=== PATIENT | female | born 1950 | race Caucasian/White ===

== ENCOUNTER 2017-05-27 22:01 | Inpatient (IN) | payer MEDICARE ==
--- NOTE | 2017-05-27 22:35 | ED ---
General Adult HPI - General Chief complaint: Shortness of Breath Stated complaint: poss congestive heart failure Time Seen by Provider: 05/27/17 22:28 Source: patient, RN notes reviewed Mode of arrival: ambulatory Limitations: no limitations - History of Present Illness Initial comments: Patient is a pleasant 67-year-old female presenting to the emergency Department with cough and shortness of breath. Symptoms have progressed over several days. No chest pain. Patient does have occasional yellow sputum. Patient states it is difficult to get the sputum up. No fevers. Patient has had similar symptoms previously associated with congestive heart failure. No leg swelling however patient states she never gets leg swelling. - Related Data Home Medications Medication Instructions Recorded Confirmed Cholecalciferol [Vitamin D3] 5,000 unit PO DAILY 09/23/15 05/27/17 Atorvastatin [Lipitor] 80 mg PO HS 01/08/17 05/27/17 Clopidogrel [Plavix] 75 mg PO DAILY 01/08/17 05/27/17 Docusate Sodium [Dok] 100 mg PO BID 01/08/17 05/27/17 Famotidine [Pepcid] 20 mg PO DAILY 01/08/17 05/27/17 Ferrous Sulfate [Feosol] 325 mg PO TID 01/08/17 05/27/17 Furosemide [Lasix] 20 mg PO DAILY 01/08/17 05/27/17 Aspirin [Children's Aspirin] 81 mg PO DAILY 05/27/17 05/27/17 Budesonide/Formoterol Fumarate 2 puff INHALATION RT-BID 05/27/17 05/27/17 [Symbicort 160-4.5 Mcg Inhaler] Calcium Carbonate [Calcium] 600 mg PO DAILY 05/27/17 05/27/17 Doxycycline Hyclate 100 mg PO DAILY 05/27/17 05/27/17 HYDROcodone/APAP 7.5-325MG [[place] 1 tab PO DAILY PRN 05/27/17 05/27/17 7.5-325] Prolia (Unknown Dose) 1 dose SQ Q180D 05/27/17 05/27/17 Allergies Allergy/AdvReac Type Severity Reaction Status Date / Time Iodinated Contrast- Oral and Allergy Anaphylaxis Verified 05/27/17 22:49 IV Dye [Iodinated Contrast Media - IV Dye] Review of Systems ROS Statement: Those systems with pertinent positive or pertinent negative responses have been documented in the HPI. ROS Other: All systems not noted in ROS Statement are negative. Constitutional: Denies: fever Eyes: Denies: eye pain ENT: Denies: ear pain Respiratory: Reports: cough, dyspnea Cardiovascular: Denies: chest pain Endocrine: Denies: fatigue Gastrointestinal: Denies: abdominal pain Genitourinary: Denies: urgency Musculoskeletal: Denies: back pain Skin: Denies: rash Neurological: Denies: weakness Past Medical History Past Medical History: COPD, Hyperlipidemia, Hypertension, Osteoarthritis (OA), Pneumonia, Renal Disease Additional Past Medical History / Comment(s): aaa 09/2015 pneumonia with sepsis , R parotitis, nephrolithiasis yrs ago, sciatica-R side low back. History of Any Multi-Drug Resistant Organisms: None Reported Past Surgical History: Joint Replacement, Orthopedic Surgery, Tonsillectomy Additional Past Surgical History / Comment(s): Partial thyroidectomy, T total knee arthroplasty, spinal cord stimulator insertion and removal, colonoscopies with benign polypectomies. Past Anesthesia/Blood Transfusion Reactions: No Reported Reaction Past Psychological History: No Psychological Hx Reported Smoking Status: Former smoker Past Alcohol Use History: None Reported Past Drug Use History: None Reported - Past Family History Mother Family Medical History: Cancer, Congestive Heart Failure (CHF) Additional Family Medical History / Comment(s): Mother in her early 80's Father Family Medical History: Myocardial Infarction ([place]) Additional Family Medical History / Comment(s): Father of a [place] in his 50's. General Exam Limitations: no limitations General appearance: alert, in no apparent distress Head exam: Present: atraumatic Eye exam: Present: normal appearance, PERRL ENT exam: Present: normal oropharynx Neck exam: Present: normal inspection Respiratory exam: Present: rales Cardiovascular Exam: Present: regular rate, normal rhythm GI/Abdominal exam: Present: soft. Absent: tenderness Extremities exam: Present: normal inspection. Absent: pedal edema, calf tenderness Neurological exam: Present: alert Psychiatric exam: Present: normal affect, normal mood Skin exam: Present: normal color Course Vital Signs 05/27/17 05/27/17 05/27/17 22:06 22:18 23:44 Temperature 98.3 F Pulse Rate 102 H 105 H 101 H Respiratory 18 18 16 Rate Blood Pressure 120/68 138/70 136/70 O2 Sat by Pulse 95 97 98 Oximetry EKG Findings - EKG Comments: EKG Findings:: Sinus tachycardia 105. MD 170. QRS 156. QT 386. QTc 504. Left axis. Left bundle-branch block. Nonspecific ST-T. Medical Decision Making - Medical Decision Making Patient reevaluated and resting comfortably in bed. Patient does complain of discomfort with cough only. Patient and family updated on results and plan. Case discussed with Dr. Gomes, who will admit for Dr. Moreno. Cardiology will be placed on consult. - Lab Data Result diagrams: 05/27/17 22:59 05/27/17 22:59 Lab Results 05/27/17 05/27/17 05/27/17 Range/Units 22:59 22:59 22:59 WBC 16.4 H (3.8-10.6) k/uL RBC 3.90 (3.80-5.40) m/uL Hgb 11.5 (11.4-16.0) gm/dL Hct 35.0 (34.0-46.0) % MCV 89.7 (80.0-100.0) fL MCH 29.3 (25.0-35.0) pg MCHC 32.7 (31.0-37.0) g/dL RDW 16.0 H (11.5-15.5) % Plt Count 288 (150-450) k/uL Neutrophils % 87 % Lymphocytes % 5 % Monocytes % 7 % Eosinophils % 1 % Basophils % 0 % Neutrophils # 14.2 H (1.3-7.7) k/uL Lymphocytes # 0.8 L (1.0-4.8) k/uL Monocytes # 1.1 H (0-1.0) k/uL Eosinophils # 0.2 (0-0.7) k/uL Basophils # 0.0 (0-0.2) k/uL PT (9.0-12.0) sec INR (<1.2) APTT (22.0-30.0) sec Sodium 137 (137-145) mmol/L Potassium 4.0 (3.5-5.1) mmol/L Chloride 101 (98-107) mmol/L Carbon Dioxide 24 (22-30) mmol/L Anion Gap 12 mmol/L BUN 14 (7-17) mg/dL Creatinine 0.80 (0.52-1.04) mg/dL Est GFR (MDRD) Af Amer >60 (>60 ml/min/1.73 sqM) Est GFR (MDRD) Non-Af >60 (>60 ml/min/1.73 sqM) Glucose 124 H (74-99) mg/dL Calcium 9.7 (8.4-10.2) mg/dL Magnesium 1.9 (1.6-2.3) mg/dL Total Bilirubin 0.6 (0.2-1.3) mg/dL AST 19 (14-36) U/L ALT 33 (9-52) U/L Alkaline Phosphatase 117 (38-126) U/L Total Creatine Kinase 56 (30-135) U/L CK-MB (CK-2) 0.6 (0.0-2.4) ng/mL CK-MB (CK-2) Rel Index 1.1 Troponin I 0.021 (0.000-0.034) ng/mL NT-Pro-B Natriuret Pep pg/mL Total Protein 7.1 (6.3-8.2) g/dL Albumin 4.4 (3.5-5.0) g/dL 05/27/17 05/27/17 Range/Units 22:59 22:59 WBC (3.8-10.6) k/uL RBC (3.80-5.40) m/uL Hgb (11.4-16.0) gm/dL Hct (34.0-46.0) % MCV (80.0-100.0) fL MCH (25.0-35.0) pg MCHC (31.0-37.0) g/dL RDW (11.5-15.5) % Plt Count (150-450) k/uL Neutrophils % % Lymphocytes % % Monocytes % % Eosinophils % % Basophils % % Neutrophils # (1.3-7.7) k/uL Lymphocytes # (1.0-4.8) k/uL Monocytes # (0-1.0) k/uL Eosinophils # (0-0.7) k/uL Basophils # (0-0.2) k/uL PT 11.1 (9.0-12.0) sec INR 1.1 (<1.2) APTT 31.4 H (22.0-30.0) sec Sodium (137-145) mmol/L Potassium (3.5-5.1) mmol/L Chloride (98-107) mmol/L Carbon Dioxide (22-30) mmol/L Anion Gap mmol/L BUN (7-17) mg/dL Creatinine (0.52-1.04) mg/dL Est GFR (MDRD) Af Amer (>60 ml/min/1.73 sqM) Est GFR (MDRD) Non-Af (>60 ml/min/1.73 sqM) Glucose (74-99) mg/dL Calcium (8.4-10.2) mg/dL Magnesium (1.6-2.3) mg/dL Total Bilirubin (0.2-1.3) mg/dL AST (14-36) U/L ALT (9-52) U/L Alkaline Phosphatase (38-126) U/L Total Creatine Kinase (30-135) U/L CK-MB (CK-2) (0.0-2.4) ng/mL CK-MB (CK-2) Rel Index Troponin I (0.000-0.034) ng/mL NT-Pro-B Natriuret Pep 8770 pg/mL Total Protein (6.3-8.2) g/dL Albumin (3.5-5.0) g/dL - Radiology Data Radiology results: image reviewed (Chest x-ray does show some hyperinflation. Chronic scarring.) Disposition Clinical Impression: Congestive heart failure, COPD with exacerbation Disposition: ADMITTED IP TO THIS HOSP Referrals: Daxa Moreno DO [Primary Care Provider] - 1-2 days Decision Time: 00:26
[2017-05-27 23:07] LABS: Basophils % (A) 0 %; CH 28.6; Eosinophils # (A) 0.2 k/uL (0-0.7); Eosinophils % (A) 1 %; HDW 2.67; HGB 11.5 gm/dL (11.4-16.0); Luc # (Auto) 0.14; Luc % (Auto) 1; Lymphocytes # (A) 0.8 k/uL (1.0-4.8); Lymphocytes % (A) 5 %; MCH 29.3 pg (25.0-35.0); MCHC 32.7 g/dL (31.0-37.0); MCV 89.7 fL (80.0-100.0); Mean Platelet Volume 6.8; Monocytes # (A) 1.1 k/uL (0-1.0); Monocytes % (A) 7 %; Neutrophils # (A) 14.2 k/uL (1.3-7.7); Neutrophils % (A) 87 %; WBC 16.4 k/uL (3.8-10.6); WBC (Perox) 17.11
[2017-05-27 23:15] LABS: INR 1.1 (<1.2); Partial Thromboplastin Time 31.4 sec (22.0-30.0); Prothrombin Time 11.1 sec (9.0-12.0)
[2017-05-27 23:16] LABS: ALT 33 U/L (9-52); AST 19 U/L (14-36); Alkaline Phosphatase 117 U/L (38-126); Anion Gap 12 mmol/L; Blood Urea Nitrogen 14 mg/dL (7-17); Calcium 9.7 mg/dL (8.4-10.2); Carbon Dioxide 24 mmol/L (22-30); Chloride 101 mmol/L (98-107); Glucose 124 mg/dL (74-99); Magnesium 1.9 mg/dL (1.6-2.3); Non-African American GFR(MDRD) >60 (>60 ml/min/1.73 sqM); Sodium 137 mmol/L (137-145); Total Bilirubin 0.6 mg/dL (0.2-1.3); Total Protein 7.1 g/dL (6.3-8.2)
--- NOTE | 2017-05-27 23:31 | XR ---
EXAM: XR Chest, 2 Views CLINICAL HISTORY: Reason: difficulty breathing TECHNIQUE: Frontal and lateral views of the chest. COMPARISON: CT 07/06/16 FINDINGS: Lungs: Centrilobular emphysematous changes. Chronic scarring is seen. No consolidation. Pleural space: Unremarkable. No pneumothorax. Heart: Unremarkable. No cardiomegaly. Mediastinum: Unremarkable. Bones/joints: Unremarkable. IMPRESSION: 1. Centrilobular emphysematous changes. 2. Chronic scarring is seen.
[2017-05-27 23:41] LABS: Creatine Kinase MB 0.6 ng/mL (0.0-2.4); Troponin I 0.021 ng/mL (0.000-0.034)
[2017-05-28] MEDS ORDERED: IPRATROPIUM-ALBUTEROL 3 ML NEB INHALATION PRN (00:26)
[2017-05-28] MEDS ORDERED: ASPIRIN 325 MG TAB PO STA (00:26)
[2017-05-28] MEDS ORDERED: Acetaminophen-Codeine 300-30mg TAB PO PRN (00:31)
[2017-05-28] MEDS ORDERED: Acetaminophen-Codeine 300-30mg TAB PO STA (00:31)
[2017-05-28] MEDS: methylPREDNISolone SOD SUCCI 125 MG/2 ML VIAL IV SCH ×5 (00:41→22:39)
[2017-05-28] MEDS: FUROSEMIDE 10 MG/ML 4 ML VIAL IV SCH ×4 (00:42→22:39)
[2017-05-28 02:17] VITALS: BMI 18.3
[2017-05-28 06:02] LABS: Glucose,Whole Blood 159 mg/dL (75-99)
[2017-05-28 06:34] LABS: Creatine Kinase MB 0.6 ng/mL (0.0-2.4); Troponin I 0.023 ng/mL (0.000-0.034)
[2017-05-28] MEDS: IPRATROPIUM-ALBUTEROL 3 ML NEB INHALATION SCH ×4 (08:37→20:52)
[2017-05-28] MEDS: INSULIN LISPRO (humaLOG) 300 UNIT/3 ML VIAL SQ SCH ×4 (09:09→21:14)
[2017-05-28] MEDS: CLOPIDOGREL 75 MG TAB PO SCH (09:20)
[2017-05-28] MEDS: CALCIUM CARBONATE 500 MG CHEWABLE PO SCH (09:20)
[2017-05-28] MEDS: HYDROcodone/APAP 7.5-325MG 1 EACH TAB PO PRN ×2 (09:20→22:37)
[2017-05-28] MEDS: DOCUSATE 100 MG CAP PO SCH ×2 (09:20→20:22)
[2017-05-28] MEDS: FERROUS SULFATE 325 MG TAB PO SCH ×2 (09:21→20:22)
[2017-05-28] MEDS: FAMOTIDINE 20 MG TAB PO SCH (09:21)
[2017-05-28] MEDS: HEPARIN SODIUM,PORCINE 5,000 UNIT/ML 1 ML VIAL SQ SCH ×2 (09:21→20:22)
[2017-05-28] MEDS: NITROGLYCERIN OINT 1 INCH/GM PACKET TOPICAL SCH ×4 (09:34→21:16)
--- NOTE | 2017-05-28 11:42 | P.HPIM ---
History of Present Illness H&P Date: 05/28/17 Chief Complaint: Cough with shortness of breath over the last several days This is a 67-year-old female, patient of Dr. Storm. She has a known past medical history of congestive heart failure monitor cardiomyopathy with an EF of 25%, severe mitral regurgitation with mitral valve clip placed 2 weeks ago through [facility]. She also has a history of hyperlipidemia, COPD and hypertension , myocardial infarction with coronary artery disease and cardiac stents. Patient also wears a LifeVest she'll she can be evaluated for a possible AICD. Patient presents to the hospital with complaints of cough that is productive with yellowish sputum and shortness of breath over the last several days. She reports that she felt like she was filling up again. She was seen by her closing agent in the office and the closing agent had doubled her Lasix dose and added another medication in which patient was not able to get those started before she came into the emergency room. Patient had a BNP level of 8770. She started on IV Lasix 40 mg every 8 hours. Cardiology has been consulted. Patient was also started on IV Solu-Medrol and nebulizer treatments for possible COPD exacerbation. White count was elevated at 16.4. Chest x-ray showing centrilobular emphysematous changes and chronic scarring. EKG shows left bundle branch block with sinus tachycardia heart rate of 105. Patient denies any chest pain. Denies any nausea or vomiting. Denies any bowel movement changes or urinary symptoms. Review of Systems Please refer to HPI otherwise unremarkable Past Medical History Past Medical History: COPD, Hyperlipidemia, Hypertension, Osteoarthritis (OA), Pneumonia, Renal Disease Additional Past Medical History / Comment(s): aaa 09/2015 pneumonia with sepsis , R parotitis, nephrolithiasis yrs ago, sciatica-R side low back. Right knee infection with multiple surgeries and required IV antibiotics. Patient is currently on oral doxycycline no evidence of active infection. History of Any Multi-Drug Resistant Organisms: None Reported Past Surgical History: Heart Catheterization With Stent, Joint Replacement, Orthopedic Surgery, Tonsillectomy Additional Past Surgical History / Comment(s): Partial thyroidectomy, T total knee arthroplasty in October 2016, Right knee infection with additional surgeries spinal cord stimulator insertion and removal, colonoscopies with benign polypectomies. March 2017 stent placed, April Shayy clip, Past Anesthesia/Blood Transfusion Reactions: No Reported Reaction Date of Last Stent Placement:: March 2017 Past Psychological History: No Psychological Hx Reported Additional Psychological History / Comment(s): Pt lives with her spouse. She is independent. Smoking Status: Former smoker Past Alcohol Use History: None Reported Additional Past Alcohol Use History / Comment(s): Pt states she started smoking in 1968 and is a 1ppd smoker. Past Drug Use History: None Reported - Past Family History Mother Family Medical History: Cancer, Congestive Heart Failure (CHF) Additional Family Medical History / Comment(s): Mother in her early 80's Father Family Medical History: Myocardial Infarction ([place]) Additional Family Medical History / Comment(s): Father of a [place] in his 50's. Medications and Allergies Home Medications Medication Instructions Recorded Confirmed Type Cholecalciferol [Vitamin D3] 5,000 unit PO DAILY 09/23/15 05/27/17 History Atorvastatin [Lipitor] 80 mg PO HS 01/08/17 05/27/17 History Clopidogrel [Plavix] 75 mg PO DAILY 01/08/17 05/27/17 History Docusate Sodium [Dok] 100 mg PO BID 01/08/17 05/27/17 History Famotidine [Pepcid] 20 mg PO DAILY 01/08/17 05/27/17 History Ferrous Sulfate [Feosol] 325 mg PO TID 01/08/17 05/27/17 History Furosemide [Lasix] 20 mg PO DAILY 01/08/17 05/27/17 History Aspirin [Children's Aspirin] 81 mg PO DAILY 05/27/17 05/27/17 History Budesonide/Formoterol Fumarate 2 puff INHALATION RT-BID 05/27/17 05/27/17 History [Symbicort 160-4.5 Mcg Inhaler] Calcium Carbonate [Calcium] 600 mg PO DAILY 05/27/17 05/27/17 History Doxycycline Hyclate 100 mg PO DAILY 05/27/17 05/27/17 History HYDROcodone/APAP 7.5-325MG [[place] 1 tab PO DAILY PRN 05/27/17 05/27/17 History 7.5-325] Prolia (Unknown Dose) 1 dose SQ Q180D 05/27/17 05/27/17 History Allergies Allergy/AdvReac Type Severity Reaction Status Date / Time Iodinated Contrast- Oral and Allergy Anaphylaxis Verified 05/27/17 22:49 IV Dye [Iodinated Contrast Media - IV Dye] Physical Exam Vitals: Vital Signs Temp Pulse Pulse Resp BP BP Pulse Ox 05/28/17 08:47 72 05/28/17 08:39 72 97 05/28/17 08:00 98.1 F 69 24 119/68 96 05/28/17 03:51 97.8 F 99 18 121/70 92 L 05/28/17 01:28 98.0 F 99 18 119/73 96 05/28/17 00:47 97 18 144/77 99 05/27/17 23:44 101 H 16 136/70 98 05/27/17 22:18 105 H 18 138/70 97 05/27/17 22:06 98.3 F 102 H 18 120/68 95 Intake and Output 05/27/17 05/28/17 05/28/17 22:59 06:59 14:59 Intake Total 250 120 Output Total 1600 Balance 250 -1480 Intake: Oral 250 120 Output: Urine 1600 Other: # Voids 1 Weight 49.442 kg 48.6 kg Head normocephalic Neck supple Lungs crackles at bases bilaterally Heart regular rate and rhythm S1-S2, no rub or gallop Abdomen is soft nontender nondistended positive bowel sounds no hepatosplenomegaly Extremities no edema right knee scar present. No evidence of any acute infection no drainage no opening or wounds. Neuro alert and orientated to 3 Results CBC & Chem 7: 05/27/17 22:59 05/27/17 22:59 Labs: Abnormal Lab Results - Last 24 Hours (Table) 05/27/17 05/27/17 05/27/17 Range/Units 22:59 22:59 22:59 WBC 16.4 H (3.8-10.6) k/uL RDW 16.0 H (11.5-15.5) % Neutrophils # 14.2 H (1.3-7.7) k/uL Lymphocytes # 0.8 L (1.0-4.8) k/uL Monocytes # 1.1 H (0-1.0) k/uL APTT 31.4 H (22.0-30.0) sec Glucose 124 H (74-99) mg/dL POC Glucose (mg/dL) (75-99) mg/dL 07/21/17 Range/Units 06:00 WBC (3.8-10.6) k/uL RDW (11.5-15.5) % Neutrophils # (1.3-7.7) k/uL Lymphocytes # (1.0-4.8) k/uL Monocytes # (0-1.0) k/uL APTT (22.0-30.0) sec Glucose (74-99) mg/dL POC Glucose (mg/dL) 159 H (75-99) mg/dL Thrombosis Risk Factor Assmnt - Choose All That Apply Any of the Below Risk Factors Present?: No Other Risk Factors: Yes Each Risk Factor Represents 2 Points: Age 61-74 years Other congenital or acquired thrombophilia - If yes, enter type in comment: No Thrombosis Risk Factor Assessment Total Risk Factor Score: 2 Thrombosis Risk Factor Assessment Level: Low Risk Assessment and Plan Plan: 1. Acute on chronic systolic CHF exacerbation: Patient has been started on IV Lasix. BNP level elevated at 8770. Cardiology has been consulted 2. Acute COPD exacerbation: Patient started on nebulizer treatments and IV Solu -Medrol. Continue to monitor 3. Acute tracheobronchitis no evidence of pneumonia on chest x-ray. White count elevated at 16.4. Start Rocephin and azithromycin. Check sputum culture. 4. Steroid-induced hyperglycemia continue with sliding scale coverage 5. History of myocardial infarction with coronary artery disease and cardiac stents. Continue Plavix 6. History of severe mitral regurgitation status post mitral valve clip done at [facility] about 2 weeks ago 7. History of right knee infection requiring previous knee surgery and IV antibiotics. Currently remains on doxycycline 8. Lipidemia continue Lipitor 10. Iron deficiency anemia continue ferrous sulfate GI prophylaxis Pepcid and DVT prophylaxis subcu heparin Time with Patient: Greater than 30 (Greater than 50% of the total time spent in counseling and coordination of care.I performed an examination of the patient and discussed their management with the physician Director Of Integrated Marketing. I have reviewed the Physician Director Of Integrated Marketing's notes and agree with the documented findings and plan of care)
[2017-05-28] MEDS: CHOLECALCIFEROL 1,000 UNIT TAB PO SCH (11:47)
[2017-05-28 11:53] LABS: Glucose,Whole Blood 227 mg/dL (75-99)
[2017-05-28] MEDS ORDERED: DOXYCYCLINE 50 MG CAP PO SCH (12:00)
[2017-05-28 12:03] LABS: Creatine Kinase MB 0.7 ng/mL (0.0-2.4); Troponin I <0.012 ng/mL (0.000-0.034)
[2017-05-28 12:24] LABS: Hemoglobin A1C 4.6 % (4.2-6.1)
--- NOTE | 2017-05-28 12:33 | CONS ---
CHIEF COMPLAINT: Shortness of breath, cough and productive sputum. This is a 67-year-old lady with history of coronary artery disease, status post multivessel angioplasty, mitral regurgitation, chronic systolic heart failure, severe LV dysfunction who has had mitral valve clip done in the recent past. Sees Dr. Noriega at [facility] and has had a myocardial infarction and angioplasty. Comes in complaining of shortness of breath and is admitted to the hospital with congestive heart failure. At the time of my evaluation, she is feeling better, having received the diuretics. BNP is elevated at 8770. She is on IV Lasix 40 mg q.8. Patient's congestive heart failure is probably related to her underlying valvular heart disease and ischemic cardiomyopathy with severe LV dysfunction. Patient has a LifeVest on. Past medical history is significant for multivessel coronary artery disease, mitral regurgitation, hypertension, dyslipidemia. Current medications include Symbicort, Lipitor 80 q.daily, aspirin, Plavix 75 q. daily, iron, Pepcid, Flushing and Lasix. Allergic to IV DYE. Family history is negative for premature coronary artery disease. Social history is negative for current smoking, EtOH abuse or drug abuse. REVIEW OF SYSTEMS: HEENT: Unremarkable. CARDIAC: As described above. RESPIRATORY: As described above. GI: Negative. GENITOURINARY: Negative. ALLERGY: Negative. MUSCULOSKELETAL: Significant for arthritis. PSYCHOSOCIAL: Negative. ENDOCRINE: Negative. DERM: Negative. CONSTITUTIONAL: Negative. ONCOLOGICAL: Negative. HEMATOLOGICAL: Negative. The rest of the system review is not relevant. On exam, comfortable at rest. Heart rate is 70 beats per minute. Blood pressure is 120/68. Respiratory rate is 18. O2 sat is 97%. There is no jugular venous distention. Chest x-ray reveals diminished air entry at the bases. Heart exam reveals first and second heart sounds. Systolic murmur at the apex. Abdomen is soft. Examination of the extremities did not reveal any edema. Peripheral pulses are felt. Labs show that the hemoglobin is 11.5. Platelet count is 288. Creatinine is 0.8. Potassium is 4. Two sets of tropes are negative. BNP is 8770. ASSESSMENT: 1. Acute exacerbation of chronic systolic heart failure. 2. Mitral regurgitation, status post mitral valve clip. 3. Multivessel coronary artery disease, status post angioplasty. 4. Status post LifeVest. PLAN: I am going to do an echocardiogram on her. If her ejection fraction is over 35%, will remove the LifeVest. I will continue the IV Lasix. Continue the Lipitor, aspirin ( ) and put her on a small dose of MAYRA inhibitor and beta aniyah. MTDD
[2017-05-28] MEDS: AZITHROMYCIN 500 MG in SODIUM CHLORIDE 0.9% 250 ML IVPB SCH (13:35)
[2017-05-28 17:03] LABS: Glucose,Whole Blood 178 mg/dL (75-99)
--- NOTE | 2017-05-28 18:40 | ECHOF ---
Referral Reason:chf MEASUREMENTS -------- HEIGHT: 165.1 cm WEIGHT: 47.2 kg BP: IVSd: 1.2 cm (0.6 - 1.1) LVIDd: 4.6 cm (3.9 - 5.3) LVPWd: 1.1 cm (0.6 - 1.1) IVSs: 1.3 cm LVIDs: 5.0 cm LVPWs: 1.3 cm LA Diam: 3.9 cm (2.7 - 3.8) LAESV Index (A-L): 34.96 ml/m Ao Diam: 3.1 cm (2.0 - 3.7) AV Cusp: 1.2 cm (1.5 - 2.6) LA Diam: 3.4 cm (2.7 - 3.8) MV E Alfonso: 0.66 m/s MV DecT: 329 ms MV A Alfonso: 1.27 m/s MV E/A Ratio: 0.52 RAP: 5.00 mmHg RVSP: 14.88 mmHg FINDINGS -------- Sinus rhythm. This was a technically adequate study. There is moderate concentric left ventricular hypertrophy. There is severe global hypokinesis of LV . Overall left ventricular systolic function is severely impaired with, an EF between 20 - 25 %. The LV end diastolic pressure is elevated 23.50. The right ventricle is normal in size. LA is moderately dilated 34-39 ml/m2 The right atrial size is normal. There is mild aortic valve sclerosis. There is mild aortic regurgitation. Mild mitral regurgitation is present. The peak and mean MV gradients are 14.47mmHg 3.76mmHg as measured by doppler. Pt had MV Clip 03/24. Mild tricuspid regurgitation present. There is no evidence of pulmonary hypertension. The right ventricular systolic pressure, as measured by Doppler, is 14.88mmHg. Trace/mild (physiologic) pulmonic regurgitation. The aortic root size is normal. There is no pericardial effusion. CONCLUSIONS -------- 1. This was a technically adequate study. 2. The peak and mean MV gradients are 14.47mmHg 3.76mmHg as measured by doppler. 3. Mild tricuspid regurgitation present. 4. There is no evidence of pulmonary hypertension. 5. Trace/mild (physiologic) pulmonic regurgitation. 6. The aortic root size is normal. 7. There is no pericardial effusion. 8. There is moderate concentric left ventricular hypertrophy. 9. There is severe global hypokinesis of LV . 10. Overall left ventricular systolic function is severely impaired with, an EF between 20 - 25 %. 11. The LV end diastolic pressure is elevated 23.50. 12. LA is moderately dilated 34-39 ml/m2 13. There is mild aortic valve sclerosis. 14. There is mild aortic regurgitation. 15. Mild mitral regurgitation is present. INSPECTOR GOLF BALL: Marlen White RDCS
[2017-05-28] MEDS ORDERED: SYMBICORT 160-4.5 MCG INHALER INHALATION SCH (20:00)
[2017-05-28] MEDS: ATORVASTATIN 80 MG TAB PO SCH (20:22)
[2017-05-28 20:55] LABS: Glucose,Whole Blood 239 mg/dL (75-99)
[2017-05-29] MEDS ORDERED: ASPIRIN 325 MG TAB PO SCH (00:27)
[2017-05-29 06:02] LABS: Glucose,Whole Blood 197 mg/dL (75-99)
[2017-05-29] MEDS: INSULIN LISPRO (humaLOG) 300 UNIT/3 ML VIAL SQ SCH ×4 (06:08→20:43)
[2017-05-29] MEDS: methylPREDNISolone SOD SUCCI 125 MG/2 ML VIAL IV SCH (06:08)
[2017-05-29 07:06] LABS: Anisocytosis Slight; Basophils % (A) 0 %; CH 29.1; CHCM 31.5; Eosinophils % (A) 0 %; HCT 30.2 % (34.0-46.0); Hypochromasia Slight; Luc # (Auto) 0.09; Luc % (Auto) 1; Lymphocytes # (A) 0.6 k/uL (1.0-4.8); Lymphocytes % (A) 4 %; MCHC 31.3 g/dL (31.0-37.0); MCV 92.6 fL (80.0-100.0); Mean Platelet Volume 7.3; Monocytes # (A) 0.6 k/uL (0-1.0); Monocytes % (A) 4 %; Neutrophils # (A) 14.3 k/uL (1.3-7.7); Neutrophils % (A) 92 %; RBC 3.26 m/uL (3.80-5.40); WBC 15.6 k/uL (3.8-10.6); WBC (Perox) 16.01
[2017-05-29 07:14] LABS: ALT 31 U/L (9-52); AST 15 U/L (14-36); Alkaline Phosphatase 90 U/L (38-126); Anion Gap 12 mmol/L; Blood Urea Nitrogen 22 mg/dL (7-17); Calcium 9.4 mg/dL (8.4-10.2); Carbon Dioxide 25 mmol/L (22-30); Chloride 99 mmol/L (98-107); Glucose 155 mg/dL (74-99); HGB 9.5 gm/dL (11.4-16.0); Non-African American GFR(MDRD) >60 (>60 ml/min/1.73 sqM); Potassium 3.2 mmol/L (3.5-5.1); Sodium 136 mmol/L (137-145); Total Bilirubin 0.3 mg/dL (0.2-1.3); Total Protein 5.9 g/dL (6.3-8.2)
[2017-05-29] MEDS: CLOPIDOGREL 75 MG TAB PO SCH (08:54)
[2017-05-29] MEDS: ASPIRIN 325 MG TAB PO SCH ×2 (08:54→19:42)
[2017-05-29] MEDS: DOCUSATE 100 MG CAP PO SCH ×2 (08:54→20:43)
[2017-05-29] MEDS: CALCIUM CARBONATE 500 MG CHEWABLE PO SCH (08:54)
[2017-05-29] MEDS: FAMOTIDINE 20 MG TAB PO SCH (08:54)
[2017-05-29] MEDS: FUROSEMIDE 10 MG/ML 4 ML VIAL IV SCH (08:54)
[2017-05-29] MEDS: HEPARIN SODIUM,PORCINE 5,000 UNIT/ML 1 ML VIAL SQ SCH ×2 (08:55→20:43)
[2017-05-29] MEDS: FERROUS SULFATE 325 MG TAB PO SCH ×2 (08:55→20:43)
[2017-05-29] MEDS: NITROGLYCERIN OINT 1 INCH/GM PACKET TOPICAL SCH ×4 (08:57→20:47)
[2017-05-29] MEDS ORDERED: Potassium Replacement Protocol 1 EACH MISC MISCELLANE PRN (09:46)
[2017-05-29] MEDS ORDERED: ASPIRIN 81 MG CHEW PO STA (10:18)
[2017-05-29] MEDS: IPRATROPIUM-ALBUTEROL 3 ML NEB INHALATION SCH ×4 (10:40→19:19)
--- NOTE | 2017-05-29 11:01 | P.PN ---
Subjective Patient is doing better today. Her shortness of breath is improving. Objective - Vital Signs Vital signs: Vital Signs Temp 97 F L 05/29/17 08:52 Pulse 76 05/29/17 10:57 Resp 16 05/29/17 08:52 BP 131/74 05/29/17 08:52 Pulse Ox 93 L 05/29/17 08:52 Intake & Output 05/28/17 05/29/17 05/29/17 18:59 06:59 18:59 Intake Total 360 20 Output Total 1999 1149 Balance -1640 -1130 Weight 48.6 kg 49.3 kg Intake: IV 20 0.9% NS FLUSH 20 Oral 360 Output: Urine 1999 1149 Other: Voiding Method Toilet # Voids 1 2 - Exam General: The patient is awake and alert, in no distress Eye: there is normal conjunctiva bilaterally. Neck: The neck is supple, there is no JVD. Cardiovascular: Normal S1-S2, no S3-S4, no murmurs. Respiratory: Lungs with mild bibasilar crackles. No audible wheezing. Gastrointestinal: Abdomen is soft, nontender Musculoskeletal: There is no pedal edema. Neurological:. Speech is normal. Skin: Skin is warm and dry - Labs CBC & Chem 7: 05/29/17 06:35 05/29/17 06:35 Labs: Abnormal Lab Results - Last 24 Hours (Table) 05/28/17 05/28/17 05/28/17 Range/Units 11:52 17:01 20:54 WBC (3.8-10.6) k/uL RBC (3.80-5.40) m/uL Hgb (11.4-16.0) gm/dL Hct (34.0-46.0) % RDW (11.5-15.5) % Neutrophils # (1.3-7.7) k/uL Lymphocytes # (1.0-4.8) k/uL Sodium (137-145) mmol/L Potassium (3.5-5.1) mmol/L BUN (7-17) mg/dL Glucose (74-99) mg/dL POC Glucose (mg/dL) 227 H 178 H 239 H (75-99) mg/dL Total Protein (6.3-8.2) g/dL Albumin (3.5-5.0) g/dL 05/29/17 05/29/17 05/29/17 Range/Units 06:01 06:35 06:35 WBC 15.6 H (3.8-10.6) k/uL RBC 3.26 L (3.80-5.40) m/uL Hgb 9.5 L D (11.4-16.0) gm/dL Hct 30.2 L (34.0-46.0) % RDW 16.0 H (11.5-15.5) % Neutrophils # 14.3 H (1.3-7.7) k/uL Lymphocytes # 0.6 L (1.0-4.8) k/uL Sodium 136 L (137-145) mmol/L Potassium 3.2 L (3.5-5.1) mmol/L BUN 22 H (7-17) mg/dL Glucose 155 H (74-99) mg/dL POC Glucose (mg/dL) 197 H (75-99) mg/dL Total Protein 5.9 L (6.3-8.2) g/dL Albumin 3.4 L (3.5-5.0) g/dL Microbiology - Last 24 Hours (Table) 05/28/17 13:16 Gram Stain - Preliminary Sputum Assessment and Plan Plan: 1. Acute on chronic systolic CHF exacerbation: Patient has been started on IV Lasix. BNP level elevated at 8770. Cardiology has been consulted. Echocardiogram showed EF less than 20% 2. Acute COPD exacerbation: Patient started on nebulizer treatments and IV Solu -Medrol. Continue to monitor 3. Acute tracheobronchitis no evidence of pneumonia on chest x-ray. White count elevated at 16.4. Start Rocephin and azithromycin. Check sputum culture. 4. Steroid-induced hyperglycemia continue with sliding scale coverage 5. History of myocardial infarction with coronary artery disease and cardiac stents. Continue Plavix 6. History of severe mitral regurgitation status post mitral valve clip done at [place] about 2 weeks ago 7. History of right knee infection requiring previous knee surgery and IV antibiotics. Currently remains on doxycycline. I would discontinue as patient has been on them medication for several weeks and there is no evidence of ongoing infection. 8. hyperlipidemia continue Lipitor 10. Iron deficiency anemia continue ferrous sulfate Change Lasix dose to 40 mg twice daily. Decrease Solu-Medrol dose of 40 mg twice daily. Awaiting sputum culture. Continue current regimen otherwise.
[2017-05-29] MEDS ORDERED: ZOLPIDEM 5 MG TAB PO PRN (11:20)
[2017-05-29 12:05] LABS: Glucose,Whole Blood 121 mg/dL (75-99)
[2017-05-29] MEDS: AZITHROMYCIN 500 MG in SODIUM CHLORIDE 0.9% 250 ML IVPB SCH (12:10)
[2017-05-29] MEDS: POTASSIUM CHLORIDE ER 20 MEQ TAB.ER PO SCH ×3 (12:10→16:57)
[2017-05-29] MEDS: CHOLECALCIFEROL 1,000 UNIT TAB PO SCH (12:11)
--- NOTE | 2017-05-29 12:33 | P.PN ---
Subjective Principal diagnosis: CHF This pleasant 67-year-old female with known history of coronary artery disease, who recently had myocardial infarction with angioplasty at [facility] by Dr. Noriega. Ejection fraction was documented at that time to be 20% and she has a LifeVest in place. Subsequent to that patient also had mitral valve clip performed at [facility]. She presented to the hospital on this occasion with symptoms of progressively worsening shortness of breath. She's been diuresing well on IV Lasix. Repeat echocardiogram with Doppler study performed here revealed an ejection fraction of 20-25%. Hemoglobin 9.5, potassium 3.2, creatinine 0.7. Overall the patient is feeling significantly better today. She's been instructed to be up ambulating in the nance today we will plan for possible discharge home tomorrow. Objective - Vital Signs Vital signs: Vital Signs Temp 97 F L 05/29/17 08:52 Pulse 80 05/29/17 12:09 Resp 16 05/29/17 12:09 BP 155/72 05/29/17 12:09 Pulse Ox 92 L 05/29/17 12:09 Intake & Output 05/28/17 05/29/17 05/29/17 18:59 06:59 18:59 Intake Total 360 20 Output Total 1999 1150 Balance -1640 -1130 Weight 48.6 kg 49.3 kg Intake: IV 20 0.9% NS FLUSH 20 Oral 360 Output: Urine 1999 1150 Other: Voiding Method Toilet Toilet # Voids 1 2 - Exam PHYSICAL EXAMINATION: HEENT: Head is atraumatic, normocephalic. Pupils equal, round. Neck is supple. There is no elevated jugular venous pressure. HEART EXAMINATION: Heart S1, S2 systolic murmur is heard. . No murmur or gallop heard. CHEST EXAMINATION: Lungs are clear to auscultation and precussion. No chest wall tenderness is noted on palpation or with deep breathing. ABDOMEN: Soft, nontender. Bowel sounds are heard. No organomegaly noted. EXTREMITIES: 2+ peripheral pulses with no evidence of peripheral edema and no calf tenderness noted. NEUROLOGIC patient is awake, alert and oriented -3. . - Labs CBC & Chem 7: 05/29/17 06:35 05/29/17 06:35 Labs: Abnormal Lab Results - Last 24 Hours (Table) 05/28/17 05/28/17 05/29/17 Range/Units 17:01 20:54 06:01 WBC (3.8-10.6) k/uL RBC (3.80-5.40) m/uL Hgb (11.4-16.0) gm/dL Hct (34.0-46.0) % RDW (11.5-15.5) % Neutrophils # (1.3-7.7) k/uL Lymphocytes # (1.0-4.8) k/uL Sodium (137-145) mmol/L Potassium (3.5-5.1) mmol/L BUN (7-17) mg/dL Glucose (74-99) mg/dL POC Glucose (mg/dL) 178 H 239 H 197 H (75-99) mg/dL Total Protein (6.3-8.2) g/dL Albumin (3.5-5.0) g/dL 05/29/17 05/29/17 05/29/17 Range/Units 06:35 06:35 11:50 WBC 15.6 H (3.8-10.6) k/uL RBC 3.26 L (3.80-5.40) m/uL Hgb 9.5 L D (11.4-16.0) gm/dL Hct 30.2 L (34.0-46.0) % RDW 16.0 H (11.5-15.5) % Neutrophils # 14.3 H (1.3-7.7) k/uL Lymphocytes # 0.6 L (1.0-4.8) k/uL Sodium 136 L (137-145) mmol/L Potassium 3.2 L (3.5-5.1) mmol/L BUN 22 H (7-17) mg/dL Glucose 155 H (74-99) mg/dL POC Glucose (mg/dL) 121 H (75-99) mg/dL Total Protein 5.9 L (6.3-8.2) g/dL Albumin 3.4 L (3.5-5.0) g/dL Microbiology - Last 24 Hours (Table) 05/28/17 13:16 Gram Stain - Preliminary Sputum Assessment and Plan (1) Systolic and diastolic CHF, acute on chronic Status: Acute (2) CAD (coronary artery disease) Status: Acute (3) H/O mitral valve repair Status: Acute (4) Ischemic cardiomyopathy Status: Acute (5) COPD (chronic obstructive pulmonary disease) Status: Acute Plan: Cardiology's perspective, we'll discontinue the IV Lasix and placed the patient on oral diuretics. Plan for possible discharge home in the morning if stable. DNP note has been reviewed, I agree with a documented findings and plan of care. Patient was seen and examined.
[2017-05-29] MEDS: FUROSEMIDE 40 MG TAB PO SCH (16:55)
[2017-05-29 17:17] LABS: Glucose,Whole Blood 121 mg/dL (75-99)
[2017-05-29 20:34] LABS: Glucose,Whole Blood 136 mg/dL (75-99)
[2017-05-29] MEDS: ATORVASTATIN 80 MG TAB PO SCH (20:43)
[2017-05-29] MEDS: methylPREDNISolone SOD SUCCI 40 MG/ML 1 ML VIAL IV SCH (20:47)
[2017-05-29] MEDS ORDERED: FUROSEMIDE 10 MG/ML 4 ML VIAL IV SCH (21:00)
[2017-05-29 23:16] VITALS: RESP 16
[2017-05-30 06:16] LABS: Glucose,Whole Blood 120 mg/dL (75-99)
[2017-05-30] MEDS: INSULIN LISPRO (humaLOG) 300 UNIT/3 ML VIAL SQ SCH ×2 (06:20→12:28)
[2017-05-30 06:58] LABS: Anisocytosis Slight; Basophils % (A) 0 %; CHCM 31.7; Eosinophils % (A) 0 %; HCT 30.7 % (34.0-46.0); HDW 2.75; HGB 9.9 gm/dL (11.4-16.0); Hypochromasia Slight; Luc # (Auto) 0.15; Luc % (Auto) 1; Lymphocytes # (A) 0.6 k/uL (1.0-4.8); Lymphocytes % (A) 4 %; MCH 29.7 pg (25.0-35.0); MCHC 32.4 g/dL (31.0-37.0); MCV 91.7 fL (80.0-100.0); Mean Platelet Volume 7.4; Monocytes # (A) 0.8 k/uL (0-1.0); Monocytes % (A) 6 %; Neutrophils # (A) 12.2 k/uL (1.3-7.7); Neutrophils % (A) 88 %; RBC 3.35 m/uL (3.80-5.40); RDW 16.1 % (11.5-15.5); WBC 13.7 k/uL (3.8-10.6); WBC (Perox) 14.07
[2017-05-30 07:11] LABS: ALT 54 U/L (9-52); AST 34 U/L (14-36); Alkaline Phosphatase 93 U/L (38-126); Anion Gap 8 mmol/L; Blood Urea Nitrogen 22 mg/dL (7-17); Calcium 9.4 mg/dL (8.4-10.2); Carbon Dioxide 26 mmol/L (22-30); Chloride 102 mmol/L (98-107); Glucose 98 mg/dL (74-99); Non-African American GFR(MDRD) >60 (>60 ml/min/1.73 sqM); Potassium 4.6 mmol/L (3.5-5.1); Sodium 136 mmol/L (137-145); Total Bilirubin 0.2 mg/dL (0.2-1.3); Total Protein 5.9 g/dL (6.3-8.2)
[2017-05-30] MEDS: IPRATROPIUM-ALBUTEROL 3 ML NEB INHALATION SCH ×3 (08:39→16:12)
[2017-05-30 08:51] VITALS: TEMP 97.5
[2017-05-30] MEDS: CALCIUM CARBONATE 500 MG CHEWABLE PO SCH (08:52)
[2017-05-30] MEDS: CLOPIDOGREL 75 MG TAB PO SCH (08:52)
[2017-05-30] MEDS: DOCUSATE 100 MG CAP PO SCH (08:52)
[2017-05-30] MEDS: NITROGLYCERIN OINT 1 INCH/GM PACKET TOPICAL SCH ×2 (08:52→12:29)
[2017-05-30] MEDS: methylPREDNISolone SOD SUCCI 40 MG/ML 1 ML VIAL IV SCH (08:53)
[2017-05-30] MEDS: FAMOTIDINE 20 MG TAB PO SCH (08:53)
[2017-05-30] MEDS: HEPARIN SODIUM,PORCINE 5,000 UNIT/ML 1 ML VIAL SQ SCH (08:53)
[2017-05-30] MEDS: FERROUS SULFATE 325 MG TAB PO SCH (08:53)
[2017-05-30] MEDS: FUROSEMIDE 40 MG TAB PO SCH (08:53)
[2017-05-30] MEDS ORDERED: ASPIRIN 81 MG CHEW PO SCH (09:00)
[2017-05-30 12:20] LABS: Glucose,Whole Blood 83 mg/dL (75-99)
[2017-05-30 12:28] VITALS: BP 153/86
[2017-05-30] MEDS: CHOLECALCIFEROL 1,000 UNIT TAB PO SCH (12:29)
[2017-05-30] MEDS: AZITHROMYCIN 500 MG in SODIUM CHLORIDE 0.9% 250 ML IVPB SCH (12:29)
--- NOTE | 2017-05-30 15:52 | P.DS ---
Providers Date of admission: 05/28/17 00:26 Expected date of discharge: 05/30/17 Attending physician: Kristin Gomes Consults: 05/28/17 00:26 Consult Physician Routine Consulting Provider: Cornelius Ellis Consult Reason/Comments: chf Do you want consulting provider notified?: Yes Primary care physician: Daxa Moreno [facility] Course: this is a 67-year-old female with past medical history noted below who presented to the hospital with worsening shortness of breath and was found to have evidence of acute heart failure exacerbation. Uses of her medical problems habitus and this hospitalization. Patient's clinical condition improved significantly since admission. She is scheduled to follow-up with her etl bi developer at [facility] tomorrow. She'll be discharged in a stable condition. 1. Acute on chronic systolic CHF exacerbation: Patient has been started on IV Lasix. BNP level elevated at 8770. Cardiology has been consulted. Echocardiogram showed EF less than 20% 2. Acute COPD exacerbation: Patient started on nebulizer treatments and IV Solu -Medrol. Continue to monitor 3. Acute tracheobronchitis no evidence of pneumonia on chest x-ray. White count elevated at 16.4. Start Rocephin and azithromycin. unable to obtain sputum. Would finish antibiotic course with Levaquin for 5 days. 4. Steroid-induced hyperglycemia continue with sliding scale coverage 5. History of myocardial infarction with coronary artery disease and cardiac stents. Continue Plavix 6. History of severe mitral regurgitation status post mitral valve clip done at [place] about 2 weeks ago 7. History of right knee infection requiring previous knee surgery and IV antibiotics. Currently remains on doxycycline. I would discontinue as patient has been on them medication for several weeks and there is no evidence of ongoing infection. 8. hyperlipidemia continue Lipitor 10. Iron deficiency anemia continue ferrous sulfate Plan - Discharge Summary New Discharge Prescriptions: New Furosemide [Lasix] 40 mg PO BID@0900,1600 #60 tab Levofloxacin [Levaquin] 500 mg PO DAILY #5 tab Potassium Chloride ER [K-Dur 10] 10 meq PO DAILY #30 tab Continue Cholecalciferol [Vitamin D3] 5,000 unit PO DAILY Ferrous Sulfate [Iron (65 MG Elemental)] 325 mg PO TID Famotidine [Pepcid] 20 mg PO DAILY Docusate Sodium [Dok] 100 mg PO BID Clopidogrel [Plavix] 75 mg PO DAILY Atorvastatin [Lipitor] 80 mg PO HS Calcium Carbonate [Calcium] 600 mg PO DAILY Budesonide/Formoterol Fumarate [Symbicort 160-4.5 Mcg Inhaler] 2 puff INHALATION RT-BID Aspirin [Children's Aspirin] 81 mg PO DAILY Prolia (Unknown Dose) 1 dose SQ Q180D HYDROcodone/APAP 7.5-325MG [[place] 7.5-325] 1 tab PO DAILY PRN PRN Reason: Pain Discontinued Furosemide [Lasix] 20 mg PO DAILY Doxycycline Hyclate 100 mg PO DAILY Discharge Medication List Cholecalciferol [Vitamin D3] 5,000 unit PO DAILY 09/23/15 [History] Atorvastatin [Lipitor] 80 mg PO HS 01/08/17 [History] Clopidogrel [Plavix] 75 mg PO DAILY 01/08/17 [History] Docusate Sodium [Dok] 100 mg PO BID 01/08/17 [History] Famotidine [Pepcid] 20 mg PO DAILY 01/08/17 [History] Ferrous Sulfate [Iron (65 MG Elemental)] 325 mg PO TID 01/08/17 [History] Aspirin [Children's Aspirin] 81 mg PO DAILY 05/27/17 [History] Budesonide/Formoterol Fumarate [Symbicort 160-4.5 Mcg Inhaler] 2 puff INHALATION RT-BID 05/27/17 [History] Calcium Carbonate [Calcium] 600 mg PO DAILY 05/27/17 [History] HYDROcodone/APAP 7.5-325MG [[place] 7.5-325] 1 tab PO DAILY PRN 05/27/17 [History] Prolia (Unknown Dose) 1 dose SQ Q180D 05/27/17 [History] Furosemide [Lasix] 40 mg PO BID@0900,1600 #60 tab 05/30/17 [Rx] Levofloxacin [Levaquin] 500 mg PO DAILY #5 tab 05/30/17 [Rx] Potassium Chloride ER [K-Dur 10] 10 meq PO DAILY #30 tab 05/30/17 [Rx] Follow up Appointment(s)/Referral(s): Daxa Moreno DO [Primary Care Provider] - 1-2 days Discharge Disposition: HOME SELF-CARE
[2017-05-30 16:14] VITALS: PULSE 78
--- NOTE | 2017-05-31 11:54 | PN ---
Mrs. Nuno is a 67-year-old female who has history of cardiomyopathy and also mitral regurgitation. The patient had a mitral valve procedure. Patient was admitted to the hospital with increasing shortness of breath and evidence of congestive heart failure. Echocardiogram showed an ejection fraction of 20% . Patient also had underlying COPD and tracheobronchitis. The patient had a vest. The patient has an appointment to see her marine service operator at a different hospital. The patient is feeling much better today. She is being discharged home. Follow up with her own marine service operator. She is being discharged home on Lasix 40 mg p.o. b.i.d., Levaquin, potassium supplement, ferrous sulfate, clopidogrel, atorvastatin, aspirin. Her blood pressure has been running about 130/70, pulse rate is about 80, respirations are about 12-16. Lab values showed a white count of 13,000, hemoglobin 9.9, it was 11.5 on admission. Electrolytes are normal. BUN and creatinine are in normal range. FINAL IMPRESSION: 1. Congestive heart failure. 2. Exacerbation of chronic obstructive pulmonary disease. 3. Cardiomyopathy. 4. History of mitral valve replacement. PLAN: The patient seemed to be clinically stable. Could be discharged home, follow up with her own marine service operator. ALFIE
== END 2017-05-30 17:15 | disposition home or self-care (01) | DRG 292 ==
LOC: EC 22:01 → 6SEL 05-28 00:26
PROVIDERS: ADMIT Internal Medicine; ATTEND Internal Medicine
DX: I11.0 Hypertensive heart disease with heart failure (principal); J44.0 Chronic obstructive pulmonary disease with (acute) lower respiratory infection; Z95.2 Presence of prosthetic heart valve; E78.5 Hyperlipidemia, unspecified; D50.9 Iron deficiency anemia, unspecified; E89.0 Postprocedural hypothyroidism; F17.200 Nicotine dependence, unspecified, uncomplicated; J44.1 Chronic obstructive pulmonary disease with (acute) exacerbation; I50.23 Acute on chronic systolic (congestive) heart failure; I25.10 Atherosclerotic heart disease of native coronary artery without angina pectoris; J20.9 Acute bronchitis, unspecified; I25.5 Ischemic cardiomyopathy; T38.0X5A Adverse effect of glucocorticoids and synthetic analogues, initial encounter; R73.9 Hyperglycemia, unspecified; M19.90 Unspecified osteoarthritis, unspecified site; I25.2 Old myocardial infarction; I71.4 Abdominal aortic aneurysm, without rupture; M54.31 Sciatica, right side; I44.7 Left bundle-branch block, unspecified; R00.0 Tachycardia, unspecified; I34.0 Nonrheumatic mitral (valve) insufficiency; Z79.899 Other long term (current) drug therapy; Z95.5 Presence of coronary angioplasty implant and graft; Z82.49 Family history of ischemic heart disease and other diseases of the circulatory system; Z79.02 Long term (current) use of antithrombotics/antiplatelets; Z87.442 Personal history of urinary calculi; Z91.041 Radiographic dye allergy status; Z79.82 Long term (current) use of aspirin; Z79.51 Long term (current) use of inhaled steroids; Z79.83 Long term (current) use of bisphosphonates; Z71.3 Dietary counseling and surveillance; Z86.19 Personal history of other infectious and parasitic diseases; Z98.890 Other specified postprocedural states; Z80.9 Family history of malignant neoplasm, unspecified; Z96.659 Presence of unspecified artificial knee joint; Z86.010 Personal history of colon polyps; Z87.01 Personal history of pneumonia (recurrent); Z87.448 Personal history of other diseases of urinary system
CPT/HCPCS: 36415; 71020; 80053; 82550; 82553; 83036; 83735; 83880; 84132; 84484; 85025; 85610; 85730; 87070; 87205; 93005; 93306; 94640; 94760

== ENCOUNTER 2018-01-10 14:30 | Inpatient (IN) | payer MEDICARE ==
[2018-01-10] MEDS ORDERED: IPRATROPIUM-ALBUTEROL 3 ML NEB INHALATION STA (15:08)
[2018-01-10] MEDS ORDERED: FAMOTIDINE 20 MG/2 ML VIAL IV STA (15:09)
[2018-01-10] MEDS ORDERED: methylPREDNISolone SOD SUCCI 125 MG/2 ML VIAL IV STA (15:09)
[2018-01-10] MEDS ORDERED: diphenhydrAMINE 50 MG/ML 1 ML VIAL IVP STA (15:09)
[2018-01-10] MEDS ORDERED: KETOROLAC 30 MG/ML 1 ML VIAL IVP STA (15:09)
[2018-01-10] MEDS ORDERED: RX INFO: IV CONTRAST WAS GIVEN 1 EACH MISC MISCELLANE PRN (15:10)
--- NOTE | 2018-01-10 15:19 | ED ---
SOB HPI - General Chief Complaint: Shortness of Breath Stated Complaint: SOB Time Seen by Provider: 01/10/18 14:54 Source: patient, RN notes reviewed Mode of arrival: wheelchair Limitations: no limitations - History of Present Illness Initial Comments: This is a 67-year-old female with a history of COPD history of aortic aneurysm who was sent from her doctor's office today with complaints of pleuritic like chest pain cough and phlegm production. She has pain in her back as this was trying to take a deep breath and coughing she has had fevers chills and sweats over the past 2 days oh none today. She has of a history of cardiac disease as well as lung disease. She does believe however that the pain is more pleuritic and related to her cough and lung issues. A concern from her doctor who did discuss the case with is for pulmonary embolism. Patient will be evaluated for the same. She does states she may cough of yellow-green colored phlegm up. MD Complaint: shortness of breath, cough, chest pain - Related Data Home Medications Medication Instructions Recorded Confirmed Cholecalciferol [Vitamin D3] 5,000 unit PO DAILY 09/23/15 01/10/18 Atorvastatin [Lipitor] 80 mg PO HS 01/08/17 01/10/18 Clopidogrel [Plavix] 75 mg PO DAILY 01/08/17 01/10/18 Docusate Sodium [Dok] 100 mg PO BID 01/08/17 01/10/18 Famotidine [Pepcid] 20 mg PO DAILY 01/08/17 01/10/18 Calcium Carbonate [Calcium] 600 mg PO DAILY 05/27/17 01/10/18 HYDROcodone/APAP 7.5-325MG [[place] 1 tab PO DAILY PRN 05/27/17 01/10/18 7.5-325] Aspirin EC [Ecotrin Low Dose] 81 mg PO DAILY 09/02/17 01/10/18 Denosumab [Prolia] 60 mg SQ Q180D 01/10/18 01/10/18 Fluticasone/Vilanterol [Breo 1 puff INHALATION RT-DAILY 01/10/18 01/10/18 Ellipta 200-25 Mcg INH] Lisinopril [Prinivil] 5 mg PO DAILY 01/10/18 01/10/18 Metoprolol Tartrate [Lopressor] 12.5 mg PO BID 01/10/18 01/10/18 Previous Rx's Medication Instructions Recorded Furosemide [Lasix] 40 mg PO BID@0900,1600 #60 tab 09/13/17 Nitroglycerin Sl Tabs [Nitrostat] 0.4 mg SUBLINGUAL Q5M PRN #25 tab 09/13/17 Polyethylene Glycol 3350 [Miralax] 17 gm PO HS #30 powd.pack 09/13/17 Zinc Oxide 20% Oint 1 applic TOPICAL BID #1 tube 09/13/17 Allergies Allergy/AdvReac Type Severity Reaction Status Date / Time Iodinated Contrast- Oral and Allergy Anaphylaxis Verified 01/10/18 15:17 IV Dye [Iodinated Contrast Media - IV Dye] Review of Systems ROS Statement: Those systems with pertinent positive or pertinent negative responses have been documented in the HPI. ROS Other: All systems not noted in ROS Statement are negative. Past Medical History Past Medical History: Heart Failure, COPD, Hyperlipidemia, Hypertension, Osteoarthritis (OA), Pneumonia, Renal Disease Additional Past Medical History / Comment(s): aaa 09/2015 pneumonia with sepsis , R parotitis, nephrolithiasis yrs ago, sciatica-R side low back. fx Right knee- had sx then had an infection with multiple surgeries and required IV antibiotics. Patient is currently on oral doxycycline no evidence of active infection. Cardiomyopathy with an EF of 20% currently has a LifeVest. Severe mitral regurgitation status post mitral valve clipping in May 2017 History of Any Multi-Drug Resistant Organisms: None Reported Past Surgical History: Heart Catheterization With Stent, Joint Replacement, Orthopedic Surgery, Tonsillectomy Additional Past Surgical History / Comment(s): Partial thyroidectomy, T total knee arthroplasty in October 2016, Right knee infection with additional surgeries spinal cord stimulator insertion and removal, colonoscopies with benign polypectomies. March 2017 6 stent placed, may -had mitral valve clip Past Anesthesia/Blood Transfusion Reactions: No Reported Reaction Date of Last Stent Placement:: March 2017 Past Psychological History: No Psychological Hx Reported Smoking Status: Former smoker Past Alcohol Use History: None Reported Past Drug Use History: None Reported - Past Family History Mother Family Medical History: Cancer, Congestive Heart Failure (CHF) Additional Family Medical History / Comment(s): Mother in her early 80's Father Family Medical History: Myocardial Infarction (MD) Additional Family Medical History / Comment(s): Father of a MD in his 50's. General Exam - General Exam Comments Initial Comments: This is a well-developed well-nourished awake alert oriented 3 female she does appear somewhat dyspneic Limitations: no limitations General appearance: alert, in no apparent distress Head exam: Present: atraumatic, normocephalic, normal inspection Eye exam: Present: normal appearance, PERRL, EOMI. Absent: scleral icterus, conjunctival injection, periorbital swelling ENT exam: Present: mucous membranes dry Neck exam: Present: normal inspection. Absent: tenderness, meningismus, lymphadenopathy Respiratory exam: Present: wheezes (Scattered wheezes. She does demonstrate kyphosis. No tenderness palpation of the chest wall.), decreased breath sounds. Absent: respiratory distress, rales, rhonchi, stridor Cardiovascular Exam: Present: regular rate, normal rhythm, normal heart sounds. Absent: systolic murmur, diastolic murmur, rubs, gallop, clicks GI/Abdominal exam: Present: soft, normal bowel sounds. Absent: distended, tenderness, guarding, rebound, rigid Extremities exam: Present: normal inspection, full ROM, normal capillary refill. Absent: tenderness, pedal edema, joint swelling, calf tenderness Back exam: Present: normal inspection Neurological exam: Present: alert, oriented X3, CN II-XII intact Psychiatric exam: Present: normal affect, normal mood Skin exam: Present: warm, dry, intact, normal color. Absent: rash Course Vital Signs 01/10/18 01/10/18 01/10/18 14:44 15:07 15:35 Temperature 98.4 F Pulse Rate 100 98 98 Respiratory 18 18 Rate Blood Pressure 161/77 178/78 O2 Sat by Pulse 95 98 Oximetry 01/10/18 01/10/18 01/10/18 15:49 15:55 16:38 Temperature Pulse Rate 98 98 101 H Respiratory 18 18 Rate Blood Pressure 175/99 161/88 O2 Sat by Pulse 97 96 Oximetry - Reevaluation(s) Reevaluation #1: 01/10/18 15:18 Sec and attempted EKG interpretation atrial sensed paced rhythm of 90. A 124 QRS 132 QT since QTC of this is compared with EKG dated 08/2617 Medical Decision Making - Medical Decision Making Patient is feeling somewhat improved she does them straight evidence of COPD exacerbation and tracheobronchitis no evidence of pulmonary embolus at this time. Patient will be admitted she has seen Dr. Samuel in the past. - Lab Data Result diagrams: 01/10/18 15:20 01/10/18 15:20 Lab Results 01/10/18 01/10/18 01/10/18 Range/Units 15:20 15:20 15:20 WBC 11.1 H (3.8-10.6) k/uL RBC 3.83 (3.80-5.40) m/uL Hgb 10.2 L (11.4-16.0) gm/dL Hct 31.2 L (34.0-46.0) % MCV 81.3 (80.0-100.0) fL MCH 26.6 (25.0-35.0) pg MCHC 32.7 (31.0-37.0) g/dL RDW 15.3 (11.5-15.5) % Plt Count 277 (150-450) k/uL Neutrophils % 82 % Lymphocytes % 7 % Monocytes % 9 % Eosinophils % 0 % Basophils % 0 % Neutrophils # 9.0 H (1.3-7.7) k/uL Lymphocytes # 0.8 L (1.0-4.8) k/uL Monocytes # 1.0 (0-1.0) k/uL Eosinophils # 0.0 (0-0.7) k/uL Basophils # 0.0 (0-0.2) k/uL Hypochromasia Moderate PT (9.0-12.0) sec INR (<1.2) APTT (22.0-30.0) sec D-Dimer (<0.60) mg/L FEU Sodium 133 L (137-145) mmol/L Potassium 3.3 L (3.5-5.1) mmol/L Chloride 93 L (98-107) mmol/L Carbon Dioxide 25 (22-30) mmol/L Anion Gap 15 mmol/L BUN 12 (7-17) mg/dL Creatinine 0.60 (0.52-1.04) mg/dL Est GFR (MDRD) Af Amer >60 (>60 ml/min/1.73 sqM) Est GFR (MDRD) Non-Af >60 (>60 ml/min/1.73 sqM) Glucose 112 H (74-99) mg/dL Calcium 10.0 (8.4-10.2) mg/dL Magnesium 1.8 (1.6-2.3) mg/dL Total Bilirubin 0.6 (0.2-1.3) mg/dL AST 24 (14-36) U/L ALT 18 (9-52) U/L Alkaline Phosphatase 92 (38-126) U/L Total Creatine Kinase 38 (30-135) U/L CK-MB (CK-2) 0.5 (0.0-2.4) ng/mL CK-MB (CK-2) Rel Index 1.3 Troponin I 0.012 (0.000-0.034) ng/mL NT-Pro-B Natriuret Pep pg/mL Total Protein 6.9 (6.3-8.2) g/dL Albumin 3.9 (3.5-5.0) g/dL 01/10/18 01/10/18 Range/Units 15:20 15:20 WBC (3.8-10.6) k/uL RBC (3.80-5.40) m/uL Hgb (11.4-16.0) gm/dL Hct (34.0-46.0) % MCV (80.0-100.0) fL MCH (25.0-35.0) pg MCHC (31.0-37.0) g/dL RDW (11.5-15.5) % Plt Count (150-450) k/uL Neutrophils % % Lymphocytes % % Monocytes % % Eosinophils % % Basophils % % Neutrophils # (1.3-7.7) k/uL Lymphocytes # (1.0-4.8) k/uL Monocytes # (0-1.0) k/uL Eosinophils # (0-0.7) k/uL Basophils # (0-0.2) k/uL Hypochromasia PT 10.6 (9.0-12.0) sec INR 1.1 (<1.2) APTT 30.8 H (22.0-30.0) sec D-Dimer 2.74 H (<0.60) mg/L FEU Sodium (137-145) mmol/L Potassium (3.5-5.1) mmol/L Chloride (98-107) mmol/L Carbon Dioxide (22-30) mmol/L Anion Gap mmol/L BUN (7-17) mg/dL Creatinine (0.52-1.04) mg/dL Est GFR (MDRD) Af Amer (>60 ml/min/1.73 sqM) Est GFR (MDRD) Non-Af (>60 ml/min/1.73 sqM) Glucose (74-99) mg/dL Calcium (8.4-10.2) mg/dL Magnesium (1.6-2.3) mg/dL Total Bilirubin (0.2-1.3) mg/dL AST (14-36) U/L ALT (9-52) U/L Alkaline Phosphatase (38-126) U/L Total Creatine Kinase (30-135) U/L CK-MB (CK-2) (0.0-2.4) ng/mL CK-MB (CK-2) Rel Index Troponin I (0.000-0.034) ng/mL NT-Pro-B Natriuret Pep 6310 pg/mL Total Protein (6.3-8.2) g/dL Albumin (3.5-5.0) g/dL - EKG Data -: EKG Interpreted by Me (Atrial sensed pacemaker rate was 90. Interval 124 QRS 1:30 QT since QTC of) - Radiology Data Radiology results: report reviewed (I did review the imaging and reports no evidence of pulmonary embolus at this time. There is however evidence of new nodularity noted left lower lobe some mediastinal adenopathy is also some suspected. No overt pneumonia some emphysematous changes. He already known about abdominal aortic aneurysm is present.), image reviewed Disposition Clinical Impression: COPD with exacerbation, Tracheobronchitis, Pleuritic chest pain, Hypokalemia, Pulmonary nodule, left Disposition: ADMITTED IP TO THIS HOSP Condition: Stable Referrals: Rama Joseph MD [Primary Care Provider] - 1-2 days
[2018-01-10] MEDS: SODIUM CHLORIDE 0.9% 1,000 ML IV STA (15:27)
[2018-01-10 15:28] LABS: Basophils % (A) 0 %; Eosinophils % (A) 0 %; HCT 31.2 % (34.0-46.0); HGB 10.2 gm/dL (11.4-16.0); Hypochromasia Moderate; Lymphocytes # (A) 0.8 k/uL (1.0-4.8); Lymphocytes % (A) 7 %; MCH 26.6 pg (25.0-35.0); MCHC 32.7 g/dL (31.0-37.0); MCV 81.3 fL (80.0-100.0); Mean Platelet Volume 7.3; Monocytes % (A) 9 %; Neutrophils % (A) 82 %; Platelet Count 277 k/uL (150-450); RBC 3.83 m/uL (3.80-5.40); RDW 15.3 % (11.5-15.5); WBC 11.1 k/uL (3.8-10.6)
[2018-01-10 15:36] LABS: D-Dimer 2.74 mg/L FEU (<0.60)
[2018-01-10 15:42] LABS: ALT 18 U/L (9-52); AST 24 U/L (14-36); Albumin 3.9 g/dL (3.5-5.0); Alkaline Phosphatase 92 U/L (38-126); Anion Gap 15 mmol/L; Blood Urea Nitrogen 12 mg/dL (7-17); Carbon Dioxide 25 mmol/L (22-30); Chloride 93 mmol/L (98-107); Glucose 112 mg/dL (74-99); Magnesium 1.8 mg/dL (1.6-2.3); Potassium 3.3 mmol/L (3.5-5.1); Sodium 133 mmol/L (137-145); Total Bilirubin 0.6 mg/dL (0.2-1.3); Total Protein 6.9 g/dL (6.3-8.2)
[2018-01-10 15:45] LABS: INR 1.1 (<1.2); Partial Thromboplastin Time 30.8 sec (22.0-30.0); Prothrombin Time 10.6 sec (9.0-12.0)
[2018-01-10 16:03] LABS: Creatine Kinase MB 0.5 ng/mL (0.0-2.4); Troponin I 0.012 ng/mL (0.000-0.034)
[2018-01-10] MEDS ORDERED: LISINOPRIL 5 MG TAB PO STA (16:06)
[2018-01-10] MEDS ORDERED: METOPROLOL TARTRATE 12.5 MG TAB PO STA (16:06)
--- NOTE | 2018-01-10 16:47 | CT ---
EXAMINATION TYPE: CT angio chest DATE OF EXAM: 01/10/2018 COMPARISON: NONE HISTORY: SOB and cough. CT DLP: 140 mGycm. Automated Exposure Control for Dose Reduction was Utilized. CONTRAST: CTA scan of the thorax is performed with IV Contrast, patient injected with 100ml mL of Omnipaque 350 , pulmonary embolism protocol. MIP Images are created on CT scanner and reviewed. FINDINGS: LUNGS: Biapical nodular pleural parenchymal thickening is noted. There are moderate background centri lobular emphysematous changes throughout the lungs. Left lower lobe superior segment pulmonary nodule measures 1.1 x 1.1 cm on series 5 image 50. This is new from the prior exam of 07/06/2016. Additional area of focal pleural thickening/subpleural nodule just inferior to this on image 63 measures 1.6 x 0.5 cm. Similar focal pleural thickening and subpleural nodularity measure 1.6 x 0.7 cm on image 94. Mild peribronchial cuffing (image 113) and mucus plugging are seen within the right lung base with mu cus plugging on image 122. Biceps basilar nodular airspace disease is also noted dependently that cou ld relate to pneumonitis or atelectasis. Similar reticular nodular opacities are seen anteriorly with in the upper lobes on image 85. MEDIASTINUM: There is satisfactory enhancement of the pulmonary artery and its branches, there is no CT evidence for pulmonary embolism. Mediastinal adenopathy measures 1.1 cm in the subcarinal space, 1 .1 cm in the left paratracheal space, and 1 cm in the aorticopulmonary window. No cardiomegaly or per icardial effusion is seen. Descending thoracic aorta is enlarged at the diaphragmatic hiatus measurin g 3.5 cm in transverse dimension. Severe calcific and noncalcific atheromatous plaquing is noted. No evidence of dissection. Severe three-vessel coronary artery calcifications are also seen. Ascending t horacic aorta is within normal limits measuring 3.2 cm. OTHER: Abdominal aortic aneurysm is partially visualized measuring up to 3.9 x 3.7 cm. Soft tissue pr ominence surrounding this likely relates to small bowel in the inferior vena cava rather than adenopa thy. IMPRESSION: 1. No evidence of pulmonary embolus. 2. New suspicious left lower lobe superior segment pulmonary nodule measuring 1.1 cm and multifocal l eft-sided focal pleural thickening/subpleural nodules. Mediastinal adenopathy is also suspicious. Fur ther evaluation with PET CT could be considered. 3. Peribronchial cuffing and mucus plugging in association with bibasilar airspace disease may repres ent bronchitis and postobstructive atelectasis although early pneumonia is possible in the appropriat e clinical setting. Findings are similar within the anterior upper lobes. 4. Moderate background centrilobular emphysematous changes. 5. Partial visualization of the mid abdominal aortic aneurysm and descending thoracic aortic aneurysm with extensive calcific atheromatous changes of the aorta and coronary arteries.
[2018-01-10] MEDS ORDERED: NITROGLYCERIN SL TABS 0.4 MG TAB SUBLINGUAL PRN (17:03)
[2018-01-10] MEDS ORDERED: LEVOFLOXACIN 750MG-D5W PMX 750 MG in DEXTROSE/WATER 1 150ML.BAG IVPB STA (17:08)
[2018-01-10] MEDS ORDERED: DENOSUMAB 60 MG/ML 1 ML SYRINGE SQ SCH (17:15)
[2018-01-10] MEDS: POLYETHYLENE GLYCOL 3350 17 GM POWD.PACK PO SCH (19:34)
[2018-01-10] MEDS: ZINC OXIDE 20% OINT 28.4 GM TUBE TOPICAL SCH (19:34)
[2018-01-10] MEDS: IPRATROPIUM-ALBUTEROL 3 ML NEB INHALATION SCH ×2 (19:47→23:31)
[2018-01-10] MEDS: SYMBICORT 160-4.5 MCG INHALER INHALATION SCH (19:53)
[2018-01-10] MEDS: DOCUSATE 100 MG CAP PO SCH (21:27)
[2018-01-10] MEDS: METOPROLOL TARTRATE 12.5 MG TAB PO SCH (21:27)
[2018-01-10] MEDS: ATORVASTATIN 80 MG TAB PO SCH (21:27)
[2018-01-10] MEDS: methylPREDNISolone SOD SUCCI 125 MG/2 ML VIAL IV SCH (23:29)
[2018-01-11] MEDS: IPRATROPIUM-ALBUTEROL 3 ML NEB INHALATION SCH ×5 (03:46→19:18)
[2018-01-11] MEDS ORDERED: Potassium Replacement Protocol 1 EACH MISC MISCELLANE PRN (04:05)
[2018-01-11] MEDS: POTASSIUM CHLORIDE ER 20 MEQ TAB.ER PO SCH ×3 (05:12→12:47)
[2018-01-11] MEDS: methylPREDNISolone SOD SUCCI 125 MG/2 ML VIAL IV SCH ×4 (05:13→23:47)
[2018-01-11] MEDS: METOPROLOL TARTRATE 12.5 MG TAB PO SCH ×2 (07:14→22:18)
[2018-01-11] MEDS: CLOPIDOGREL 75 MG TAB PO SCH (07:14)
[2018-01-11] MEDS: FUROSEMIDE 40 MG TAB PO SCH ×2 (07:15→15:12)
[2018-01-11] MEDS: ASPIRIN 81 MG PO SCH (07:16)
[2018-01-11] MEDS: LISINOPRIL 5 MG TAB PO SCH (07:16)
[2018-01-11] MEDS: DOCUSATE 100 MG CAP PO SCH ×2 (07:16→21:06)
[2018-01-11] MEDS: FAMOTIDINE 20 MG TAB PO SCH (07:16)
[2018-01-11] MEDS: ZINC OXIDE 20% OINT 28.4 GM TUBE TOPICAL SCH ×2 (07:17→21:05)
[2018-01-11] MEDS: SYMBICORT 160-4.5 MCG INHALER INHALATION SCH ×2 (07:53→19:18)
[2018-01-11 09:15] LABS: Basophils % (A) 0 %; Eosinophils % (A) 0 %; HCT 28.1 % (34.0-46.0); Hypochromasia Moderate; Lymphocytes # (A) 0.4 k/uL (1.0-4.8); Lymphocytes % (A) 5 %; MCH 26.7 pg (25.0-35.0); MCHC 32.1 g/dL (31.0-37.0); MCV 83.1 fL (80.0-100.0); Mean Platelet Volume 7.1; Monocytes # (A) 0.2 k/uL (0-1.0); Monocytes % (A) 2 %; Neutrophils # (A) 8.3 k/uL (1.3-7.7); Neutrophils % (A) 92 %; Platelet Count 260 k/uL (150-450); Poikilocytosis Slight; RBC 3.38 m/uL (3.80-5.40); RDW 14.8 % (11.5-15.5)
[2018-01-11 09:17] LABS: Albumin 3.2 g/dL (3.5-5.0); Calcium 9.2 mg/dL (8.4-10.2); Potassium 3.6 mmol/L (3.5-5.1); Total Bilirubin 0.4 mg/dL (0.2-1.3); Total Protein 5.8 g/dL (6.3-8.2)
[2018-01-11] MEDS: SODIUM CHLORIDE 0.9% 1,000 ML IV STA ×2 (12:46→15:18)
[2018-01-11] MEDS: CHOLECALCIFEROL 1,000 UNIT TAB PO SCH (12:47)
[2018-01-11] MEDS: CALCIUM CARBONATE 500 MG CHEWABLE PO SCH (12:47)
--- NOTE | 2018-01-11 13:26 | P.HPIM ---
History of Present Illness H&P Date: 01/11/18 Chief Complaint: Cough and shortness of breath This is a 67-year-old female with a known history of COPD, ischemic cardiomyopathy status post AICD, congestive heart failure, myocardial infarction with coronary disease and cardiac stents, severe mitral regurgitation with clip. She presents to the hospital with a three-day complaint of cough and shortness of breath and pleuritic chest pain. Patient is wheezing and increased shortness of breath with activity. She presented to the emergency room for further evaluation. She's found have an elevated d- dimer. Computed tomography scan of the chest shows no PE. Does revealing new suspicious left lower lobe superior segment pulmonary nodule measuring 1.1 cm and multifocal left-sided focal pleural thickening and subpleural nodules. Mediastinal adenopathy is also suspicious. Parabronchial coughing and mucus plugging in association with by basilar airspace disease may represent bronchitis and postobstructive atelectasis although early pneumonia is possible. Also partial visualization of the mid abdominal aortic aneurysm and descending thoracic aortic aneurysm. Patient has been started on IV steroids and IV antibiotics for an acute COPD exacerbation and possible pneumonia. White count was 11.1 and pulmonary service has been consulted. Patient denies any fever chills or sweats. Denies any nausea or vomiting. Denies any bowel movement changes or urinary symptoms. Review of Systems Please refer to HPI otherwise unremarkable Past Medical History Past Medical History: Heart Failure, COPD, Hyperlipidemia, Hypertension, Osteoarthritis (OA), Pneumonia, Renal Disease Additional Past Medical History / Comment(s): aaa 09/2015 pneumonia with sepsis , R parotitis, nephrolithiasis yrs ago, sciatica-R side low back. fx Right knee- had sx then had an infection with multiple surgeries and required IV antibiotics. Patient is currently on oral doxycycline no evidence of active infection. Cardiomyopathy with an EF of 20% currently has a LifeVest. Severe mitral regurgitation status post mitral valve clipping in May 2017 History of Any Multi-Drug Resistant Organisms: None Reported Past Surgical History: Heart Catheterization With Stent, Joint Replacement, Orthopedic Surgery, Tonsillectomy Additional Past Surgical History / Comment(s): Partial thyroidectomy, T total knee arthroplasty in October 2016, Right knee infection with additional surgeries spinal cord stimulator insertion and removal, colonoscopies with benign polypectomies. March 2017 6 stent placed, may -had mitral valve clip Past Anesthesia/Blood Transfusion Reactions: No Reported Reaction Date of Last Stent Placement:: March 2017 Past Psychological History: No Psychological Hx Reported Additional Psychological History / Comment(s): Pt lives with her spouse. has a nebulizer/cane Smoking Status: Former smoker Past Alcohol Use History: None Reported Additional Past Alcohol Use History / Comment(s): Pt states she started smoking in 1968 was a 1ppd smoker, quit oct 2016 Past Drug Use History: None Reported - Past Family History Mother Family Medical History: Cancer, Congestive Heart Failure (CHF) Additional Family Medical History / Comment(s): Mother in her early 80's Father Family Medical History: Myocardial Infarction ([place]) Additional Family Medical History / Comment(s): Father of a [place] in his 50's. Medications and Allergies Home Medications Medication Instructions Recorded Confirmed Type Cholecalciferol [Vitamin D3] 5,000 unit PO DAILY 09/23/15 01/10/18 History Atorvastatin [Lipitor] 80 mg PO HS 01/08/17 01/10/18 History Clopidogrel [Plavix] 75 mg PO DAILY 01/08/17 01/10/18 History Docusate Sodium [Dok] 100 mg PO BID 01/08/17 01/10/18 History Famotidine [Pepcid] 20 mg PO DAILY 01/08/17 01/10/18 History Calcium Carbonate [Calcium] 600 mg PO DAILY 05/27/17 01/10/18 History HYDROcodone/APAP 7.5-325MG [[place] 1 tab PO DAILY PRN 05/27/17 01/10/18 History 7.5-325] Aspirin EC [Ecotrin Low Dose] 81 mg PO DAILY 09/02/17 01/10/18 History Furosemide [Lasix] 40 mg PO BID@0900,1600 #60 tab 09/13/17 01/10/18 Rx Nitroglycerin Sl Tabs [Nitrostat] 0.4 mg SUBLINGUAL Q5M PRN #25 tab 09/13/1703/25 Rx Polyethylene Glycol 3350 [Miralax] 17 gm PO HS #30 powd.pack 09/13/17 01/10/18 Rx Zinc Oxide 20% Oint 1 applic TOPICAL BID #1 tube 09/13/17 01/10/18 Rx Denosumab [Prolia] 60 mg SQ Q180D 01/10/18 01/10/18 History Fluticasone/Vilanterol [Breo 1 puff INHALATION RT-DAILY 01/10/18 01/10/18 History Ellipta 200-25 Mcg INH] Lisinopril [Prinivil] 5 mg PO DAILY 01/10/18 01/10/18 History Metoprolol Tartrate [Lopressor] 12.5 mg PO BID 01/10/18 01/10/18 History Allergies Allergy/AdvReac Type Severity Reaction Status Date / Time Iodinated Contrast- Oral and Allergy Anaphylaxis Verified 01/10/18 15:17 IV Dye [Iodinated Contrast Media - IV Dye] Physical Exam Vitals: Vital Signs Temp Pulse Pulse Pulse Resp BP BP 01/11/18 12:09 76 01/11/18 11:57 72 01/11/18 08:16 80 01/11/18 07:54 80 01/11/18 07:26 82 18 01/11/18 07:00 93.5 F L 82 18 01/11/18 03:58 72 01/11/18 03:46 68 01/11/18 00:00 94 18 01/10/18 23:39 72 01/10/18 23:31 64 01/10/18 20:59 97.6 F 94 18 01/10/18 19:57 83 01/10/18 19:49 83 01/10/18 19:30 80 83 18 01/10/18 19:20 98.1 F 83 18 152/76 01/10/18 18:33 97.6 F 76 18 133/77 01/10/18 17:35 98.1 F 95 16 01/10/18 16:38 101 H 18 161/88 01/10/18 15:55 98 18 175/99 01/10/18 15:49 98 01/10/18 15:35 98 01/10/18 15:07 98 18 178/78 01/10/18 14:44 98.4 F 100 18 161/77 BP Pulse Ox 01/11/18 12:09 01/11/18 11:57 01/11/18 08:16 01/11/18 07:54 01/11/18 07:26 01/11/18 07:00 148/67 92 L 01/11/18 03:58 01/11/18 03:46 01/11/18 00:00 01/10/18 23:39 01/10/18 23:31 01/10/18 20:59 98/54 90 L 01/10/18 19:57 01/10/18 19:49 01/10/18 19:30 01/10/18 19:20 95 01/10/18 18:33 95 01/10/18 17:35 152/76 95 01/10/18 16:38 96 01/10/18 15:55 97 01/10/18 15:49 01/10/18 15:35 01/10/18 15:07 98 01/10/18 14:44 95 Intake and Output 01/10/18 01/11/18 01/11/18 22:59 06:59 14:59 Intake Total 150 Balance 150 Intake: Intake, IV Titration 150 Amount Levofloxacin 750Mg-D5w 150 Pmx 750 mg In Dextrose/ Water 1 150ml.bag @ 100 mls/hr IVPB Q24H [facility] Rx#: [id number] Other: Voiding Method Toilet Toilet Toilet Bedside Commode Bedside Commode Bedside Commode # Voids 1 Weight 49 kg 49 kg Patient Weight 01/12/18 06:59 Weight 49 kg Head normocephalic Neck supple Lungs wheezing with coarse breath sounds Heart regular rate and rhythm S1-S2, no rub or gallop Abdomen is soft nontender nondistended positive bowel sounds no hepatosplenomegaly Extremities no edema Neuro alert and orientated to 3 Results CBC & Chem 7: 01/11/18 08:52 01/11/18 08:52 Labs: Abnormal Lab Results - Last 24 Hours (Table) 01/10/18 01/10/18 01/10/18 Range/Units 15:20 15:20 15:20 WBC 11.1 H (3.8-10.6) k/uL RBC (3.80-5.40) m/uL Hgb 10.2 L (11.4-16.0) gm/dL Hct 31.2 L (34.0-46.0) % Neutrophils # 9.0 H (1.3-7.7) k/uL Lymphocytes # 0.8 L (1.0-4.8) k/uL APTT 30.8 H (22.0-30.0) sec D-Dimer 2.74 H (<0.60) mg/L FEU Sodium 133 L (137-145) mmol/L Potassium 3.3 L (3.5-5.1) mmol/L Chloride 93 L (98-107) mmol/L Carbon Dioxide (22-30) mmol/L BUN (7-17) mg/dL Glucose 112 H (74-99) mg/dL Total Protein (6.3-8.2) g/dL Albumin (3.5-5.0) g/dL 01/11/18 01/11/18 Range/Units 08:52 08:52 WBC (3.8-10.6) k/uL RBC 3.38 L (3.80-5.40) m/uL Hgb 9.0 L (11.4-16.0) gm/dL Hct 28.1 L (34.0-46.0) % Neutrophils # 8.3 H (1.3-7.7) k/uL Lymphocytes # 0.4 L (1.0-4.8) k/uL APTT (22.0-30.0) sec D-Dimer (<0.60) mg/L FEU Sodium 134 L (137-145) mmol/L Potassium (3.5-5.1) mmol/L Chloride (98-107) mmol/L Carbon Dioxide 20 L (22-30) mmol/L BUN 19 H (7-17) mg/dL Glucose 332 H (74-99) mg/dL Total Protein 5.8 L (6.3-8.2) g/dL Albumin 3.2 L (3.5-5.0) g/dL Thrombosis Risk Factor Assmnt - Choose All That Apply Each Factor Represents 1 point: Abnormal pulmonary function (COPD) Other Risk Factors: Yes Each Risk Factor Represents 2 Points: Age 61-74 years Thrombosis Risk Factor Assessment Total Risk Factor Score: 3 Thrombosis Risk Factor Assessment Level: Moderate Risk Assessment and Plan Assessment: 1. Acute COPD exacerbation: Patient started on IV Solu-Medrol and bronchodilators. Pulmonary service consulted 2. Possible developing pneumonia: Started on IV Levaquin. Sputum culture ordered. Pulmonary service consulted 3. Elevated d-dimer on admission CTA negative for PE 4. New suspicious left lower lobe superior segment pulmonary nodule measuring 1.1 cm noted on computed tomography scan of the chest. Pulmonary service consulted. Patient does have a past history of smoking 5. Abdominal aortic aneurysm and descending thoracic aortic aneurysm. With abdominal aortic aneurysm only partially visualized measuring 3.9 x 3.7 cm abdominal ultrasound will be ordered for further evaluation. Descending Thoracic aortic aneurysm measuring 3.5 cm 6. History of ischemic cardiomyopathy status post AICD placement 7. History of myocardial infarction with coronary disease and cardiac stents 8. History of iron deficiency anemia patient has stopped taking her iron supplement. Hemoglobin is 9. Check iron studies. May need to restart iron supplement 9. History of severe mitral regurgitation status post mitral valve click completed at [place] May 2017 GI prophylaxis Pepcid and DVT prophylaxis Lovenox Time with Patient: Greater than 30 (Greater than 50% of the total time spent in counseling and coordination of care.I performed an examination of the patient and discussed their management with the physician Back Stayer. I have reviewed the Physician Back Stayer's notes and agree with the documented findings and plan of care)
[2018-01-11] MEDS: ENOXAPARIN 40 MG/0.4 ML SYRINGE SQ SCH (15:13)
[2018-01-11] MEDS: LEVOFLOXACIN 750MG-D5W PMX 750 MG in DEXTROSE/WATER 1 150ML.BAG IVPB SCH (17:55)
--- NOTE | 2018-01-11 18:40 | P.CNPUL ---
History of Present Illness Consult date: 01/11/18 Reason for consult: dyspnea, cough, COPD, hypoxemia, pneumonia, lung mass, abnormal CXR/CT Chief complaint: Acute COPD exacerbation, purulent tracheobronchitis History of present illness: Patient is a 67-year-old female presents to the hospital with a three-day complaint of cough and shortness of breath and pleuritic chest pain. Patient is wheezing and increased shortness of breath with activity. She presented to the emergency room for further evaluation. She's found have an elevated d- dimer. Computed tomography scan of the chest shows no PE. Does revealing new suspicious left lower lobe superior segment pulmonary nodule measuring 1.1 cm and multifocal left-sided focal pleural thickening and subpleural nodules. Mediastinal adenopathy is also suspicious. Parabronchial coughing and mucus plugging in association with by basilar airspace disease may represent bronchitis and postobstructive atelectasis although early pneumonia is possible. Also partial visualization of the mid abdominal aortic aneurysm and descending thoracic aortic aneurysm. Patient has been started on IV steroids and IV antibiotics for an acute COPD exacerbation and possible pneumonia. She has not been doing well for the last 5-6 days with progressive worsening of respiratory status denies any hemoptysis Note that some of the nodules have appearance of infiltrative processes with thick wall and the early cavitary formation, blood cultures have been negative so far This is a 67-year-old female with a known history of COPD, ischemic cardiomyopathy status post AICD, congestive heart failure, myocardial infarction with coronary disease and cardiac stents, severe mitral regurgitation with clip. Review of Systems All systems: negative Past Medical History Past Medical History: Heart Failure, COPD, Hyperlipidemia, Hypertension, Osteoarthritis (OA), Pneumonia, Renal Disease Additional Past Medical History / Comment(s): aaa 09/2015 pneumonia with sepsis , R parotitis, nephrolithiasis yrs ago, sciatica-R side low back. fx Right knee- had sx then had an infection with multiple surgeries and required IV antibiotics. Patient is currently on oral doxycycline no evidence of active infection. Cardiomyopathy with an EF of 20% currently has a LifeVest. Severe mitral regurgitation status post mitral valve clipping in May 2017 History of Any Multi-Drug Resistant Organisms: None Reported Past Surgical History: Heart Catheterization With Stent, Joint Replacement, Orthopedic Surgery, Tonsillectomy Additional Past Surgical History / Comment(s): Partial thyroidectomy, T total knee arthroplasty in October 2016, Right knee infection with additional surgeries spinal cord stimulator insertion and removal, colonoscopies with benign polypectomies. March 2017 6 stent placed, may -had mitral valve clip Past Anesthesia/Blood Transfusion Reactions: No Reported Reaction Date of Last Stent Placement:: March 2017 Past Psychological History: No Psychological Hx Reported Additional Psychological History / Comment(s): Pt lives with her spouse. has a nebulizer/cane Smoking Status: Former smoker Past Alcohol Use History: None Reported Additional Past Alcohol Use History / Comment(s): Pt states she started smoking in 1968 was a 1ppd smoker, quit oct 2016 Past Drug Use History: None Reported - Past Family History Mother Family Medical History: Cancer, Congestive Heart Failure (CHF) Additional Family Medical History / Comment(s): Mother in her early 80's Father Family Medical History: Myocardial Infarction ([place]) Additional Family Medical History / Comment(s): Father of a [place] in his 50's. Medications and Allergies Home Medications Medication Instructions Recorded Confirmed Type Cholecalciferol [Vitamin D3] 5,000 unit PO DAILY 09/23/15 01/10/18 History Atorvastatin [Lipitor] 80 mg PO HS 01/08/17 01/10/18 History Clopidogrel [Plavix] 75 mg PO DAILY 01/08/17 01/10/18 History Docusate Sodium [Dok] 100 mg PO BID 01/08/17 01/10/18 History Famotidine [Pepcid] 20 mg PO DAILY 01/08/17 01/10/18 History Calcium Carbonate [Calcium] 600 mg PO DAILY 05/27/17 01/10/18 History HYDROcodone/APAP 7.5-325MG [[place] 1 tab PO DAILY PRN 05/27/17 01/10/18 History 7.5-325] Aspirin EC [Ecotrin Low Dose] 81 mg PO DAILY 09/02/17 01/10/18 History Furosemide [Lasix] 40 mg PO BID@0900,1600 #60 tab 09/13/17 01/10/18 Rx Nitroglycerin Sl Tabs [Nitrostat] 0.4 mg SUBLINGUAL Q5M PRN #25 tab 09/13/1703/25 Rx Polyethylene Glycol 3350 [Miralax] 17 gm PO HS #30 powd.pack 09/13/17 01/10/18 Rx Zinc Oxide 20% Oint 1 applic TOPICAL BID #1 tube 09/13/17 01/10/18 Rx Denosumab [Prolia] 60 mg SQ Q180D 01/10/18 01/10/18 History Fluticasone/Vilanterol [Breo 1 puff INHALATION RT-DAILY 01/10/18 01/10/18 History Ellipta 200-25 Mcg INH] Lisinopril [Prinivil] 5 mg PO DAILY 01/10/18 01/10/18 History Metoprolol Tartrate [Lopressor] 12.5 mg PO BID 01/10/18 01/10/18 History Allergies Allergy/AdvReac Type Severity Reaction Status Date / Time Iodinated Contrast- Oral and Allergy Anaphylaxis Verified 01/10/18 15:17 IV Dye [Iodinated Contrast Media - IV Dye] Physical Exam Vitals: Vital Signs Temp Pulse Pulse Pulse Resp BP BP 01/11/18 16:00 110 H 18 01/11/18 15:49 96 01/11/18 15:29 104 H 01/11/18 15:00 97.7 F 110 H 18 01/11/18 12:09 76 01/11/18 11:57 72 01/11/18 08:16 80 01/11/18 07:54 80 01/11/18 07:26 82 18 01/11/18 07:00 93.5 F L 82 18 01/11/18 03:58 72 01/11/18 03:46 68 01/11/18 00:00 94 18 01/10/18 23:39 72 01/10/18 23:31 64 01/10/18 20:59 97.6 F 94 18 01/10/18 19:57 83 01/10/18 19:49 83 01/10/18 19:30 80 83 18 01/10/18 19:20 98.1 F 83 18 152/76 01/10/18 18:33 97.6 F 76 18 133/77 BP Pulse Ox 01/11/18 16:00 01/11/18 15:49 01/11/18 15:29 01/11/18 15:00 146/68 95 01/11/18 12:09 01/11/18 11:57 01/11/18 08:16 01/11/18 07:54 01/11/18 07:26 01/11/18 07:00 148/67 92 L 01/11/18 03:58 01/11/18 03:46 01/11/18 00:00 01/10/18 23:39 01/10/18 23:31 01/10/18 20:59 98/54 90 L 01/10/18 19:57 01/10/18 19:49 01/10/18 19:30 01/10/18 19:20 95 01/10/18 18:33 95 Intake and Output 01/11/18 01/11/18 01/11/18 06:59 14:59 22:59 Intake Total 500 Balance 500 Intake: Intake, IV Titration 500 Amount Sodium Chloride 0.9% 1, 500 000 ml @ 100 mls/hr IV . Q10H [facility] Rx#:[id number] Other: Voiding Method Toilet Toilet Toilet Bedside Commode Bedside Commode Bedside Commode # Voids 1 1 Weight 49 kg 49 kg Patient Weight 01/12/18 06:59 Weight 49 kg General appearance: alert, in no apparent distress Head exam: Present: atraumatic, normocephalic, normal inspection Eye exam: Present: normal appearance, PERRL, EOMI. Absent: scleral icterus, conjunctival injection, periorbital swelling ENT exam: Present: mucous membranes dry Neck exam: Present: normal inspection. Absent: tenderness, meningismus, lymphadenopathy Respiratory exam: Present: wheezes (Scattered wheezes. She does demonstrate kyphosis. No tenderness palpation of the chest wall.), decreased breath sounds. Absent: respiratory distress, rales, rhonchi, stridor, Cardiovascular Exam: Present: regular rate, normal rhythm, normal heart sounds. Absent: systolic murmur, diastolic murmur, rubs, gallop, clicks GI/Abdominal exam: Present: soft, normal bowel sounds. Absent: distended, tenderness, guarding, rebound, rigid Extremities exam: Present: normal inspection, full ROM, normal capillary refill. Absent: tenderness, pedal edema, joint swelling, calf tenderness Back exam: Present: normal inspection Neurological exam: Present: alert, oriented X3, CN II-XII intact Psychiatric exam: Present: normal affect, normal mood Skin exam: Present: warm, dry, intact, normal color. Absent: rash Results - Laboratory Findings CBC and BMP: 03/06/18 08:52 01/11/18 08:52 PT/INR, D-dimer PT 10.6 sec (9.0-12.0) 01/10/18 15:20 INR 1.1 (<1.2) 01/10/18 15:20 D-Dimer 2.74 mg/L FEU (<0.60) H 01/10/18 15:20 Abnormal lab findings: Abnormal Labs 01/10/18 01/10/18 01/10/18 15:20 15:20 15:20 WBC 11.1 H RBC Hgb 10.2 L Hct 31.2 L Neutrophils # 9.0 H Lymphocytes # 0.8 L APTT 30.8 H D-Dimer 2.74 H Sodium 133 L Potassium 3.3 L Chloride 93 L Carbon Dioxide BUN Glucose 112 H Total Protein Albumin 01/11/18 01/11/18 08:52 08:52 WBC RBC 3.38 L Hgb 9.0 L Hct 28.1 L Neutrophils # 8.3 H Lymphocytes # 0.4 L APTT D-Dimer Sodium 134 L Potassium Chloride Carbon Dioxide 20 L BUN 19 H Glucose 332 H Total Protein 5.8 L Albumin 3.2 L - Diagnostic Findings Chest x-ray: report reviewed, image reviewed CT scan - chest: report reviewed, image reviewed (Bilateral infiltrative nodule with the couple of them have early cavitary formation and thick walled, mediastinal lymph node prominence has been noted along with the descending thoracic aneurysm and abdominal aortic aneurysm) Assessment and Plan Assessment: Bilateral nodular infiltrate with some of them early cavitary appearance Acute COPD exacerbation Bilateral pneumonia Mediastinal likely reactive lymphadenopathy Uncontrolled hypertension hypertensive cardiovascular disease Abdominal aortic aneurysm and ascending thoracic aneurysm Plan: Gentle rehydration Breathing treatments IV antibiotics as well as IV steroids We'll reschedule patient for bronchoscopy and BAL Ammann procedure explained to the patient at length Also will schedule patient for 2-D echo to look for endocarditis Time with Patient: Greater than 30
[2018-01-11 18:55] LABS: Iron Saturation 2.19 (12.00-45.00)
[2018-01-11] MEDS ORDERED: IPRATROPIUM-ALBUTEROL 3 ML NEB INHALATION PRN (20:11)
[2018-01-11 20:20] LABS: Glucose,Whole Blood 210 mg/dL (75-99)
[2018-01-11] MEDS: ATORVASTATIN 80 MG TAB PO SCH (21:06)
[2018-01-11] MEDS: POLYETHYLENE GLYCOL 3350 17 GM POWD.PACK PO SCH (21:06)
[2018-01-12] MEDS: methylPREDNISolone SOD SUCCI 125 MG/2 ML VIAL IV SCH ×4 (05:47→23:23)
[2018-01-12] MEDS: SYMBICORT 160-4.5 MCG INHALER INHALATION SCH ×2 (07:55→20:35)
[2018-01-12] MEDS: IPRATROPIUM-ALBUTEROL 3 ML NEB INHALATION SCH ×4 (07:55→20:35)
[2018-01-12 08:01] LABS: Glucose,Whole Blood 165 mg/dL (75-99)
[2018-01-12] MEDS: LISINOPRIL 5 MG TAB PO SCH (08:29)
[2018-01-12] MEDS: CLOPIDOGREL 75 MG TAB PO SCH ×2 (08:29→08:30)
[2018-01-12] MEDS: FUROSEMIDE 40 MG TAB PO SCH ×2 (08:30→17:11)
[2018-01-12] MEDS: DOCUSATE 100 MG CAP PO SCH ×2 (08:30→22:01)
[2018-01-12] MEDS: METOPROLOL TARTRATE 12.5 MG TAB PO SCH ×2 (08:31→22:02)
[2018-01-12] MEDS: ASPIRIN 81 MG PO SCH (08:31)
[2018-01-12] MEDS: ZINC OXIDE 20% OINT 28.4 GM TUBE TOPICAL SCH ×2 (08:31→22:02)
[2018-01-12] MEDS: FAMOTIDINE 20 MG TAB PO SCH (08:31)
[2018-01-12] MEDS: INSULIN ASPART 100 UNIT/ML 1 ML 10 ML VIAL SQ SCH ×4 (08:33→22:01)
[2018-01-12 08:55] LABS: Basophils % (A) 0 %; Eosinophils % (A) 0 %; HCT 26.4 % (34.0-46.0); HGB 8.3 gm/dL (11.4-16.0); Hypochromasia Moderate; Lymphocytes # (A) 0.4 k/uL (1.0-4.8); Lymphocytes % (A) 3 %; MCH 25.8 pg (25.0-35.0); MCHC 31.6 g/dL (31.0-37.0); MCV 81.6 fL (80.0-100.0); Mean Platelet Volume 7.4; Monocytes # (A) 0.6 k/uL (0-1.0); Monocytes % (A) 3 %; Neutrophils # (A) 16.1 k/uL (1.3-7.7); Neutrophils % (A) 93 %; Platelet Count 287 k/uL (150-450); RBC 3.24 m/uL (3.80-5.40); RDW 15.7 % (11.5-15.5); WBC 17.2 k/uL (3.8-10.6)
[2018-01-12 09:21] LABS: ALT 104 U/L (9-52); AST 88 U/L (14-36); Alkaline Phosphatase 78 U/L (38-126); Anion Gap 9 mmol/L; Blood Urea Nitrogen 19 mg/dL (7-17); Calcium 9.1 mg/dL (8.4-10.2); Carbon Dioxide 26 mmol/L (22-30); Chloride 104 mmol/L (98-107); Glucose 138 mg/dL (74-99); Potassium 3.7 mmol/L (3.5-5.1); Sodium 139 mmol/L (137-145); Total Bilirubin 0.2 mg/dL (0.2-1.3); Total Protein 5.4 g/dL (6.3-8.2)
--- NOTE | 2018-01-12 11:02 | US ---
EXAMINATION TYPE: US duplex aorta DATE OF EXAM: 01/12/2018 COMPARISON: CT angiogram of the chest dated 2017 CLINICAL HISTORY: Abdominal aortic aneurysm. Previous smoker. AAA. High cholesterol. HTN. EXAM MEASUREMENTS: Abdominal Aorta: Proximal: 2.1 x 2.2 cm Distal: 1.8 x 2.0 cm Bifurcation: Right - 0.7 x 0.5 cm Left - 0.7 x 0.5 cm Abdominal aortic aneurysm seen in mid/distal portion = 4.0 x 2.9 cm. Plaque seen from proximal Aorta to bifurcation. Atheromatous changes are present. Grayscale, color Doppler imaging performed of the abdominal aorta. Aorta shows color flow. Aneurysmal dilation of the abdominal aorta somewhat hourglass in shape. IMPRESSION: Infrarenal abdominal aortic aneurysm
[2018-01-12 11:21] LABS: Glucose,Whole Blood 128 mg/dL (75-99)
[2018-01-12] MEDS: CALCIUM CARBONATE 500 MG CHEWABLE PO SCH (11:43)
[2018-01-12] MEDS: CHOLECALCIFEROL 1,000 UNIT TAB PO SCH (11:43)
[2018-01-12] MEDS ORDERED: PROPOFOL 10 MG/ML 20 ML VIAL IV ONE (14:04)
[2018-01-12] MEDS ORDERED: KETAMINE 10 MG/ML 20 ML VIAL ONE (14:04)
[2018-01-12] MEDS ORDERED: GLYCOPYRROLATE 0.2 MG/ML 2 ML VIAL ONE (14:04)
[2018-01-12] MEDS ORDERED: IV FLUID CONTINUATION 1,000 ML IV ONE (14:04)
[2018-01-12] MEDS ORDERED: LIDOCAINE 2% INJ 20 MG/ML INTRATRACH ONE ×2 (14:13→14:22)
--- NOTE | 2018-01-12 14:33 | P.PCN ---
Date of Procedure: 01/12/18 Preoperative Diagnosis: pneumonia, bilateral reticulonodular cavitary infiltrates Postoperative Diagnosis: as above Procedure(s) Performed: 1. bronchoscopy, 2 bal rul, rll, lll Anesthesia: other Surgeon: Constantin Samuel Estimated Blood Loss (ml): 0 Condition: stable Disposition: floor Indications for Procedure: as above Operative Findings: Diffuse erythema and edema noted with mucus plugging no endobronchial mass or lesion noted, tolerated procedure well Description of Procedure: as above went thru left nares, right very narrow, normal vocal cords
[2018-01-12] MEDS: ENOXAPARIN 40 MG/0.4 ML SYRINGE SQ SCH (16:58)
[2018-01-12] MEDS: HYDROcodone/APAP 7.5-325MG 1 EACH TAB PO PRN (17:11)
[2018-01-12] MEDS: LEVOFLOXACIN 750MG-D5W PMX 750 MG in DEXTROSE/WATER 1 150ML.BAG IVPB SCH (17:11)
--- NOTE | 2018-01-12 17:23 | ECHOF ---
Referral Reason:endocarditis, pulmnary hypertension, MEASUREMENTS -------- HEIGHT: 162.6 cm WEIGHT: 49.0 kg BP: 159/65 RVIDd: 2.2 cm (< 3.3) IVSd: 1.0 cm (0.6 - 1.1) LVIDd: 4.9 cm (3.9 - 5.3) LVPWd: 1.1 cm (0.6 - 1.1) IVSs: 1.2 cm LVIDs: 4.2 cm LVPWs: 1.3 cm LAESV Index (A-L): 41.72 ml/m Ao Diam: 2.5 cm (2.0 - 3.7) AV Cusp: 1.0 cm (1.5 - 2.6) LA Diam: 4.4 cm (2.7 - 3.8) MV E Alfonso: 1.75 m/s MV DecT: 203 ms MV A Alfonso: 2.31 m/s MV E/A Ratio: 0.76 RAP: 15.00 mmHg RVSP: 43.64 mmHg %FS: 18.58 % EDV(Teich): 56.81 ml EF(Teich): 39.21 % ESV(Teich): 34.54 ml IVSd: 1.49 cm (0.6 - 1.1) IVSs: 1.59 cm LVIDd: 3.66 cm (3.9 - 5.3) LVIDs: 2.98 cm LVPWd: 1.46 cm (0.6 - 1.1) LVPWs: 1.65 cm SV(Teich): 22.27 ml FINDINGS -------- Paced rhythm. This was a technically good study. The left ventricular size is normal. There is mild concentric left ventricular hypertrophy. There is mild global hypokinesis of LV . Overall left ventricular systolic function is mild-moderately i mpaired with, an EF between 40 - 45 %. The right ventricle is normal in size and function. LA is severely dilated >40 ml/m2 Electronic pacemaker lead seen in the right ventricular cavity. RA appears enlarged. Aortic valve is trileaflet and is mildly thickened. There is mild aortic regurgitation. There is no evidence of aortic stenosis. Severe mitral regurgitation is present. Patient has history of mitral valve clip. Mild tricuspid regurgitation present. There is mild pulmonary hypertension. The right ventricular systolic pressure, as measured by Doppler, is 43.64mmHg. Trace/mild (physiologic) pulmonic regurgitation. The aortic root size is normal. The inferior vena cava is dilated with poor inspiratory collapse which is consistent with estimated r ight atrial pressure of 20 mmHg. There is a moderate pericardial effusion is located near the right ventricle. Moderate Pleural Effu raul. CONCLUSIONS -------- 1. Paced rhythm. 2. This was a technically good study. 3. The left ventricular size is normal. 4. There is mild concentric left ventricular hypertrophy. 5. There is mild global hypokinesis of LV . 6. Overall left ventricular systolic function is mild-moderately impaired with, an EF between 40 - 45 %. 7. LA is severely dilated >40 ml/m2 8. Electronic pacemaker lead seen in the right ventricular cavity. 9. RA appears enlarged. 10. Aortic valve is trileaflet and is mildly thickened. 11. There is mild aortic regurgitation. 12. Severe mitral regurgitation is present. 13. Patient has history of mitral valve clip. 14. Mild tricuspid regurgitation present. 15. There is mild pulmonary hypertension. 16. The right ventricular systolic pressure, as measured by Doppler, is 43.64mmHg. 17. Trace/mild (physiologic) pulmonic regurgitation. 18. The aortic root size is normal. 19. The inferior vena cava is dilated with poor inspiratory collapse which is consistent with estimat ed right atrial pressure of 20 mmHg. 20. There is a moderate pericardial effusion is located near the right ventricle. 21. Moderate Pleural Effusion. [employer]ER: Codey Vallejo RDCS
--- NOTE | 2018-01-12 17:57 | P.PN ---
Subjective Progress Note Date: 01/12/18 This is a 67-year-old female with a known history of COPD, ischemic cardiomyopathy status post AICD, congestive heart failure, myocardial infarction with coronary disease and cardiac stents, severe mitral regurgitation with clip. She presents to the hospital with a three-day complaint of cough and shortness of breath and pleuritic chest pain. Patient is wheezing and increased shortness of breath with activity. She presented to the emergency room for further evaluation. She's found have an elevated d- dimer. Computed tomography scan of the chest shows no PE. Does revealing new suspicious left lower lobe superior segment pulmonary nodule measuring 1.1 cm and multifocal left-sided focal pleural thickening and subpleural nodules. Mediastinal adenopathy is also suspicious. Parabronchial coughing and mucus plugging in association with by basilar airspace disease may represent bronchitis and postobstructive atelectasis although early pneumonia is possible. Also partial visualization of the mid abdominal aortic aneurysm and descending thoracic aortic aneurysm. Patient has been started on IV steroids and IV antibiotics for an acute COPD exacerbation and possible pneumonia. White count was 11.1 and pulmonary service has been consulted. Patient denies any fever chills or sweats. Denies any nausea or vomiting. Denies any bowel movement changes or urinary symptoms. On 01/12/2018 patient is alert and oriented she is still complaining of continuous cough she is complaining of shortness of breath and wheezing with any activity, she underwent bronchoscopy earlier with Dr. Samuel. Otherwise she denies any complaints Objective - Vital Signs Vital signs: Vital Signs Temp 97.8 F 01/12/18 15:00 Pulse 96 01/12/18 16:39 Resp 16 01/12/18 16:00 BP 184/87 01/12/18 15:00 Pulse Ox 95 01/12/18 15:00 Intake & Output 01/11/18 01/12/18 01/12/18 18:59 06:59 18:59 Intake Total 500 800 Balance 500 800 Weight 49 kg 49.2 kg 49.2 kg Intake: IV 200 Intake, IV Titration 500 600 Amount IV Fluid Continuation 1, 600 000 ml As IV .[facility] Rx#:[id number] Sodium Chloride 0.9% 1, 500 000 ml @ 100 mls/hr IV . Q10H [facility] Rx#:[id number] Other: Voiding Method Toilet Toilet Toilet Bedside Commode Bedside Commode Bedside Commode # Voids 1 3 3 - Exam Head normocephalic and atraumatic Neck supple no JVD no goiter Lungs wheezing with coarse breath sounds Heart regular rate and rhythm S1-S2, no rub or gallop Abdomen is soft nontender nondistended positive bowel sounds no hepatosplenomegaly Extremities no edema Neuro alert and orientated to 3 - Labs CBC & Chem 7: 01/12/18 08:25 01/12/18 08:25 Labs: Abnormal Lab Results - Last 24 Hours (Table) 01/11/18 01/11/18 01/12/18 Range/Units 08:52 20:06 07:49 WBC (3.8-10.6) k/uL RBC (3.80-5.40) m/uL Hgb (11.4-16.0) gm/dL Hct (34.0-46.0) % RDW (11.5-15.5) % Neutrophils # (1.3-7.7) k/uL Lymphocytes # (1.0-4.8) k/uL BUN (7-17) mg/dL Glucose (74-99) mg/dL POC Glucose (mg/dL) 210 H 165 H (75-99) mg/dL Iron 7 L (50-170) ug/dL Iron Saturation 2.19 L (12.00-45.00) AST (14-36) U/L ALT (9-52) U/L Total Protein (6.3-8.2) g/dL Albumin (3.5-5.0) g/dL 01/12/18 01/12/18 01/12/18 Range/Units 08:25 08:25 11:14 WBC 17.2 H (3.8-10.6) k/uL RBC 3.24 L (3.80-5.40) m/uL Hgb 8.3 L (11.4-16.0) gm/dL Hct 26.4 L (34.0-46.0) % RDW 15.7 H (11.5-15.5) % Neutrophils # 16.1 H (1.3-7.7) k/uL Lymphocytes # 0.4 L (1.0-4.8) k/uL BUN 19 H (7-17) mg/dL Glucose 138 H (74-99) mg/dL POC Glucose (mg/dL) 128 H (75-99) mg/dL Iron (50-170) ug/dL Iron Saturation (12.00-45.00) AST 88 H (14-36) U/L ALT 104 H (9-52) U/L Total Protein 5.4 L (6.3-8.2) g/dL Albumin 3.0 L (3.5-5.0) g/dL Microbiology - Last 24 Hours (Table) 01/10/18 15:20 Blood Culture - Preliminary Blood No Growth after 48 hours Assessment and Plan Plan: 1. Acute COPD exacerbation: Patient started on IV Solu-Medrol and bronchodilators. Pulmonary service consulted 2. Possible developing pneumonia: Started on IV Levaquin. Sputum culture ordered. Pulmonary service consulted 3. Elevated d-dimer on admission CTA negative for PE 4. New suspicious left lower lobe superior segment pulmonary nodule measuring 1.1 cm noted on computed tomography scan of the chest. Pulmonary service consulted. Patient does have a past history of smoking 5. Abdominal aortic aneurysm and descending thoracic aortic aneurysm. With abdominal aortic aneurysm only partially visualized measuring 3.9 x 3.7 cm abdominal ultrasound will be ordered for further evaluation. Descending Thoracic aortic aneurysm measuring 3.5 cm 6. History of ischemic cardiomyopathy status post AICD placement 7. History of myocardial infarction with coronary disease and cardiac stents 8. History of iron deficiency anemia patient has stopped taking her iron supplement. Hemoglobin is 9. Check iron studies. May need to restart iron supplement 9. History of severe mitral regurgitation status post mitral valve click completed at [facility] May 2017 GI prophylaxis Pepcid and DVT prophylaxis Lovenox
--- NOTE | 2018-01-12 19:26 | P.PN ---
Subjective Progress Note Date: 01/12/18 Principal diagnosis: Bilateral pneumonia, radicular nodular infiltrate with early cavity formation, shortness of breath and acute COPD exacerbation mediastinal lymphadenopathy, acute on chronic systolic heart failure, pericardial effusion, severe degree of mitral regurgitation, mild pulmonary hypertension 01/12/2018, patient seen eval examined during the rounds clinically overall not much changes still get short of breath on minimal activity and exertion she continued to have problems associated with dry nonproductive cough get short of breath on minimal activity and exertion her recent echocardiogram performed reviewed patient is for bronchoscopy Patient is a 67-year-old female presents to the hospital with a three-day complaint of cough and shortness of breath and pleuritic chest pain. Patient is wheezing and increased shortness of breath with activity. She presented to the emergency room for further evaluation. She's found have an elevated d- dimer. Computed tomography scan of the chest shows no PE. Does revealing new suspicious left lower lobe superior segment pulmonary nodule measuring 1.1 cm and multifocal left-sided focal pleural thickening and subpleural nodules. Mediastinal adenopathy is also suspicious. Parabronchial coughing and mucus plugging in association with by basilar airspace disease may represent bronchitis and postobstructive atelectasis although early pneumonia is possible. Also partial visualization of the mid abdominal aortic aneurysm and descending thoracic aortic aneurysm. Patient has been started on IV steroids and IV antibiotics for an acute COPD exacerbation and possible pneumonia. She has not been doing well for the last 5-6 days with progressive worsening of respiratory status denies any hemoptysis Note that some of the nodules have appearance of infiltrative processes with thick wall and the early cavitary formation, blood cultures have been negative so far This is a 67-year-old female with a known history of COPD, ischemic cardiomyopathy status post AICD, congestive heart failure, myocardial infarction with coronary disease and cardiac stents, severe mitral regurgitation with clip. Objective - Vital Signs Vital signs: Vital Signs Temp 97.8 F 01/12/18 15:00 Pulse 96 01/12/18 16:39 Resp 16 01/12/18 16:00 BP 184/87 01/12/18 15:00 Pulse Ox 95 01/12/18 15:00 Intake & Output 01/12/18 01/12/18 01/13/18 06:59 18:59 06:59 Intake Total 800 Output Total 1700 Balance -900 Weight 49.2 kg 49.2 kg Intake: IV 200 Intake, IV Titration 600 Amount IV Fluid Continuation 1, 600 000 ml As IV .[facility] Rx#:[id number] Output: Urine 1700 Other: Voiding Method Toilet Toilet Bedside Commode Bedside Commode # Voids 3 3 - Exam General appearance: alert, in no apparent distress Head exam: Present: atraumatic, normocephalic, normal inspection Eye exam: Present: normal appearance, PERRL, EOMI. Absent: scleral icterus, conjunctival injection, periorbital swelling ENT exam: Present: mucous membranes dry Neck exam: Present: normal inspection. Absent: tenderness, meningismus, lymphadenopathy Respiratory exam: Present: wheezes (Scattered wheezes. She does demonstrate kyphosis. No tenderness palpation of the chest wall.), decreased breath sounds. Absent: respiratory distress, rales, rhonchi, stridor, Cardiovascular Exam: Present: regular rate, normal rhythm, normal heart sounds. Absent: systolic murmur, diastolic murmur, rubs, gallop, clicks GI/Abdominal exam: Present: soft, normal bowel sounds. Absent: distended, tenderness, guarding, rebound, rigid Extremities exam: Present: normal inspection, full ROM, normal capillary refill. Absent: tenderness, pedal edema, joint swelling, calf tenderness Back exam: Present: normal inspection Neurological exam: Present: alert, oriented X3, CN II-XII intact Psychiatric exam: Present: normal affect, normal mood Skin exam: Present: warm, dry, intact, normal color. Absent: rash - Labs CBC & Chem 7: 01/12/18 08:25 01/12/18 08:25 Labs: Abnormal Lab Results - Last 24 Hours (Table) 01/11/18 01/11/18 01/12/18 Range/Units 08:52 20:06 07:49 WBC (3.8-10.6) k/uL RBC (3.80-5.40) m/uL Hgb (11.4-16.0) gm/dL Hct (34.0-46.0) % RDW (11.5-15.5) % Neutrophils # (1.3-7.7) k/uL Lymphocytes # (1.0-4.8) k/uL BUN (7-17) mg/dL Glucose (74-99) mg/dL POC Glucose (mg/dL) 210 H 165 H (75-99) mg/dL Iron 7 L (50-170) ug/dL Iron Saturation 2.19 L (12.00-45.00) AST (14-36) U/L ALT (9-52) U/L Total Protein (6.3-8.2) g/dL Albumin (3.5-5.0) g/dL 01/12/18 01/12/18 01/12/18 Range/Units 08:25 08:25 11:14 WBC 17.2 H (3.8-10.6) k/uL RBC 3.24 L (3.80-5.40) m/uL Hgb 8.3 L (11.4-16.0) gm/dL Hct 26.4 L (34.0-46.0) % RDW 15.7 H (11.5-15.5) % Neutrophils # 16.1 H (1.3-7.7) k/uL Lymphocytes # 0.4 L (1.0-4.8) k/uL BUN 19 H (7-17) mg/dL Glucose 138 H (74-99) mg/dL POC Glucose (mg/dL) 128 H (75-99) mg/dL Iron (50-170) ug/dL Iron Saturation (12.00-45.00) AST 88 H (14-36) U/L ALT 104 H (9-52) U/L Total Protein 5.4 L (6.3-8.2) g/dL Albumin 3.0 L (3.5-5.0) g/dL Microbiology - Last 24 Hours (Table) 01/10/18 15:20 Blood Culture - Preliminary Blood No Growth after 48 hours Assessment and Plan Assessment: Bilateral nodular infiltrate with some of them early cavitary appearance Acute COPD exacerbation Bilateral pneumonia Mediastinal lymphadenopathy likely reactive lymphadenopathy Uncontrolled hypertension hypertensive cardiovascular disease Abdominal aortic aneurysm and ascending thoracic aneurysm Pericardial effusion moderate Acute on chronic systolic heart failure ejection fraction of 40% Plan: Gentle rehydration Breathing treatments IV antibiotics as well as IV steroids patient for bronchoscopy and BAL procedure explained to the patient at length Also also reviewed findings on 2-D echo to look for no significant pathology like endocarditis noted on current echo Time with Patient: Greater than 30
[2018-01-12 20:35] LABS: Glucose,Whole Blood 211 mg/dL (75-99)
[2018-01-12 21:16] LABS: Hemoglobin A1C 5.5 % (4.0-6.0)
[2018-01-12] MEDS: ATORVASTATIN 80 MG TAB PO SCH (22:01)
[2018-01-12] MEDS: POLYETHYLENE GLYCOL 3350 17 GM POWD.PACK PO SCH (22:02)
[2018-01-13] MEDS: methylPREDNISolone SOD SUCCI 125 MG/2 ML VIAL IV SCH (06:08)
[2018-01-13 06:56] LABS: Glucose,Whole Blood 157 mg/dL (75-99)
[2018-01-13] MEDS: IPRATROPIUM-ALBUTEROL 3 ML NEB INHALATION SCH ×4 (07:18→20:12)
[2018-01-13] MEDS: SYMBICORT 160-4.5 MCG INHALER INHALATION SCH ×2 (07:18→20:12)
[2018-01-13] MEDS: HYDROcodone/APAP 7.5-325MG 1 EACH TAB PO PRN (08:29)
[2018-01-13 08:31] LABS: ALT 80 U/L (9-52); AST 37 U/L (14-36); Albumin 2.9 g/dL (3.5-5.0); Alkaline Phosphatase 78 U/L (38-126); Anion Gap 9 mmol/L; Blood Urea Nitrogen 20 mg/dL (7-17); Carbon Dioxide 27 mmol/L (22-30); Chloride 101 mmol/L (98-107); Glucose 124 mg/dL (74-99); Sodium 137 mmol/L (137-145); Total Bilirubin 0.3 mg/dL (0.2-1.3); Total Protein 5.3 g/dL (6.3-8.2)
[2018-01-13] MEDS: LISINOPRIL 5 MG TAB PO SCH (08:31)
[2018-01-13] MEDS: ASPIRIN 81 MG PO SCH (08:31)
[2018-01-13] MEDS: INSULIN ASPART 100 UNIT/ML 1 ML 10 ML VIAL SQ SCH ×4 (08:31→20:53)
[2018-01-13] MEDS: DOCUSATE 100 MG CAP PO SCH ×2 (08:31→20:26)
[2018-01-13] MEDS: FUROSEMIDE 40 MG TAB PO SCH ×2 (08:31→15:40)
[2018-01-13] MEDS: METOPROLOL TARTRATE 12.5 MG TAB PO SCH ×2 (08:31→20:26)
[2018-01-13] MEDS: FAMOTIDINE 20 MG TAB PO SCH (08:31)
[2018-01-13] MEDS: ENOXAPARIN 40 MG/0.4 ML SYRINGE SQ SCH (08:34)
[2018-01-13] MEDS: ZINC OXIDE 20% OINT 28.4 GM TUBE TOPICAL SCH ×2 (08:35→20:25)
[2018-01-13 08:38] LABS: Basophils % (A) 0 %; Eosinophils % (A) 0 %; HCT 27.3 % (34.0-46.0); HGB 8.8 gm/dL (11.4-16.0); Hypochromasia Moderate; Lymphocytes # (A) 0.6 k/uL (1.0-4.8); Lymphocytes % (A) 4 %; MCH 26.3 pg (25.0-35.0); MCHC 32.4 g/dL (31.0-37.0); MCV 81.1 fL (80.0-100.0); Mean Platelet Volume 6.5; Monocytes # (A) 0.5 k/uL (0-1.0); Monocytes % (A) 3 %; Neutrophils # (A) 14.2 k/uL (1.3-7.7); Neutrophils % (A) 92 %; Platelet Count 333 k/uL (150-450); Poikilocytosis Slight; RBC 3.36 m/uL (3.80-5.40); RDW 15.2 % (11.5-15.5); WBC 15.4 k/uL (3.8-10.6)
--- NOTE | 2018-01-13 09:35 | P.PN ---
Subjective Progress Note Date: 01/13/18 Principal diagnosis: Bilateral pneumonia, radicular nodular infiltrate with early cavity formation, shortness of breath and acute COPD exacerbation mediastinal lymphadenopathy, acute on chronic systolic heart failure, pericardial effusion, severe degree of mitral regurgitation, mild pulmonary hypertension R[facility] 2017, patient seen eval reexamined during the rounds clinically from [place] standpoint slightly better breathing comfortably still left cough congestion and intermittent wheezing patient complaining of more back pain than her baseline she is being treated with [place] as needed, denies any hemoptysis findings on the bronchoscopy have been reviewed with the patient blood cultures no growth so far AFB and fungal culture are pending, BAL is positive for few gram-positive cocci currently patient is being treated with bronchodilators broad-spectrum antibiotics and IV steroids which will taped down 01/12/2018, patient seen eval examined during the rounds clinically overall not much changes still get short of breath on minimal activity and exertion she continued to have problems associated with dry nonproductive cough get short of breath on minimal activity and exertion her recent echocardiogram performed reviewed patient is for bronchoscopy Patient is a 67-year-old female presents to the hospital with a three-day complaint of cough and shortness of breath and pleuritic chest pain. Patient is wheezing and increased shortness of breath with activity. She presented to the emergency room for further evaluation. She's found have an elevated d- dimer. Computed tomography scan of the chest shows no PE. Does revealing new suspicious left lower lobe superior segment pulmonary nodule measuring 1.1 cm and multifocal left-sided focal pleural thickening and subpleural nodules. Mediastinal adenopathy is also suspicious. Parabronchial coughing and mucus plugging in association with by basilar airspace disease may represent bronchitis and postobstructive atelectasis although early pneumonia is possible. Also partial visualization of the mid abdominal aortic aneurysm and descending thoracic aortic aneurysm. Patient has been started on IV steroids and IV antibiotics for an acute COPD exacerbation and possible pneumonia. She has not been doing well for the last 5-6 days with progressive worsening of respiratory status denies any hemoptysis Note that some of the nodules have appearance of infiltrative processes with thick wall and the early cavitary formation, blood cultures have been negative so far This is a 67-year-old female with a known history of COPD, ischemic cardiomyopathy status post AICD, congestive heart failure, myocardial infarction with coronary disease and cardiac stents, severe mitral regurgitation with clip. Objective - Vital Signs Vital signs: Vital Signs Temp 97.9 F 01/13/18 07:00 Pulse 96 01/13/18 07:31 Resp 18 01/13/18 07:00 BP 188/98 01/13/18 07:00 Pulse Ox 95 01/13/18 07:21 Intake & Output 01/12/18 01/13/18 01/13/18 18:59 06:59 18:59 Intake Total 800 825 Output Total 1700 Balance -900 825 Weight 49.2 kg 52.5 kg Intake: IV 200 Intake, IV Titration 600 825 Amount IV Fluid Continuation 1, 600 300 000 ml As IV .[facility] Rx#:[id number] Levofloxacin 750Mg-D5w 525 Pmx 750 mg In Dextrose/ Water 1 150ml.bag @ 100 mls/hr IVPB Q24H [facility] Rx#: [id number] Output: Urine 1700 Other: Voiding Method Toilet Toilet Bedside Commode Bedside Commode # Voids 3 2 - Exam General appearance: alert, in no apparent distress Head exam: Present: atraumatic, normocephalic, normal inspection Eye exam: Present: normal appearance, PERRL, EOMI. Absent: scleral icterus, conjunctival injection, periorbital swelling ENT exam: Present: mucous membranes dry Neck exam: Present: normal inspection. Absent: tenderness, meningismus, lymphadenopathy Respiratory exam: Present: wheezes (Scattered wheezes. She does demonstrate kyphosis. No tenderness palpation of the chest wall.), decreased breath sounds. Absent: respiratory distress, rales, rhonchi, stridor, Cardiovascular Exam: Present: regular rate, normal rhythm, normal heart sounds. Absent: systolic murmur, diastolic murmur, rubs, gallop, clicks GI/Abdominal exam: Present: soft, normal bowel sounds. Absent: distended, tenderness, guarding, rebound, rigid Extremities exam: Present: normal inspection, full ROM, normal capillary refill. Absent: tenderness, pedal edema, joint swelling, calf tenderness Back exam: Present: normal inspection Neurological exam: Present: alert, oriented X3, CN II-XII intact Psychiatric exam: Present: normal affect, normal mood Skin exam: Present: warm, dry, intact, normal color. Absent: rash - Labs CBC & Chem 7: 01/13/18 07:45 03/08/18 07:45 Labs: Abnormal Lab Results - Last 24 Hours (Table) 01/12/18 01/12/18 01/13/18 Range/Units 11:14 20:34 06:55 WBC (3.8-10.6) k/uL RBC (3.80-5.40) m/uL Hgb (11.4-16.0) gm/dL Hct (34.0-46.0) % Neutrophils # (1.3-7.7) k/uL Lymphocytes # (1.0-4.8) k/uL BUN (7-17) mg/dL Glucose (74-99) mg/dL POC Glucose (mg/dL) 128 H 211 H 157 H (75-99) mg/dL AST (14-36) U/L ALT (9-52) U/L Total Protein (6.3-8.2) g/dL Albumin (3.5-5.0) g/dL 01/13/18 01/13/18 Range/Units 07:45 07:45 WBC 15.4 H (3.8-10.6) k/uL RBC 3.36 L (3.80-5.40) m/uL Hgb 8.8 L (11.4-16.0) gm/dL Hct 27.3 L (34.0-46.0) % Neutrophils # 14.2 H (1.3-7.7) k/uL Lymphocytes # 0.6 L (1.0-4.8) k/uL BUN 20 H (7-17) mg/dL Glucose 124 H (74-99) mg/dL POC Glucose (mg/dL) (75-99) mg/dL AST 37 H (14-36) U/L ALT 80 H (9-52) U/L Total Protein 5.3 L (6.3-8.2) g/dL Albumin 2.9 L (3.5-5.0) g/dL Microbiology - Last 24 Hours (Table) 01/12/18 14:25 Gram Stain - Preliminary Bronchoalviolar Lavage - Right Bronchial Washings Culture - Preliminary 01/12/18 14:25 Fungal Culture - Preliminary Bronchoalviolar Lavage - Right 01/12/18 14:25 Acid Fast Bacilli Culture - Preliminary Bronchoalviolar Lavage - Right 01/10/18 15:20 Blood Culture - Preliminary Blood No Growth after 48 hours Assessment and Plan Assessment: Bilateral nodular infiltrate with some of them early cavitary appearance Acute COPD exacerbation Bilateral pneumonia Mediastinal lymphadenopathy likely reactive lymphadenopathy Uncontrolled hypertension hypertensive cardiovascular disease Abdominal aortic aneurysm and ascending thoracic aneurysm Pericardial effusion moderate Acute on chronic systolic heart failure ejection fraction of 40% Plan: Gentle rehydration Breathing treatments IV antibiotics as well as IV steroids must start tapering down the steroids patient status post bronchoscopy and BAL findings and procedure details explained to the patient at length Also also reviewed findings on 2-D echo to look for no significant pathology like endocarditis noted on current echo Time with Patient: Greater than 30
[2018-01-13 12:09] LABS: Glucose,Whole Blood 189 mg/dL (75-99)
[2018-01-13] MEDS ORDERED: LACTULOSE 20 GM/30 ML CUP PO ONE (12:30)
[2018-01-13] MEDS: CHOLECALCIFEROL 1,000 UNIT TAB PO SCH (12:41)
[2018-01-13] MEDS: CALCIUM CARBONATE 500 MG CHEWABLE PO SCH (12:42)
--- NOTE | 2018-01-13 13:25 | P.PN ---
Subjective Progress Note Date: 01/13/18 This is a 67-year-old female with a known history of COPD, ischemic cardiomyopathy status post AICD, congestive heart failure, myocardial infarction with coronary disease and cardiac stents, severe mitral regurgitation with clip. She presents to the hospital with a three-day complaint of cough and shortness of breath and pleuritic chest pain. Patient is wheezing and increased shortness of breath with activity. She presented to the emergency room for further evaluation. She's found have an elevated d- dimer. Computed tomography scan of the chest shows no PE. Does revealing new suspicious left lower lobe superior segment pulmonary nodule measuring 1.1 cm and multifocal left-sided focal pleural thickening and subpleural nodules. Mediastinal adenopathy is also suspicious. Parabronchial coughing and mucus plugging in association with by basilar airspace disease may represent bronchitis and postobstructive atelectasis although early pneumonia is possible. Also partial visualization of the mid abdominal aortic aneurysm and descending thoracic aortic aneurysm. Patient has been started on IV steroids and IV antibiotics for an acute COPD exacerbation and possible pneumonia. White count was 11.1 and pulmonary service has been consulted. Patient denies any fever chills or sweats. Denies any nausea or vomiting. Denies any bowel movement changes or urinary symptoms. 01/13/2018 patient is status post bronchoscopy. She reports some improvement in her cough and shortness of breath. She is complaining of muscle cramping in her back. Also complaining of constipation. Cardiology will be consulted for a moderate pericardial effusion noted on echo. Patient's blood pressures also been elevated. Her lisinopril will be increased. Objective - Vital Signs Vital signs: Vital Signs Temp 97.9 F 01/13/18 07:00 Pulse 92 01/13/18 11:15 Resp 18 01/13/18 07:00 BP 188/98 01/13/18 07:00 Pulse Ox 95 01/13/18 07:21 Intake & Output 01/12/18 01/13/18 01/13/18 18:59 06:59 18:59 Intake Total 800 825 Output Total 1700 Balance -900 825 Weight 49.2 kg 52.5 kg Intake: IV 200 Intake, IV Titration 600 825 Amount IV Fluid Continuation 1, 600 300 000 ml As IV .[facility] Rx#:[id number] Levofloxacin 750Mg-D5w 525 Pmx 750 mg In Dextrose/ Water 1 150ml.bag @ 100 mls/hr IVPB Q24H [facility] Rx#: [id number] Output: Urine 1700 Other: Voiding Method Toilet Toilet Bedside Commode Bedside Commode # Voids 3 2 - Exam Head normocephalic Neck supple Lungs diminished bilaterally. No wheezing Heart regular rate and rhythm S1-S2, no rub or gallop Abdomen is soft nontender nondistended positive bowel sounds no hepatosplenomegaly Extremities no edema Neuro alert and orientated to 3 - Labs CBC & Chem 7: 01/13/18 07:45 01/13/18 07:45 Labs: Abnormal Lab Results - Last 24 Hours (Table) 01/12/18 01/13/18 01/13/18 Range/Units 20:34 06:55 07:45 WBC 15.4 H (3.8-10.6) k/uL RBC 3.36 L (3.80-5.40) m/uL Hgb 8.8 L (11.4-16.0) gm/dL Hct 27.3 L (34.0-46.0) % Neutrophils # 14.2 H (1.3-7.7) k/uL Lymphocytes # 0.6 L (1.0-4.8) k/uL BUN (7-17) mg/dL Glucose (74-99) mg/dL POC Glucose (mg/dL) 211 H 157 H (75-99) mg/dL AST (14-36) U/L ALT (9-52) U/L Total Protein (6.3-8.2) g/dL Albumin (3.5-5.0) g/dL 01/13/18 01/13/18 Range/Units 07:45 12:08 WBC (3.8-10.6) k/uL RBC (3.80-5.40) m/uL Hgb (11.4-16.0) gm/dL Hct (34.0-46.0) % Neutrophils # (1.3-7.7) k/uL Lymphocytes # (1.0-4.8) k/uL BUN 20 H (7-17) mg/dL Glucose 124 H (74-99) mg/dL POC Glucose (mg/dL) 189 H (75-99) mg/dL AST 37 H (14-36) U/L ALT 80 H (9-52) U/L Total Protein 5.3 L (6.3-8.2) g/dL Albumin 2.9 L (3.5-5.0) g/dL Microbiology - Last 24 Hours (Table) 01/12/18 14:25 Gram Stain - Preliminary Bronchoalviolar Lavage - Right Bronchial Washings Culture - Preliminary 01/12/18 14:25 Fungal Culture - Preliminary Bronchoalviolar Lavage - Right 01/12/18 14:25 Acid Fast Bacilli Culture - Preliminary Bronchoalviolar Lavage - Right 01/10/18 15:20 Blood Culture - Preliminary Blood No Growth after 48 hours Assessment and Plan Assessment: 1. Acute COPD exacerbation: Pulmonary following. Tapering down the IV steroids. 2. Bilateral pneumonia: Patient status post bronchoscopy. Awaiting culture results. 3. Elevated d-dimer on admission CTA negative for PE 4. New suspicious left lower lobe superior segment pulmonary nodule measuring 1.1 cm noted on computed tomography scan of the chest. Followed by pulmonary service. Patient does have a past history of smoking 5. Abdominal aortic aneurysm and descending thoracic aortic aneurysm. With abdominal aortic aneurysm only partially visualized measuring 3.9 x 3.7 cm abdominal ultrasound will be ordered for further evaluation. Descending Thoracic aortic aneurysm measuring 3.5 cm. abdominal ultrasound revealing a 4 x 2.9 cm abdominal aortic aneurysm 6. History of ischemic cardiomyopathy status post AICD placement 7. History of myocardial infarction with coronary disease and cardiac stents 8. History of iron deficiency anemia patient has stopped taking her iron supplement. Iron level low at 7. Resume ferrous sulfate 325 mg twice a day 9. History of severe mitral regurgitation status post mitral valve click completed at [place] May 2017 10. Moderate pericardial effusion: Consult cardiology 11. Mediastinal lymphadenopathy likely reactive from patient's pneumonia. Pulmonary following 12. Back muscle spasms. Add Flexeril as needed 13. Essential hypertension with uncontrolled blood pressures. Increase lisinopril to 10 mg daily and monitor Consult physical therapy GI prophylaxis Pepcid and DVT prophylaxis Lovenox I performed an examination of the patient and discussed their management with the physician Chef Assistant. I have reviewed the Physician Chef Assistant's notes and agree with the documented findings and plan of care
--- NOTE | 2018-01-13 14:49 | P.CRDCN ---
History of Present Illness Consult date: 01/13/18 History of present illness: Mrs. Nuno is a pleasant 67-year-old female past medical history significant for chronic systolic heart failure s/p BIV implantation, coronary artery disease, COPD, dyslipidemia, hypertension, mitral valve repair with clip , abdominal aortic aneurysm and kidney disease. We have been asked to see her in consultation for a pericardia effusion on echocardiogram performed yesterday. The test was reviewed again and it appears to be a small-moderated sized effusion with no evidence of tamponade. There was also a small effusion noted on her last echo done here in August 2017, this may be a chronic condition for her although she doesn't recall being told this before. She states she came to the hospital by request of her PCP for a suspicious chest xray that was taken in the office. She saw her PCP because she had been coughing up green phlegm with increasing shortness of breath. She is currently being treated with IV antibiotics as well as steroids. She underwent a bronchoscopy with Dr. Samuel yesterday. EKG on arrival reveals atrial sensing ventricular paced rhythm. CTA of the chest revealed a new suspicious left lower lobe pulmonary nodule with multifocal left-sided pleural thickening. There is also mediastinal adenopathy that is suspicious. Peribronchial cuffing and mucous plugging and associates with bibasilar airspace disease may represent bronchitis and postobstructive atelectasis or early pneumonia is possible. Laboratory data reviewed, WBC 15.4, hemoglobin 8.8, platelets 333, potassium 4.0 , magnesium on admission 1.8, creatinine 0.79., ProBNP 6310, cardiac enzymes negative 1. Current cardiac medications include lisinopril 5 mg daily, Plavix 75 mg daily, atorvastatin 80 mg daily, aspirin 81 mg daily, Lopressor 12.5 mg twice a day and Lasix 40 mg twice a day. Review of Systems At the time my exam: CONSTITUTIONAL: Denies fever. Denies chills. EYES: Denies blurred vision. Denies vision changes. Denies eye pain. EARS, NOSE, MOUTH & THROAT: Denies headache. Denies sore throat. Denies ear pain. CARDIOVASCULAR: Denies chest pain. Complains of shortness of breath. Denies orthopnea. Denies PND. Denies palpitations. RESPIRATORY: Complains of cough. GASTROINTESTINAL: Denies abdominal pain. Denies diarrhea. Denies constipation. Denies nausea. Denies vomiting. MUSCULOSKELETAL: Denies myalgias. INTEGUMENTARY: Denies pruitis. Denies rash. NEUROLOGIC: Denies numbness. Denies tingling. Denies weakness. PSYCHIATRIC: Denies anxiety. Denies depression. ENDOCRINE: Denies fatigue. Denies weight change. Denies polydipsia. Denies polyurina. GENITOURINARY: Denies burning, hematuria or urgency with micturation. HEMATOLOGIC: Denies history of anemia. Denies bleeding. Past Medical History Past Medical History: Heart Failure, COPD, Hyperlipidemia, Hypertension, Osteoarthritis (OA), Pneumonia, Renal Disease Additional Past Medical History / Comment(s): aaa 09/2015 pneumonia with sepsis , R parotitis, nephrolithiasis yrs ago, sciatica-R side low back. fx Right knee- had sx then had an infection with multiple surgeries and required IV antibiotics. Patient is currently on oral doxycycline no evidence of active infection. Cardiomyopathy with an EF of 20% currently has a LifeVest. Severe mitral regurgitation status post mitral valve clipping in May 2017 History of Any Multi-Drug Resistant Organisms: None Reported Past Surgical History: Heart Catheterization With Stent, Joint Replacement, Orthopedic Surgery, Tonsillectomy Additional Past Surgical History / Comment(s): Partial thyroidectomy, T total knee arthroplasty in October 2016, Right knee infection with additional surgeries spinal cord stimulator insertion and removal, colonoscopies with benign polypectomies. March 2017 6 stent placed, may -had mitral valve clip Past Anesthesia/Blood Transfusion Reactions: No Reported Reaction Date of Last Stent Placement:: March 2017 Past Psychological History: No Psychological Hx Reported Additional Psychological History / Comment(s): Pt lives with her spouse. has a nebulizer/cane Smoking Status: Former smoker Past Alcohol Use History: None Reported Additional Past Alcohol Use History / Comment(s): Pt states she started smoking in 1968 was a 1ppd smoker, quit oct 2016 Past Drug Use History: None Reported - Past Family History Mother Family Medical History: Cancer, Congestive Heart Failure (CHF) Additional Family Medical History / Comment(s): Mother in her early 80's Father Family Medical History: Myocardial Infarction (ID) Additional Family Medical History / Comment(s): Father of a ID in his 50's. Medications and Allergies Home Medications Medication Instructions Recorded Confirmed Type Cholecalciferol [Vitamin D3] 5,000 unit PO DAILY 09/23/15 01/10/18 History Atorvastatin [Lipitor] 80 mg PO HS 01/08/17 01/10/18 History Clopidogrel [Plavix] 75 mg PO DAILY 01/08/17 01/10/18 History Docusate Sodium [Dok] 100 mg PO BID 01/08/17 01/10/18 History Famotidine [Pepcid] 20 mg PO DAILY 01/08/17 01/10/18 History Calcium Carbonate [Calcium] 600 mg PO DAILY 05/27/17 01/10/18 History HYDROcodone/APAP 7.5-325MG [[place] 1 tab PO DAILY PRN 05/27/17 01/10/18 History 7.5-325] Aspirin EC [Ecotrin Low Dose] 81 mg PO DAILY 09/02/17 01/10/18 History Furosemide [Lasix] 40 mg PO BID@0900,1600 #60 tab 09/13/17 01/10/18 Rx Nitroglycerin Sl Tabs [Nitrostat] 0.4 mg SUBLINGUAL Q5M PRN #25 tab 09/13/1703/25 Rx Polyethylene Glycol 3350 [Miralax] 17 gm PO HS #30 powd.pack 09/13/17 01/10/18 Rx Zinc Oxide 20% Oint 1 applic TOPICAL BID #1 tube 09/13/17 01/10/18 Rx Denosumab [Prolia] 60 mg SQ Q180D 01/10/18 01/10/18 History Fluticasone/Vilanterol [Breo 1 puff INHALATION RT-DAILY 01/10/18 01/10/18 History Ellipta 200-25 Mcg INH] Lisinopril [Prinivil] 5 mg PO DAILY 01/10/18 01/10/18 History Metoprolol Tartrate [Lopressor] 12.5 mg PO BID 01/10/18 01/10/18 History Allergies Allergy/AdvReac Type Severity Reaction Status Date / Time Iodinated Contrast- Oral and Allergy Anaphylaxis Verified 01/10/18 15:17 IV Dye [Iodinated Contrast Media - IV Dye] Physical Exam Vitals: Vital Signs Temp Pulse Pulse Resp BP Pulse Ox 01/13/18 11:15 92 01/13/18 11:06 86 01/13/18 08:00 85 18 01/13/18 07:31 96 01/13/18 07:21 88 95 01/13/18 07:00 97.9 F 85 18 188/98 96 01/13/18 00:00 95 18 01/12/18 22:14 97.1 F L 95 18 138/75 94 L 01/12/18 20:58 92 01/12/18 20:36 92 01/12/18 16:39 96 01/12/18 16:23 100 01/12/18 16:00 88 16 01/12/18 15:00 97.8 F 88 16 184/87 95 Intake and Output 01/12/18 01/13/18 01/13/18 22:59 06:59 14:59 Intake Total 365 015 1249 Output Total 1700 1700 Balance -3668 315 2317 Intake: Intake, IV Titration 300 525 150 Amount IV Fluid Continuation 1, 300 000 ml As IV .[facility] Rx#:[id number] Levofloxacin 750Mg-D5w 525 150 Pmx 750 mg In Dextrose/ Water 1 150ml.bag @ 100 mls/hr IVPB Q24H [facility] Rx#: [id number] Oral 3600 Output: Urine 1700 1700 Other: Voiding Method Toilet Toilet Toilet Bedside Commode Bedside Commode Bedside Commode # Voids 3 2 3 Weight 49.2 kg 52.5 kg Blood pressure 188/98 heart rate 85 afebrile maintaining oxygen saturation on room air GENERAL: This is a 67-year-old female in no apparent distress at the time of my examination. HEENT: Head is atraumatic, normocephalic. Pupils are equal, round. Sclerae anicteric. Conjunctivae are clear. Mucous membranes of the mouth are moist. Neck is supple. There is no jugular venous distention. No carotid bruit is heard. LUNGS: Scattered rhonchi. Diminished bilaterally. No wheezes no rales. No chest wall tenderness is noted on palpation or with deep breathing. HEART: Regular rate and rhythm with murmur, rubs or gallops. S1 and S2 heard. ABDOMEN: Soft, nontender. Bowel sounds are heard. No organomegaly noted. EXTREMITIES: No evidence of peripheral edema and no calf tenderness noted. VASCULAR: Radial and dorsalis pedis pulses palpated, no evidence of clubbing. NEUROLOGIC: Patient is awake, alert and oriented x3. Results 01/13/18 07:45 01/13/18 07:45 Cardiac Enzymes 01/13/18 Range/Units 07:45 AST 37 H (14-36) U/L CBC 01/13/18 Range/Units 07:45 WBC 15.4 H (3.8-10.6) k/uL RBC 3.36 L (3.80-5.40) m/uL Hgb 8.8 L (11.4-16.0) gm/dL Hct 27.3 L (34.0-46.0) % Plt Count 333 (150-450) k/uL Comprehensive Metabolic Panel 01/13/18 Range/Units 07:45 Sodium 137 (137-145) mmol/L Potassium 4.0 (3.5-5.1) mmol/L Chloride 101 (98-107) mmol/L Carbon Dioxide 27 (22-30) mmol/L BUN 20 H (7-17) mg/dL Creatinine 0.79 (0.52-1.04) mg/dL Glucose 124 H (74-99) mg/dL Calcium 9.0 (8.4-10.2) mg/dL AST 37 H (14-36) U/L ALT 80 H (9-52) U/L Alkaline Phosphatase 78 (38-126) U/L Total Protein 5.3 L (6.3-8.2) g/dL Albumin 2.9 L (3.5-5.0) g/dL Current Medications Generic Name Dose Route Start Last Admin Trade Name Freq PRN Reason Stop Dose Admin Hydrocodone Bitart/Acetaminophen 1 each 01/10/18 17:03 01/13/18 08:29 [place] 7.5-325 PO 1 each DAILY PRN Administration Pain Albuterol/Ipratropium 3 ml 01/12/18 08:00 01/13/18 11:05 Duoneb 0.5 Mg-3 Mg/3 Ml Soln INHALATION 3 ml RT-QID [facility] Administration Albuterol/Ipratropium 3 ml 01/11/18 20:11 Duoneb 0.5 Mg-3 Mg/3 Ml Soln INHALATION RT-Q2H PRN Shortness Of Breath Or Wheezing Aspirin 81 mg 01/11/18 09:00 01/13/18 08:31 Aspirin PO 81 mg DAILY [facility] Administration Atorvastatin Calcium 80 mg 01/10/18 21:00 01/12/18 22:01 Lipitor PO 80 mg HS [facility] Administration Budesonide/Formoterol Fumarate 2 puff 01/10/18 20:00 01/13/18 07:18 Symbicort 160-4.5 Mcg Inhaler INHALATION 2 puff RT-BID [facility] Administration Calcium Carbonate/Glycine 500 mg 01/11/18 12:00 01/13/18 12:42 Tums PO 500 mg 1200 [facility] Administration Cholecalciferol 5,000 unit 01/11/18 12:00 01/13/18 12:41 Vitamin D3 PO 5,000 unit 1200 [facility] Administration Clopidogrel Bisulfate 75 mg 01/11/18 09:00 01/12/18 08:30 Plavix PO 75 mg DAILY [facility] Administration Cyclobenzaprine HCl 10 mg 01/13/18 12:20 Flexeril PO BID PRN Muscle Spasm Docusate Sodium 100 mg 01/10/18 21:00 01/13/18 08:31 Colace PO 100 mg BID [facility] Administration Enoxaparin Sodium 40 mg 01/11/18 13:30 01/13/18 08:34 Lovenox SQ 40 mg DAILY [facility] Administration Famotidine 20 mg 01/11/18 09:00 01/13/18 08:31 Pepcid PO 20 mg DAILY [facility] Administration Ferrous Sulfate 325 mg 01/13/18 21:00 Feosol PO BID [facility] Furosemide 40 mg 01/11/18 09:00 01/13/18 08:31 Lasix PO 40 mg BID@0900,1600 [facility] Administration Insulin Aspart 0 unit 01/12/18 07:30 01/13/18 12:45 Novolog SQ 5 unit ACHS [facility] Administration Protocol Levofloxacin 750 mg 01/13/18 17:00 Levaquin PO Q24H [facility] Lisinopril 10 mg 01/14/18 09:00 Zestril PO DAILY [facility] Methylprednisolone Sodium Succinate 40 mg 01/13/18 21:00 Solu-Medrol IV Q12HR [facility] Metoprolol Tartrate 12.5 mg 01/10/18 21:00 01/13/18 08:31 Lopressor PO 12.5 mg BID [facility] Administration Miscellaneous Information 1 each 01/11/18 04:05 Potassium Per Protocol MISCELLANE DAILY PRN Per Protocol Protocol Multi-Ingredient Ointment 1 applic 01/10/18 21:00 01/13/18 08:35 Zinc Oxide 20% Oint TOPICAL Not Given BID [facility] Nitroglycerin 0.4 mg 01/10/18 17:03 Nitrostat SUBLINGUAL Q5M PRN Chest Pain Polyethylene Glycol 17 gm 01/10/18 21:00 01/12/18 22:02 Miralax PO 17 gm HS [facility] Administration Intake and Output 01/12/18 01/13/18 01/13/18 22:59 06:59 14:59 Intake Total 463 723 0220 Output Total 1700 1700 Balance -9430 378 2850 Intake: Intake, IV Titration 300 525 150 Amount IV Fluid Continuation 1, 300 000 ml As IV [facility] Rx#:[id number] Levofloxacin 750Mg-D5w 525 150 Pmx 750 mg In Dextrose/ Water 1 150ml.bag @ 100 mls/hr IVPB Q24H [facility] Rx#: [id number] Oral 3600 Output: Urine 1700 1700 Other: Voiding Method Toilet Toilet Toilet Bedside Commode Bedside Commode Bedside Commode # Voids 3 2 3 Weight 49.2 kg 52.5 kg 01/13/18 07:45 01/13/18 07:45 Assessment and Plan Assessment: ASSESSMENT 1. Acute exacerbation of COPD, currently receiving IV steroids and antibiotics. 2. Bilateral pneumonia status post bronchoscopy 3. Pericardial effusion, clinically does not appear to have pericarditis 4. History of coronary artery disease 5. Ischemic cardiomyopathy status post BIV AICD placement 6. History of mitral regurgitation status post mitral valve clip 7. Essential hypertension 8. Dyslipidemia PLAN Continue current medical management. This does not appear clinically to be pericarditis but we will check ESR to be sure. Thank you kindly for this consultation. Nurse Practitioner note has been reviewed, I agree with a documented findings and plan of care. Patient was seen and examined.
[2018-01-13] MEDS ORDERED: LISINOPRIL 5 MG TAB PO STA (15:37)
[2018-01-13] MEDS ORDERED: LEVOFLOXACIN 750 MG TAB PO SCH (17:00)
[2018-01-13 17:09] LABS: Glucose,Whole Blood 156 mg/dL (75-99)
[2018-01-13] MEDS: ATORVASTATIN 80 MG TAB PO SCH (20:26)
[2018-01-13] MEDS: FERROUS SULFATE 325 MG TAB PO SCH (20:26)
[2018-01-13] MEDS: methylPREDNISolone SOD SUCCI 40 MG/ML 1 ML VIAL IV SCH (20:28)
[2018-01-13] MEDS: POLYETHYLENE GLYCOL 3350 17 GM POWD.PACK PO SCH (20:28)
[2018-01-13 20:41] LABS: Glucose,Whole Blood 93 mg/dL (75-99)
[2018-01-13] MEDS: CYCLOBENZAPRINE 10 MG TAB PO PRN (20:54)
[2018-01-14 07:20] LABS: Glucose,Whole Blood 186 mg/dL (75-99)
[2018-01-14 08:03] LABS: Basophils % (A) 0 %; Eosinophils % (A) 0 %; HCT 30.2 % (34.0-46.0); HGB 9.7 gm/dL (11.4-16.0); Hypochromasia Moderate; Lymphocytes % (A) 8 %; MCHC 32.1 g/dL (31.0-37.0); Mean Platelet Volume 6.4; Monocytes % (A) 8 %; Neutrophils # (A) 10.5 k/uL (1.3-7.7); Neutrophils % (A) 82 %; Platelet Count 357 k/uL (150-450); Poikilocytosis Slight; RBC 3.73 m/uL (3.80-5.40); RDW 15.5 % (11.5-15.5); WBC 12.8 k/uL (3.8-10.6)
[2018-01-14] MEDS: METOPROLOL TARTRATE 12.5 MG TAB PO SCH ×2 (08:12→20:53)
[2018-01-14] MEDS: methylPREDNISolone SOD SUCCI 40 MG/ML 1 ML VIAL IV SCH ×2 (08:13→20:53)
[2018-01-14] MEDS: FERROUS SULFATE 325 MG TAB PO SCH ×2 (08:13→20:53)
[2018-01-14] MEDS: DOCUSATE 100 MG CAP PO SCH ×2 (08:13→20:53)
[2018-01-14] MEDS: ENOXAPARIN 40 MG/0.4 ML SYRINGE SQ SCH (08:13)
[2018-01-14] MEDS: CLOPIDOGREL 75 MG TAB PO SCH (08:13)
[2018-01-14] MEDS: FAMOTIDINE 20 MG TAB PO SCH (08:13)
[2018-01-14] MEDS: FUROSEMIDE 40 MG TAB PO SCH ×2 (08:13→17:43)
[2018-01-14] MEDS: ASPIRIN 81 MG PO SCH (08:13)
[2018-01-14] MEDS: LISINOPRIL 10 MG TAB PO SCH (08:14)
[2018-01-14] MEDS: INSULIN ASPART 100 UNIT/ML 1 ML 10 ML VIAL SQ SCH ×4 (08:15→20:52)
[2018-01-14 08:16] LABS: Calcium 9.5 mg/dL (8.4-10.2); Potassium 4.1 mmol/L (3.5-5.1); Total Bilirubin 0.2 mg/dL (0.2-1.3); Total Protein 5.4 g/dL (6.3-8.2)
[2018-01-14] MEDS: ZINC OXIDE 20% OINT 28.4 GM TUBE TOPICAL SCH ×2 (08:18→20:53)
[2018-01-14] MEDS: IPRATROPIUM-ALBUTEROL 3 ML NEB INHALATION SCH ×4 (08:28→19:58)
[2018-01-14] MEDS: SYMBICORT 160-4.5 MCG INHALER INHALATION SCH ×2 (08:28→19:58)
[2018-01-14] MEDS: HYDROcodone/APAP 7.5-325MG 1 EACH TAB PO PRN (08:34)
[2018-01-14] MEDS: CYCLOBENZAPRINE 10 MG TAB PO PRN (08:34)
[2018-01-14] MEDS ORDERED: NA PHOS,M-B/NA PHOS,DI-BA 133 ML ENEMA RECTAL ONE (11:25)
--- NOTE | 2018-01-14 11:30 | P.PN ---
Subjective Progress Note Date: 01/14/18 This is a 67-year-old female with a known history of COPD, ischemic cardiomyopathy status post AICD, congestive heart failure, myocardial infarction with coronary disease and cardiac stents, severe mitral regurgitation with clip. She presents to the hospital with a three-day complaint of cough and shortness of breath and pleuritic chest pain. Patient is wheezing and increased shortness of breath with activity. She presented to the emergency room for further evaluation. She's found have an elevated d- dimer. Computed tomography scan of the chest shows no PE. Does revealing new suspicious left lower lobe superior segment pulmonary nodule measuring 1.1 cm and multifocal left-sided focal pleural thickening and subpleural nodules. Mediastinal adenopathy is also suspicious. Parabronchial coughing and mucus plugging in association with by basilar airspace disease may represent bronchitis and postobstructive atelectasis although early pneumonia is possible. Also partial visualization of the mid abdominal aortic aneurysm and descending thoracic aortic aneurysm. Patient has been started on IV steroids and IV antibiotics for an acute COPD exacerbation and possible pneumonia. White count was 11.1 and pulmonary service has been consulted. Patient denies any fever chills or sweats. Denies any nausea or vomiting. Denies any bowel movement changes or urinary symptoms. 01/13/2018 patient is status post bronchoscopy. She reports some improvement in her cough and shortness of breath. She is complaining of muscle cramping in her back. Also complaining of constipation. Cardiology will be consulted for a moderate pericardial effusion noted on echo. Patient's blood pressures also been elevated. Her lisinopril will be increased. 01/14/2018 blood pressures were elevated yesterday: Lisinopril was increased to 10 mg daily. Blood pressures are showing improvement this morning. She is still having a productive cough with thick phlegm. Reports improvement in her shortness of breath. Cytology was negative for any malignant cells. Pulmonary service is following. Cardiology also consulted regards to the pericardial effusion. They are checking a sed rate level to rule out pericarditis. Patient also complaining of constipation. no bowel movement with the lactulose. Enema will be ordered. Patient denies any chest pain. Reports some improvement in her cough. Denies any nausea or vomiting. Denies any burning with urination. Patient asking for increase in her [place]. At home she takes it as needed. Objective - Vital Signs Vital signs: Vital Signs Temp 97.3 F L 01/14/18 07:00 Pulse 78 01/14/18 11:16 Resp 16 01/14/18 11:16 BP 141/77 01/14/18 07:00 Pulse Ox 95 01/14/18 08:28 Intake & Output 01/13/18 01/14/18 01/14/18 18:59 06:59 18:59 Intake Total 3990 1050 Output Total 3400 200 Balance 590 1050 -200 Weight 50 kg 50 kg Intake: Intake, IV Titration 150 150 Amount Levofloxacin 750Mg-D5w 150 150 Pmx 750 mg In Dextrose/ Water 1 150ml.bag @ 100 mls/hr IVPB Q24H [facility] Rx#: [id number] Oral 3840 900 Output: Urine 3400 200 Other: Voiding Method Toilet Toilet Toilet Bedside Commode Bedside Commode Bedside Commode # Voids 3 2 2 - Exam Head normocephalic Neck supple Lungs diminished bilaterally. No wheezing Heart regular rate and rhythm S1-S2, no rub or gallop Abdomen is soft nontender nondistended positive bowel sounds no hepatosplenomegaly Extremities no edema Neuro alert and orientated to 3 - Labs CBC & Chem 7: 01/14/18 07:26 01/14/18 07:26 Labs: Abnormal Lab Results - Last 24 Hours (Table) 01/13/18 01/13/18 01/14/18 Range/Units 12:08 17:02 07:19 WBC (3.8-10.6) k/uL RBC (3.80-5.40) m/uL Hgb (11.4-16.0) gm/dL Hct (34.0-46.0) % Neutrophils # (1.3-7.7) k/uL Chloride (98-107) mmol/L Carbon Dioxide (22-30) mmol/L BUN (7-17) mg/dL Glucose (74-99) mg/dL POC Glucose (mg/dL) 189 H 156 H 186 H (75-99) mg/dL ALT (9-52) U/L Total Protein (6.3-8.2) g/dL Albumin (3.5-5.0) g/dL 01/14/18 01/14/18 Range/Units 07:26 07:26 WBC 12.8 H (3.8-10.6) k/uL RBC 3.73 L (3.80-5.40) m/uL Hgb 9.7 L (11.4-16.0) gm/dL Hct 30.2 L (34.0-46.0) % Neutrophils # 10.5 H (1.3-7.7) k/uL Chloride 95 L (98-107) mmol/L Carbon Dioxide 34 H (22-30) mmol/L BUN 19 H (7-17) mg/dL Glucose 117 H (74-99) mg/dL POC Glucose (mg/dL) (75-99) mg/dL ALT 57 H (9-52) U/L Total Protein 5.4 L (6.3-8.2) g/dL Albumin 3.0 L (3.5-5.0) g/dL Microbiology - Last 24 Hours (Table) 01/12/18 14:25 Acid Fast Bacilli Smear - Final Bronchoalviolar Lavage - Right Acid Fast Bacilli Culture - Preliminary 01/10/18 15:20 Blood Culture - Preliminary Blood No Growth after 72 hours Assessment and Plan Assessment: 1. Acute COPD exacerbation: Pulmonary following. Pulmonary following. Currently on IV Solu-Medrol 40 mg IV every 12 hours 2. Bilateral pneumonia: Patient status post bronchoscopy. Cytology negative for malignant cells. Bronchial wash cultures are pending 3. Elevated d-dimer on admission CTA negative for PE 4. New suspicious left lower lobe superior segment pulmonary nodule measuring 1.1 cm noted on computed tomography scan of the chest. Followed by pulmonary service. Patient does have a past history of smoking 5. Abdominal aortic aneurysm and descending thoracic aortic aneurysm. With abdominal aortic aneurysm only partially visualized measuring 3.9 x 3.7 cm abdominal ultrasound will be ordered for further evaluation. Descending Thoracic aortic aneurysm measuring 3.5 cm. abdominal ultrasound revealing a 4 x 2.9 cm abdominal aortic aneurysm 6. History of ischemic cardiomyopathy status post AICD placement 7. History of myocardial infarction with coronary disease and cardiac stents 8. History of iron deficiency anemia patient has stopped taking her iron supplement. Iron level low at 7. Resume ferrous sulfate 325 mg twice a day 9. History of severe mitral regurgitation status post mitral valve click completed at [place] May 2017 10. Moderate pericardial effusion: Seen by cardiology. They've ordered a sed rate level for further evaluation of pericarditis 11. Mediastinal lymphadenopathy likely reactive from patient's pneumonia. Pulmonary following 12. Back muscle spasms and chronic back pain. Add Flexeril as needed. Change [place] to 7.5 mg every 6 hours as needed for pain 13. Essential hypertension with uncontrolled blood pressures. Increase lisinopril to 10 mg daily and monitor 14. Constipation: No improvement with lactulose. We'll give an enema Consult physical therapy GI prophylaxis Pepcid and DVT prophylaxis Lovenox I performed an examination of the patient and discussed their management with the physician Silk Weaver. I have reviewed the Physician Silk Weaver's notes and agree with the documented findings and plan of care
[2018-01-14 11:48] LABS: Glucose,Whole Blood 92 mg/dL (75-99)
--- NOTE | 2018-01-14 12:59 | P.PN ---
Subjective Progress Note Date: 01/14/18 [facility] is covering for Dr. Samuel Patient has been seen and examined evaluated today on rounds. Patient is being currently treated for acute exacerbation of COPD, bilateral pneumonia, as well as pericardial effusion. She is seen sitting up in bed on approximately 2 L of supplemental oxygen via nasal cannula. The patient does not utilize home oxygen. She continues to be short of breath with exertion and activity. She did have a bronchoscopy by Dr. Samuel those results are pending. She continues to have a congested cough. Cardiology is also on consult for pericardial effusion. She is afebrile, hemodynamically stable, no further complaints. Objective - Vital Signs Vital signs: Vital Signs Temp 97.3 F L 01/14/18 07:00 Pulse 80 01/14/18 11:28 Resp 16 01/14/18 11:28 BP 141/77 01/14/18 07:00 Pulse Ox 95 01/14/18 08:28 Intake & Output 01/13/18 01/14/18 01/14/18 18:59 06:59 18:59 Intake Total 3990 1050 Output Total 3400 200 Balance 590 1050 -200 Weight 50 kg 50 kg Intake: Intake, IV Titration 150 150 Amount Levofloxacin 750Mg-D5w 150 150 Pmx 750 mg In Dextrose/ Water 1 150ml.bag @ 100 mls/hr IVPB Q24H [facility] Rx#: [id number] Oral 3840 900 Output: Urine 3400 200 Other: Voiding Method Toilet Toilet Toilet Bedside Commode Bedside Commode Bedside Commode # Voids 3 2 2 - Exam GENERAL EXAM: Alert, active, comfortable in no apparent distress. HEAD: Normocephalic. EYES: Normal reaction of pupils, equal size. NOSE: Clear with pink turbinates. THROAT: No erythema or exudates. NECK: No masses, no JVD. CHEST: No chest wall deformity. LUNGS: Diminished bilaterally with no crackles, wheeze, rhonchi or dullness. Respirations even and unlabored CVS: S1 and S2 normal with no audible mumurs, regular rhythm. ABDOMEN: No hepatosplenomegaly, normal bowel sounds, no guarding or rigidity. EXTREMITIES: No edema noted, pedal pulses palpable. SKIN: No rashes CENTRAL NERVOUS SYSTEM: No focal deficits, tone is normal in all 4 extremities. - Labs CBC & Chem 7: 01/14/18 07:26 01/14/18 07:26 Labs: Abnormal Lab Results - Last 24 Hours (Table) 01/13/18 01/14/18 01/14/18 Range/Units 17:02 07:19 07:26 WBC 12.8 H (3.8-10.6) k/uL RBC 3.73 L (3.80-5.40) m/uL Hgb 9.7 L (11.4-16.0) gm/dL Hct 30.2 L (34.0-46.0) % Neutrophils # 10.5 H (1.3-7.7) k/uL Chloride (98-107) mmol/L Carbon Dioxide (22-30) mmol/L BUN (7-17) mg/dL Glucose (74-99) mg/dL POC Glucose (mg/dL) 156 H 186 H (75-99) mg/dL ALT (9-52) U/L Total Protein (6.3-8.2) g/dL Albumin (3.5-5.0) g/dL 01/14/18 Range/Units 07:26 WBC (3.8-10.6) k/uL RBC (3.80-5.40) m/uL Hgb (11.4-16.0) gm/dL Hct (34.0-46.0) % Neutrophils # (1.3-7.7) k/uL Chloride 95 L (98-107) mmol/L Carbon Dioxide 34 H (22-30) mmol/L BUN 19 H (7-17) mg/dL Glucose 117 H (74-99) mg/dL POC Glucose (mg/dL) (75-99) mg/dL ALT 57 H (9-52) U/L Total Protein 5.4 L (6.3-8.2) g/dL Albumin 3.0 L (3.5-5.0) g/dL Microbiology - Last 24 Hours (Table) 01/12/18 14:25 Gram Stain - Final Bronchoalviolar Lavage - Right Bronchial Washings Culture - Final 01/12/18 14:25 Acid Fast Bacilli Smear - Final Bronchoalviolar Lavage - Right Acid Fast Bacilli Culture - Preliminary 01/10/18 15:20 Blood Culture - Preliminary Blood No Growth after 72 hours Assessment and Plan Assessment: Assessment Bilateral nodular infiltrate with some of them early cavitary appearance Acute COPD exacerbation Bilateral pneumonia Mediastinal lymphadenopathy likely reactive lymphadenopathy Uncontrolled hypertension hypertensive cardiovascular disease Abdominal aortic aneurysm and ascending thoracic aneurysm Pericardial effusion moderate Acute on chronic systolic heart failure ejection fraction of 40% Plan Medications have been reviewed and will be continued as ordered. Steroid taper , oral will start tomorrow. Continue with pulmonary hygiene, coughing and deep breathing exercises, and supportive care. Supplemental oxygen to maintain oxygen saturations of 92% or better. Continue nebulizer treatments. Status post bronchoscopy those results are pending. GI and DVT prophylaxis. Cardiology also on consult and appreciate recommendations. We will continue to monitor labs/results and adjust treatment as necessary. Further recommendations pending. We are covering for Dr. Samuel I performed an examination of the patient and discussed their management with the nurse practitioner. I have reviewed the nurse practitioner's note and agree with the documented findings and plan of care.
[2018-01-14] MEDS: CHOLECALCIFEROL 1,000 UNIT TAB PO SCH (13:11)
[2018-01-14] MEDS: CALCIUM CARBONATE 500 MG CHEWABLE PO SCH (13:11)
[2018-01-14 17:02] LABS: Glucose,Whole Blood 134 mg/dL (75-99)
--- NOTE | 2018-01-14 19:13 | P.PN ---
Subjective Progress Note Date: 01/14/18 This patient with history of ischemic cardiomyopathy status post biventricular pacemaker and AICD implantation is admitted to the hospital with the cough and bilateral pneumonia and exacerbation of COPD. We're asked to see the patient because of pericardial effusion. The effusion appears to be small without any evidence of tamponade. Her sed rate came back as 5. She seemed to be gradually getting better. Her main complaint severe constipation. Patient also had a bronchoscopy by Dr. Samuel. Objective - Vital Signs Vital signs: Vital Signs Temp 98.2 F 01/14/18 15:00 Pulse 89 01/14/18 16:00 Resp 16 01/14/18 16:00 BP 136/77 01/14/18 15:00 Pulse Ox 93 L 01/14/18 15:49 Intake & Output 01/14/18 01/14/18 01/15/18 06:59 18:59 06:59 Intake Total 1050 360 Output Total 400 Balance 1050 -40 Weight 50 kg 50 kg Intake: Intake, IV Titration 150 Amount Levofloxacin 750Mg-D5w 150 Pmx 750 mg In Dextrose/ Water 1 150ml.bag @ 100 mls/hr IVPB Q24H [facility] Rx#: [id number] Oral 900 360 Output: Urine 400 Other: Voiding Method Toilet Toilet Bedside Commode Bedside Commode # Voids 2 4 - Exam GENERAL EXAM: Patient is alert and oriented and doesn't appear to be in any acute distress HEENT: Normocephalic. Normal reaction of pupils, equal size, normal range of extraocular motion. No erythema or exudates in the throat. NECK: No masses, no nuchal rigidity. CHEST: No chest wall deformity. LUNGS: Rhonchi and wheezes. Breath sounds HEART: S1 and S2 normal with no audible mumurs or gallops. Regular rhythm, f ABDOMEN: No hepatosplenomegaly, normal bowel sounds, no guarding or rigidity. SKIN: No rashes CENTRAL NERVOUS SYSTEM: No focal deficits. EXTREMITIES: No cyanosis, clubbing or edema. - Labs CBC & Chem 7: 01/14/18 07:26 01/14/18 07:26 Labs: Abnormal Lab Results - Last 24 Hours (Table) 01/14/18 01/14/18 01/14/18 Range/Units 07:19 07:26 07:26 WBC 12.8 H (3.8-10.6) k/uL RBC 3.73 L (3.80-5.40) m/uL Hgb 9.7 L (11.4-16.0) gm/dL Hct 30.2 L (34.0-46.0) % Neutrophils # 10.5 H (1.3-7.7) k/uL Chloride 95 L (98-107) mmol/L Carbon Dioxide 34 H (22-30) mmol/L BUN 19 H (7-17) mg/dL Glucose 117 H (74-99) mg/dL POC Glucose (mg/dL) 186 H (75-99) mg/dL ALT 57 H (9-52) U/L Total Protein 5.4 L (6.3-8.2) g/dL Albumin 3.0 L (3.5-5.0) g/dL 01/14/18 Range/Units 16:58 WBC (3.8-10.6) k/uL RBC (3.80-5.40) m/uL Hgb (11.4-16.0) gm/dL Hct (34.0-46.0) % Neutrophils # (1.3-7.7) k/uL Chloride (98-107) mmol/L Carbon Dioxide (22-30) mmol/L BUN (7-17) mg/dL Glucose (74-99) mg/dL POC Glucose (mg/dL) 134 H (75-99) mg/dL ALT (9-52) U/L Total Protein (6.3-8.2) g/dL Albumin (3.5-5.0) g/dL Microbiology - Last 24 Hours (Table) 01/10/18 15:20 Blood Culture - Preliminary Blood No Growth after 96 hours 01/12/18 14:25 Gram Stain - Final Bronchoalviolar Lavage - Right Bronchial Washings Culture - Final 01/12/18 14:25 Acid Fast Bacilli Smear - Final Bronchoalviolar Lavage - Right Acid Fast Bacilli Culture - Preliminary Assessment and Plan (1) Pericardial effusion Current Visit: Yes Status: Acute Code(s): I31.3 - PERICARDIAL EFFUSION ( NONINFLAMMATORY) SNOMED Code(s): 158825961 (2) Hypokalemia Current Visit: Yes Status: Acute Code(s): E87.6 - HYPOKALEMIA SNOMED Code( s): 13248933 (3) Tracheobronchitis Current Visit: Yes Status: Acute Code(s): J40 - BRONCHITIS, NOT SPECIFIED ACUTE OR CHRONIC SNOMED Code(s): 27745705 (4) Acute exacerbation of chronic obstructive airways disease Current Visit: No Status: Acute Code(s): J44.1 - CHRONIC OBSTRUCTIVE PULMONARY DISEASE W (ACUTE) EXACERBATION SNOMED Code(s): 529113461 Plan: There is a small amount of pericardial effusion. Patient is asymptomatic from that. No evidence of tamponade. Patient is being treated for pneumonia. Her LV function is improved compared to the previous studies. We will follow her as needed
[2018-01-14 19:58] LABS: Glucose,Whole Blood 145 mg/dL (75-99)
[2018-01-14] MEDS: ATORVASTATIN 80 MG TAB PO SCH (20:52)
[2018-01-14] MEDS: LEVOFLOXACIN 750 MG TAB PO SCH (20:52)
[2018-01-14] MEDS: POLYETHYLENE GLYCOL 3350 17 GM POWD.PACK PO SCH (21:42)
[2018-01-15 06:48] LABS: Glucose,Whole Blood 130 mg/dL (75-99)
[2018-01-15] MEDS: IPRATROPIUM-ALBUTEROL 3 ML NEB INHALATION SCH ×4 (07:13→20:31)
[2018-01-15] MEDS: SYMBICORT 160-4.5 MCG INHALER INHALATION SCH ×2 (07:13→20:30)
[2018-01-15 07:36] LABS: Anisocytosis Slight; Basophils % (A) 0 %; Eosinophils # (A) 0.1 k/uL (0-0.7); Eosinophils % (A) 0 %; HCT 34.4 % (34.0-46.0); HGB 11.1 gm/dL (11.4-16.0); Hypochromasia Moderate; Lymphocytes % (A) 7 %; MCH 26.4 pg (25.0-35.0); MCHC 32.2 g/dL (31.0-37.0); Mean Platelet Volume 6.8; Monocytes # (A) 0.8 k/uL (0-1.0); Monocytes % (A) 6 %; Neutrophils % (A) 85 %; Platelet Count 397 k/uL (150-450); RBC 4.19 m/uL (3.80-5.40); RDW 16.2 % (11.5-15.5); WBC 14.1 k/uL (3.8-10.6)
[2018-01-15] MEDS: INSULIN ASPART 100 UNIT/ML 1 ML 10 ML VIAL SQ SCH ×4 (08:01→21:52)
[2018-01-15 08:02] LABS: Albumin 3.7 g/dL (3.5-5.0); Calcium 10.2 mg/dL (8.4-10.2); Potassium 5.2 mmol/L (3.5-5.1); Total Bilirubin 0.2 mg/dL (0.2-1.3); Total Protein 6.3 g/dL (6.3-8.2)
[2018-01-15] MEDS: CLOPIDOGREL 75 MG TAB PO SCH (08:05)
[2018-01-15] MEDS: predniSONE 20 MG TAB PO SCH (08:05)
[2018-01-15] MEDS: FERROUS SULFATE 325 MG TAB PO SCH ×2 (08:05→21:53)
[2018-01-15] MEDS: METOPROLOL TARTRATE 12.5 MG TAB PO SCH ×2 (08:05→21:52)
[2018-01-15] MEDS: FUROSEMIDE 40 MG TAB PO SCH ×2 (08:05→16:59)
[2018-01-15] MEDS: LISINOPRIL 10 MG TAB PO SCH (08:05)
[2018-01-15] MEDS: ENOXAPARIN 40 MG/0.4 ML SYRINGE SQ SCH (08:06)
[2018-01-15] MEDS: ZINC OXIDE 20% OINT 28.4 GM TUBE TOPICAL SCH ×2 (08:06→20:40)
[2018-01-15] MEDS: DOCUSATE 100 MG CAP PO SCH ×2 (08:06→21:53)
[2018-01-15] MEDS: FAMOTIDINE 20 MG TAB PO SCH (08:06)
[2018-01-15] MEDS: ASPIRIN 81 MG PO SCH (09:08)
[2018-01-15 12:03] LABS: Glucose,Whole Blood 143 mg/dL (75-99)
[2018-01-15] MEDS: CALCIUM CARBONATE 500 MG CHEWABLE PO SCH (12:13)
[2018-01-15] MEDS: CHOLECALCIFEROL 1,000 UNIT TAB PO SCH (12:13)
[2018-01-15] MEDS ORDERED: MAGNESIUM HYDROXIDE 2,400 MG/10 ML CUP PO PRN (14:02)
--- NOTE | 2018-01-15 14:02 | P.PN ---
Subjective Progress Note Date: 01/15/18 This is a 67-year-old female with a known history of COPD, ischemic cardiomyopathy status post AICD, congestive heart failure, myocardial infarction with coronary disease and cardiac stents, severe mitral regurgitation with clip. She presents to the hospital with a three-day complaint of cough and shortness of breath and pleuritic chest pain. Patient is wheezing and increased shortness of breath with activity. She presented to the emergency room for further evaluation. She's found have an elevated d- dimer. Computed tomography scan of the chest shows no PE. Does revealing new suspicious left lower lobe superior segment pulmonary nodule measuring 1.1 cm and multifocal left-sided focal pleural thickening and subpleural nodules. Mediastinal adenopathy is also suspicious. Parabronchial coughing and mucus plugging in association with by basilar airspace disease may represent bronchitis and postobstructive atelectasis although early pneumonia is possible. Also partial visualization of the mid abdominal aortic aneurysm and descending thoracic aortic aneurysm. Patient has been started on IV steroids and IV antibiotics for an acute COPD exacerbation and possible pneumonia. White count was 11.1 and pulmonary service has been consulted. Patient denies any fever chills or sweats. Denies any nausea or vomiting. Denies any bowel movement changes or urinary symptoms. On 01/12/2018 patient is alert and oriented she is still complaining of continuous cough she is complaining of shortness of breath and wheezing with any activity, she underwent bronchoscopy earlier with Dr. Samuel. Otherwise she denies any complaints 01/13/2018 patient is status post bronchoscopy. She reports some improvement in her cough and shortness of breath. She is complaining of muscle cramping in her back. Also complaining of constipation. Cardiology will be consulted for a moderate pericardial effusion noted on echo. Patient's blood pressures also been elevated. Her lisinopril will be increased. 01/14/2018 blood pressures were elevated yesterday: Lisinopril was increased to 10 mg daily. Blood pressures are showing improvement this morning. She is still having a productive cough with thick phlegm. Reports improvement in her shortness of breath. Cytology was negative for any malignant cells. Pulmonary service is following. Cardiology also consulted regards to the pericardial effusion. They are checking a sed rate level to rule out pericarditis. Patient also complaining of constipation. no bowel movement with the lactulose. Enema will be ordered. Patient denies any chest pain. Reports some improvement in her cough. Denies any nausea or vomiting. Denies any burning with urination. Patient asking for increase in her [place]. At home she takes it as needed. On 01/15/2018 patient is alert and oriented. She reports some improvement in her cough and shortness of breath. She is complaining of abdominal bloating and pain otherwise she denies any complaints at this time Objective - Vital Signs Vital signs: Vital Signs Temp 97.9 F 01/15/18 07:00 Pulse 92 01/15/18 11:35 Resp 18 01/15/18 11:23 BP 107/61 01/15/18 07:00 Pulse Ox 96 01/15/18 07:00 Intake & Output 01/14/18 01/15/18 01/15/18 18:59 06:59 18:59 Intake Total 360 Output Total 400 200 200 Balance -40 -200 -200 Weight 50 kg 50.1 kg 50.1 kg Intake: Oral 360 Output: Urine 400 200 200 Other: Voiding Method Toilet Toilet Toilet Bedside Commode Bedside Commode Bedside Commode # Voids 4 1 1 # Bowel Movements 2 - Exam Head normocephalic and atraumatic Neck supple no JVD no goiter Lungs wheezing with coarse breath sounds Heart regular rate and rhythm S1-S2, no rub or gallop Abdomen is soft nontender nondistended positive bowel sounds no hepatosplenomegaly Extremities no edema Neuro alert and orientated to 3 - Labs CBC & Chem 7: 01/15/18 07:15 01/15/18 07:15 Labs: Abnormal Lab Results - Last 24 Hours (Table) 01/14/18 01/14/18 01/15/18 Range/Units 16:58 19:55 06:43 WBC (3.8-10.6) k/uL Hgb (11.4-16.0) gm/dL RDW (11.5-15.5) % Neutrophils # (1.3-7.7) k/uL Potassium (3.5-5.1) mmol/L Chloride (98-107) mmol/L Carbon Dioxide (22-30) mmol/L BUN (7-17) mg/dL Creatinine (0.52-1.04) mg/dL Glucose (74-99) mg/dL POC Glucose (mg/dL) 134 H 145 H 130 H (75-99) mg/dL 01/15/18 01/15/18 01/15/18 Range/Units 07:15 07:15 11:46 WBC 14.1 H (3.8-10.6) k/uL Hgb 11.1 L (11.4-16.0) gm/dL RDW 16.2 H (11.5-15.5) % Neutrophils # 12.0 H (1.3-7.7) k/uL Potassium 5.2 H (3.5-5.1) mmol/L Chloride 86 L (98-107) mmol/L Carbon Dioxide 40 H* (22-30) mmol/L BUN 35 H (7-17) mg/dL Creatinine 1.14 H (0.52-1.04) mg/dL Glucose 107 H (74-99) mg/dL POC Glucose (mg/dL) 143 H (75-99) mg/dL Microbiology - Last 24 Hours (Table) 01/10/18 15:20 Blood Culture - Preliminary Blood No Growth after 96 hours 01/12/18 14:25 Gram Stain - Final Bronchoalviolar Lavage - Right Bronchial Washings Culture - Final Assessment and Plan Plan: 1. Acute COPD exacerbation: Pulmonary following. Pulmonary following. Currently on IV Solu-Medrol 40 mg IV every 12 hours 2. Bilateral pneumonia: Patient status post bronchoscopy. Cytology negative for malignant cells. Bronchial wash cultures are pending 3. Elevated d-dimer on admission CTA negative for PE 4. New suspicious left lower lobe superior segment pulmonary nodule measuring 1.1 cm noted on computed tomography scan of the chest. Followed by pulmonary service. Patient does have a past history of smoking 5. Abdominal aortic aneurysm and descending thoracic aortic aneurysm. With abdominal aortic aneurysm only partially visualized measuring 3.9 x 3.7 cm abdominal ultrasound will be ordered for further evaluation. Descending Thoracic aortic aneurysm measuring 3.5 cm. abdominal ultrasound revealing a 4 x 2.9 cm abdominal aortic aneurysm 6. History of ischemic cardiomyopathy status post AICD placement 7. History of myocardial infarction with coronary disease and cardiac stents 8. History of iron deficiency anemia patient has stopped taking her iron supplement. Iron level low at 7. Resume ferrous sulfate 325 mg twice a day 9. History of severe mitral regurgitation status post mitral valve click completed at [place] May 2017 10. Moderate pericardial effusion: Seen by cardiology. They've ordered a sed rate level for further evaluation of pericarditis 11. Mediastinal lymphadenopathy likely reactive from patient's pneumonia. Pulmonary following 12. Back muscle spasms and chronic back pain. Add Flexeril as needed. Change [place] to 7.5 mg every 6 hours as needed for pain 13. Essential hypertension with uncontrolled blood pressures. Increase lisinopril to 10 mg daily and monitor 14. Constipation, with abdominal pain and bloating was given a dose of milk of magnesia Consult physical therapy GI prophylaxis Pepcid and DVT prophylaxis Lovenox
[2018-01-15 17:11] LABS: Glucose,Whole Blood 212 mg/dL (75-99)
--- NOTE | 2018-01-15 17:22 | PN ---
PROGRESS NOTE DATE OF SERVICE: 01/15/2018 This patient continues to have shortness of breath. On physical examination, her respiratory rate is 18, pulse rate 73, temperature 98. Oxygen saturation on room air is 95% with a blood pressure 120/60. HEENT: Unremarkable. Chest reveals barrel-shaped chest with prolonged expiration. Cardiovascular system reveals an S1, S2. ABDOMEN: Soft. There is no edema. White count is 14.1, hemoglobin of 11.1. Sodium 137, potassium 5.2, chloride 86, bicarb 40, BUN 35, creatinine 1.14. Microbiological cultures from the bronchoalveolar lavage AFB has been negative. Bronchial washing cultures have shown few normal respiratory nati. IMPRESSION AT THIS TIME: 1. Severe chronic obstructive pulmonary disease with acute exacerbation. 2. Bilateral nodular infiltrate. Cultures have been negative. 3. Abdominal aortic aneurysm. 4. Pericardial effusion. 5. Pneumonia. Continue antibiotics, taper steroids. In view of elevated bicarbonate it is likely that the pCO2 is high as well. Would decrease the FiO2 to keep oxygen saturations 89 to 90 so that she does not retain CO2. Her prognosis at this time is fair. MMODL / IJN: [id number] /
[2018-01-15 20:40] LABS: Glucose,Whole Blood 174 mg/dL (75-99)
[2018-01-15] MEDS: POLYETHYLENE GLYCOL 3350 17 GM POWD.PACK PO SCH (21:52)
[2018-01-15] MEDS: ATORVASTATIN 80 MG TAB PO SCH (21:53)
[2018-01-16 07:03] LABS: Glucose,Whole Blood 115 mg/dL (75-99)
[2018-01-16] MEDS: IPRATROPIUM-ALBUTEROL 3 ML NEB INHALATION SCH ×4 (07:23→21:00)
[2018-01-16] MEDS: SYMBICORT 160-4.5 MCG INHALER INHALATION SCH ×2 (07:23→21:00)
[2018-01-16] MEDS: INSULIN ASPART 100 UNIT/ML 1 ML 10 ML VIAL SQ SCH ×4 (07:57→22:13)
[2018-01-16] MEDS: CALCIUM CARBONATE 500 MG CHEWABLE PO SCH (08:03)
[2018-01-16] MEDS: ENOXAPARIN 40 MG/0.4 ML SYRINGE SQ SCH (08:03)
[2018-01-16 08:31] LABS: Anisocytosis Slight; Basophils % (A) 0 %; Eosinophils # (A) 0.2 k/uL (0-0.7); Eosinophils % (A) 1 %; HCT 36.4 % (34.0-46.0); HGB 11.4 gm/dL (11.4-16.0); Hypochromasia Moderate; Lymphocytes # (A) 2.2 k/uL (1.0-4.8); Lymphocytes % (A) 10 %; MCH 25.5 pg (25.0-35.0); MCHC 31.1 g/dL (31.0-37.0); MCV 81.8 fL (80.0-100.0); Mean Platelet Volume 6.8; Monocytes # (A) 1.5 k/uL (0-1.0); Monocytes % (A) 7 %; Neutrophils # (A) 16.9 k/uL (1.3-7.7); Neutrophils % (A) 80 %; Platelet Count 445 k/uL (150-450); RBC 4.46 m/uL (3.80-5.40); RDW 16.4 % (11.5-15.5); WBC 21.1 k/uL (3.8-10.6)
[2018-01-16 08:47] LABS: Albumin 3.6 g/dL (3.5-5.0); Calcium 10.2 mg/dL (8.4-10.2); Potassium 4.4 mmol/L (3.5-5.1); Total Bilirubin 0.3 mg/dL (0.2-1.3); Total Protein 6.2 g/dL (6.3-8.2)
[2018-01-16] MEDS: ONDANSETRON 4 MG/2 ML VIAL IVP PRN (09:28)
[2018-01-16] MEDS: CHOLECALCIFEROL 1,000 UNIT TAB PO SCH (09:30)
[2018-01-16] MEDS: predniSONE 20 MG TAB PO SCH (09:31)
[2018-01-16] MEDS: FUROSEMIDE 40 MG TAB PO SCH ×2 (09:32→17:24)
[2018-01-16] MEDS: ASPIRIN 81 MG PO SCH (09:32)
[2018-01-16] MEDS: LISINOPRIL 10 MG TAB PO SCH ×2 (09:33→17:35)
[2018-01-16] MEDS: CLOPIDOGREL 75 MG TAB PO SCH (09:33)
[2018-01-16] MEDS: METOPROLOL TARTRATE 12.5 MG TAB PO SCH ×2 (09:34→22:14)
[2018-01-16] MEDS: DOCUSATE 100 MG CAP PO SCH ×2 (09:34→22:14)
[2018-01-16] MEDS: ZINC OXIDE 20% OINT 28.4 GM TUBE TOPICAL SCH ×2 (09:39→22:15)
[2018-01-16] MEDS: FAMOTIDINE 20 MG TAB PO SCH (11:01)
[2018-01-16] MEDS: FERROUS SULFATE 325 MG TAB PO SCH ×2 (11:01→22:14)
[2018-01-16 11:12] LABS: Glucose,Whole Blood 107 mg/dL (75-99)
--- NOTE | 2018-01-16 16:25 | P.PN ---
Subjective Progress Note Date: 01/16/18 This is a 67-year-old female with a known history of COPD, ischemic cardiomyopathy status post AICD, congestive heart failure, myocardial infarction with coronary disease and cardiac stents, severe mitral regurgitation with clip. She presents to the hospital with a three-day complaint of cough and shortness of breath and pleuritic chest pain. Patient is wheezing and increased shortness of breath with activity. She presented to the emergency room for further evaluation. She's found have an elevated d- dimer. Computed tomography scan of the chest shows no PE. Does revealing new suspicious left lower lobe superior segment pulmonary nodule measuring 1.1 cm and multifocal left-sided focal pleural thickening and subpleural nodules. Mediastinal adenopathy is also suspicious. Parabronchial coughing and mucus plugging in association with by basilar airspace disease may represent bronchitis and postobstructive atelectasis although early pneumonia is possible. Also partial visualization of the mid abdominal aortic aneurysm and descending thoracic aortic aneurysm. Patient has been started on IV steroids and IV antibiotics for an acute COPD exacerbation and possible pneumonia. White count was 11.1 and pulmonary service has been consulted. Patient denies any fever chills or sweats. Denies any nausea or vomiting. Denies any bowel movement changes or urinary symptoms. On 01/12/2018 patient is alert and oriented she is still complaining of continuous cough she is complaining of shortness of breath and wheezing with any activity, she underwent bronchoscopy earlier with Dr. Samuel. Otherwise she denies any complaints 01/13/2018 patient is status post bronchoscopy. She reports some improvement in her cough and shortness of breath. She is complaining of muscle cramping in her back. Also complaining of constipation. Cardiology will be consulted for a moderate pericardial effusion noted on echo. Patient's blood pressures also been elevated. Her lisinopril will be increased. 01/14/2018 blood pressures were elevated yesterday: Lisinopril was increased to 10 mg daily. Blood pressures are showing improvement this morning. She is still having a productive cough with thick phlegm. Reports improvement in her shortness of breath. Cytology was negative for any malignant cells. Pulmonary service is following. Cardiology also consulted regards to the pericardial effusion. They are checking a sed rate level to rule out pericarditis. Patient also complaining of constipation. no bowel movement with the lactulose. Enema will be ordered. Patient denies any chest pain. Reports some improvement in her cough. Denies any nausea or vomiting. Denies any burning with urination. Patient asking for increase in her [place]. At home she takes it as needed. On 01/15/2018 patient is alert and oriented. She reports some improvement in her cough and shortness of breath. She is complaining of abdominal bloating and pain otherwise she denies any complaints at this time On 01/16/2018 patient is alert and oriented. She reports some improvement in her cough and shortness of breath. She is complaining of pain in the abdomen and nausea otherwise she denies any complaints at this time Objective - Vital Signs Vital signs: Vital Signs Temp 98.0 F 01/16/18 14:44 Pulse 84 01/16/18 14:44 Resp 16 01/16/18 14:44 BP 152/103 01/16/18 14:44 Pulse Ox 96 01/16/18 14:44 Intake & Output 01/15/18 01/16/18 01/16/18 17:59 06:59 18:59 Intake Total 80 Output Total Balance 80 Weight Intake: Intake, IV Titration 80 Amount IV Fluid Continuation 1, 80 000 ml As IV .[facility] Rx#:[id number] Oral Output: Urine Other: Voiding Method Toilet # Voids # Bowel Movements 0 # Emeses 1 - Exam Head normocephalic and atraumatic Neck supple no JVD no goiter Lungs wheezing with coarse breath sounds Heart regular rate and rhythm S1-S2, no rub or gallop Abdomen is soft with mild diffuse tenderness positive bowel sounds no hepatosplenomegaly Extremities no edema Neuro alert and orientated to 3 - Labs CBC & Chem 7: 01/16/18 08:13 01/16/18 08:13 Labs: Abnormal Lab Results - Last 24 Hours (Table) 01/15/18 01/15/18 01/16/18 Range/Units 17:05 20:35 07:01 WBC (3.8-10.6) k/uL RDW (11.5-15.5) % Neutrophils # (1.3-7.7) k/uL Monocytes # (0-1.0) k/uL Sodium (137-145) mmol/L Chloride (98-107) mmol/L Carbon Dioxide (22-30) mmol/L BUN (7-17) mg/dL Creatinine (0.52-1.04) mg/dL Glucose (74-99) mg/dL POC Glucose (mg/dL) 212 H 174 H 115 H (75-99) mg/dL Total Protein (6.3-8.2) g/dL 01/16/18 01/16/18 01/16/18 Range/Units 08:13 08:13 11:10 WBC 21.1 H (3.8-10.6) k/uL RDW 16.4 H (11.5-15.5) % Neutrophils # 16.9 H (1.3-7.7) k/uL Monocytes # 1.5 H (0-1.0) k/uL Sodium 133 L (137-145) mmol/L Chloride 85 L (98-107) mmol/L Carbon Dioxide 35 H (22-30) mmol/L BUN 44 H (7-17) mg/dL Creatinine 1.19 H (0.52-1.04) mg/dL Glucose 104 H (74-99) mg/dL POC Glucose (mg/dL) 107 H (75-99) mg/dL Total Protein 6.2 L (6.3-8.2) g/dL Microbiology - Last 24 Hours (Table) 01/10/18 15:20 Blood Culture - Preliminary Blood No Growth after 120 hours Assessment and Plan Plan: 1. Acute COPD exacerbation: Pulmonary following. Pulmonary following. Currently on IV Solu-Medrol 40 mg IV every 12 hours 2. Bilateral pneumonia: Patient status post bronchoscopy. Cytology negative for malignant cells. Bronchial wash cultures are pending 3. Elevated d-dimer on admission CTA negative for PE 4. New suspicious left lower lobe superior segment pulmonary nodule measuring 1.1 cm noted on computed tomography scan of the chest. Followed by pulmonary service. Patient does have a past history of smoking 5. Abdominal aortic aneurysm and descending thoracic aortic aneurysm. With abdominal aortic aneurysm only partially visualized measuring 3.9 x 3.7 cm abdominal ultrasound will be ordered for further evaluation. Descending Thoracic aortic aneurysm measuring 3.5 cm. abdominal ultrasound revealing a 4 x 2.9 cm abdominal aortic aneurysm 6. History of ischemic cardiomyopathy status post AICD placement 7. History of myocardial infarction with coronary disease and cardiac stents 8. History of iron deficiency anemia patient has stopped taking her iron supplement. Iron level low at 7. Resume ferrous sulfate 325 mg twice a day 9. History of severe mitral regurgitation status post mitral valve click completed at [facility] May 2017 10. Moderate pericardial effusion: Seen by cardiology. They've ordered a sed rate level for further evaluation of pericarditis 11. Mediastinal lymphadenopathy likely reactive from patient's pneumonia. Pulmonary following 12. Back muscle spasms and chronic back pain. Add Flexeril as needed. Change [place] to 7.5 mg every 6 hours as needed for pain 13. Essential hypertension with uncontrolled blood pressures. Increase lisinopril to 10 mg daily and monitor 14. Constipation, with abdominal pain and bloating not improving with current management will check CT scan of the abdomen Consult physical therapy GI prophylaxis Pepcid and DVT prophylaxis Lovenox
--- NOTE | 2018-01-16 17:41 | CT ---
EXAMINATION TYPE: CT abdomen pelvis wo con DATE OF EXAM: 01/16/2018 COMPARISON: 10/03/2015 HISTORY: Patient complains of generalized abdominal pain, constipation, and bloating. CT DLP: 158.1 mGycm Automated exposure control for dose reduction was used. TECHNIQUE: Helical acquisition of images was performed from the lung bases through the pelvis. FINDINGS: Lack of intravenous and oral contrast limit evaluation of both the hollow and solid viscera . LUNG BASES: Stable right middle lobe pulmonary nodule dating back to 2014 should be considered benign . Reticular opacities within the right middle lobe has increased from the prior and could represent s mall airway disease of infectious or inflammatory etiology. Moderate centrilobular emphysema is seen at the lung bases. Partial visualization of the cardiac device and trace pericardial effusion. LIVER/GB: Unenhanced liver is unremarkable in morphology. The gallbladder is elongated and contains g allstones within the gallbladder fundus. Common bile duct is suboptimally visualized on coronal image s. PANCREAS: No significant abnormality is seen. No ductal dilatation. SPLEEN: No significant abnormality is seen. No splenomegaly. ADRENALS: No significant abnormality is seen. No discrete nodularity. KIDNEYS: The right kidney is ill-defined and slightly atrophic in comparison to the left. Left renal arterial calcifications are seen. In addition to right renal arterial calcifications are as a 2 mm pu nctate nonobstructing right upper pole renal calculus. The ureter is not clearly defined due to adjac ent bowel loops but there is suggestion of moderate right-sided hydronephrosis, unchanged from the ex am of 2014. MESENTERY: No free air is visualized. Small volume abdominal ascites surrounds loops of bowel and is seen dependently within the low pelvis. REPRODUCTIVE ORGANS: Uterus is slightly atrophic with no gross abnormality. Ovaries are not well visu alized due to adjacent bowel and lack of intravenous contrast. URINARY BLADDER: Urinary bladder is grossly distended. No trabeculation of the pacheco or thickening i s seen. Somewhat limited secondary to lack contrast. ADENOPATHY: Limited by lack of intravenous contrast although no gross evidence of greater than 1 cm short axis lymph nodes are seen within the abdomen or pelvis. OSSEOUS STRUCTURES: Sclerotic focus of the right iliac bone is unchanged from the prior. There is a mild levoscoliosis of the lumbar spine. BOWEL: Ingested debris is seen throughout the entirety of the slightly distended stomach and distal esophagus. Stool is noted within the rectal vault and throughout the colon. Fluid is seen throughout the cecum. Appendix is not visualized. Large bowel measures up to 3.8 cm, within normal limits and di ffuse fluid filled loops of small bowel measure up to 3.5 cm containing air-fluid levels although no decompressed small bowel loops or transition point is identified. VASCULAR: There is a fusiform abdominal aortic aneurysm appearing to be infrarenal measuring up to 3. 7 x 3.5 x 6.5 cm in anterior posterior by transverse by craniocaudal dimension. This is increased in size from the exam of 10/03/2015 where it measured 3.1 cm. Severe calcific atheromatous plaquing is s een of the abdominal aorta and its branches. IMPRESSION: 1. DIFFUSE MILD DILATION OF THE SMALL BOWEL CONTAINING FLUID THROUGHOUT WITHOUT TRANSITION POINT PAIN WITH AIR AND STOOL SEEN THROUGHOUT THE ENTIRETY OF THE NONDILATED COLON SUGGESTIVE OF SMALL BOWEL IL EUS OR EARLY PARTIAL SMALL BOWEL OBSTRUCTION. SMALL BOWEL FOLLOW-THROUGH COULD BE PERFORMED. 2. ENLARGEMENT OF THE FUSIFORM ABDOMINAL AORTIC ANEURYSM COMPARED TO THE EXAM OF 2014 MEASURING 3.7 X 3.5 X 6.5 CM AND PREVIOUSLY MEASURING 3.1 CM. 3. RIGHT MIDDLE LOBE AIRSPACE DISEASE WITH A PATTERN OF BRONCHIOLITIS/SMALL AIRWAY DISEASE OF INFLAMM ATORY OR INFECTIOUS ETIOLOGY. 4. CHRONIC RIGHT-SIDED HYDRONEPHROSIS AND RIGHT RENAL ATROPHY, UNCHANGED FROM THE EXAM OF 2014 AND NO KATHE ON THE EXAM OF 2005 PER THE REPORT OF 2016. 5. SMALL AMOUNT OF ABDOMINAL AND PELVIC ASCITES. 6. MODERATE URINARY BLADDER DISTENTION WITHOUT WALL THICKENING OR TRABECULATION.
[2018-01-16 17:46] LABS: Glucose,Whole Blood 155 mg/dL (75-99)
[2018-01-16 20:35] LABS: Glucose,Whole Blood 252 mg/dL (75-99)
--- NOTE | 2018-01-16 21:59 | PN ---
PROGRESS NOTE She is less short of breath, but has been complaining of abdominal cramping. On physical examination respiratory rate of 16, pulse rate 84, temperature 98, blood pressure 152/103, O2 saturation on room air is 96%. HEENT is unremarkable. Chest reveals decreased breath sounds. Prolonged expiration. No clear wheeze. Cardiovascular system with an S1, S2. Abdomen is soft. There is no edema. Sodium is 133, potassium 4.4, chloride 85, bicarb 35, BUN 44, creatinine 1.19. White count of 21.1, hemoglobin of 11.4. IMPRESSION: At this time is: 1. Severe chronic obstructive pulmonary disease with acute exacerbation. 2. Bilateral nodular infiltrates which cultures have been negative. 3. Pericardial effusion and pneumonia. Continue antibiotics and steroids. Increase activity level. Depending on how she does, we should make further changes to her care. MMROSSL / INESSAN: [id number] /
[2018-01-16] MEDS: ATORVASTATIN 80 MG TAB PO SCH (22:14)
[2018-01-16] MEDS: POLYETHYLENE GLYCOL 3350 17 GM POWD.PACK PO SCH (22:14)
[2018-01-16] MEDS: LEVOFLOXACIN 750 MG TAB PO SCH (22:35)
[2018-01-17] MEDS: INSULIN ASPART 100 UNIT/ML 1 ML 10 ML VIAL SQ SCH ×4 (07:38→22:25)
[2018-01-17] MEDS: SYMBICORT 160-4.5 MCG INHALER INHALATION SCH ×2 (07:47→19:47)
[2018-01-17] MEDS: IPRATROPIUM-ALBUTEROL 3 ML NEB INHALATION SCH ×4 (07:47→19:47)
[2018-01-17 07:49] LABS: Glucose,Whole Blood 120 mg/dL (75-99)
[2018-01-17] MEDS: CLOPIDOGREL 75 MG TAB PO SCH (08:15)
[2018-01-17] MEDS: ASPIRIN 81 MG PO SCH (08:15)
[2018-01-17] MEDS: FAMOTIDINE 20 MG TAB PO SCH (08:15)
[2018-01-17] MEDS: DOCUSATE 100 MG CAP PO SCH ×2 (08:15→22:06)
[2018-01-17] MEDS: METOPROLOL TARTRATE 12.5 MG TAB PO SCH ×2 (08:15→22:05)
[2018-01-17] MEDS: predniSONE 20 MG TAB PO SCH (08:15)
[2018-01-17] MEDS: ENOXAPARIN 40 MG/0.4 ML SYRINGE SQ SCH (08:15)
[2018-01-17] MEDS: LISINOPRIL 10 MG TAB PO SCH (08:15)
[2018-01-17] MEDS: ZINC OXIDE 20% OINT 28.4 GM TUBE TOPICAL SCH ×2 (08:16→22:06)
[2018-01-17] MEDS: FUROSEMIDE 40 MG TAB PO SCH ×2 (08:16→15:53)
[2018-01-17] MEDS: FERROUS SULFATE 325 MG TAB PO SCH ×2 (08:16→22:06)
[2018-01-17 08:50] LABS: Albumin 3.4 g/dL (3.5-5.0); Basophils % (A) 0 %; Calcium 9.4 mg/dL (8.4-10.2); Eosinophils # (A) 0.1 k/uL (0-0.7); Eosinophils % (A) 0 %; HCT 32.6 % (34.0-46.0); HGB 10.3 gm/dL (11.4-16.0); Hypochromasia Moderate; Lymphocytes # (A) 1.5 k/uL (1.0-4.8); Lymphocytes % (A) 6 %; MCH 25.8 pg (25.0-35.0); MCHC 31.7 g/dL (31.0-37.0); MCV 81.2 fL (80.0-100.0); Mean Platelet Volume 6.4; Monocytes # (A) 1.3 k/uL (0-1.0); Monocytes % (A) 6 %; Neutrophils # (A) 19.7 k/uL (1.3-7.7); Neutrophils % (A) 86 %; Platelet Count 441 k/uL (150-450); RBC 4.01 m/uL (3.80-5.40); RDW 15.8 % (11.5-15.5); Total Bilirubin 0.3 mg/dL (0.2-1.3); Total Protein 5.9 g/dL (6.3-8.2); WBC 22.9 k/uL (3.8-10.6)
--- NOTE | 2018-01-17 11:08 | P.PN ---
Subjective Progress Note Date: 01/17/18 This is a 67-year-old female with a known history of COPD, ischemic cardiomyopathy status post AICD, congestive heart failure, myocardial infarction with coronary disease and cardiac stents, severe mitral regurgitation with clip. She presents to the hospital with a three-day complaint of cough and shortness of breath and pleuritic chest pain. Patient is wheezing and increased shortness of breath with activity. She presented to the emergency room for further evaluation. She's found have an elevated d- dimer. Computed tomography scan of the chest shows no PE. Does revealing new suspicious left lower lobe superior segment pulmonary nodule measuring 1.1 cm and multifocal left-sided focal pleural thickening and subpleural nodules. Mediastinal adenopathy is also suspicious. Parabronchial coughing and mucus plugging in association with by basilar airspace disease may represent bronchitis and postobstructive atelectasis although early pneumonia is possible. Also partial visualization of the mid abdominal aortic aneurysm and descending thoracic aortic aneurysm. Patient has been started on IV steroids and IV antibiotics for an acute COPD exacerbation and possible pneumonia. White count was 11.1 and pulmonary service has been consulted. Patient denies any fever chills or sweats. Denies any nausea or vomiting. Denies any bowel movement changes or urinary symptoms. 01/13/2018 patient is status post bronchoscopy. She reports some improvement in her cough and shortness of breath. She is complaining of muscle cramping in her back. Also complaining of constipation. Cardiology will be consulted for a moderate pericardial effusion noted on echo. Patient's blood pressures also been elevated. Her lisinopril will be increased. 01/14/2018 blood pressures were elevated yesterday: Lisinopril was increased to 10 mg daily. Blood pressures are showing improvement this morning. She is still having a productive cough with thick phlegm. Reports improvement in her shortness of breath. Cytology was negative for any malignant cells. Pulmonary service is following. Cardiology also consulted regards to the pericardial effusion. They are checking a sed rate level to rule out pericarditis. Patient also complaining of constipation. no bowel movement with the lactulose. Enema will be ordered. Patient denies any chest pain. Reports some improvement in her cough. Denies any nausea or vomiting. Denies any burning with urination. Patient asking for increase in her [place]. At home she takes it as needed. 01/17/2018 patient still complaining of abdominal Cramping and distention. She had a computed tomography scan of the abdomen showing diffuse mild dilation of the small bowel containing fluid throughout without transition point with air and stool seen throughout the entirety of the non-dilated colon suggestive of a small bowel ileus or early partial small bowel obstruction. Patient also had a moderate urinary bladder distention without wall thickening noted as well as her chronic right-sided hydronephrosis and abdominal aortic aneurysm. And a right middle lobe airspace disease with bronchiolitis and small airway disease of inflammatory or infectious etiology. Surgical service will be consulted. Post void residual was checked and found to have 466 mL's. Sampson catheter inserted. Urinalysis with culture and sensitivity will also be checked. White count up at 22.9 and the patient is also on prednisone. Sodium was 130. Creatinine 1.11. We'll place her on normal saline at 50 mL an hour. Patient's last bowel movement was yesterday prior to CAT scan. However, patient reports that bones that she has had have been liquid. She did have one episode of vomiting. Objective - Vital Signs Vital signs: Vital Signs Temp 97.8 F 01/17/18 07:00 Pulse 74 01/17/18 08:00 Resp 18 01/17/18 08:00 BP 120/64 01/17/18 07:00 Pulse Ox 94 L 01/17/18 07:00 Intake & Output 01/16/18 01/17/18 01/17/18 18:59 06:59 18:59 Intake Total 80 Balance 80 Weight 50.1 kg Intake: Intake, IV Titration 80 Amount IV Fluid Continuation 1, 80 000 ml As IV .[facility] Rx#:[id number] Other: Voiding Method Toilet Toilet Toilet # Voids 1 # Bowel Movements 0 # Emeses 1 - Exam Head normocephalic Neck supple Lungs diminished with a few coarse breath sounds Heart regular rate and rhythm S1-S2, no rub or gallop Abdomen is soft hypoactive bowel sounds distended diffuse tenderness Extremities no edema Neuro alert and orientated to 3 - Labs CBC & Chem 7: 01/17/18 07:59 01/17/18 07:59 Labs: Abnormal Lab Results - Last 24 Hours (Table) 01/16/18 01/16/18 01/16/18 Range/Units 11:10 17:41 20:17 WBC (3.8-10.6) k/uL Hgb (11.4-16.0) gm/dL Hct (34.0-46.0) % RDW (11.5-15.5) % Neutrophils # (1.3-7.7) k/uL Monocytes # (0-1.0) k/uL Sodium (137-145) mmol/L Chloride (98-107) mmol/L Carbon Dioxide (22-30) mmol/L BUN (7-17) mg/dL Creatinine (0.52-1.04) mg/dL POC Glucose (mg/dL) 107 H 155 H 252 H (75-99) mg/dL Total Protein (6.3-8.2) g/dL Albumin (3.5-5.0) g/dL 01/17/18 01/17/18 01/17/18 Range/Units 07:36 07:59 07:59 WBC 22.9 H (3.8-10.6) k/uL Hgb 10.3 L (11.4-16.0) gm/dL Hct 32.6 L (34.0-46.0) % RDW 15.8 H (11.5-15.5) % Neutrophils # 19.7 H (1.3-7.7) k/uL Monocytes # 1.3 H (0-1.0) k/uL Sodium 130 L (137-145) mmol/L Chloride 85 L (98-107) mmol/L Carbon Dioxide 35 H (22-30) mmol/L BUN 42 H (7-17) mg/dL Creatinine 1.11 H (0.52-1.04) mg/dL POC Glucose (mg/dL) 120 H (75-99) mg/dL Total Protein 5.9 L (6.3-8.2) g/dL Albumin 3.4 L (3.5-5.0) g/dL Microbiology - Last 24 Hours (Table) 01/10/18 15:20 Blood Culture - Final Blood No Growth after 144 hours Assessment and Plan Assessment: 1. Acute COPD exacerbation: Pulmonary following. Continue oral prednisone and bronchodilators 2. Bilateral pneumonia: Patient status post bronchoscopy. Cytology negative for malignant cells. Bronchial wash cultures showing normal respiratory nati 3. Elevated d-dimer on admission CTA negative for PE 4. New suspicious left lower lobe superior segment pulmonary nodule measuring 1.1 cm noted on computed tomography scan of the chest. Followed by pulmonary service. Patient does have a past history of smoking 5. Abdominal aortic aneurysm and descending thoracic aortic aneurysm. With abdominal aortic aneurysm only partially visualized measuring 3.9 x 3.7 cm abdominal ultrasound will be ordered for further evaluation. Descending Thoracic aortic aneurysm measuring 3.5 cm. abdominal ultrasound revealing a 4 x 2.9 cm abdominal aortic aneurysm 6. History of ischemic cardiomyopathy status post AICD placement 7. History of myocardial infarction with coronary disease and cardiac stents 8. History of iron deficiency anemia patient has stopped taking her iron supplement. Iron level low at 7. Resume ferrous sulfate 325 mg twice a day 9. History of severe mitral regurgitation status post mitral valve click completed at [facility] May 2017 10. Moderate pericardial effusion: Seen by cardiology. ESR nonelevated 11. Mediastinal lymphadenopathy likely reactive from patient's pneumonia. Pulmonary following 12. Back muscle spasms and chronic back pain. Add Flexeril as needed. Change [place] to 7.5 mg every 6 hours as needed for pain 13. Essential hypertension: Blood pressures have shown improvement with the increase the patient's lisinopril 14. Constipation with concerns of a possible partial small bowel obstruction on computed tomography scan of the abdomen. Surgical service will be consulted. Plus patient on a clear liquid diet for now. 15. Urinary retention: Insert Sampson catheter. 16. Hyponatremia with a sodium of 130: Start IV fluids and normal saline at 50 mL an hour. Repeat labs in a.m. Consult physical therapy GI prophylaxis Pepcid and DVT prophylaxis Lovenox I performed an examination of the patient and discussed their management with the physician Pyrotechnician. I have reviewed the Physician Pyrotechnician's notes and agree with the documented findings and plan of care
[2018-01-17 11:29] LABS: Glucose,Whole Blood 143 mg/dL (75-99)
[2018-01-17 11:30] LABS: Appearance,Urine Clear (Clear); Bilirubin,Urine Negative (Negative); Blood,Urine Negative (Negative); Color,Urine Light Yellow; Glucose,Urine (UA) Negative (Negative); Ketones,Urine Negative (Negative); Leukocyte Esterase,Urine Negative (Negative); Nitrite,Urine Negative (Negative); PH, Urine 7.5 (5.0-8.0); Protein,Urine Negative (Negative); Specific Gravity,Urine 1.008 (1.001-1.035); Urobilinogen,Urine <2.0 mg/dL (<2.0)
[2018-01-17] MEDS: CALCIUM CARBONATE 500 MG CHEWABLE PO SCH (12:44)
[2018-01-17] MEDS: CHOLECALCIFEROL 1,000 UNIT TAB PO SCH (12:44)
--- NOTE | 2018-01-17 15:30 | P.GSCN ---
History of Present Illness Consult date: 01/17/18 Reason for Consult: Small bowel obstruction History of present illness: 67-year-old female admitted for pulmonary issues. During this hospitalization the patient started describing abdominal bloating and cramps. She says that she had an episode approximately 3 weeks prior to admission where she was constipated took a stool softener and that resolved her symptoms. She said that she had not had significant bowel function 2-3 days prior to admission and then after a few days here in the hospital began experiencing bloating and crampy pain. Small amount of flatus but no bowel movements. Last colonoscopy 5 years ago. No rectal bleeding or melena. Currently taking Colace twice a day and MiraLAX once daily. CAT scan was performed which reveals mild dilation of the small bowel loops diffusely as well as stool seen throughout the colon. Patient denies significant pain currently. She is somewhat hungry. Tolerating clear liquids presently. No nausea or vomiting. Review of Systems The patient denies any acute changes in vision or hearing, no dysphagia or odynophagia, no chest pain, no dysuria or hematuria, no headache, no runny nose , no rectal bleeding or melena, no unexplained weight loss Past Medical History Past Medical History: Heart Failure, COPD, Hyperlipidemia, Hypertension, Osteoarthritis (OA), Pneumonia, Renal Disease Additional Past Medical History / Comment(s): aaa 09/2015 pneumonia with sepsis , R parotitis, nephrolithiasis yrs ago, sciatica-R side low back. fx Right knee- had sx then had an infection with multiple surgeries and required IV antibiotics. Patient is currently on oral doxycycline no evidence of active infection. Cardiomyopathy with an EF of 20% currently has a LifeVest. Severe mitral regurgitation status post mitral valve clipping in May 2017 History of Any Multi-Drug Resistant Organisms: None Reported Past Surgical History: Heart Catheterization With Stent, Joint Replacement, Orthopedic Surgery, Tonsillectomy Additional Past Surgical History / Comment(s): Partial thyroidectomy, T total knee arthroplasty in October 2016, Right knee infection with additional surgeries spinal cord stimulator insertion and removal, colonoscopies with benign polypectomies. March 2017 6 stent placed, may -had mitral valve clip Past Anesthesia/Blood Transfusion Reactions: No Reported Reaction Date of Last Stent Placement:: March 2017 Past Psychological History: No Psychological Hx Reported Additional Psychological History / Comment(s): Pt lives with her spouse. has a nebulizer/cane Smoking Status: Former smoker Past Alcohol Use History: None Reported Additional Past Alcohol Use History / Comment(s): Pt states she started smoking in 1968 was a 1ppd smoker, quit oct 2016 Past Drug Use History: None Reported - Past Family History Mother Family Medical History: Cancer, Congestive Heart Failure (CHF) Additional Family Medical History / Comment(s): Mother in her early 80's Father Family Medical History: Myocardial Infarction ([place]) Additional Family Medical History / Comment(s): Father of a [place] in his 50's. Medications and Allergies Home Medications Medication Instructions Recorded Confirmed Type Cholecalciferol [Vitamin D3] 5,000 unit PO DAILY 09/23/15 01/10/18 History Atorvastatin [Lipitor] 80 mg PO HS 01/08/17 01/10/18 History Clopidogrel [Plavix] 75 mg PO DAILY 01/08/17 01/10/18 History Docusate Sodium [Dok] 100 mg PO BID 01/08/17 01/10/18 History Famotidine [Pepcid] 20 mg PO DAILY 01/08/17 01/10/18 History Calcium Carbonate [Calcium] 600 mg PO DAILY 05/27/17 01/10/18 History HYDROcodone/APAP 7.5-325MG [[place] 1 tab PO DAILY PRN 05/27/17 01/10/18 History 7.5-325] Aspirin EC [Ecotrin Low Dose] 81 mg PO DAILY 09/02/17 01/10/18 History Furosemide [Lasix] 40 mg PO BID@0900,1600 #60 tab 09/13/17 01/10/18 Rx Nitroglycerin Sl Tabs [Nitrostat] 0.4 mg SUBLINGUAL Q5M PRN #25 tab 09/13/1703/25 Rx Polyethylene Glycol 3350 [Miralax] 17 gm PO HS #30 powd.pack 09/13/17 01/10/18 Rx Zinc Oxide 20% Oint 1 applic TOPICAL BID #1 tube 09/13/17 01/10/18 Rx Denosumab [Prolia] 60 mg SQ Q180D 01/10/18 01/10/18 History Fluticasone/Vilanterol [Breo 1 puff INHALATION RT-DAILY 01/10/18 01/10/18 History Ellipta 200-25 Mcg INH] Lisinopril [Prinivil] 5 mg PO DAILY 01/10/18 01/10/18 History Metoprolol Tartrate [Lopressor] 12.5 mg PO BID 01/10/18 01/10/18 History Allergies Allergy/AdvReac Type Severity Reaction Status Date / Time Iodinated Contrast- Oral and Allergy Anaphylaxis Verified 01/10/18 15:17 IV Dye [Iodinated Contrast Media - IV Dye] Surgical - Exam Vital Signs Temp Pulse Resp BP Pulse Ox 98.4 F 100 18 161/77 95 01/10/18 14:44 01/10/18 14:44 01/10/18 14:44 01/10/18 14:44 01/10/18 14:44 Physical exam: General: Well-developed, well-nourished HEENT: Normocephalic, sclerae nonicteric Abdomen: Mild diffuse tenderness, mild distention Extremities: No edema Neuro: Alert and oriented Results - Labs 01/17/18 07:59 01/17/18 07:59 Abnormal Lab Results - Last 24 Hours (Table) 01/16/18 01/16/18 01/17/18 Range/Units 17:41 20:17 07:36 WBC (3.8-10.6) k/uL Hgb (11.4-16.0) gm/dL Hct (34.0-46.0) % RDW (11.5-15.5) % Neutrophils # (1.3-7.7) k/uL Monocytes # (0-1.0) k/uL Sodium (137-145) mmol/L Chloride (98-107) mmol/L Carbon Dioxide (22-30) mmol/L BUN (7-17) mg/dL Creatinine (0.52-1.04) mg/dL POC Glucose (mg/dL) 155 H 252 H 120 H (75-99) mg/dL Total Protein (6.3-8.2) g/dL Albumin (3.5-5.0) g/dL 01/17/18 01/17/18 01/17/18 Range/Units 07:59 07:59 11:28 WBC 22.9 H (3.8-10.6) k/uL Hgb 10.3 L (11.4-16.0) gm/dL Hct 32.6 L (34.0-46.0) % RDW 15.8 H (11.5-15.5) % Neutrophils # 19.7 H (1.3-7.7) k/uL Monocytes # 1.3 H (0-1.0) k/uL Sodium 130 L (137-145) mmol/L Chloride 85 L (98-107) mmol/L Carbon Dioxide 35 H (22-30) mmol/L BUN 42 H (7-17) mg/dL Creatinine 1.11 H (0.52-1.04) mg/dL POC Glucose (mg/dL) 143 H (75-99) mg/dL Total Protein 5.9 L (6.3-8.2) g/dL Albumin 3.4 L (3.5-5.0) g/dL Microbiology - Last 24 Hours (Table) 01/12/18 14:25 Fungal Culture - Preliminary Bronchoalviolar Lavage - Right La albicans 01/10/18 15:20 Blood Culture - Final Blood No Growth after 144 hours Diabetes panel 01/17/18 Range/Units 07:59 Sodium 130 L (137-145) mmol/L Potassium 4.0 (3.5-5.1) mmol/L Chloride 85 L (98-107) mmol/L Carbon Dioxide 35 H (22-30) mmol/L BUN 42 H (7-17) mg/dL Creatinine 1.11 H (0.52-1.04) mg/dL Glucose 79 (74-99) mg/dL Calcium 9.4 (8.4-10.2) mg/dL AST 23 (14-36) U/L ALT 38 (9-52) U/L Alkaline Phosphatase 81 (38-126) U/L Total Protein 5.9 L (6.3-8.2) g/dL Albumin 3.4 L (3.5-5.0) g/dL Calcium panel 01/17/18 Range/Units 07:59 Calcium 9.4 (8.4-10.2) mg/dL Albumin 3.4 L (3.5-5.0) g/dL Pituitary panel 01/17/18 Range/Units 07:59 Sodium 130 L (137-145) mmol/L Potassium 4.0 (3.5-5.1) mmol/L Chloride 85 L (98-107) mmol/L Carbon Dioxide 35 H (22-30) mmol/L BUN 42 H (7-17) mg/dL Creatinine 1.11 H (0.52-1.04) mg/dL Glucose 79 (74-99) mg/dL Calcium 9.4 (8.4-10.2) mg/dL Adrenal panel 01/17/18 Range/Units 07:59 Sodium 130 L (137-145) mmol/L Potassium 4.0 (3.5-5.1) mmol/L Chloride 85 L (98-107) mmol/L Carbon Dioxide 35 H (22-30) mmol/L BUN 42 H (7-17) mg/dL Creatinine 1.11 H (0.52-1.04) mg/dL Glucose 79 (74-99) mg/dL Calcium 9.4 (8.4-10.2) mg/dL Total Bilirubin 0.3 (0.2-1.3) mg/dL AST 23 (14-36) U/L ALT 38 (9-52) U/L Alkaline Phosphatase 81 (38-126) U/L Total Protein 5.9 L (6.3-8.2) g/dL Albumin 3.4 L (3.5-5.0) g/dL Assessment and Plan (1) Abdominal pain Narrative/Plan: Patient's CAT scan was reviewed. Findings seem most consistent with constipation at this time. Will begin soapsuds enemas. Switch MiraLAX to lactulose. Continue clear liquids for now. Current Visit: Yes Status: Acute Code(s): R10.9 - UNSPECIFIED ABDOMINAL PAIN SNOMED Code(s): 63626828
--- NOTE | 2018-01-17 15:44 | P.PN ---
Subjective Progress Note Date: 01/17/18 [facility] is covering for Dr. Samuel 01/14/18- Patient has been seen and examined evaluated today on rounds. Patient is being currently treated for acute exacerbation of COPD, bilateral pneumonia, as well as pericardial effusion. She is seen sitting up in bed on approximately 2 L of supplemental oxygen via nasal cannula. The patient does not utilize home oxygen. She continues to be short of breath with exertion and activity. She did have a bronchoscopy by Dr. Samuel those results are pending. She continues to have a congested cough. Cardiology is also on consult for pericardial effusion. She is afebrile, hemodynamically stable, no further complaints. 01/15/18- 01/16/[address] Cristian Benz notes 01/17/18- patient is being seen examined and evaluated today on rounds. Patient is resting up in bed on room air. States her breathing is relatively stable. She has been having some abdominal pain and constipation. She is plantar skin and was noted to have some urinary retention. Sampson catheter was inserted, with good return of pale yellow urine. She did have a CT that did reveal a possible small bowl ileus or prema partial small bowel obstruction. Enlargement of the Aortic aneurysm, right middle lobe airspace disease with bronchiolitis, chronic right-sided hydronephrosis and right renal atrophy, small amount of abdominal and pelvic ascites, moderate urinary bladder distention. Result been reviewed with the patient. Surgical services was put on consult. Objective - Vital Signs Vital signs: Vital Signs Temp 97.8 F 01/17/18 07:00 Pulse 100 01/17/18 11:44 Resp 18 01/17/18 08:00 BP 120/64 01/17/18 07:00 Pulse Ox 94 L 01/17/18 07:00 Intake & Output 01/16/18 01/17/18 01/17/18 18:59 06:59 18:59 Intake Total 80 350 Balance 80 350 Weight 50.1 kg Intake: Intake, IV Titration 80 350 Amount IV Fluid Continuation 1, 80 000 ml As IV .[facility] Rx#:[id number] Sodium Chloride 0.9% 1, 350 000 ml @ 50 mls/hr IV . Q20H COUNTS INCLUDE 234 BEDS AT THE [facility] Rx#:[id number] Other: Voiding Method Toilet Toilet Toilet # Voids 1 # Bowel Movements 0 # Emeses 1 - Exam GENERAL EXAM: Alert, active, comfortable in no apparent distress. HEAD: Normocephalic. EYES: Normal reaction of pupils, equal size. NOSE: Clear with pink turbinates. THROAT: No erythema or exudates. NECK: No masses, no JVD. CHEST: No chest wall deformity. LUNGS: Diminished bilaterally with no crackles, wheeze, rhonchi or dullness. Respirations even and unlabored CVS: S1 and S2 normal with no audible mumurs, regular rhythm. ABDOMEN: No hepatosplenomegaly, hypoactive bowel sounds, some distention noted EXTREMITIES: No edema noted, pedal pulses palpable. SKIN: No rashes CENTRAL NERVOUS SYSTEM: No focal deficits, tone is normal in all 4 extremities. - Labs CBC & Chem 7: 01/17/18 07:59 01/17/18 07:59 Labs: Abnormal Lab Results - Last 24 Hours (Table) 01/16/18 01/16/18 01/17/18 Range/Units 17:41 20:17 07:36 WBC (3.8-10.6) k/uL Hgb (11.4-16.0) gm/dL Hct (34.0-46.0) % RDW (11.5-15.5) % Neutrophils # (1.3-7.7) k/uL Monocytes # (0-1.0) k/uL Sodium (137-145) mmol/L Chloride (98-107) mmol/L Carbon Dioxide (22-30) mmol/L BUN (7-17) mg/dL Creatinine (0.52-1.04) mg/dL POC Glucose (mg/dL) 155 H 252 H 120 H (75-99) mg/dL Total Protein (6.3-8.2) g/dL Albumin (3.5-5.0) g/dL 01/17/18 01/17/18 01/17/18 Range/Units 07:59 07:59 11:28 WBC 22.9 H (3.8-10.6) k/uL Hgb 10.3 L (11.4-16.0) gm/dL Hct 32.6 L (34.0-46.0) % RDW 15.8 H (11.5-15.5) % Neutrophils # 19.7 H (1.3-7.7) k/uL Monocytes # 1.3 H (0-1.0) k/uL Sodium 130 L (137-145) mmol/L Chloride 85 L (98-107) mmol/L Carbon Dioxide 35 H (22-30) mmol/L BUN 42 H (7-17) mg/dL Creatinine 1.11 H (0.52-1.04) mg/dL POC Glucose (mg/dL) 143 H (75-99) mg/dL Total Protein 5.9 L (6.3-8.2) g/dL Albumin 3.4 L (3.5-5.0) g/dL Microbiology - Last 24 Hours (Table) 01/12/18 14:25 Fungal Culture - Preliminary Bronchoalviolar Lavage - Right La albicans 01/10/18 15:20 Blood Culture - Final Blood No Growth after 144 hours Assessment and Plan Assessment: Assessment Bilateral nodular infiltrate with some of them early cavitary appearance Acute COPD exacerbation Bilateral pneumonia Mediastinal lymphadenopathy likely reactive lymphadenopathy Uncontrolled hypertension hypertensive cardiovascular disease Abdominal aortic aneurysm and ascending thoracic aneurysm Pericardial effusion moderate Acute on chronic systolic heart failure ejection fraction of 40% Plan Medications have been reviewed and will be continued as ordered. Steroid taper , decrease to 20 mg daily. Continue with pulmonary hygiene, coughing and deep breathing exercises, and supportive care. Supplemental oxygen to maintain oxygen saturations of 92% or better. Continue nebulizer treatments. Status post bronchoscopy those results reviewed. GI and DVT prophylaxis. Cardiology and surgical services also on consult and appreciate recommendations. We will continue to monitor labs/results and adjust treatment as necessary. Further recommendations pending. We are covering for Dr. Samuel I performed an examination of the patient and discussed their management with the nurse practitioner. I have reviewed the nurse practitioner's note and agree with the documented findings and plan of care.
[2018-01-17] MEDS: LACTULOSE 20 GM/30 ML CUP PO SCH ×2 (16:03→22:06)
[2018-01-17 17:09] LABS: Glucose,Whole Blood 163 mg/dL (75-99)
[2018-01-17] MEDS: SODIUM CHLORIDE 0.9% 1,000 ML IV SCH ×2 (19:39→22:25)
[2018-01-17] MEDS ORDERED: NA PHOS,M-B/NA PHOS,DI-BA 133 ML ENEMA RECTAL STA (19:44)
[2018-01-17] MEDS: ATORVASTATIN 80 MG TAB PO SCH (22:05)
[2018-01-17 22:15] LABS: Glucose,Whole Blood 171 mg/dL (75-99)
[2018-01-18] MEDS: HYDROcodone/APAP 7.5-325MG 1 EACH TAB PO PRN ×3 (02:35→20:33)
[2018-01-18 07:51] LABS: Glucose,Whole Blood 95 mg/dL (75-99)
[2018-01-18] MEDS: INSULIN ASPART 100 UNIT/ML 1 ML 10 ML VIAL SQ SCH ×4 (07:52→20:35)
[2018-01-18 08:31] LABS: Anisocytosis Slight; Basophils % (A) 0 %; Eosinophils # (A) 0.1 k/uL (0-0.7); Eosinophils % (A) 0 %; HCT 31.7 % (34.0-46.0); HGB 9.7 gm/dL (11.4-16.0); Hypochromasia Moderate; Lymphocytes # (A) 1.5 k/uL (1.0-4.8); Lymphocytes % (A) 7 %; MCH 24.9 pg (25.0-35.0); MCHC 30.5 g/dL (31.0-37.0); MCV 81.8 fL (80.0-100.0); Monocytes # (A) 1.8 k/uL (0-1.0); Monocytes % (A) 9 %; Neutrophils # (A) 16.7 k/uL (1.3-7.7); Neutrophils % (A) 82 %; Platelet Count 415 k/uL (150-450); RBC 3.87 m/uL (3.80-5.40); RDW 16.7 % (11.5-15.5); WBC 20.4 k/uL (3.8-10.6)
[2018-01-18] MEDS: DOCUSATE 100 MG CAP PO SCH ×2 (08:31→20:34)
[2018-01-18] MEDS: FUROSEMIDE 40 MG TAB PO SCH ×2 (08:31→17:16)
[2018-01-18] MEDS: predniSONE 20 MG TAB PO SCH (08:31)
[2018-01-18] MEDS: LISINOPRIL 10 MG TAB PO SCH (08:31)
[2018-01-18] MEDS: FERROUS SULFATE 325 MG TAB PO SCH ×2 (08:31→20:35)
[2018-01-18] MEDS: METOPROLOL TARTRATE 12.5 MG TAB PO SCH ×2 (08:31→20:35)
[2018-01-18] MEDS: FAMOTIDINE 20 MG TAB PO SCH (08:31)
[2018-01-18] MEDS: CLOPIDOGREL 75 MG TAB PO SCH (08:31)
[2018-01-18] MEDS: ASPIRIN 81 MG PO SCH (08:31)
[2018-01-18] MEDS: ENOXAPARIN 40 MG/0.4 ML SYRINGE SQ SCH (08:32)
[2018-01-18] MEDS: LACTULOSE 20 GM/30 ML CUP PO SCH ×3 (08:32→20:33)
[2018-01-18] MEDS: SYMBICORT 160-4.5 MCG INHALER INHALATION SCH ×2 (09:02→19:31)
[2018-01-18] MEDS: IPRATROPIUM-ALBUTEROL 3 ML NEB INHALATION SCH ×4 (09:02→19:31)
[2018-01-18 09:04] LABS: Albumin 3.4 g/dL (3.5-5.0); Calcium 9.2 mg/dL (8.4-10.2); Potassium 4.1 mmol/L (3.5-5.1); Total Bilirubin 0.3 mg/dL (0.2-1.3); Total Protein 5.9 g/dL (6.3-8.2)
[2018-01-18] MEDS: ZINC OXIDE 20% OINT 28.4 GM TUBE TOPICAL SCH ×2 (10:05→20:35)
--- NOTE | 2018-01-18 10:36 | P.PN ---
Subjective Progress Note Date: 01/18/18 This is a 67-year-old female with a known history of COPD, ischemic cardiomyopathy status post AICD, congestive heart failure, myocardial infarction with coronary disease and cardiac stents, severe mitral regurgitation with clip. She presents to the hospital with a three-day complaint of cough and shortness of breath and pleuritic chest pain. Patient is wheezing and increased shortness of breath with activity. She presented to the emergency room for further evaluation. She's found have an elevated d- dimer. Computed tomography scan of the chest shows no PE. Does revealing new suspicious left lower lobe superior segment pulmonary nodule measuring 1.1 cm and multifocal left-sided focal pleural thickening and subpleural nodules. Mediastinal adenopathy is also suspicious. Parabronchial coughing and mucus plugging in association with by basilar airspace disease may represent bronchitis and postobstructive atelectasis although early pneumonia is possible. Also partial visualization of the mid abdominal aortic aneurysm and descending thoracic aortic aneurysm. Patient has been started on IV steroids and IV antibiotics for an acute COPD exacerbation and possible pneumonia. White count was 11.1 and pulmonary service has been consulted. Patient denies any fever chills or sweats. Denies any nausea or vomiting. Denies any bowel movement changes or urinary symptoms. 01/13/2018 patient is status post bronchoscopy. She reports some improvement in her cough and shortness of breath. She is complaining of muscle cramping in her back. Also complaining of constipation. Cardiology will be consulted for a moderate pericardial effusion noted on echo. Patient's blood pressures also been elevated. Her lisinopril will be increased. 01/14/2018 blood pressures were elevated yesterday: Lisinopril was increased to 10 mg daily. Blood pressures are showing improvement this morning. She is still having a productive cough with thick phlegm. Reports improvement in her shortness of breath. Cytology was negative for any malignant cells. Pulmonary service is following. Cardiology also consulted regards to the pericardial effusion. They are checking a sed rate level to rule out pericarditis. Patient also complaining of constipation. no bowel movement with the lactulose. Enema will be ordered. Patient denies any chest pain. Reports some improvement in her cough. Denies any nausea or vomiting. Denies any burning with urination. Patient asking for increase in her [place]. At home she takes it as needed. 01/17/2018 patient still complaining of abdominal Cramping and distention. She had a computed tomography scan of the abdomen showing diffuse mild dilation of the small bowel containing fluid throughout without transition point with air and stool seen throughout the entirety of the non-dilated colon suggestive of a small bowel ileus or early partial small bowel obstruction. Patient also had a moderate urinary bladder distention without wall thickening noted as well as her chronic right-sided hydronephrosis and abdominal aortic aneurysm. And a right middle lobe airspace disease with bronchiolitis and small airway disease of inflammatory or infectious etiology. Surgical service will be consulted. Post void residual was checked and found to have 466 mL's. Sampson catheter inserted. Urinalysis with culture and sensitivity will also be checked. White count up at 22.9 and the patient is also on prednisone. Sodium was 130. Creatinine 1.11. We'll place her on normal saline at 50 mL an hour. Patient's last bowel movement was yesterday prior to CAT scan. However, patient reports that bones that she has had have been liquid. She did have one episode of vomiting. 01/18/2018 patient was seen by surgical service started on subset enemas and lactulose. Patient was able to have 2 very small bowel movements. She reports amidst just small pieces of stool. She's having a lot of abdominal cramping. Denies any further vomiting. Reports that her breathing and cough are much better. Has Sampson catheter in place for urinary retention. Urology has been consulted. Denies any chest pain. Objective - Vital Signs Vital signs: Vital Signs Temp 98.4 F 01/18/18 07:00 Pulse 92 01/18/18 09:14 Resp 18 01/18/18 07:00 BP 134/66 01/18/18 07:00 Pulse Ox 97 01/18/18 07:00 Intake & Output 01/17/18 01/18/18 01/18/18 18:59 06:59 18:59 Intake Total 350 150 Output Total 1500 800 Balance -1150 -650 Weight 52 kg Intake: Intake, IV Titration 350 150 Amount Sodium Chloride 0.9% 1, 350 150 000 ml @ 50 mls/hr IV . Q20H [facility] Rx#:[id number] Output: Urine 1500 800 Other: Voiding Method Indwelling Catheter Indwelling Catheter Indwelling Catheter # Voids 1 # Bowel Movements 1 - Exam Head normocephalic Neck supple Lungs diminished no wheezing or coarse breath sounds Heart regular rate and rhythm S1-S2, no rub or gallop Abdomen is soft positive bowel sounds. Tender with palpation. Distended Extremities no edema Neuro alert and orientated to 3 - Labs CBC & Chem 7: 01/18/18 07:53 01/18/18 07:53 Labs: Abnormal Lab Results - Last 24 Hours (Table) 01/17/18 01/17/18 01/17/18 Range/Units 11:28 17:07 22:13 WBC (3.8-10.6) k/uL Hgb (11.4-16.0) gm/dL Hct (34.0-46.0) % MCH (25.0-35.0) pg MCHC (31.0-37.0) g/dL RDW (11.5-15.5) % Neutrophils # (1.3-7.7) k/uL Monocytes # (0-1.0) k/uL Sodium (137-145) mmol/L Chloride (98-107) mmol/L BUN (7-17) mg/dL POC Glucose (mg/dL) 143 H 163 H 171 H (75-99) mg/dL Total Protein (6.3-8.2) g/dL Albumin (3.5-5.0) g/dL 01/18/18 01/18/18 Range/Units 07:53 07:53 WBC 20.4 H (3.8-10.6) k/uL Hgb 9.7 L (11.4-16.0) gm/dL Hct 31.7 L (34.0-46.0) % MCH 24.9 L (25.0-35.0) pg MCHC 30.5 L (31.0-37.0) g/dL RDW 16.7 H (11.5-15.5) % Neutrophils # 16.7 H (1.3-7.7) k/uL Monocytes # 1.8 H (0-1.0) k/uL Sodium 129 L (137-145) mmol/L Chloride 88 L (98-107) mmol/L BUN 30 H (7-17) mg/dL POC Glucose (mg/dL) (75-99) mg/dL Total Protein 5.9 L (6.3-8.2) g/dL Albumin 3.4 L (3.5-5.0) g/dL Microbiology - Last 24 Hours (Table) 01/17/18 11:14 Urine Culture - Preliminary Urine,Catheterized 01/12/18 14:25 Fungal Culture - Preliminary Bronchoalviolar Lavage - Right La albicans Assessment and Plan Assessment: 1. Acute COPD exacerbation: Pulmonary following. Continue oral prednisone and bronchodilators. Pulmonary is decreased the prednisone to 20 mg daily 2. Bilateral pneumonia: Patient status post bronchoscopy. Cytology negative for malignant cells. Bronchial wash cultures showing normal respiratory nati and La which is likely colonization. Discussed with pulmonary service 3. Elevated d-dimer on admission CTA negative for PE 4. New suspicious left lower lobe superior segment pulmonary nodule measuring 1.1 cm noted on computed tomography scan of the chest. Followed by pulmonary service. Patient does have a past history of smoking 5. Abdominal aortic aneurysm and descending thoracic aortic aneurysm. With abdominal aortic aneurysm only partially visualized measuring 3.9 x 3.7 cm abdominal ultrasound will be ordered for further evaluation. Descending Thoracic aortic aneurysm measuring 3.5 cm. abdominal ultrasound revealing a 4 x 2.9 cm abdominal aortic aneurysm 6. History of ischemic cardiomyopathy status post AICD placement 7. History of myocardial infarction with coronary disease and cardiac stents 8. History of iron deficiency anemia patient has stopped taking her iron supplement. Iron level low at 7. Resume ferrous sulfate 325 mg twice a day 9. History of severe mitral regurgitation status post mitral valve click completed at [place] May 2017 10. Moderate pericardial effusion: Seen by cardiology. ESR not elevated 11. Mediastinal lymphadenopathy likely reactive from patient's pneumonia. Pulmonary following 12. Back muscle spasms and chronic back pain. Add Flexeril as needed. Change [place] to 7.5 mg every 6 hours as needed for pain 13. Essential hypertension: Blood pressures have shown improvement with the increase the patient's lisinopril 14. Constipation with concerns of a possible partial small bowel obstruction on computed tomography scan of the abdomen. Surgical service will be consulted. Plus patient on a clear liquid diet for now. 15. Urinary retention: Continue Sampson catheter. Urology consulted 16. Hyponatremia: Sodium has decreased further to 129. Currently normal saline at 50. Continue to monitor sodium level Consult physical therapy GI prophylaxis Pepcid and DVT prophylaxis Lovenox I performed an examination of the patient and discussed their management with the physician Peanut Roaster. I have reviewed the Physician Peanut Roaster's notes and agree with the documented findings and plan of care
--- NOTE | 2018-01-18 10:52 | PN ---
PROGRESS NOTE DATE OF SERVICE: 01/18/2018. HISTORY: She has been hemodynamically stable. However, she has abdominal pain and is constipated. PHYSICAL EXAMINATION: Blood pressure is 134/66, respiratory rate 18, pulse is 80, temperature 98.4, O2 saturation on room air is 97%. HEENT is unremarkable. Chest reveals decreased breath sounds. Prolonged expiration. No wheeze. Cardiovascular system is S1, S2. Abdomen is soft but mildly distended. There is no edema. White count is 20.4, hemoglobin of 9.7. Sodium 129, potassium 4.1, chloride 88, bicarb 30, BUN 30, creatinine 0.9. IMPRESSION: 1. Severe chronic obstructive pulmonary disease with acute exacerbation. 2. Bilateral nodular infiltrates with negative cultures. 3. Pericardial effusion with pneumonia. 4. Constipation. 5. Medical debility. Continue antibiotics and steroids. Increase activity level. Prognosis at this time is fair. MMODL / IJN: [id number] /
[2018-01-18 11:56] LABS: Glucose,Whole Blood 134 mg/dL (75-99)
[2018-01-18] MEDS: CALCIUM CARBONATE 500 MG CHEWABLE PO SCH (12:29)
[2018-01-18] MEDS: CHOLECALCIFEROL 1,000 UNIT TAB PO SCH (12:29)
--- NOTE | 2018-01-18 15:30 | P.PN ---
<Shaila German M - Last Filed: 01/18/18 15:22> Subjective Progress Note Date: 01/18/18 67-year-old female seen and examined. Currently resting in bed. Patient states that she has not had a bowel movement today is having abdominal bloating with cramping. Patient states passing gas. Nursing reports the patient is reluctant to ambulate indwelling Sampson catheter in place tolerating a clear liquid diet active bowel tones noted Objective - Vital Signs Vital signs: Vital Signs Temp 98.4 F 01/18/18 07:00 Pulse 92 01/18/18 09:14 Resp 18 01/18/18 07:00 BP 134/66 01/18/18 07:00 Pulse Ox 97 01/18/18 07:00 Intake & Output 01/17/18 01/18/18 01/18/18 18:59 06:59 18:59 Intake Total 350 150 Output Total 1500 800 Balance -1150 -650 Weight 52 kg Intake: Intake, IV Titration 350 150 Amount Sodium Chloride 0.9% 1, 350 150 000 ml @ 50 mls/hr IV . Q20H [facility] Rx#:[id number] Output: Urine 1500 800 Other: Voiding Method Indwelling Catheter Indwelling Catheter Indwelling Catheter # Voids 1 # Bowel Movements 1 - Exam Physical exam thin underweight female slightly cachectic in appearance looking older than stated age resting in bed Lungs diminished at the bases no audible wheezing no cough Heart S1-S2 audible regular Abdomen diffuse tenderness across the abdominal wall audible bowel tones noted indwelling Sampson catheter alondra urine no stool per patient report reports a nausea sensation with abdominal cramping patient states comes in waves Extremities no edema noted - Labs CBC & Chem 7: 01/18/18 07:53 01/18/18 07:53 Labs: Abnormal Lab Results - Last 24 Hours (Table) 01/17/18 01/17/18 01/18/18 Range/Units 17:07 22:13 07:53 WBC 20.4 H (3.8-10.6) k/uL Hgb 9.7 L (11.4-16.0) gm/dL Hct 31.7 L (34.0-46.0) % MCH 24.9 L (25.0-35.0) pg MCHC 30.5 L (31.0-37.0) g/dL RDW 16.7 H (11.5-15.5) % Neutrophils # 16.7 H (1.3-7.7) k/uL Monocytes # 1.8 H (0-1.0) k/uL Sodium (137-145) mmol/L Chloride (98-107) mmol/L BUN (7-17) mg/dL POC Glucose (mg/dL) 163 H 171 H (75-99) mg/dL Total Protein (6.3-8.2) g/dL Albumin (3.5-5.0) g/dL 01/18/18 01/18/18 Range/Units 07:53 11:55 WBC (3.8-10.6) k/uL Hgb (11.4-16.0) gm/dL Hct (34.0-46.0) % MCH (25.0-35.0) pg MCHC (31.0-37.0) g/dL RDW (11.5-15.5) % Neutrophils # (1.3-7.7) k/uL Monocytes # (0-1.0) k/uL Sodium 129 L (137-145) mmol/L Chloride 88 L (98-107) mmol/L BUN 30 H (7-17) mg/dL POC Glucose (mg/dL) 134 H (75-99) mg/dL Total Protein 5.9 L (6.3-8.2) g/dL Albumin 3.4 L (3.5-5.0) g/dL Microbiology - Last 24 Hours (Table) 01/17/18 11:14 Urine Culture - Final Urine,Catheterized Assessment and Plan Assessment: Impression Present on admission abdominal pain suspect due to constipation CAT scan abdomen pelvis findings consistent with constipation Chronic pain with narcotic dependency History of constipation Plan Continue bowel stimulant program coloce and lactulose Soapsuds enema now monitor response no evidence of an acute surgical abdomen at this time We'll follow with you The above impression and plan of care have been discussed and directed by signing physician. Shaila German nurse practitioner acting as scribe for signing physician. <Zack Olivia - Last Filed: 01/18/18 22:25> Objective - Vital Signs Vital signs: Vital Signs Temp 98 F 01/18/18 22:16 Pulse 80 01/18/18 22:16 Resp 16 01/18/18 22:16 BP 135/64 01/18/18 22:16 Pulse Ox 92 L 01/18/18 22:16 Intake & Output 01/18/18 01/18/18 01/19/18 06:59 18:59 06:59 Intake Total 150 400 Output Total 800 800 Balance -650 -400 Weight 52 kg Intake: Intake, IV Titration 150 400 Amount Sodium Chloride 0.9% 1, 150 400 000 ml @ 50 mls/hr IV . Q20H [facility] Rx#:[id number] Output: Urine 800 800 Uretheral (Sampson) 800 Other: Voiding Method Indwelling Catheter Indwelling Catheter Indwelling Catheter # Voids 1 # Bowel Movements 1 - Labs CBC & Chem 7: 01/18/18 07:53 01/18/18 07:53 Labs: Abnormal Lab Results - Last 24 Hours (Table) 01/18/18 01/18/18 01/18/18 Range/Units 07:53 07:53 11:55 WBC 20.4 H (3.8-10.6) k/uL Hgb 9.7 L (11.4-16.0) gm/dL Hct 31.7 L (34.0-46.0) % MCH 24.9 L (25.0-35.0) pg MCHC 30.5 L (31.0-37.0) g/dL RDW 16.7 H (11.5-15.5) % Neutrophils # 16.7 H (1.3-7.7) k/uL Monocytes # 1.8 H (0-1.0) k/uL Sodium 129 L (137-145) mmol/L Chloride 88 L (98-107) mmol/L BUN 30 H (7-17) mg/dL POC Glucose (mg/dL) 134 H (75-99) mg/dL Total Protein 5.9 L (6.3-8.2) g/dL Albumin 3.4 L (3.5-5.0) g/dL 01/18/18 01/18/18 Range/Units 17:17 20:10 WBC (3.8-10.6) k/uL Hgb (11.4-16.0) gm/dL Hct (34.0-46.0) % MCH (25.0-35.0) pg MCHC (31.0-37.0) g/dL RDW (11.5-15.5) % Neutrophils # (1.3-7.7) k/uL Monocytes # (0-1.0) k/uL Sodium (137-145) mmol/L Chloride (98-107) mmol/L BUN (7-17) mg/dL POC Glucose (mg/dL) 202 H 149 H (75-99) mg/dL Total Protein (6.3-8.2) g/dL Albumin (3.5-5.0) g/dL Microbiology - Last 24 Hours (Table) 01/17/18 11:14 Urine Culture - Final Urine,Catheterized Assessment and Plan Assessment: As above. Since earlier today the patient has had a large bowel movement per the nursing staff. She is refusing any further soapsuds enemas. Unfortunately despite the bowel movement she has had ongoing abdominal bloating and episodes of nausea and vomiting. She is having more abdominal discomfort than yesterday as well. White blood cell count remains elevated. Whether this is related to steroid administration or intra-abdominal infection is unclear. She is agreeable to nasogastric tube placement. We'll check abdominal x-rays tomorrow. Abdominal examination reveals mild distention and diffuse tenderness which is mild in nature without peritoneal signs. We'll follow closely. (1) Abdominal pain Current Visit: Yes Status: Acute Code(s): R10.9 - UNSPECIFIED ABDOMINAL PAIN SNOMED Code(s): 86692774
[2018-01-18 17:24] LABS: Glucose,Whole Blood 202 mg/dL (75-99)
[2018-01-18 20:23] LABS: Glucose,Whole Blood 149 mg/dL (75-99)
[2018-01-18] MEDS: ATORVASTATIN 80 MG TAB PO SCH (20:34)
[2018-01-18] MEDS: LEVOFLOXACIN 750 MG TAB PO SCH (20:34)
[2018-01-18] MEDS: ONDANSETRON 4 MG/2 ML VIAL IVP PRN (23:17)
[2018-01-19 07:33] LABS: Glucose,Whole Blood 88 mg/dL (75-99)
[2018-01-19] MEDS: METOPROLOL TARTRATE 12.5 MG TAB PO SCH ×2 (07:57→21:47)
[2018-01-19] MEDS: LACTULOSE 20 GM/30 ML CUP PO SCH ×3 (07:57→21:49)
[2018-01-19] MEDS: predniSONE 20 MG TAB PO SCH (07:58)
[2018-01-19] MEDS: FAMOTIDINE 20 MG TAB PO SCH (07:58)
[2018-01-19] MEDS: LISINOPRIL 10 MG TAB PO SCH (07:58)
[2018-01-19] MEDS: CLOPIDOGREL 75 MG TAB PO SCH (07:58)
[2018-01-19] MEDS: FUROSEMIDE 40 MG TAB PO SCH ×2 (07:59→18:26)
[2018-01-19] MEDS: ASPIRIN 81 MG PO SCH (07:59)
[2018-01-19] MEDS: ENOXAPARIN 40 MG/0.4 ML SYRINGE SQ SCH (07:59)
[2018-01-19] MEDS: FERROUS SULFATE 325 MG TAB PO SCH ×2 (07:59→21:47)
[2018-01-19] MEDS: DOCUSATE 100 MG CAP PO SCH ×2 (08:00→21:47)
[2018-01-19] MEDS: INSULIN ASPART 100 UNIT/ML 1 ML 10 ML VIAL SQ SCH ×4 (08:02→21:49)
[2018-01-19] MEDS: HYDROcodone/APAP 7.5-325MG 1 EACH TAB PO PRN (08:10)
--- NOTE | 2018-01-19 08:21 | XR ---
EXAMINATION TYPE: XR abdomen complete w decub DATE OF EXAM: 01/19/2018 COMPARISON: 01/16/2018 HISTORY: Abdominal pain TECHNIQUE: Supine, upright, and left side down lateral decubitus views of the abdomen are obtained. FINDINGS: Cardiac leads are seen. An NG tube is seen within the left abdomen. Likely with the tip shahla r the gastric fundus. There are persistent air-fluid levels with dilated bowel loops. Some wall thick ening is suspected within the pelvis. Lung bases clear. IMPRESSION: Persistent air-fluid levels with dilated bowel loops in a pattern suggestive of obstruction. Could no t exclude some wall thickening or inflammatory change within a lower pelvic small bowel loop.
[2018-01-19] MEDS: IPRATROPIUM-ALBUTEROL 3 ML NEB INHALATION SCH ×4 (08:30→20:43)
[2018-01-19] MEDS: SYMBICORT 160-4.5 MCG INHALER INHALATION SCH ×2 (08:30→20:43)
[2018-01-19 09:46] LABS: Basophils % (A) 0 %; Calcium 8.9 mg/dL (8.4-10.2); Eosinophils # (A) 0.1 k/uL (0-0.7); Eosinophils % (A) 1 %; HGB 10.2 gm/dL (11.4-16.0); Hypochromasia Moderate; Lymphocytes # (A) 1.4 k/uL (1.0-4.8); Lymphocytes % (A) 6 %; MCH 25.9 pg (25.0-35.0); MCHC 31.9 g/dL (31.0-37.0); MCV 81.1 fL (80.0-100.0); Mean Platelet Volume 6.4; Monocytes # (A) 1.8 k/uL (0-1.0); Monocytes % (A) 8 %; Neutrophils # (A) 18.6 k/uL (1.3-7.7); Neutrophils % (A) 84 %; Platelet Count 423 k/uL (150-450); Potassium 4.3 mmol/L (3.5-5.1); RBC 3.94 m/uL (3.80-5.40); Total Bilirubin 0.3 mg/dL (0.2-1.3); Total Protein 5.2 g/dL (6.3-8.2); WBC 22.3 k/uL (3.8-10.6)
[2018-01-19 11:27] LABS: Glucose,Whole Blood 115 mg/dL (75-99)
[2018-01-19] MEDS: ZINC OXIDE 20% OINT 28.4 GM TUBE TOPICAL SCH ×2 (12:11→21:49)
[2018-01-19] MEDS: SODIUM CHLORIDE 0.9% 1,000 ML IV SCH ×2 (12:13→21:51)
[2018-01-19] MEDS: CALCIUM CARBONATE 500 MG CHEWABLE PO SCH (12:17)
[2018-01-19] MEDS: CHOLECALCIFEROL 1,000 UNIT TAB PO SCH (12:17)
--- NOTE | 2018-01-19 12:29 | P.PN ---
Subjective Progress Note Date: 01/19/18 This is a 67-year-old female with a known history of COPD, ischemic cardiomyopathy status post AICD, congestive heart failure, myocardial infarction with coronary disease and cardiac stents, severe mitral regurgitation with clip. She presents to the hospital with a three-day complaint of cough and shortness of breath and pleuritic chest pain. Patient is wheezing and increased shortness of breath with activity. She presented to the emergency room for further evaluation. She's found have an elevated d- dimer. Computed tomography scan of the chest shows no PE. Does revealing new suspicious left lower lobe superior segment pulmonary nodule measuring 1.1 cm and multifocal left-sided focal pleural thickening and subpleural nodules. Mediastinal adenopathy is also suspicious. Parabronchial coughing and mucus plugging in association with by basilar airspace disease may represent bronchitis and postobstructive atelectasis although early pneumonia is possible. Also partial visualization of the mid abdominal aortic aneurysm and descending thoracic aortic aneurysm. Patient has been started on IV steroids and IV antibiotics for an acute COPD exacerbation and possible pneumonia. White count was 11.1 and pulmonary service has been consulted. Patient denies any fever chills or sweats. Denies any nausea or vomiting. Denies any bowel movement changes or urinary symptoms. On 01/12/2018 patient is alert and oriented she is still complaining of continuous cough she is complaining of shortness of breath and wheezing with any activity, she underwent bronchoscopy earlier with Dr. Samuel. Otherwise she denies any complaints 01/13/2018 patient is status post bronchoscopy. She reports some improvement in her cough and shortness of breath. She is complaining of muscle cramping in her back. Also complaining of constipation. Cardiology will be consulted for a moderate pericardial effusion noted on echo. Patient's blood pressures also been elevated. Her lisinopril will be increased. 01/14/2018 blood pressures were elevated yesterday: Lisinopril was increased to 10 mg daily. Blood pressures are showing improvement this morning. She is still having a productive cough with thick phlegm. Reports improvement in her shortness of breath. Cytology was negative for any malignant cells. Pulmonary service is following. Cardiology also consulted regards to the pericardial effusion. They are checking a sed rate level to rule out pericarditis. Patient also complaining of constipation. no bowel movement with the lactulose. Enema will be ordered. Patient denies any chest pain. Reports some improvement in her cough. Denies any nausea or vomiting. Denies any burning with urination. Patient asking for increase in her [place]. At home she takes it as needed. On 01/15/2018 patient is alert and oriented. She reports some improvement in her cough and shortness of breath. She is complaining of abdominal bloating and pain otherwise she denies any complaints at this time On 01/16/2018 patient is alert and oriented. She reports some improvement in her cough and shortness of breath. She is complaining of pain in the abdomen and nausea otherwise she denies any complaints at this time 01/17/2018 patient still complaining of abdominal Cramping and distention. She had a computed tomography scan of the abdomen showing diffuse mild dilation of the small bowel containing fluid throughout without transition point with air and stool seen throughout the entirety of the non-dilated colon suggestive of a small bowel ileus or early partial small bowel obstruction. Patient also had a moderate urinary bladder distention without wall thickening noted as well as her chronic right-sided hydronephrosis and abdominal aortic aneurysm. And a right middle lobe airspace disease with bronchiolitis and small airway disease of inflammatory or infectious etiology. Surgical service will be consulted. Post void residual was checked and found to have 466 mL's. Sampson catheter inserted. Urinalysis with culture and sensitivity will also be checked. White count up at 22.9 and the patient is also on prednisone. Sodium was 130. Creatinine 1.11. We'll place her on normal saline at 50 mL an hour. Patient's last bowel movement was yesterday prior to CAT scan. However, patient reports that bones that she has had have been liquid. She did have one episode of vomiting. 01/18/2018 patient was seen by surgical service started on subset enemas and lactulose. Patient was able to have 2 very small bowel movements. She reports amidst just small pieces of stool. She's having a lot of abdominal cramping. Denies any further vomiting. Reports that her breathing and cough are much better. Has Sampson catheter in place for urinary retention. Urology has been consulted. Denies any chest pain. 01/19/2018 has NG tube in, had multiple bowel movement this morning, she was evaluated by surgery, and plan is for possible exploratory laparotomy . At this time lungs are clear, there is no significant cough or shortness of breath. Objective - Vital Signs Vital signs: Vital Signs Temp 98 F 01/19/18 07:00 Pulse 84 01/19/18 07:00 Resp 16 01/19/18 07:00 BP 135/75 01/19/18 07:00 Pulse Ox 95 01/19/18 07:00 Intake & Output 01/18/18 01/19/18 01/19/18 18:59 06:59 18:59 Intake Total 400 550 Output Total 800 1600 Balance -400 -1050 Weight 53.5 kg Intake: IV 550 Sodium Chloride 0.9% 1, 550 000 ml @ 50 mls/hr IV . Q20H [facility] Rx#:[id number] Intake, IV Titration 400 Amount Sodium Chloride 0.9% 1, 400 000 ml @ 50 mls/hr IV . Q20H [facility] Rx#:[id number] Output: Urine 800 800 Uretheral (Sampson) 800 800 Oral Regurgitation 800 Other: Voiding Method Indwelling Catheter Indwelling Catheter - Exam Head normocephalic and atraumatic, NG tube in Neck supple no JVD no goiter Lungs wheezing with coarse breath sounds Heart regular rate and rhythm S1-S2, no rub or gallop Abdomen is soft with mild diffuse tenderness positive bowel sounds no hepatosplenomegaly Extremities no edema Neuro alert and orientated to 3 - Labs CBC & Chem 7: 01/19/18 08:45 01/19/18 08:45 Labs: Abnormal Lab Results - Last 24 Hours (Table) 01/18/18 01/18/18 01/19/18 Range/Units 17:17 20:10 08:45 WBC 22.3 H (3.8-10.6) k/uL Hgb 10.2 L (11.4-16.0) gm/dL Hct 32.0 L (34.0-46.0) % RDW 16.0 H (11.5-15.5) % Neutrophils # 18.6 H (1.3-7.7) k/uL Monocytes # 1.8 H (0-1.0) k/uL Sodium (137-145) mmol/L Chloride (98-107) mmol/L Carbon Dioxide (22-30) mmol/L BUN (7-17) mg/dL POC Glucose (mg/dL) 202 H 149 H (75-99) mg/dL Total Protein (6.3-8.2) g/dL Albumin (3.5-5.0) g/dL 01/19/18 01/19/18 Range/Units 08:45 11:25 WBC (3.8-10.6) k/uL Hgb (11.4-16.0) gm/dL Hct (34.0-46.0) % RDW (11.5-15.5) % Neutrophils # (1.3-7.7) k/uL Monocytes # (0-1.0) k/uL Sodium 131 L (137-145) mmol/L Chloride 89 L (98-107) mmol/L Carbon Dioxide 35 H (22-30) mmol/L BUN 26 H (7-17) mg/dL POC Glucose (mg/dL) 115 H (75-99) mg/dL Total Protein 5.2 L (6.3-8.2) g/dL Albumin 3.0 L (3.5-5.0) g/dL Microbiology - Last 24 Hours (Table) 01/17/18 11:14 Urine Culture - Final Urine,Catheterized Assessment and Plan Plan: 1. Acute COPD exacerbation: Pulmonary following. Continue oral prednisone and bronchodilators. Pulmonary is decreased the prednisone to 20 mg daily 2. Bilateral pneumonia: Patient status post bronchoscopy. Cytology negative for malignant cells. Bronchial wash cultures showing normal respiratory nati and [place] which is likely colonization. Discussed with pulmonary service 3. Elevated d-dimer on admission CTA negative for PE 4. New suspicious left lower lobe superior segment pulmonary nodule measuring 1.1 cm noted on computed tomography scan of the chest. Followed by pulmonary service. Patient does have a past history of smoking 5. Abdominal aortic aneurysm and descending thoracic aortic aneurysm. With abdominal aortic aneurysm only partially visualized measuring 3.9 x 3.7 cm abdominal ultrasound will be ordered for further evaluation. Descending Thoracic aortic aneurysm measuring 3.5 cm. abdominal ultrasound revealing a 4 x 2.9 cm abdominal aortic aneurysm 6. History of ischemic cardiomyopathy status post AICD placement 7. History of myocardial infarction with coronary disease and cardiac stents 8. History of iron deficiency anemia patient has stopped taking her iron supplement. Iron level low at 7. Resume ferrous sulfate 325 mg twice a day 9. History of severe mitral regurgitation status post mitral valve click completed at [place] May 2017 10. Moderate pericardial effusion: Seen by cardiology. ESR not elevated 11. Mediastinal lymphadenopathy likely reactive from patient's pneumonia. Pulmonary following 12. Back muscle spasms and chronic back pain. Add Flexeril as needed. Change [place] to 7.5 mg every 6 hours as needed for pain 13. Essential hypertension: Blood pressures have shown improvement with the increase the patient's lisinopril 14. Constipation with concerns of a possible partial small bowel obstruction on computed tomography scan of the abdomen. Surgical service will be consulted. Plus patient is NPO, NG tube in await further recommendations 15. Urinary retention: Continue Sampson catheter. Urology consulted 16. Hyponatremia: Sodium has decreased further to 129. Currently normal saline at 50. Continue to monitor sodium level Consult physical therapy GI prophylaxis Pepcid and DVT prophylaxis Lovenox
--- NOTE | 2018-01-19 14:12 | P.PN ---
Subjective Progress Note Date: 01/19/18 [place] [facility] is covering for Dr. Samuel 01/14/18- Patient has been seen and examined evaluated today on rounds. Patient is being currently treated for acute exacerbation of COPD, bilateral pneumonia, as well as pericardial effusion. She is seen sitting up in bed on approximately 2 L of supplemental oxygen via nasal cannula. The patient does not utilize home oxygen. She continues to be short of breath with exertion and activity. She did have a bronchoscopy by Dr. Samuel those results are pending. She continues to have a congested cough. Cardiology is also on consult for pericardial effusion. She is afebrile, hemodynamically stable, no further complaints. 01/15/18- 01/16/[address] Cristian Benz notes 01/17/18- patient is being seen examined and evaluated today on rounds. Patient is resting up in bed on room air. States her breathing is relatively stable. She has been having some abdominal pain and constipation. She is plantar skin and was noted to have some urinary retention. Sampson catheter was inserted, with good return of pale yellow urine. She did have a CT that did reveal a possible small bowl ileus or prema partial small bowel obstruction. Enlargement of the Aortic aneurysm, right middle lobe airspace disease with bronchiolitis, chronic right-sided hydronephrosis and right renal atrophy, small amount of abdominal and pelvic ascites, moderate urinary bladder distention. Result been reviewed with the patient. Surgical services was put on consult. 01/18/18- Please see Dr. Cristian Benz notes 01/19/18- patient is being seen examined and evaluated today upon rounds. Patient is resting up in bed and has an NG tube in place. The patient had an abdominal x-ray that did show persistent air-fluid levels with dilated loops suggesting obstruction. Surgery is on consult and the patient will be going for exploratory laparotomy procedure later today with Dr. Olivia. Currently the patient has an NG tube in place. She denies any shortness of breath cough or congestion at this time. Overall her pulmonary status is stable at this time. Objective - Vital Signs Vital signs: Vital Signs Temp 98 F 01/19/18 07:00 Pulse 84 01/19/18 07:00 Resp 16 01/19/18 07:00 BP 135/75 01/19/18 07:00 Pulse Ox 95 01/19/18 07:00 Intake & Output 01/18/18 01/19/18 01/19/18 18:59 06:59 18:59 Intake Total 400 550 Output Total 800 1600 Balance -400 -1050 Weight 53.5 kg Intake: IV 550 Sodium Chloride 0.9% 1, 550 000 ml @ 50 mls/hr IV . Q20H [facility] Rx#:[id number] Intake, IV Titration 400 Amount Sodium Chloride 0.9% 1, 400 000 ml @ 50 mls/hr IV . Q20H [facility] Rx#:[id number] Output: Urine 800 800 Uretheral (Sampson) 800 800 Oral Regurgitation 800 Other: Voiding Method Indwelling Catheter Indwelling Catheter - Exam GENERAL EXAM: Alert, active, comfortable in no apparent distress. HEAD: Normocephalic. EYES: Normal reaction of pupils, equal size. NOSE: Clear with pink turbinates. NG tube in place THROAT: No erythema or exudates. NECK: No masses, no JVD. CHEST: No chest wall deformity. LUNGS: Clear bilaterally with no crackles, wheeze, rhonchi or dullness. Respirations even and unlabored CVS: S1 and S2 normal with no audible mumurs, regular rhythm. ABDOMEN: No hepatosplenomegaly, hypoactive bowel sounds, EXTREMITIES: No edema noted, pedal pulses palpable. SKIN: No rashes CENTRAL NERVOUS SYSTEM: No focal deficits, tone is normal in all 4 extremities. - Labs CBC & Chem 7: 01/19/18 08:45 01/19/18 08:45 Labs: Abnormal Lab Results - Last 24 Hours (Table) 01/18/18 01/18/18 01/19/18 Range/Units 17:17 20:10 08:45 WBC 22.3 H (3.8-10.6) k/uL Hgb 10.2 L (11.4-16.0) gm/dL Hct 32.0 L (34.0-46.0) % RDW 16.0 H (11.5-15.5) % Neutrophils # 18.6 H (1.3-7.7) k/uL Monocytes # 1.8 H (0-1.0) k/uL Sodium (137-145) mmol/L Chloride (98-107) mmol/L Carbon Dioxide (22-30) mmol/L BUN (7-17) mg/dL POC Glucose (mg/dL) 202 H 149 H (75-99) mg/dL Total Protein (6.3-8.2) g/dL Albumin (3.5-5.0) g/dL 01/19/18 01/19/18 Range/Units 08:45 11:25 WBC (3.8-10.6) k/uL Hgb (11.4-16.0) gm/dL Hct (34.0-46.0) % RDW (11.5-15.5) % Neutrophils # (1.3-7.7) k/uL Monocytes # (0-1.0) k/uL Sodium 131 L (137-145) mmol/L Chloride 89 L (98-107) mmol/L Carbon Dioxide 35 H (22-30) mmol/L BUN 26 H (7-17) mg/dL POC Glucose (mg/dL) 115 H (75-99) mg/dL Total Protein 5.2 L (6.3-8.2) g/dL Albumin 3.0 L (3.5-5.0) g/dL Microbiology - Last 24 Hours (Table) 01/17/18 11:14 Urine Culture - Final Urine,Catheterized Assessment and Plan Assessment: Assessment Bilateral nodular infiltrate with some of them early cavitary appearance Acute COPD exacerbation Bilateral pneumonia Mediastinal lymphadenopathy likely reactive lymphadenopathy Uncontrolled hypertension hypertensive cardiovascular disease Abdominal aortic aneurysm and ascending thoracic aneurysm Pericardial effusion moderate Acute on chronic systolic heart failure ejection fraction of 40% Plan Medications have been reviewed and will be continued as ordered. Steroid taper , decrease to 20 mg daily. Continue with pulmonary hygiene, coughing and deep breathing exercises, and supportive care. Supplemental oxygen to maintain oxygen saturations of 92% or better. Continue nebulizer treatments. Status post bronchoscopy those results reviewed. GI and DVT prophylaxis. Cardiology and surgical services also on consult and appreciate recommendations. We will continue to monitor labs/results and adjust treatment as necessary. Further recommendations pending. We are covering for Dr. Samuel I performed an examination of the patient and discussed their management with the nurse practitioner. I have reviewed the nurse practitioner's note and agree with the documented findings and plan of care.
[2018-01-19 17:00] LABS: Glucose,Whole Blood 133 mg/dL (75-99)
--- NOTE | 2018-01-19 17:12 | P.PN ---
Progress Note - Text Progress Note Date: 01/19/18 Patient had her nasogastric tube placed last night. Approximately 800 mL of brownish output. Pain persists today despite the nasogastric tube placement although she admits that it is somewhat improved. X-rays today still remain suspicious now for small bowel obstruction. She did pass a small bowel movement with no relief. White blood cell count remains elevated. Patient remains afebrile with stable vital signs. Abdomen: Soft, distended, mild diffuse tenderness Given the leukocytosis and the persistent abdominal discomfort despite gastric decompression I decided to offer the patient a diagnostic laparoscopy to better evaluate the patient's ongoing GI illness. The potential for laparotomy based on those findings was reviewed. The possibility this laparoscopy will be negative was also discussed. The risks of bleeding as it pertains to her Plavix use was reviewed. Risks of bleeding, infection, laparotomy, hernia, abscess, bowel resection, ostomy, pulmonary and respiratory complications were discussed. She understands and wishes to proceed.
[2018-01-19] MEDS ORDERED: PHENYLEPHRINE-0.9% NACL SYG 1 MG/10 ML SYRINGE ONE (19:17)
[2018-01-19] MEDS ORDERED: fentaNYL (PF) 50 MCG/ML 2 ML AMP ONE (19:17)
[2018-01-19] MEDS ORDERED: NEOSTIGMINE 1 MG/ML 10 ML VIAL ONE (19:17)
[2018-01-19] MEDS ORDERED: SUCCINYLCHOLINE CHLORIDE 100 MG/5 ML SYR IV ONE (19:17)
[2018-01-19] MEDS ORDERED: GLYCOPYRROLATE 0.2 MG/ML 2 ML VIAL ONE (19:17)
[2018-01-19] MEDS ORDERED: MIDAZOLAM 2 MG/2 ML VIAL ONE (19:17)
[2018-01-19] MEDS ORDERED: LACTATED RINGERS 1,000 ML IV ONE ×2 (19:17→19:43)
[2018-01-19] MEDS ORDERED: BUPIVACAINE (PF) 0.25% 30 ML VIAL SQ ONE (19:17)
[2018-01-19] MEDS ORDERED: PROPOFOL 10 MG/ML 20 ML VIAL IV ONE (19:17)
[2018-01-19] MEDS ORDERED: ePHEDrine SULFATE/0.9% NACL/PF 50 MG/5 ML SYRINGE IV ONE (19:17)
[2018-01-19] MEDS ORDERED: LIDOCAINE 1% INJ 10MG/ML (20 ML MDV) ONE (19:17)
[2018-01-19] MEDS ORDERED: ROCURONIUM BROMIDE 10 MG/ML 10 ML VIAL IV ONE (19:17)
--- NOTE | 2018-01-19 20:33 | P.OP ---
Date of Procedure: 01/19/18 Procedure(s) Performed: PREOPERATIVE DIAGNOSIS: Abdominal pain, small bowel obstruction POSTOPERATIVE DIAGNOSIS: Intra-abdominal adhesions, ileus PROCEDURE: Diagnostic laparoscopy, laparoscopic lysis of adhesions SURGEON: Corwin EBL: Minimal see anesthesia record ANESTHESIA: Gen. COMPLICATIONS: None OPERATIVE PROCEDURE: The patient was brought and placed on the operating room table in the supine position. The patient was placed under general anesthesia at that time. The abdomen was prepped and draped in the usual sterile fashion. A small vertical infraumbilical incision was made. The fascia was grasped with the Neymar forceps. The fascia was retracted anteriorly. The Veress needle was advanced into the peritoneal cavity. The saline drop test was normal. Insufflation took place up to 15 mmHg. A 5 mm optical trocar was advanced and the peritoneal cavity. An additional 5 mm trocar was placed in the epigastric region and an additional 5 mm trocar in the left lateral abdomen. The patient had adhesions between the omentum and the abdominal wall that were lysed sharply. The bowel that was visualized to appear distended. Initially I suspected that the adhesions present were causing some form of mechanical obstruction. Once the adhesions were taken down the cecum was identified. The appendix appeared normal. The terminal ileum was identified and noted to be somewhat distended. I then evaluated the entire small bowel from the ligament of Treitz to the ileocecal valve and no inflammatory or obstructing lesions were seen. There were no adhesions creating an partial obstruction. There was no evidence of bowel ischemia. The colon was then inspected as much as we were able. The visualized cecum and ascending colon appear normal. The visualized transverse descending colon and sigmoid colon appeared normal. There was some stool present throughout the colon with mild colonic dilation diffusely. Stomach liver gallbladder appeared normal. The trochars were then removed. The skin at all 3 sites was closed using a 4-0 Monocryl stitch. At the end of this procedure the sponge and needle counts were correct. DISPOSITION: Stable to the recovery room
[2018-01-19] MEDS: ATORVASTATIN 80 MG TAB PO SCH (21:47)
[2018-01-19] MEDS: MORPHINE SULFATE 4 MG/ML SYRINGE IVP PRN (21:48)
[2018-01-19 21:56] LABS: Glucose,Whole Blood 84 mg/dL (75-99)
[2018-01-20] MEDS: MORPHINE SULFATE 4 MG/ML SYRINGE IVP PRN ×3 (05:27→16:11)
[2018-01-20 07:25] LABS: Glucose,Whole Blood 76 mg/dL (75-99)
[2018-01-20] MEDS: IPRATROPIUM-ALBUTEROL 3 ML NEB INHALATION SCH ×4 (07:37→19:56)
[2018-01-20] MEDS: SYMBICORT 160-4.5 MCG INHALER INHALATION SCH ×2 (07:37→19:56)
[2018-01-20] MEDS: INSULIN ASPART 100 UNIT/ML 1 ML 10 ML VIAL SQ SCH ×4 (08:07→20:42)
[2018-01-20] MEDS: DOCUSATE 100 MG CAP PO SCH ×2 (08:10→20:38)
[2018-01-20] MEDS: ENOXAPARIN 40 MG/0.4 ML SYRINGE SQ SCH (08:10)
[2018-01-20] MEDS: FAMOTIDINE 20 MG TAB PO SCH (08:11)
[2018-01-20] MEDS: FERROUS SULFATE 325 MG TAB PO SCH ×2 (08:11→20:38)
[2018-01-20] MEDS: CLOPIDOGREL 75 MG TAB PO SCH (08:11)
[2018-01-20] MEDS: ASPIRIN 81 MG PO SCH (08:12)
[2018-01-20] MEDS: METOPROLOL TARTRATE 12.5 MG TAB PO SCH ×2 (08:13→20:38)
[2018-01-20] MEDS: ZINC OXIDE 20% OINT 28.4 GM TUBE TOPICAL SCH ×2 (08:13→20:38)
[2018-01-20] MEDS: predniSONE 20 MG TAB PO SCH (08:13)
[2018-01-20] MEDS: FUROSEMIDE 40 MG TAB PO SCH ×2 (08:13→16:12)
[2018-01-20] MEDS: LISINOPRIL 10 MG TAB PO SCH (08:13)
[2018-01-20 08:14] LABS: Albumin 2.7 g/dL (3.5-5.0); Calcium 8.6 mg/dL (8.4-10.2); Potassium 3.6 mmol/L (3.5-5.1); Total Bilirubin 0.3 mg/dL (0.2-1.3); Total Protein 4.9 g/dL (6.3-8.2)
[2018-01-20] MEDS: LACTULOSE 20 GM/30 ML CUP PO SCH ×3 (08:14→20:38)
[2018-01-20 08:15] LABS: Anisocytosis Slight; Basophils % (A) 0 %; Eosinophils # (A) 0.2 k/uL (0-0.7); Eosinophils % (A) 1 %; HCT 26.4 % (34.0-46.0); Hypochromasia Moderate; Lymphocytes # (A) 1.1 k/uL (1.0-4.8); Lymphocytes % (A) 8 %; MCH 25.4 pg (25.0-35.0); MCHC 31.6 g/dL (31.0-37.0); MCV 80.6 fL (80.0-100.0); Mean Platelet Volume 6.2; Monocytes # (A) 1.2 k/uL (0-1.0); Monocytes % (A) 8 %; Neutrophils # (A) 11.4 k/uL (1.3-7.7); Neutrophils % (A) 81 %; Platelet Count 388 k/uL (150-450); RBC 3.27 m/uL (3.80-5.40); RDW 16.3 % (11.5-15.5); WBC 14.1 k/uL (3.8-10.6)
[2018-01-20 08:19] LABS: HGB 8.3 gm/dL (11.4-16.0)
[2018-01-20] MEDS: CALCIUM CARBONATE 500 MG CHEWABLE PO SCH (11:33)
[2018-01-20] MEDS: CHOLECALCIFEROL 1,000 UNIT TAB PO SCH (11:33)
[2018-01-20 11:39] LABS: Glucose,Whole Blood 90 mg/dL (75-99)
--- NOTE | 2018-01-20 12:33 | P.PN ---
<Krys Cuenca - Last Filed: 01/20/18 12:29> Subjective Progress Note Date: 01/20/18 [facility] is covering for Dr. Samuel 01/14/18- Patient has been seen and examined evaluated today on rounds. Patient is being currently treated for acute exacerbation of COPD, bilateral pneumonia, as well as pericardial effusion. She is seen sitting up in bed on approximately 2 L of supplemental oxygen via nasal cannula. The patient does not utilize home oxygen. She continues to be short of breath with exertion and activity. She did have a bronchoscopy by Dr. Samuel those results are pending. She continues to have a congested cough. Cardiology is also on consult for pericardial effusion. She is afebrile, hemodynamically stable, no further complaints. 01/15/18- 01/16/[address] Cristian Benz notes 01/17/18- patient is being seen examined and evaluated today on rounds. Patient is resting up in bed on room air. States her breathing is relatively stable. She has been having some abdominal pain and constipation. She is plantar skin and was noted to have some urinary retention. Sampson catheter was inserted, with good return of pale yellow urine. She did have a CT that did reveal a possible small bowl ileus or prema partial small bowel obstruction. Enlargement of the Aortic aneurysm, right middle lobe airspace disease with bronchiolitis, chronic right-sided hydronephrosis and right renal atrophy, small amount of abdominal and pelvic ascites, moderate urinary bladder distention. Result been reviewed with the patient. Surgical services was put on consult. 01/18/18- Please see Dr. Cristian Benz notes 01/19/18- patient is being seen examined and evaluated today upon rounds. Patient is resting up in bed and has an NG tube in place. The patient had an abdominal x-ray that did show persistent air-fluid levels with dilated loops suggesting obstruction. Surgery is on consult and the patient will be going for exploratory laparotomy procedure later today with Dr. Olivia. Currently the patient has an NG tube in place. She denies any shortness of breath cough or congestion at this time. Overall her pulmonary status is stable at this time. 01/20/18- patient is being seen examined and evaluated today on rounds. The patient did undergo an exploratory laparotomy with Dr. Guerra, and she underwent lysis of adhesions. Patient states she is feeling better today she continues with a and G tube to low intermittent suction. She has been on room air denies any shortness of breath cough or congestion at this time. Continues on nebulizer treatments and oral prednisone. She will restart with physical therapy. Objective - Vital Signs Vital signs: Vital Signs Temp 98.2 F 01/20/18 07:00 Pulse 89 01/20/18 11:22 Resp 18 01/20/18 07:00 BP 136/70 01/20/18 07:00 Pulse Ox 91 L 01/20/18 07:37 Intake & Output 01/19/18 01/20/18 01/20/18 18:59 06:59 18:59 Intake Total 500 2450 615 Output Total 0 1055 950 Balance 500 1395 -335 Weight 53.5 kg 52.5 kg Intake: IV 500 2450 600 Sodium Chloride 0.9% 1, 500 800 600 000 ml @ 50 mls/hr IV . Q20H [facility] Rx#:[id number] Oral 15 Output: Gastric Drainage 50 Urine 0 1050 900 Uretheral (Sampson) 800 Estimated Blood Loss 5 Other: Voiding Method Indwelling Catheter Indwelling Catheter Indwelling Catheter # Voids 0 - Exam GENERAL EXAM: Alert, active, comfortable in no apparent distress. HEAD: Normocephalic. EYES: Normal reaction of pupils, equal size. NOSE: Clear with pink turbinates. NG tube in place THROAT: No erythema or exudates. NECK: No masses, no JVD. CHEST: No chest wall deformity. LUNGS: Clear bilaterally with no crackles, wheeze, rhonchi or dullness. Respirations even and unlabored CVS: S1 and S2 normal with no audible mumurs, regular rhythm. ABDOMEN: No hepatosplenomegaly, hypoactive bowel sounds, EXTREMITIES: No edema noted, pedal pulses palpable. SKIN: No rashes CENTRAL NERVOUS SYSTEM: No focal deficits, tone is normal in all 4 extremities. - Labs CBC & Chem 7: 01/20/18 07:23 01/20/18 07:23 Labs: Abnormal Lab Results - Last 24 Hours (Table) 01/19/18 01/20/18 01/20/18 Range/Units 16:59 07:23 07:23 WBC 14.1 H (3.8-10.6) k/uL RBC 3.27 L (3.80-5.40) m/uL Hgb 8.3 L D (11.4-16.0) gm/dL Hct 26.4 L (34.0-46.0) % RDW 16.3 H (11.5-15.5) % Neutrophils # 11.4 H (1.3-7.7) k/uL Monocytes # 1.2 H (0-1.0) k/uL Sodium 134 L (137-145) mmol/L BUN 20 H (7-17) mg/dL Glucose 65 L (74-99) mg/dL POC Glucose (mg/dL) 133 H (75-99) mg/dL Total Protein 4.9 L (6.3-8.2) g/dL Albumin 2.7 L (3.5-5.0) g/dL Assessment and Plan Assessment: Assessment Bilateral nodular infiltrate with some of them early cavitary appearance Acute COPD exacerbation Bilateral pneumonia Mediastinal lymphadenopathy likely reactive lymphadenopathy Uncontrolled hypertension hypertensive cardiovascular disease Abdominal aortic aneurysm and ascending thoracic aneurysm Pericardial effusion moderate Acute on chronic systolic heart failure ejection fraction of 40% Status post exploratory lactic parotid me with lysis of adhesions Plan Medications have been reviewed and will be continued as ordered. Steroid taper , decrease to 20 mg daily. Continue with pulmonary hygiene, coughing and deep breathing exercises, and supportive care. Supplemental oxygen to maintain oxygen saturations of 92% or better. Continue nebulizer treatments. Diet per surgical services. GI and DVT prophylaxis. Cardiology and surgical services also on consult and appreciate recommendations. We will continue to monitor labs/results and adjust treatment as necessary. Further recommendations pending. We are covering for Dr. Samuel I performed an examination of the patient and discussed their management with the nurse practitioner. I have reviewed the nurse practitioner's note and agree with the documented findings and plan of care. <Vibha Vega - Last Filed: 01/20/18 15:03> Objective - Vital Signs Vital signs: Vital Signs Temp 98.7 F 01/20/18 14:55 Pulse 86 01/20/18 14:55 Resp 18 01/20/18 14:55 BP 120/64 01/20/18 14:55 Pulse Ox 91 L 01/20/18 14:55 Intake & Output 01/19/18 01/20/18 01/20/18 18:59 06:59 18:59 Intake Total 500 2450 615 Output Total 0 1055 950 Balance 500 1395 -335 Weight 53.5 kg 52.5 kg Intake: IV 500 2450 600 Sodium Chloride 0.9% 1, 500 800 600 000 ml @ 50 mls/hr IV . Q20H [facility] Rx#:[id number] Oral 15 Output: Gastric Drainage 50 Urine 0 1050 900 Uretheral (Sampson) 800 Estimated Blood Loss 5 Other: Voiding Method Indwelling Catheter Indwelling Catheter Indwelling Catheter # Voids 0 - Labs CBC & Chem 7: 01/20/18 07:23 01/20/18 07:23 Labs: Abnormal Lab Results - Last 24 Hours (Table) 01/19/18 01/20/18 01/20/18 Range/Units 16:59 07:23 07:23 WBC 14.1 H (3.8-10.6) k/uL RBC 3.27 L (3.80-5.40) m/uL Hgb 8.3 L D (11.4-16.0) gm/dL Hct 26.4 L (34.0-46.0) % RDW 16.3 H (11.5-15.5) % Neutrophils # 11.4 H (1.3-7.7) k/uL Monocytes # 1.2 H (0-1.0) k/uL Sodium 134 L (137-145) mmol/L BUN 20 H (7-17) mg/dL Glucose 65 L (74-99) mg/dL POC Glucose (mg/dL) 133 H (75-99) mg/dL Total Protein 4.9 L (6.3-8.2) g/dL Albumin 2.7 L (3.5-5.0) g/dL Assessment and Plan Assessment: Patient seen and examined. Patient states that her breathing is good. She has no issues with shortness of breath or chest pain. The patient underwent exploratory laparoscopy with lysis of adhesions. PT and OT will reconsult. The patient is complaining of sore throat and difficulty swallowing due to the NG tube. Prednisone will be tapered. ~Vibha Vega DO
--- NOTE | 2018-01-20 13:41 | P.PN ---
Subjective Progress Note Date: 01/20/18 This is a 67-year-old female with a known history of COPD, ischemic cardiomyopathy status post AICD, congestive heart failure, myocardial infarction with coronary disease and cardiac stents, severe mitral regurgitation with clip. She presents to the hospital with a three-day complaint of cough and shortness of breath and pleuritic chest pain. Patient is wheezing and increased shortness of breath with activity. She presented to the emergency room for further evaluation. She's found have an elevated d- dimer. Computed tomography scan of the chest shows no PE. Does revealing new suspicious left lower lobe superior segment pulmonary nodule measuring 1.1 cm and multifocal left-sided focal pleural thickening and subpleural nodules. Mediastinal adenopathy is also suspicious. Parabronchial coughing and mucus plugging in association with by basilar airspace disease may represent bronchitis and postobstructive atelectasis although early pneumonia is possible. Also partial visualization of the mid abdominal aortic aneurysm and descending thoracic aortic aneurysm. Patient has been started on IV steroids and IV antibiotics for an acute COPD exacerbation and possible pneumonia. White count was 11.1 and pulmonary service has been consulted. Patient denies any fever chills or sweats. Denies any nausea or vomiting. Denies any bowel movement changes or urinary symptoms. 01/13/2018 patient is status post bronchoscopy. She reports some improvement in her cough and shortness of breath. She is complaining of muscle cramping in her back. Also complaining of constipation. Cardiology will be consulted for a moderate pericardial effusion noted on echo. Patient's blood pressures also been elevated. Her lisinopril will be increased. 01/14/2018 blood pressures were elevated yesterday: Lisinopril was increased to 10 mg daily. Blood pressures are showing improvement this morning. She is still having a productive cough with thick phlegm. Reports improvement in her shortness of breath. Cytology was negative for any malignant cells. Pulmonary service is following. Cardiology also consulted regards to the pericardial effusion. They are checking a sed rate level to rule out pericarditis. Patient also complaining of constipation. no bowel movement with the lactulose. Enema will be ordered. Patient denies any chest pain. Reports some improvement in her cough. Denies any nausea or vomiting. Denies any burning with urination. Patient asking for increase in her [place]. At home she takes it as needed. 01/17/2018 patient still complaining of abdominal Cramping and distention. She had a computed tomography scan of the abdomen showing diffuse mild dilation of the small bowel containing fluid throughout without transition point with air and stool seen throughout the entirety of the non-dilated colon suggestive of a small bowel ileus or early partial small bowel obstruction. Patient also had a moderate urinary bladder distention without wall thickening noted as well as her chronic right-sided hydronephrosis and abdominal aortic aneurysm. And a right middle lobe airspace disease with bronchiolitis and small airway disease of inflammatory or infectious etiology. Surgical service will be consulted. Post void residual was checked and found to have 466 mL's. Sampson catheter inserted. Urinalysis with culture and sensitivity will also be checked. White count up at 22.9 and the patient is also on prednisone. Sodium was 130. Creatinine 1.11. We'll place her on normal saline at 50 mL an hour. Patient's last bowel movement was yesterday prior to CAT scan. However, patient reports that bones that she has had have been liquid. She did have one episode of vomiting. 01/18/2018 patient was seen by surgical service started on subset enemas and lactulose. Patient was able to have 2 very small bowel movements. She reports amidst just small pieces of stool. She's having a lot of abdominal cramping. Denies any further vomiting. Reports that her breathing and cough are much better. Has Sampson catheter in place for urinary retention. Urology has been consulted. Denies any chest pain. 01/20/2018 patient is status post laparoscopic lysis of adhesions for small bowel obstruction with Dr. Olivia. She is postop day #1. NG tube remains in place. With brown fecal material present. She has not passed gas or had bowel movement after surgery. Pain is improving. Denies any nausea or vomiting. Denies any chest pain or shortness of breath. Sampson catheter remains in place. Objective - Vital Signs Vital signs: Vital Signs Temp 98.2 F 01/20/18 07:00 Pulse 89 01/20/18 11:22 Resp 18 01/20/18 07:00 BP 136/70 01/20/18 07:00 Pulse Ox 91 L 01/20/18 07:37 Intake & Output 01/19/18 01/20/18 01/20/18 18:59 06:59 18:59 Intake Total 500 2450 615 Output Total 0 1055 950 Balance 500 1395 -335 Weight 53.5 kg 52.5 kg Intake: IV 500 2450 600 Sodium Chloride 0.9% 1, 500 800 600 000 ml @ 50 mls/hr IV . Q20H [facility] Rx#:[id number] Oral 15 Output: Gastric Drainage 50 Urine 0 1050 900 Uretheral (Sampson) 800 Estimated Blood Loss 5 Other: Voiding Method Indwelling Catheter Indwelling Catheter Indwelling Catheter # Voids 0 - Exam Head normocephalic Neck supple Lungs diminished no wheezing or coarse breath sounds Heart regular rate and rhythm S1-S2, no rub or gallop Abdomen is soft. Positive bowel sounds. Dressing clean dry and intact. NG tube in place Extremities no edema Neuro alert and orientated to 3 - Labs CBC & Chem 7: 01/20/18 07:23 01/20/18 07:23 Labs: Abnormal Lab Results - Last 24 Hours (Table) 01/19/18 01/20/18 01/20/18 Range/Units 16:59 07:23 07:23 WBC 14.1 H (3.8-10.6) k/uL RBC 3.27 L (3.80-5.40) m/uL Hgb 8.3 L D (11.4-16.0) gm/dL Hct 26.4 L (34.0-46.0) % RDW 16.3 H (11.5-15.5) % Neutrophils # 11.4 H (1.3-7.7) k/uL Monocytes # 1.2 H (0-1.0) k/uL Sodium 134 L (137-145) mmol/L BUN 20 H (7-17) mg/dL Glucose 65 L (74-99) mg/dL POC Glucose (mg/dL) 133 H (75-99) mg/dL Total Protein 4.9 L (6.3-8.2) g/dL Albumin 2.7 L (3.5-5.0) g/dL Assessment and Plan Assessment: 1. Acute COPD exacerbation: Pulmonary following. Continue oral prednisone and bronchodilators. Pulmonary is decreased the prednisone to 20 mg daily 2. Bilateral pneumonia: Patient status post bronchoscopy. Cytology negative for malignant cells. Bronchial wash cultures showing normal respiratory nati and La which is likely colonization. Discussed with pulmonary service 3. Elevated d-dimer on admission CTA negative for PE 4. New suspicious left lower lobe superior segment pulmonary nodule measuring 1.1 cm noted on computed tomography scan of the chest. Followed by pulmonary service. Patient does have a past history of smoking 5. Abdominal aortic aneurysm and descending thoracic aortic aneurysm. With abdominal aortic aneurysm only partially visualized measuring 3.9 x 3.7 cm abdominal ultrasound will be ordered for further evaluation. Descending Thoracic aortic aneurysm measuring 3.5 cm. abdominal ultrasound revealing a 4 x 2.9 cm abdominal aortic aneurysm 6. History of ischemic cardiomyopathy status post AICD placement 7. History of myocardial infarction with coronary disease and cardiac stents 8. History of iron deficiency anemia patient has stopped taking her iron supplement. Iron level low at 7. Resume ferrous sulfate 325 mg twice a day 9. History of severe mitral regurgitation status post mitral valve click completed at [place] May 2017 10. Moderate pericardial effusion: Seen by cardiology. ESR not elevated 11. Mediastinal lymphadenopathy likely reactive from patient's pneumonia. Pulmonary following 12. Back muscle spasms and chronic back pain. Add Flexeril as needed. Change [place] to 7.5 mg every 6 hours as needed for pain 13. Essential hypertension: Patient had some elevated blood pressures yesterday possibly related to abdominal pain. Continue to monitor will adjust blood pressure medications if needed 14. Small bowel obstruction status post laparoscopic lysis of adhesions with Dr. Olivia. Await further surgical recommendations. NG tube in place. 15. Urinary retention: Continue Sampson catheter. Urology consulted 16. Hyponatremia: Sodium is up to 134. Continue with IV fluids in the form of normal saline Consult physical therapy GI prophylaxis Pepcid and DVT prophylaxis Lovenox Encouraged patient to increase activity and use incentive spirometer I performed an examination of the patient and discussed their management with the physician Collar Tailor. I have reviewed the Physician Collar Tailor's notes and agree with the documented findings and plan of care
[2018-01-20] MEDS: BENZOCAINE/MENTHOL LOZENG 1 EACH LOZENGE MUCOUS MEM PRN ×2 (14:07→20:39)
--- NOTE | 2018-01-20 15:19 | P.PN ---
<Lesley Germanne M - Last Filed: 01/20/18 15:08> Subjective Progress Note Date: 01/20/18 67-year-old female seen and evaluated. Nasal gastric tube in place states is passing gas no stool indwelling Sampson catheter in place patient states that she did ambulate in the hallway this morning. Reports no nausea vomiting. Reports anxious to get the nasal gastric tube out. Postop January 19 Diagnostic laparoscopy, laparoscopic lysis of adhesions for small bowel obstruction Objective - Vital Signs Vital signs: Vital Signs Temp 98.7 F 01/20/18 14:55 Pulse 86 01/20/18 14:55 Resp 18 01/20/18 14:55 BP 120/64 01/20/18 14:55 Pulse Ox 91 L 01/20/18 14:55 Intake & Output 01/19/18 01/20/18 01/20/18 18:59 06:59 18:59 Intake Total 500 2450 615 Output Total 0 1055 950 Balance 500 1395 -335 Weight 53.5 kg 52.5 kg Intake: IV 500 2450 600 Sodium Chloride 0.9% 1, 500 800 600 000 ml @ 50 mls/hr IV . Q20H [facility] Rx#:[id number] Oral 15 Output: Gastric Drainage 50 Urine 0 1050 900 Uretheral (Sampson) 800 Estimated Blood Loss 5 Other: Voiding Method Indwelling Catheter Indwelling Catheter Indwelling Catheter # Voids 0 - Exam Physical exam thin underweight female slightly cachectic in appearance nasal gastric tube in place sitting up in bed Lungs diminished at the bases no audible wheezing no cough Heart S1-S2 audible regular denying chest pain Abdomen not distended mild tenderness across the abdominal wall surgical dressing dry few hypoactive bowel tones nasal gastric tube to suction brown secretions noted indwelling Sampson catheter in place with alondra urine states is passing gas no stool reports no nausea vomiting Extremities no edema noted - Labs CBC & Chem 7: 01/20/18 07:23 01/20/18 07:23 Labs: Abnormal Lab Results - Last 24 Hours (Table) 01/19/18 01/20/18 01/20/18 Range/Units 16:59 07:23 07:23 WBC 14.1 H (3.8-10.6) k/uL RBC 3.27 L (3.80-5.40) m/uL Hgb 8.3 L D (11.4-16.0) gm/dL Hct 26.4 L (34.0-46.0) % RDW 16.3 H (11.5-15.5) % Neutrophils # 11.4 H (1.3-7.7) k/uL Monocytes # 1.2 H (0-1.0) k/uL Sodium 134 L (137-145) mmol/L BUN 20 H (7-17) mg/dL Glucose 65 L (74-99) mg/dL POC Glucose (mg/dL) 133 H (75-99) mg/dL Total Protein 4.9 L (6.3-8.2) g/dL Albumin 2.7 L (3.5-5.0) g/dL Assessment and Plan Assessment: Impression Present on admission abdominal pain suspect due ileus CAT scan abdomen pelvis findings consistent with constipation Chronic pain with narcotic dependency History of constipation Status post diagnostic laparoscopic lysis of adhesions due to inter-abdominal adhesions done on January 19 Plan Continue postop surgical care Increase activity Pain control NG tube to suction as ordered We'll follow with you The above impression and plan of care have been discussed and directed by signing physician. Shaila German nurse practitioner acting as scribe for signing physician. <Zack Olivia - Last Filed: 01/20/18 16:05> Objective - Vital Signs Vital signs: Vital Signs Temp 98.7 F 01/20/18 14:55 Pulse 86 01/20/18 15:21 Resp 18 01/20/18 15:21 BP 120/64 01/20/18 14:55 Pulse Ox 91 L 01/20/18 14:55 Intake & Output 01/19/18 01/20/18 01/20/18 18:59 06:59 18:59 Intake Total 500 2450 615 Output Total 0 1055 1850 Balance 500 1395 -1235 Weight 53.5 kg 52.5 kg 52.5 kg Intake: IV 500 2450 600 Sodium Chloride 0.9% 1, 500 800 600 000 ml @ 50 mls/hr IV . Q20H [facility] Rx#:[id number] Oral 15 Output: Gastric Drainage 50 Urine 0 1050 1800 Uretheral (Sampson) 800 Estimated Blood Loss 5 Other: Voiding Method Indwelling Catheter Indwelling Catheter Indwelling Catheter # Voids 0 0 - Labs CBC & Chem 7: 01/20/18 07:23 01/20/18 07:23 Labs: Abnormal Lab Results - Last 24 Hours (Table) 01/19/18 01/20/18 01/20/18 Range/Units 16:59 07:23 07:23 WBC 14.1 H (3.8-10.6) k/uL RBC 3.27 L (3.80-5.40) m/uL Hgb 8.3 L D (11.4-16.0) gm/dL Hct 26.4 L (34.0-46.0) % RDW 16.3 H (11.5-15.5) % Neutrophils # 11.4 H (1.3-7.7) k/uL Monocytes # 1.2 H (0-1.0) k/uL Sodium 134 L (137-145) mmol/L BUN 20 H (7-17) mg/dL Glucose 65 L (74-99) mg/dL POC Glucose (mg/dL) 133 H (75-99) mg/dL Total Protein 4.9 L (6.3-8.2) g/dL Albumin 2.7 L (3.5-5.0) g/dL Assessment and Plan Assessment: As above. Patient doing well today. Her abdomen is actually much less distended today. Pain is well-controlled. We'll remove nasogastric tube as she does have bowel sounds. Ambulate. Continue stool softeners once diet started. For now ice chips only. (1) Abdominal pain Current Visit: Yes Status: Acute Code(s): R10.9 - UNSPECIFIED ABDOMINAL PAIN SNOMED Code(s): 38289252
[2018-01-20 16:56] LABS: Glucose,Whole Blood 120 mg/dL (75-99)
[2018-01-20] MEDS: ATORVASTATIN 80 MG TAB PO SCH (20:38)
[2018-01-20] MEDS: LEVOFLOXACIN 750 MG TAB PO SCH (20:38)
[2018-01-20 20:47] LABS: Glucose,Whole Blood 97 mg/dL (75-99)
--- NOTE | 2018-01-20 21:11 | P.GSCN ---
History of Present Illness Consult date: 01/20/18 Reason for Consult: Urinary retention History of present illness: The patient was admitted on 01/10/2018 for evaluation of an exacerbation of her COPD. While hospitalized she developed abdominal bloating and complained of constipation. CT scan of the abdomen and pelvis on 01/16 showed dilated loops of small bowel suggestive of a small bowel obstruction. The bladder appeared distended at that time. Postvoid residual was checked on 01/17 and was reportedly 466 cc. A catheter was inserted and has remained in place since then. The patient underwent laparoscopic lysis of adhesions for treatment of a small bowel obstruction on 01/19. She says that she is passing some flatus but continues to have a nasogastric tube in place. I was asked to see the patient due to her urinary retention. The patient was last seen by me in 07/[address] scan showed moderate right hydronephrosis. This had also been noted on a CT scan in 2014 and was felt to be chronic. The patient is at high risk for any type of surgical procedure and in view of this and her relatively normal renal function it was felt that further observation was reasonable. She says she usually voids every 1-3 hours during the day and once or twice at night. She denied sensations of incomplete bladder emptying prior to being admitted. Review of Systems - Constitutional Reports as per HPI - Gastrointestinal Reports as per HPI - Genitourinary Genitourinary: Reports as per HPI Past Medical History Past Medical History: Heart Failure, COPD, Hyperlipidemia, Hypertension, Osteoarthritis (OA), Pneumonia, Renal Disease Additional Past Medical History / Comment(s): aaa 09/2015 pneumonia with sepsis , R parotitis, nephrolithiasis yrs ago, sciatica-R side low back. fx Right knee- had sx then had an infection with multiple surgeries and required IV antibiotics. Patient is currently on oral doxycycline no evidence of active infection. Cardiomyopathy with an EF of 20% currently has a LifeVest. Severe mitral regurgitation status post mitral valve clipping in May 2017 History of Any Multi-Drug Resistant Organisms: None Reported Past Surgical History: Heart Catheterization With Stent, Joint Replacement, Orthopedic Surgery, Tonsillectomy Additional Past Surgical History / Comment(s): Partial thyroidectomy, T total knee arthroplasty in October 2016, Right knee infection with additional surgeries spinal cord stimulator insertion and removal, colonoscopies with benign polypectomies. March 2017 6 stent placed, may -had mitral valve clip Past Anesthesia/Blood Transfusion Reactions: No Reported Reaction Date of Last Stent Placement:: March 2017 Past Psychological History: No Psychological Hx Reported Additional Psychological History / Comment(s): Pt lives with her spouse. has a nebulizer/cane Smoking Status: Former smoker Past Alcohol Use History: None Reported Additional Past Alcohol Use History / Comment(s): Pt states she started smoking in 1968 was a 1ppd smoker, quit oct 2016 Past Drug Use History: None Reported - Past Family History Mother Family Medical History: Cancer, Congestive Heart Failure (CHF) Additional Family Medical History / Comment(s): Mother in her early 80's Father Family Medical History: Myocardial Infarction (LA) Additional Family Medical History / Comment(s): Father of a [place] in his 50's. Medications and Allergies Home Medications Medication Instructions Recorded Confirmed Type Cholecalciferol [Vitamin D3] 5,000 unit PO DAILY 09/23/15 01/10/18 History Atorvastatin [Lipitor] 80 mg PO HS 01/08/17 01/10/18 History Clopidogrel [Plavix] 75 mg PO DAILY 01/08/17 01/10/18 History Docusate Sodium [Dok] 100 mg PO BID 01/08/17 01/10/18 History Famotidine [Pepcid] 20 mg PO DAILY 01/08/17 01/10/18 History Calcium Carbonate [Calcium] 600 mg PO DAILY 05/27/17 01/10/18 History HYDROcodone/APAP 7.5-325MG [[place] 1 tab PO DAILY PRN 05/27/17 01/10/18 History 7.5-325] Aspirin EC [Ecotrin Low Dose] 81 mg PO DAILY 09/02/17 01/10/18 History Furosemide [Lasix] 40 mg PO BID@0900,1600 #60 tab 09/13/17 01/10/18 Rx Nitroglycerin Sl Tabs [Nitrostat] 0.4 mg SUBLINGUAL Q5M PRN #25 tab 09/13/1703/25 Rx Polyethylene Glycol 3350 [Miralax] 17 gm PO HS #30 powd.pack 09/13/17 01/10/18 Rx Zinc Oxide 20% Oint 1 applic TOPICAL BID #1 tube 09/13/17 01/10/18 Rx Denosumab [Prolia] 60 mg SQ Q180D 01/10/18 01/10/18 History Fluticasone/Vilanterol [Breo 1 puff INHALATION RT-DAILY 01/10/18 01/10/18 History Ellipta 200-25 Mcg INH] Lisinopril [Prinivil] 5 mg PO DAILY 01/10/18 01/10/18 History Metoprolol Tartrate [Lopressor] 12.5 mg PO BID 01/10/18 01/10/18 History Allergies Allergy/AdvReac Type Severity Reaction Status Date / Time Iodinated Contrast- Oral and Allergy Anaphylaxis Verified 01/10/18 15:17 IV Dye [Iodinated Contrast Media - IV Dye] Surgical - Exam Vital Signs Temp Pulse Resp BP Pulse Ox 98.4 F 100 18 161/77 95 01/10/18 14:44 01/10/18 14:44 01/10/18 14:44 01/10/18 14:44 01/10/18 14:44 - General moderate pain, chronically ill - Respiratory normal respiratory effort - Abdomen Abdomen: soft, tender (Mild tenderness) Results - Labs 01/20/18 07:23 01/20/18 07:23 Abnormal Lab Results - Last 24 Hours (Table) 01/20/18 01/20/18 01/20/18 Range/Units 07:23 07:23 16:48 WBC 14.1 H (3.8-10.6) k/uL RBC 3.27 L (3.80-5.40) m/uL Hgb 8.3 L D (11.4-16.0) gm/dL Hct 26.4 L (34.0-46.0) % RDW 16.3 H (11.5-15.5) % Neutrophils # 11.4 H (1.3-7.7) k/uL Monocytes # 1.2 H (0-1.0) k/uL Sodium 134 L (137-145) mmol/L BUN 20 H (7-17) mg/dL Glucose 65 L (74-99) mg/dL POC Glucose (mg/dL) 120 H (75-99) mg/dL Total Protein 4.9 L (6.3-8.2) g/dL Albumin 2.7 L (3.5-5.0) g/dL Diabetes panel 01/20/18 Range/Units 07:23 Sodium 134 L (137-145) mmol/L Potassium 3.6 (3.5-5.1) mmol/L Chloride 98 (98-107) mmol/L Carbon Dioxide 30 (22-30) mmol/L BUN 20 H (7-17) mg/dL Creatinine 0.80 (0.52-1.04) mg/dL Glucose 65 L (74-99) mg/dL Calcium 8.6 (8.4-10.2) mg/dL AST 17 (14-36) U/L ALT 28 (9-52) U/L Alkaline Phosphatase 50 (38-126) U/L Total Protein 4.9 L (6.3-8.2) g/dL Albumin 2.7 L (3.5-5.0) g/dL Calcium panel 01/20/18 Range/Units 07:23 Calcium 8.6 (8.4-10.2) mg/dL Albumin 2.7 L (3.5-5.0) g/dL Pituitary panel 01/20/18 Range/Units 07:23 Sodium 134 L (137-145) mmol/L Potassium 3.6 (3.5-5.1) mmol/L Chloride 98 (98-107) mmol/L Carbon Dioxide 30 (22-30) mmol/L BUN 20 H (7-17) mg/dL Creatinine 0.80 (0.52-1.04) mg/dL Glucose 65 L (74-99) mg/dL Calcium 8.6 (8.4-10.2) mg/dL Adrenal panel 01/20/18 Range/Units 07:23 Sodium 134 L (137-145) mmol/L Potassium 3.6 (3.5-5.1) mmol/L Chloride 98 (98-107) mmol/L Carbon Dioxide 30 (22-30) mmol/L BUN 20 H (7-17) mg/dL Creatinine 0.80 (0.52-1.04) mg/dL Glucose 65 L (74-99) mg/dL Calcium 8.6 (8.4-10.2) mg/dL Total Bilirubin 0.3 (0.2-1.3) mg/dL AST 17 (14-36) U/L ALT 28 (9-52) U/L Alkaline Phosphatase 50 (38-126) U/L Total Protein 4.9 L (6.3-8.2) g/dL Albumin 2.7 L (3.5-5.0) g/dL Assessment and Plan (1) Urinary retention with incomplete bladder emptying Narrative/Plan: The patient's difficulty voiding noted at the time of her CT scan may have been related to her abdominal bloating and constipation. The patient did not appear to have any significant symptoms of incomplete bladder emptying prior to being admitted. The patient's catheter will be removed in the morning for a voiding trial. Her postvoid residual should be checked within 4 or 5 hours after her catheter is removed as her current urine output is 800-900 cc per shift. Current Visit: Yes Status: Acute Code(s): R33.9 - RETENTION OF URINE, UNSPECIFIED SNOMED Code(s): 736260639
[2018-01-21] MEDS: MORPHINE SULFATE 4 MG/ML SYRINGE IVP PRN (01:49)
[2018-01-21] MEDS: SODIUM CHLORIDE 0.9% 1,000 ML IV SCH ×2 (05:47→12:38)
[2018-01-21] MEDS: IPRATROPIUM-ALBUTEROL 3 ML NEB INHALATION SCH ×4 (07:35→18:51)
[2018-01-21] MEDS: SYMBICORT 160-4.5 MCG INHALER INHALATION SCH ×2 (07:35→18:51)
[2018-01-21 07:47] LABS: Glucose,Whole Blood 65 mg/dL (75-99)
[2018-01-21] MEDS: INSULIN ASPART 100 UNIT/ML 1 ML 10 ML VIAL SQ SCH ×4 (07:49→20:57)
[2018-01-21] MEDS: LISINOPRIL 10 MG TAB PO SCH (07:52)
[2018-01-21] MEDS: ASPIRIN 81 MG PO SCH (07:52)
[2018-01-21] MEDS: FERROUS SULFATE 325 MG TAB PO SCH ×2 (07:53→20:56)
[2018-01-21] MEDS: METOPROLOL TARTRATE 12.5 MG TAB PO SCH ×2 (07:53→20:57)
[2018-01-21] MEDS: FAMOTIDINE 20 MG TAB PO SCH (07:53)
[2018-01-21] MEDS: CLOPIDOGREL 75 MG TAB PO SCH (07:53)
[2018-01-21] MEDS: FUROSEMIDE 40 MG TAB PO SCH ×2 (07:53→18:07)
[2018-01-21] MEDS: ENOXAPARIN 40 MG/0.4 ML SYRINGE SQ SCH (07:53)
[2018-01-21] MEDS: ZINC OXIDE 20% OINT 28.4 GM TUBE TOPICAL SCH ×2 (07:53→20:57)
[2018-01-21] MEDS: predniSONE 20 MG TAB PO SCH (07:53)
[2018-01-21] MEDS: DOCUSATE 100 MG CAP PO SCH ×2 (07:54→20:56)
[2018-01-21 08:21] LABS: Glucose,Whole Blood 76 mg/dL (75-99)
[2018-01-21] MEDS: LACTULOSE 20 GM/30 ML CUP PO SCH ×3 (08:23→20:57)
[2018-01-21 08:45] LABS: Anisocytosis Slight; Basophils % (A) 0 %; Eosinophils # (A) 0.1 k/uL (0-0.7); Eosinophils % (A) 1 %; HCT 27.2 % (34.0-46.0); HGB 8.5 gm/dL (11.4-16.0); Hypochromasia Slight; Lymphocytes % (A) 8 %; MCH 25.1 pg (25.0-35.0); MCHC 31.4 g/dL (31.0-37.0); MCV 80.1 fL (80.0-100.0); Mean Platelet Volume 6.7; Microcytosis Slight; Monocytes % (A) 8 %; Neutrophils # (A) 10.8 k/uL (1.3-7.7); Neutrophils % (A) 83 %; Platelet Count 388 k/uL (150-450); RDW 16.9 % (11.5-15.5)
[2018-01-21 09:46] LABS: Albumin 3.1 g/dL (3.5-5.0); Total Bilirubin 0.5 mg/dL (0.2-1.3); Total Protein 5.6 g/dL (6.3-8.2)
[2018-01-21 09:51] LABS: Potassium 4.2 mmol/L (3.5-5.1)
--- NOTE | 2018-01-21 10:58 | P.PN ---
Subjective Progress Note Date: 01/21/18 This is a 67-year-old female with a known history of COPD, ischemic cardiomyopathy status post AICD, congestive heart failure, myocardial infarction with coronary disease and cardiac stents, severe mitral regurgitation with clip. She presents to the hospital with a three-day complaint of cough and shortness of breath and pleuritic chest pain. Patient is wheezing and increased shortness of breath with activity. She presented to the emergency room for further evaluation. She's found have an elevated d- dimer. Computed tomography scan of the chest shows no PE. Does revealing new suspicious left lower lobe superior segment pulmonary nodule measuring 1.1 cm and multifocal left-sided focal pleural thickening and subpleural nodules. Mediastinal adenopathy is also suspicious. Parabronchial coughing and mucus plugging in association with by basilar airspace disease may represent bronchitis and postobstructive atelectasis although early pneumonia is possible. Also partial visualization of the mid abdominal aortic aneurysm and descending thoracic aortic aneurysm. Patient has been started on IV steroids and IV antibiotics for an acute COPD exacerbation and possible pneumonia. White count was 11.1 and pulmonary service has been consulted. Patient denies any fever chills or sweats. Denies any nausea or vomiting. Denies any bowel movement changes or urinary symptoms. 01/13/2018 patient is status post bronchoscopy. She reports some improvement in her cough and shortness of breath. She is complaining of muscle cramping in her back. Also complaining of constipation. Cardiology will be consulted for a moderate pericardial effusion noted on echo. Patient's blood pressures also been elevated. Her lisinopril will be increased. 01/14/2018 blood pressures were elevated yesterday: Lisinopril was increased to 10 mg daily. Blood pressures are showing improvement this morning. She is still having a productive cough with thick phlegm. Reports improvement in her shortness of breath. Cytology was negative for any malignant cells. Pulmonary service is following. Cardiology also consulted regards to the pericardial effusion. They are checking a sed rate level to rule out pericarditis. Patient also complaining of constipation. no bowel movement with the lactulose. Enema will be ordered. Patient denies any chest pain. Reports some improvement in her cough. Denies any nausea or vomiting. Denies any burning with urination. Patient asking for increase in her [place]. At home she takes it as needed. 01/17/2018 patient still complaining of abdominal Cramping and distention. She had a computed tomography scan of the abdomen showing diffuse mild dilation of the small bowel containing fluid throughout without transition point with air and stool seen throughout the entirety of the non-dilated colon suggestive of a small bowel ileus or early partial small bowel obstruction. Patient also had a moderate urinary bladder distention without wall thickening noted as well as her chronic right-sided hydronephrosis and abdominal aortic aneurysm. And a right middle lobe airspace disease with bronchiolitis and small airway disease of inflammatory or infectious etiology. Surgical service will be consulted. Post void residual was checked and found to have 466 mL's. Sampson catheter inserted. Urinalysis with culture and sensitivity will also be checked. White count up at 22.9 and the patient is also on prednisone. Sodium was 130. Creatinine 1.11. We'll place her on normal saline at 50 mL an hour. Patient's last bowel movement was yesterday prior to CAT scan. However, patient reports that bones that she has had have been liquid. She did have one episode of vomiting. 01/18/2018 patient was seen by surgical service started on subset enemas and lactulose. Patient was able to have 2 very small bowel movements. She reports amidst just small pieces of stool. She's having a lot of abdominal cramping. Denies any further vomiting. Reports that her breathing and cough are much better. Has Sampson catheter in place for urinary retention. Urology has been consulted. Denies any chest pain. 01/20/2018 patient is status post laparoscopic lysis of adhesions and evidence of ileus with Dr. Olivia. She is postop day #1. NG tube remains in place. With brown fecal material present. She has not passed gas or had bowel movement after surgery. Pain is improving. Denies any nausea or vomiting. Denies any chest pain or shortness of breath. Sampson catheter remains in place. 01/21/2018 postop day #2. NG tube removed and Sampson catheter removed. Patient currently on ice chips. She is hungry and asking when she'll be able to start diet. She is passing some gas. No bowel movement yet. Denies any nausea or vomiting. Denies any chest pain or shortness of breath. Has not urinated yet Objective - Vital Signs Vital signs: Vital Signs Temp 97.1 F L 01/21/18 07:00 Pulse 80 01/21/18 07:48 Resp 18 01/21/18 07:00 BP 149/103 01/21/18 07:00 Pulse Ox 100 01/21/18 07:00 Intake & Output 01/20/18 01/21/18 01/21/18 18:59 06:59 18:59 Intake Total 615 1400 Output Total 1850 1200 Balance -1235 200 Weight 52.5 kg 50.5 kg Intake: IV 600 800 Sodium Chloride 0.9% 1, 600 800 000 ml @ 50 mls/hr IV . Q20H [facility] Rx#:[id number] Oral 15 600 Output: Gastric Drainage 50 Urine 1800 1200 Uretheral (Sampson) 1200 Other: Voiding Method Indwelling Catheter Indwelling Catheter # Voids 0 - Exam Head normocephalic Neck supple Lungs diminished no wheezing or coarse breath sounds Heart regular rate and rhythm S1-S2, no rub or gallop Abdomen is soft. Positive bowel sounds. Dressing clean dry and intact. Extremities no edema Neuro alert and orientated to 3 - Labs CBC & Chem 7: 01/21/18 07:21 01/21/18 07:21 Labs: Abnormal Lab Results - Last 24 Hours (Table) 01/20/18 01/21/18 01/21/18 Range/Units 16:48 07:21 07:21 WBC 13.0 H (3.8-10.6) k/uL RBC 3.40 L (3.80-5.40) m/uL Hgb 8.5 L (11.4-16.0) gm/dL Hct 27.2 L (34.0-46.0) % RDW 16.9 H (11.5-15.5) % Neutrophils # 10.8 H (1.3-7.7) k/uL Sodium 136 L (137-145) mmol/L Carbon Dioxide 31 H (22-30) mmol/L BUN 25 H (7-17) mg/dL Glucose 66 L (74-99) mg/dL POC Glucose (mg/dL) 120 H (75-99) mg/dL Total Protein 5.6 L (6.3-8.2) g/dL Albumin 3.1 L (3.5-5.0) g/dL 01/21/18 Range/Units 07:39 WBC (3.8-10.6) k/uL RBC (3.80-5.40) m/uL Hgb (11.4-16.0) gm/dL Hct (34.0-46.0) % RDW (11.5-15.5) % Neutrophils # (1.3-7.7) k/uL Sodium (137-145) mmol/L Carbon Dioxide (22-30) mmol/L BUN (7-17) mg/dL Glucose (74-99) mg/dL POC Glucose (mg/dL) 65 L (75-99) mg/dL Total Protein (6.3-8.2) g/dL Albumin (3.5-5.0) g/dL Assessment and Plan Assessment: 1. Acute COPD exacerbation: Pulmonary following. Continue oral prednisone and bronchodilators. Followed by pulmonary 2. Bilateral pneumonia: Patient status post bronchoscopy. Cytology negative for malignant cells. Bronchial wash cultures showing normal respiratory nati and [place] which is likely colonization. Discussed with pulmonary service 3. Elevated d-dimer on admission CTA negative for PE 4. New suspicious left lower lobe superior segment pulmonary nodule measuring 1.1 cm noted on computed tomography scan of the chest. Followed by pulmonary service. Patient does have a past history of smoking 5. Abdominal aortic aneurysm and descending thoracic aortic aneurysm. With abdominal aortic aneurysm only partially visualized measuring 3.9 x 3.7 cm abdominal ultrasound will be ordered for further evaluation. Descending Thoracic aortic aneurysm measuring 3.5 cm. abdominal ultrasound revealing a 4 x 2.9 cm abdominal aortic aneurysm 6. History of ischemic cardiomyopathy status post AICD placement 7. History of myocardial infarction with coronary disease and cardiac stents 8. History of iron deficiency anemia patient has stopped taking her iron supplement. Iron level low at 7. Resume ferrous sulfate 325 mg twice a day. Hemoglobin has gone up from 8.3-8.5. Detailed to monitor 9. History of severe mitral regurgitation status post mitral valve click completed at [place] May 2017 10. Moderate pericardial effusion: Seen by cardiology. ESR not elevated 11. Mediastinal lymphadenopathy likely reactive from patient's pneumonia. Pulmonary following 12. Back muscle spasms and chronic back pain. Continue the [place] and Flexeril as needed 13. Essential hypertension: Patient's blood pressure elevated this morning. She just received her blood pressure medications. We'll have blood pressure repeated. Make further adjustments if needed 14. Intra-abdominal adhesions with ileus status post diagnostic laparoscopy with laparoscopic lysis of adhesions with Dr. Olivia. NG tube removed today. Surgery following will await their recommendations in advancement of diet 15. Urinary retention: Seen by urology. Sampson catheter removed this morning. Monitor postvoid residuals. 16. Hyponatremia: Sodium continues to improve its up to 136. Continue normal saline at 50 17. Hypoglycemia likely related to patient's nothing by mouth status. Clear liquid diet started this morning plus she was given apple juice. Blood sugars gone up from 65-80. And should see improvement with the initiation of the diet. Consult physical therapy GI prophylaxis Pepcid and DVT prophylaxis Lovenox Encouraged patient to increase activity and use incentive spirometer I performed an examination of the patient and discussed their management with the physician Account Coordinator. I have reviewed the Physician Account Coordinator's notes and agree with the documented findings and plan of care
--- NOTE | 2018-01-21 11:42 | P.PN ---
Subjective Progress Note Date: 01/21/18 67-year-old female seen and examined this morning at the bedside. The nasogastric and Sampson catheter have been removed. Has not urinated since the catheter has been removed. No stool. Hypoactive bowel tones noted. Surgical dressing site dry. Patient states passing some gas. Chief complaint this morning "I'm hungry" Postop January 19 Diagnostic laparoscopy, laparoscopic lysis of adhesions for small bowel obstruction Objective - Vital Signs Vital signs: Vital Signs Temp 97.1 F L 01/21/18 07:00 Pulse 69 01/21/18 09:30 Resp 18 01/21/18 07:00 BP 142/64 01/21/18 09:30 Pulse Ox 100 01/21/18 07:00 Intake & Output 01/20/18 01/21/18 01/21/18 18:59 06:59 18:59 Intake Total 615 1400 Output Total 1850 1200 Balance -1235 200 Weight 52.5 kg 50.5 kg Intake: IV 600 800 Sodium Chloride 0.9% 1, 600 800 000 ml @ 50 mls/hr IV . [facility]20H [facility] Rx#:[id number] Oral 15 600 Output: Gastric Drainage 50 Urine 1800 1200 Uretheral (Sampson) 1200 Other: Voiding Method Indwelling Catheter Indwelling Catheter # Voids 0 - Exam Physical exam Abdomen soft surgical dressing site dry few hypoactive bowel tones states passing gas no bowel movement tolerating ice chips. Has not urinated since the indwelling Sampson catheter was removed this morning surgical tenderness appropriate reports no nausea no vomiting asking for diet patient states has been up ambulating in the hallway twice yesterday has not been up out of bed this morning - Labs CBC & Chem 7: 01/21/18 07:21 01/21/18 07:21 Labs: Abnormal Lab Results - Last 24 Hours (Table) 01/20/18 01/21/18 01/21/18 Range/Units 16:48 07:21 07:21 WBC 13.0 H (3.8-10.6) k/uL RBC 3.40 L (3.80-5.40) m/uL Hgb 8.5 L (11.4-16.0) gm/dL Hct 27.2 L (34.0-46.0) % RDW 16.9 H (11.5-15.5) % Neutrophils # 10.8 H (1.3-7.7) k/uL Sodium 136 L (137-145) mmol/L Carbon Dioxide 31 H (22-30) mmol/L BUN 25 H (7-17) mg/dL Glucose 66 L (74-99) mg/dL POC Glucose (mg/dL) 120 H (75-99) mg/dL Total Protein 5.6 L (6.3-8.2) g/dL Albumin 3.1 L (3.5-5.0) g/dL 01/21/18 Range/Units 07:39 WBC (3.8-10.6) k/uL RBC (3.80-5.40) m/uL Hgb (11.4-16.0) gm/dL Hct (34.0-46.0) % RDW (11.5-15.5) % Neutrophils # (1.3-7.7) k/uL Sodium (137-145) mmol/L Carbon Dioxide (22-30) mmol/L BUN (7-17) mg/dL Glucose (74-99) mg/dL POC Glucose (mg/dL) 65 L (75-99) mg/dL Total Protein (6.3-8.2) g/dL Albumin (3.5-5.0) g/dL Assessment and Plan Assessment: Impression Present on admission abdominal pain suspect due small bowel obstruction due to interabdominal adhesions CAT scan abdomen pelvis findings consistent with constipation Chronic pain with narcotic dependency Status post diagnostic laparoscopic lysis of adhesions due to inter-abdominal adhesions done on January 19 Urinary retention followed by urology Plan Continue postop surgical care Increase activity Pain control Start clear liquid diet monitor advance as tolerated We'll follow with you Dictating progress note for rounding on behalf of Dr. Olivia The above impression and plan of care have been discussed and directed by signing physician. Shaila German nurse practitioner acting as scribe for signing physician.
[2018-01-21] MEDS ORDERED: MORPHINE SULFATE 4 MG/ML SYRINGE IVP PRN (11:44)
--- NOTE | 2018-01-21 11:45 | P.PN ---
Subjective Progress Note Date: 01/21/18 [facility] is covering for Dr. Samuel 01/14/18- Patient has been seen and examined evaluated today on rounds. Patient is being currently treated for acute exacerbation of COPD, bilateral pneumonia, as well as pericardial effusion. She is seen sitting up in bed on approximately 2 L of supplemental oxygen via nasal cannula. The patient does not utilize home oxygen. She continues to be short of breath with exertion and activity. She did have a bronchoscopy by Dr. Samuel those results are pending. She continues to have a congested cough. Cardiology is also on consult for pericardial effusion. She is afebrile, hemodynamically stable, no further complaints. 01/15/18- 01/16/[address] Cristian Benz notes 01/17/18- patient is being seen examined and evaluated today on rounds. Patient is resting up in bed on room air. States her breathing is relatively stable. She has been having some abdominal pain and constipation. She is plantar skin and was noted to have some urinary retention. Sampson catheter was inserted, with good return of pale yellow urine. She did have a CT that did reveal a possible small bowl ileus or prema partial small bowel obstruction. Enlargement of the Aortic aneurysm, right middle lobe airspace disease with bronchiolitis, chronic right-sided hydronephrosis and right renal atrophy, small amount of abdominal and pelvic ascites, moderate urinary bladder distention. Result been reviewed with the patient. Surgical services was put on consult. 01/18/18- Please see Dr. Cristian Benz notes 01/19/18- patient is being seen examined and evaluated today upon rounds. Patient is resting up in bed and has an NG tube in place. The patient had an abdominal x-ray that did show persistent air-fluid levels with dilated loops suggesting obstruction. Surgery is on consult and the patient will be going for exploratory laparotomy procedure later today with Dr. Olivia. Currently the patient has an NG tube in place. She denies any shortness of breath cough or congestion at this time. Overall her pulmonary status is stable at this time. 01/20/18- patient is being seen examined and evaluated today on rounds. The patient did undergo an exploratory laparotomy with Dr. Guerra, and she underwent lysis of adhesions. Patient states she is feeling better today she continues with a and G tube to low intermittent suction. She has been on room air denies any shortness of breath cough or congestion at this time. Continues on nebulizer treatments and oral prednisone. She will restart with physical therapy. 01/21/18- patient is being seen examined and evaluated today on rounds. She is postop day 2 after lysis of adhesions. Her NG tube was removed. She is currently on ice chips. Surgical services is advancing her diet.. Her Sampson catheter has been removed and she is undergoing post void residuals. Patient has not had a bowel movement or urination as of this time. She does have some occasional shortness of breath with exertion. She is on room air denies any further complaints. Objective - Vital Signs Vital signs: Vital Signs Temp 97.1 F L 01/21/18 07:00 Pulse 69 01/21/18 09:30 Resp 18 01/21/18 07:00 BP 142/64 01/21/18 09:30 Pulse Ox 100 01/21/18 07:00 Intake & Output 01/20/18 01/21/18 01/21/18 18:59 06:59 18:59 Intake Total 615 1400 Output Total 1850 1200 Balance -1235 200 Weight 52.5 kg 50.5 kg Intake: IV 600 800 Sodium Chloride 0.9% 1, 600 800 000 ml @ 50 mls/hr IV . Q20H [facility] Rx#:[id number] Oral 15 600 Output: Gastric Drainage 50 Urine 1800 1200 Uretheral (Sampson) 1200 Other: Voiding Method Indwelling Catheter Indwelling Catheter # Voids 0 - Exam GENERAL EXAM: Alert, active, comfortable in no apparent distress. HEAD: Normocephalic. EYES: Normal reaction of pupils, equal size. NOSE: Clear with pink turbinates. NG tube in place THROAT: No erythema or exudates. NECK: No masses, no JVD. CHEST: No chest wall deformity. LUNGS: Clear bilaterally with no crackles, wheeze, rhonchi or dullness. Respirations even and unlabored CVS: S1 and S2 normal with no audible mumurs, regular rhythm. ABDOMEN: No hepatosplenomegaly, hypoactive bowel sounds, EXTREMITIES: No edema noted, pedal pulses palpable. SKIN: No rashes CENTRAL NERVOUS SYSTEM: No focal deficits, tone is normal in all 4 extremities. - Labs CBC & Chem 7: 01/21/18 07:21 03/16/18 07:21 Labs: Abnormal Lab Results - Last 24 Hours (Table) 01/20/18 01/21/18 01/21/18 Range/Units 16:48 07:21 07:21 WBC 13.0 H (3.8-10.6) k/uL RBC 3.40 L (3.80-5.40) m/uL Hgb 8.5 L (11.4-16.0) gm/dL Hct 27.2 L (34.0-46.0) % RDW 16.9 H (11.5-15.5) % Neutrophils # 10.8 H (1.3-7.7) k/uL Sodium 136 L (137-145) mmol/L Carbon Dioxide 31 H (22-30) mmol/L BUN 25 H (7-17) mg/dL Glucose 66 L (74-99) mg/dL POC Glucose (mg/dL) 120 H (75-99) mg/dL Total Protein 5.6 L (6.3-8.2) g/dL Albumin 3.1 L (3.5-5.0) g/dL 01/21/18 Range/Units 07:39 WBC (3.8-10.6) k/uL RBC (3.80-5.40) m/uL Hgb (11.4-16.0) gm/dL Hct (34.0-46.0) % RDW (11.5-15.5) % Neutrophils # (1.3-7.7) k/uL Sodium (137-145) mmol/L Carbon Dioxide (22-30) mmol/L BUN (7-17) mg/dL Glucose (74-99) mg/dL POC Glucose (mg/dL) 65 L (75-99) mg/dL Total Protein (6.3-8.2) g/dL Albumin (3.5-5.0) g/dL Assessment and Plan Assessment: Assessment Bilateral nodular infiltrate with some of them early cavitary appearance Acute COPD exacerbation Bilateral pneumonia Mediastinal lymphadenopathy likely reactive lymphadenopathy Uncontrolled hypertension hypertensive cardiovascular disease Abdominal aortic aneurysm and ascending thoracic aneurysm Pericardial effusion moderate Acute on chronic systolic heart failure ejection fraction of 40% Status post exploratory lactic parotid me with lysis of adhesions Plan Medications have been reviewed and will be continued as ordered. Steroid taper , decrease to 20 mg daily. Continue with pulmonary hygiene, coughing and deep breathing exercises, and supportive care. Supplemental oxygen to maintain oxygen saturations of 92% or better. Continue nebulizer treatments. Diet per surgical services. GI and DVT prophylaxis. Cardiology and surgical services also on consult and appreciate recommendations. Encourage incentive spirometer. We will continue to monitor labs/results and adjust treatment as necessary. Further recommendations pending. We are covering for Dr. Samuel I performed an examination of the patient and discussed their management with the nurse practitioner. I have reviewed the nurse practitioner's note and agree with the documented findings and plan of care.
[2018-01-21 11:49] LABS: Glucose,Whole Blood 122 mg/dL (75-99)
[2018-01-21] MEDS: BENZOCAINE/MENTHOL LOZENG 1 EACH LOZENGE MUCOUS MEM PRN (12:38)
[2018-01-21] MEDS: CHOLECALCIFEROL 1,000 UNIT TAB PO SCH (13:08)
[2018-01-21] MEDS: CALCIUM CARBONATE 500 MG CHEWABLE PO SCH (13:09)
[2018-01-21 17:03] LABS: Glucose,Whole Blood 197 mg/dL (75-99)
[2018-01-21 20:10] LABS: Glucose,Whole Blood 272 mg/dL (75-99)
[2018-01-21] MEDS ORDERED: MORPHINE ORAL SOLN 10 MG/5 ML CUP PO PRN (20:10)
[2018-01-21] MEDS: ATORVASTATIN 80 MG TAB PO SCH (20:56)
[2018-01-21] MEDS ORDERED: INSULIN ASPART 100 UNIT/ML 1 ML 10 ML VIAL SQ ONE (21:00)
[2018-01-22 07:12] LABS: Glucose,Whole Blood 101 mg/dL (75-99)
[2018-01-22] MEDS: INSULIN ASPART 100 UNIT/ML 1 ML 10 ML VIAL SQ SCH ×4 (07:33→20:43)
[2018-01-22 07:41] LABS: Anisocytosis Slight; Basophils % (A) 0 %; Eosinophils # (A) 0.1 k/uL (0-0.7); Eosinophils % (A) 1 %; HCT 27.3 % (34.0-46.0); HGB 8.7 gm/dL (11.4-16.0); Hypochromasia Slight; Lymphocytes # (A) 1.2 k/uL (1.0-4.8); Lymphocytes % (A) 11 %; MCHC 31.9 g/dL (31.0-37.0); MCV 81.5 fL (80.0-100.0); Mean Platelet Volume 6.6; Monocytes # (A) 0.9 k/uL (0-1.0); Monocytes % (A) 9 %; Neutrophils # (A) 8.1 k/uL (1.3-7.7); Neutrophils % (A) 78 %; Platelet Count 426 k/uL (150-450); RBC 3.34 m/uL (3.80-5.40); RDW 16.5 % (11.5-15.5); WBC 10.4 k/uL (3.8-10.6)
[2018-01-22 08:11] LABS: ALT 29 U/L (9-52); AST 19 U/L (14-36); Alkaline Phosphatase 55 U/L (38-126); Anion Gap 10 mmol/L; Blood Urea Nitrogen 17 mg/dL (7-17); Calcium 8.8 mg/dL (8.4-10.2); Carbon Dioxide 30 mmol/L (22-30); Chloride 97 mmol/L (98-107); Glucose 87 mg/dL (74-99); Sodium 137 mmol/L (137-145); Total Bilirubin 0.4 mg/dL (0.2-1.3); Total Protein 5.4 g/dL (6.3-8.2)
[2018-01-22 08:18] LABS: Potassium 2.7 mmol/L (3.5-5.1)
[2018-01-22] MEDS: IPRATROPIUM-ALBUTEROL 3 ML NEB INHALATION SCH ×4 (08:19→20:06)
[2018-01-22] MEDS: SYMBICORT 160-4.5 MCG INHALER INHALATION SCH ×2 (08:19→20:06)
[2018-01-22] MEDS: LACTULOSE 20 GM/30 ML CUP PO SCH ×3 (09:31→20:43)
[2018-01-22] MEDS: FAMOTIDINE 20 MG TAB PO SCH (09:33)
[2018-01-22] MEDS: predniSONE 20 MG TAB PO SCH (09:33)
[2018-01-22] MEDS: FERROUS SULFATE 325 MG TAB PO SCH ×2 (09:33→20:42)
[2018-01-22] MEDS: LISINOPRIL 10 MG TAB PO SCH (09:33)
[2018-01-22] MEDS: ZINC OXIDE 20% OINT 28.4 GM TUBE TOPICAL SCH ×2 (09:33→20:43)
[2018-01-22] MEDS: METOPROLOL TARTRATE 12.5 MG TAB PO SCH ×2 (09:33→20:43)
[2018-01-22] MEDS: POTASSIUM CHLORIDE ER 20 MEQ TAB.ER PO SCH ×3 (09:33→13:10)
[2018-01-22] MEDS: ASPIRIN 81 MG PO SCH (09:33)
[2018-01-22] MEDS: FUROSEMIDE 40 MG TAB PO SCH ×2 (09:33→17:46)
[2018-01-22] MEDS: CLOPIDOGREL 75 MG TAB PO SCH (09:33)
[2018-01-22] MEDS: DOCUSATE 100 MG CAP PO SCH ×2 (09:33→20:42)
[2018-01-22] MEDS: SODIUM CHLORIDE 0.9% 1,000 ML IV SCH (09:34)
[2018-01-22] MEDS: ENOXAPARIN 40 MG/0.4 ML SYRINGE SQ SCH (09:34)
--- NOTE | 2018-01-22 10:42 | P.PN ---
Progress Note - Text Progress Note Date: 01/22/18 The patient is resting comfortably in bed. She is tolerating clear liquid diet. She is requesting morning. On exam her vital signs are stable. Abdomen soft. Status post lysis of adhesions. The patient will have her diet advanced to a full liquid diet.
--- NOTE | 2018-01-22 11:03 | P.PN ---
Subjective Progress Note Date: 01/22/18 Principal diagnosis: AECOPD 01/14/18- Patient has been seen and examined evaluated today on rounds. Patient is being currently treated for acute exacerbation of COPD, bilateral pneumonia, as well as pericardial effusion. She is seen sitting up in bed on approximately 2 L of supplemental oxygen via nasal cannula. The patient does not utilize home oxygen. She continues to be short of breath with exertion and activity. She did have a bronchoscopy by Dr. Samuel those results are pending. She continues to have a congested cough. Cardiology is also on consult for pericardial effusion. She is afebrile, hemodynamically stable, no further complaints. 01/15/18- 01/16/[address] Cristian Benz notes 01/17/18- patient is being seen examined and evaluated today on rounds. Patient is resting up in bed on room air. States her breathing is relatively stable. She has been having some abdominal pain and constipation. She is plantar skin and was noted to have some urinary retention. Sampson catheter was inserted, with good return of pale yellow urine. She did have a CT that did reveal a possible small bowl ileus or prema partial small bowel obstruction. Enlargement of the Aortic aneurysm, right middle lobe airspace disease with bronchiolitis, chronic right-sided hydronephrosis and right renal atrophy, small amount of abdominal and pelvic ascites, moderate urinary bladder distention. Result been reviewed with the patient. Surgical services was put on consult. 01/18/18- Please see Dr. Cristian Benz notes 01/19/18- patient is being seen examined and evaluated today upon rounds. Patient is resting up in bed and has an NG tube in place. The patient had an abdominal x-ray that did show persistent air-fluid levels with dilated loops suggesting obstruction. Surgery is on consult and the patient will be going for exploratory laparotomy procedure later today with Dr. Olivia. Currently the patient has an NG tube in place. She denies any shortness of breath cough or congestion at this time. Overall her pulmonary status is stable at this time. 01/20/18- patient is being seen examined and evaluated today on rounds. The patient did undergo an exploratory laparotomy with Dr. Guerra, and she underwent lysis of adhesions. Patient states she is feeling better today she continues with a and G tube to low intermittent suction. She has been on room air denies any shortness of breath cough or congestion at this time. Continues on nebulizer treatments and oral prednisone. She will restart with physical therapy. 01/21/18- patient is being seen examined and evaluated today on rounds. She is postop day 2 after lysis of adhesions. Her NG tube was removed. She is currently on ice chips. Surgical services is advancing her diet.. Her Sampson catheter has been removed and she is undergoing post void residuals. Patient has not had a bowel movement or urination as of this time. She does have some occasional shortness of breath with exertion. She is on room air denies any further complaints. 01/22/2018: Patient seen and examined. Patient is currently on room air. She denies any shortness of breath or chest pain. She states her breathing is back to baseline. She denies cough, fevers, chills. She did have flatulence overnight however she has not yet had a bowel movement. She is tolerating clear liquid diet. Objective - Vital Signs Vital signs: Vital Signs Temp 98.0 F 01/22/18 07:00 Pulse 74 01/22/18 07:00 Resp 18 01/22/18 07:00 BP 132/65 01/22/18 07:00 Pulse Ox 97 01/22/18 07:00 Intake & Output 01/21/18 01/22/18 01/22/18 18:59 06:59 18:59 Intake Total 550 Output Total 3100 1800 Balance -3100 -1250 Weight 50.5 kg 49.5 kg Intake: IV 200 Sodium Chloride 0.9% 1, 200 000 ml @ 50 mls/hr IV . Q20H [facility] Rx#:[id number] Intake, IV Titration 350 Amount Sodium Chloride 0.9% 1, 350 000 ml @ 50 mls/hr IV . Q20H [facility] Rx#:[id number] Output: Urine 3100 1800 Other: Voiding Method Toilet Toilet # Voids 0 - Exam GENERAL EXAM: Alert, active, comfortable in no apparent distress. HEAD: Normocephalic. EYES: Normal reaction of pupils, equal size. NOSE: Clear with pink turbinates. NG tube in place THROAT: No erythema or exudates. NECK: No masses, no JVD. CHEST: No chest wall deformity. LUNGS: Clear bilaterally with no crackles, wheeze, rhonchi or dullness. Respirations even and unlabored CVS: S1 and S2 normal with no audible mumurs, regular rhythm. ABDOMEN: No hepatosplenomegaly, hypoactive bowel sounds, EXTREMITIES: No edema noted, pedal pulses palpable. SKIN: No rashes CENTRAL NERVOUS SYSTEM: No focal deficits, tone is normal in all 4 extremities. - Labs CBC & Chem 7: 01/22/18 06:45 01/22/18 06:45 Labs: Abnormal Lab Results - Last 24 Hours (Table) 01/21/18 01/21/18 01/21/18 Range/Units 11:46 17:01 20:08 RBC (3.80-5.40) m/uL Hgb (11.4-16.0) gm/dL Hct (34.0-46.0) % RDW (11.5-15.5) % Neutrophils # (1.3-7.7) k/uL Potassium (3.5-5.1) mmol/L Chloride (98-107) mmol/L POC Glucose (mg/dL) 122 H 197 H 272 H (75-99) mg/dL Total Protein (6.3-8.2) g/dL Albumin (3.5-5.0) g/dL 01/22/18 01/22/18 01/22/18 Range/Units 06:45 06:45 07:09 RBC 3.34 L (3.80-5.40) m/uL Hgb 8.7 L (11.4-16.0) gm/dL Hct 27.3 L (34.0-46.0) % RDW 16.5 H (11.5-15.5) % Neutrophils # 8.1 H (1.3-7.7) k/uL Potassium 2.7 L* (3.5-5.1) mmol/L Chloride 97 L (98-107) mmol/L POC Glucose (mg/dL) 101 H (75-99) mg/dL Total Protein 5.4 L (6.3-8.2) g/dL Albumin 3.0 L (3.5-5.0) g/dL Assessment and Plan Assessment: Bilateral nodular infiltrate with some of them early cavitary appearance Acute COPD exacerbation Bilateral pneumonia Mediastinal lymphadenopathy likely reactive lymphadenopathy Centrilobular emphysema Uncontrolled hypertension hypertensive cardiovascular disease Abdominal aortic aneurysm and ascending thoracic aneurysm Pericardial effusion moderate Acute on chronic systolic heart failure ejection fraction of 40% Status post exploratory lap with lysis of adhesions Plan Medications have been reviewed and will be continued as ordered. Steroid taper. Continue with pulmonary hygiene, coughing and deep breathing exercises, and supportive care. Supplemental oxygen to maintain oxygen saturations of 92% or better. Continue nebulizer treatments. Diet per surgical services. GI and DVT prophylaxis. Cardiology and surgical services also on consult and appreciate recommendations. Encourage incentive spirometer. We will continue to monitor labs/results and adjust treatment as necessary. Further recommendations pending. Recommend outpatient follow up CT and possible PET scan. Recommend ABX for 10-14 days. Patient requires close follow up for cavitary lung nodule and lymphadenopathy.
[2018-01-22 11:28] LABS: Glucose,Whole Blood 144 mg/dL (75-99)
[2018-01-22] MEDS: CHOLECALCIFEROL 1,000 UNIT TAB PO SCH (13:10)
[2018-01-22] MEDS: CALCIUM CARBONATE 500 MG CHEWABLE PO SCH (13:10)
--- NOTE | 2018-01-22 14:44 | P.PN ---
Subjective Progress Note Date: 01/22/18 Patient is doing well today. She had a bowel movement this morning. No events overnight. Objective - Vital Signs Vital signs: Vital Signs Temp 98.0 F 01/22/18 07:00 Pulse 74 01/22/18 07:00 Resp 18 01/22/18 07:00 BP 132/65 01/22/18 07:00 Pulse Ox 97 01/22/18 07:00 Intake & Output 01/21/18 01/22/18 01/22/18 18:59 06:59 18:59 Intake Total 550 400 Output Total 3100 1800 550 Balance -3100 -1250 -150 Weight 50.5 kg 49.5 kg Intake: IV 200 400 Sodium Chloride 0.9% 1, 200 400 000 ml @ 50 mls/hr IV . Q20H [facility] Rx#:[id number] Intake, IV Titration 350 Amount Sodium Chloride 0.9% 1, 350 000 ml @ 50 mls/hr IV . Q20H [facility] Rx#:[id number] Output: Urine 3100 1800 550 Other: Voiding Method Toilet Toilet Toilet # Voids 0 1 - Exam General: The patient is awake and alert, in no distress Eye: there is normal conjunctiva bilaterally. Neck: The neck is supple, there is no JVD. Cardiovascular: Normal S1-S2, no S3-S4, no murmurs. Respiratory: Lungs clear to auscultation bilaterally Gastrointestinal: Abdomen is soft, nontender Musculoskeletal: There is no pedal edema. Neurological:. Speech is normal. Skin: Skin is warm and dry - Labs CBC & Chem 7: 01/22/18 06:45 01/22/18 06:45 Labs: Abnormal Lab Results - Last 24 Hours (Table) 01/21/18 01/21/18 01/22/18 Range/Units 17:01 20:08 06:45 RBC 3.34 L (3.80-5.40) m/uL Hgb 8.7 L (11.4-16.0) gm/dL Hct 27.3 L (34.0-46.0) % RDW 16.5 H (11.5-15.5) % Neutrophils # 8.1 H (1.3-7.7) k/uL Potassium (3.5-5.1) mmol/L Chloride (98-107) mmol/L POC Glucose (mg/dL) 197 H 272 H (75-99) mg/dL Total Protein (6.3-8.2) g/dL Albumin (3.5-5.0) g/dL 01/22/18 01/22/18 01/22/18 Range/Units 06:45 07:09 11:24 RBC (3.80-5.40) m/uL Hgb (11.4-16.0) gm/dL Hct (34.0-46.0) % RDW (11.5-15.5) % Neutrophils # (1.3-7.7) k/uL Potassium 2.7 L* (3.5-5.1) mmol/L Chloride 97 L (98-107) mmol/L POC Glucose (mg/dL) 101 H 144 H (75-99) mg/dL Total Protein 5.4 L (6.3-8.2) g/dL Albumin 3.0 L (3.5-5.0) g/dL Assessment and Plan Assessment: 1. Acute COPD exacerbation: Pulmonary following. Continue oral prednisone and bronchodilators. Followed by pulmonary 2. Bilateral pneumonia: Patient status post bronchoscopy. Cytology negative for malignant cells. Bronchial wash cultures showing normal respiratory nati and [place] which is likely colonization. Finished 10 days course of Levaquin 3. Elevated d-dimer on admission CTA negative for PE 4. New suspicious left lower lobe superior segment pulmonary nodule measuring 1.1 cm noted on computed tomography scan of the chest. Probably reactive. Followed by pulmonary service. Patient does have a past history of smoking 5. Abdominal aortic aneurysm and descending thoracic aortic aneurysm. With abdominal aortic aneurysm only partially visualized measuring 3.9 x 3.7 cm abdominal ultrasound will be ordered for further evaluation. Descending Thoracic aortic aneurysm measuring 3.5 cm. abdominal ultrasound revealing a 4 x 2.9 cm abdominal aortic aneurysm 6. History of ischemic cardiomyopathy status post AICD placement 7. History of myocardial infarction with coronary disease and cardiac stents 8. History of iron deficiency anemia patient has stopped taking her iron supplement. 9. History of severe mitral regurgitation status post mitral valve click completed at [place] May 2017 10. Moderate pericardial effusion: Seen by cardiology. ESR not elevated 11. Mediastinal lymphadenopathy likely reactive from patient's pneumonia. Pulmonary following 12. Back muscle spasms and chronic back pain. Continue the [place] and Flexeril as needed 13. Essential hypertension: Blood pressure well-controlled 14. Intra-abdominal adhesions with ileus status post diagnostic laparoscopy with laparoscopic lysis of adhesions with Dr. Olivia. Surgery following will await their recommendations in advancement of diet 15. Urinary retention: Seen by urology. Sampson catheter removed. postvoid residuals within acceptable range 16. Hyponatremia: Resolved PT/OT evaluation GI prophylaxis Pepcid and DVT prophylaxis Lovenox Encouraged patient to increase activity and use incentive spirometer
[2018-01-22 17:01] LABS: Glucose,Whole Blood 216 mg/dL (75-99)
[2018-01-22 20:11] LABS: Glucose,Whole Blood 211 mg/dL (75-99)
[2018-01-22] MEDS: ATORVASTATIN 80 MG TAB PO SCH (20:42)
[2018-01-23 08:11] LABS: Anisocytosis Slight; Basophils % (A) 0 %; Eosinophils # (A) 0.1 k/uL (0-0.7); Eosinophils % (A) 1 %; HCT 27.3 % (34.0-46.0); HGB 8.5 gm/dL (11.4-16.0); Hypochromasia Moderate; Lymphocytes # (A) 1.8 k/uL (1.0-4.8); Lymphocytes % (A) 17 %; MCH 25.4 pg (25.0-35.0); MCHC 31.2 g/dL (31.0-37.0); MCV 81.4 fL (80.0-100.0); Mean Platelet Volume 6.7; Microcytosis Slight; Monocytes # (A) 0.9 k/uL (0-1.0); Monocytes % (A) 9 %; Neutrophils # (A) 7.7 k/uL (1.3-7.7); Neutrophils % (A) 72 %; Platelet Count 426 k/uL (150-450); RBC 3.35 m/uL (3.80-5.40); RDW 17.3 % (11.5-15.5); WBC 10.7 k/uL (3.8-10.6)
[2018-01-23 08:13] LABS: Glucose,Whole Blood 84 mg/dL (75-99)
[2018-01-23 08:23] LABS: Albumin 3.3 g/dL (3.5-5.0); Calcium 9.6 mg/dL (8.4-10.2); Magnesium 1.8 mg/dL (1.6-2.3); Potassium 3.8 mmol/L (3.5-5.1); Total Bilirubin 0.3 mg/dL (0.2-1.3); Total Protein 5.8 g/dL (6.3-8.2)
[2018-01-23] MEDS: INSULIN ASPART 100 UNIT/ML 1 ML 10 ML VIAL SQ SCH ×4 (08:39→21:14)
[2018-01-23] MEDS: LACTULOSE 20 GM/30 ML CUP PO SCH ×3 (08:56→20:18)
[2018-01-23] MEDS: ZINC OXIDE 20% OINT 28.4 GM TUBE TOPICAL SCH ×2 (08:57→21:31)
[2018-01-23] MEDS: ASPIRIN 81 MG PO SCH (08:58)
[2018-01-23] MEDS: METOPROLOL TARTRATE 12.5 MG TAB PO SCH (08:58)
[2018-01-23] MEDS: ENOXAPARIN 40 MG/0.4 ML SYRINGE SQ SCH (08:59)
[2018-01-23] MEDS: CLOPIDOGREL 75 MG TAB PO SCH (08:59)
[2018-01-23] MEDS: LISINOPRIL 10 MG TAB PO SCH (08:59)
[2018-01-23] MEDS: FERROUS SULFATE 325 MG TAB PO SCH ×2 (08:59→20:18)
[2018-01-23] MEDS: DOCUSATE 100 MG CAP PO SCH ×2 (08:59→20:18)
[2018-01-23] MEDS: FAMOTIDINE 20 MG TAB PO SCH (08:59)
[2018-01-23] MEDS: predniSONE 10 MG TAB PO SCH (08:59)
[2018-01-23] MEDS: FUROSEMIDE 40 MG TAB PO SCH ×2 (08:59→17:44)
[2018-01-23] MEDS: SYMBICORT 160-4.5 MCG INHALER INHALATION SCH ×2 (09:38→19:34)
[2018-01-23] MEDS: IPRATROPIUM-ALBUTEROL 3 ML NEB INHALATION SCH ×4 (09:38→19:34)
--- NOTE | 2018-01-23 11:28 | P.PN ---
Progress Note - Text Progress Note Date: 01/23/18 The patient had some complaints of crampy pain. She is requesting 40. On exam her vital signs are stable. Abdomen soft. The Patient will have her diet increased to regular. She'll be discharged home by Dr. Benton tomorrow.
[2018-01-23 12:04] LABS: Glucose,Whole Blood 108 mg/dL (75-99)
[2018-01-23] MEDS: CALCIUM CARBONATE 500 MG CHEWABLE PO SCH (12:39)
[2018-01-23] MEDS: CHOLECALCIFEROL 1,000 UNIT TAB PO SCH (12:39)
--- NOTE | 2018-01-23 15:06 | P.PN ---
Subjective Patient is doing well today. No events overnight. Objective - Vital Signs Vital signs: Vital Signs Temp 97.8 F 01/23/18 07:00 Pulse 69 01/23/18 07:00 Resp 18 01/23/18 07:00 BP 120/64 01/23/18 07:00 Pulse Ox 94 L 01/23/18 07:00 Intake & Output 01/22/18 01/23/18 01/23/18 18:59 06:59 18:59 Intake Total 400 800 Output Total 1050 6139 2866 Balance -650 -886 -286 Weight 47.5 kg Intake: IV 400 400 Sodium Chloride 0.9% 1, 400 400 000 ml @ 50 mls/hr IV . Q20H [facility] Rx#:[id number] Oral 400 Output: Urine 1050 1700 1800 Straight 500 Post Void Residual 79 1066 Other: Voiding Method Toilet Toilet Toilet # Voids 1 1 - Exam General: The patient is awake and alert, in no distress Eye: there is normal conjunctiva bilaterally. Neck: The neck is supple, there is no JVD. Cardiovascular: Normal S1-S2, no S3-S4, no murmurs. Respiratory: Lungs clear to auscultation bilaterally Gastrointestinal: Abdomen is soft, nontender Musculoskeletal: There is no pedal edema. Neurological:. Speech is normal. Skin: Skin is warm and dry - Labs CBC & Chem 7: 01/23/18 07:32 01/23/18 07:32 Labs: Abnormal Lab Results - Last 24 Hours (Table) 01/22/18 01/22/18 01/23/18 Range/Units 16:56 20:09 07:32 WBC 10.7 H (3.8-10.6) k/uL RBC 3.35 L (3.80-5.40) m/uL Hgb 8.5 L (11.4-16.0) gm/dL Hct 27.3 L (34.0-46.0) % RDW 17.3 H (11.5-15.5) % Sodium (137-145) mmol/L Chloride (98-107) mmol/L Carbon Dioxide (22-30) mmol/L Glucose (74-99) mg/dL POC Glucose (mg/dL) 216 H 211 H (75-99) mg/dL Total Protein (6.3-8.2) g/dL Albumin (3.5-5.0) g/dL 01/23/18 01/23/18 Range/Units 07:32 11:52 WBC (3.8-10.6) k/uL RBC (3.80-5.40) m/uL Hgb (11.4-16.0) gm/dL Hct (34.0-46.0) % RDW (11.5-15.5) % Sodium 134 L (137-145) mmol/L Chloride 93 L (98-107) mmol/L Carbon Dioxide 32 H (22-30) mmol/L Glucose 72 L (74-99) mg/dL POC Glucose (mg/dL) 108 H (75-99) mg/dL Total Protein 5.8 L (6.3-8.2) g/dL Albumin 3.3 L (3.5-5.0) g/dL Assessment and Plan Assessment: 1. Acute COPD exacerbation: Pulmonary following. Continue oral prednisone and bronchodilators. Followed by pulmonary 2. Bilateral pneumonia: Patient status post bronchoscopy. Cytology negative for malignant cells. Bronchial wash cultures showing normal respiratory nati and [place] which is likely colonization. Finished 10 days course of Levaquin 3. Elevated d-dimer on admission CTA negative for PE 4. New suspicious left lower lobe superior segment pulmonary nodule measuring 1.1 cm noted on computed tomography scan of the chest. Probably reactive. Followed by pulmonary service. Patient does have a past history of smoking 5. Abdominal aortic aneurysm and descending thoracic aortic aneurysm. With abdominal aortic aneurysm only partially visualized measuring 3.9 x 3.7 cm abdominal ultrasound will be ordered for further evaluation. Descending Thoracic aortic aneurysm measuring 3.5 cm. abdominal ultrasound revealing a 4 x 2.9 cm abdominal aortic aneurysm 6. History of ischemic cardiomyopathy status post AICD placement 7. History of myocardial infarction with coronary disease and cardiac stents 8. History of iron deficiency anemia patient has stopped taking her iron supplement. 9. History of severe mitral regurgitation status post mitral valve click completed at [place] May 2017 10. Moderate pericardial effusion: Seen by cardiology. ESR not elevated 11. Mediastinal lymphadenopathy likely reactive from patient's pneumonia. Pulmonary following 12. Back muscle spasms and chronic back pain. Continue the [place] and Flexeril as needed 13. Essential hypertension: Blood pressure well-controlled 14. Intra-abdominal adhesions with ileus status post diagnostic laparoscopy with laparoscopic lysis of adhesions with Dr. Olivia. Patient is doing well. She had a bowel movement yesterday. 15. Urinary retention: Seen by urology. Sampson catheter removed. postvoid residuals within acceptable range 16. Hyponatremia: Resolved PT/OT evaluation GI prophylaxis Pepcid and DVT prophylaxis Lovenox Encouraged patient to increase activity and use incentive spirometer Patient may be discharged home today after evaluation by her surgeon Dr. Olivia
[2018-01-23 17:31] LABS: Glucose,Whole Blood 146 mg/dL (75-99)
[2018-01-23] MEDS ORDERED: SODIUM CHLORIDE 0.9% 500 ML IV ONE (17:32)
[2018-01-23] MEDS: ATORVASTATIN 80 MG TAB PO SCH (20:18)
[2018-01-23 21:02] LABS: Glucose,Whole Blood 127 mg/dL (75-99)
[2018-01-24] MEDS: INSULIN ASPART 100 UNIT/ML 1 ML 10 ML VIAL SQ SCH ×4 (07:39→20:26)
[2018-01-24 07:40] LABS: Glucose,Whole Blood 97 mg/dL (75-99)
[2018-01-24] MEDS ORDERED: SODIUM CHLORIDE 0.9% 500 ML IV ONE ×2 (07:52→11:01)
[2018-01-24 08:25] LABS: Anisocytosis Slight; Basophils % (A) 0 %; Eosinophils # (A) 0.1 k/uL (0-0.7); Eosinophils % (A) 1 %; HCT 28.7 % (34.0-46.0); HGB 9.1 gm/dL (11.4-16.0); Hypochromasia Slight; Lymphocytes # (A) 1.5 k/uL (1.0-4.8); Lymphocytes % (A) 14 %; MCH 25.7 pg (25.0-35.0); MCHC 31.6 g/dL (31.0-37.0); MCV 81.5 fL (80.0-100.0); Mean Platelet Volume 6.6; Microcytosis Slight; Monocytes # (A) 1.1 k/uL (0-1.0); Monocytes % (A) 10 %; Neutrophils # (A) 7.9 k/uL (1.3-7.7); Neutrophils % (A) 74 %; Platelet Count 442 k/uL (150-450); RBC 3.52 m/uL (3.80-5.40); RDW 17.7 % (11.5-15.5); WBC 10.7 k/uL (3.8-10.6)
[2018-01-24] MEDS: FUROSEMIDE 40 MG TAB PO SCH (08:25)
[2018-01-24] MEDS: SYMBICORT 160-4.5 MCG INHALER INHALATION SCH ×2 (08:29→19:39)
[2018-01-24] MEDS: IPRATROPIUM-ALBUTEROL 3 ML NEB INHALATION SCH ×4 (08:29→19:38)
[2018-01-24] MEDS: SODIUM CHLORIDE 0.9% 1,000 ML IV SCH ×2 (08:53→20:05)
[2018-01-24 08:56] LABS: Albumin 3.4 g/dL (3.5-5.0); Calcium 9.4 mg/dL (8.4-10.2); Magnesium 1.9 mg/dL (1.6-2.3); Potassium 4.2 mmol/L (3.5-5.1); Total Bilirubin 0.3 mg/dL (0.2-1.3); Total Protein 5.8 g/dL (6.3-8.2)
[2018-01-24] MEDS: LACTULOSE 20 GM/30 ML CUP PO SCH ×3 (10:52→20:06)
[2018-01-24] MEDS: ZINC OXIDE 20% OINT 28.4 GM TUBE TOPICAL SCH ×2 (10:52→20:05)
[2018-01-24] MEDS: DOCUSATE 100 MG CAP PO SCH ×3 (10:52→20:05)
[2018-01-24] MEDS: ENOXAPARIN 40 MG/0.4 ML SYRINGE SQ SCH (10:53)
[2018-01-24] MEDS: CALCIUM CARBONATE 500 MG CHEWABLE PO SCH (10:53)
[2018-01-24] MEDS: CHOLECALCIFEROL 1,000 UNIT TAB PO SCH (10:53)
[2018-01-24] MEDS: predniSONE 10 MG TAB PO SCH (10:54)
[2018-01-24] MEDS: CLOPIDOGREL 75 MG TAB PO SCH (10:54)
[2018-01-24] MEDS: FERROUS SULFATE 325 MG TAB PO SCH ×2 (10:54→20:05)
[2018-01-24] MEDS: ASPIRIN 81 MG PO SCH (10:54)
[2018-01-24] MEDS: FAMOTIDINE 20 MG TAB PO SCH (10:54)
--- NOTE | 2018-01-24 11:04 | P.PN ---
<Shaila German - Last Filed: 01/24/18 10:54> Subjective Progress Note Date: 01/24/18 67-year-old seen and examined. Resting in bed. Noted the episode this morning of systolic blood pressure in the 70s fluid bolus was given antihypertensive meds have been held currently is denying any dizziness lightheadedness shortness breath or chest pain when questioning Reports no nausea vomiting. Reports urinating no difficulty. Abdomen soft active bowel tones surgical dressings dry Postop January 19 Diagnostic laparoscopy, laparoscopic lysis of adhesions for small bowel obstruction Objective - Vital Signs Vital signs: Vital Signs Temp 98.1 F 01/24/18 09:07 Pulse 79 01/24/18 09:07 Resp 18 01/24/18 09:07 BP 75/45 01/24/18 09:07 Pulse Ox 95 01/24/18 09:07 Intake & Output 01/23/18 01/24/18 01/24/18 18:59 06:59 18:59 Intake Total 640 Output Total 2866 Balance -286 640 Weight 51 kg Intake: Intake, IV Titration 160 Amount IV Fluid Continuation 1, 160 000 ml As IV .STK-MED ONE Rx#:[id number] Oral 480 Output: Urine 1800 Post Void Residual 1066 Other: Voiding Method Toilet Toilet # Voids 1 1 - Exam Abdomen Soft nondistended surgical dressings dry active bowel tones. States urinating no difficulty. States had a bowel movement the day before. Tolerating diet. - Labs CBC & Chem 7: 01/24/18 07:45 01/24/18 07:45 Labs: Abnormal Lab Results - Last 24 Hours (Table) 01/23/18 01/23/18 01/23/18 Range/Units 11:52 17:29 20:49 WBC (3.8-10.6) k/uL RBC (3.80-5.40) m/uL Hgb (11.4-16.0) gm/dL Hct (34.0-46.0) % RDW (11.5-15.5) % Neutrophils # (1.3-7.7) k/uL Monocytes # (0-1.0) k/uL Sodium (137-145) mmol/L Chloride (98-107) mmol/L Carbon Dioxide (22-30) mmol/L BUN (7-17) mg/dL POC Glucose (mg/dL) 108 H 146 H 127 H (75-99) mg/dL Total Protein (6.3-8.2) g/dL Albumin (3.5-5.0) g/dL 01/24/18 01/24/18 Range/Units 07:45 07:45 WBC 10.7 H (3.8-10.6) k/uL RBC 3.52 L (3.80-5.40) m/uL Hgb 9.1 L (11.4-16.0) gm/dL Hct 28.7 L (34.0-46.0) % RDW 17.7 H (11.5-15.5) % Neutrophils # 7.9 H (1.3-7.7) k/uL Monocytes # 1.1 H (0-1.0) k/uL Sodium 133 L (137-145) mmol/L Chloride 91 L (98-107) mmol/L Carbon Dioxide 32 H (22-30) mmol/L BUN 22 H (7-17) mg/dL POC Glucose (mg/dL) (75-99) mg/dL Total Protein 5.8 L (6.3-8.2) g/dL Albumin 3.4 L (3.5-5.0) g/dL Assessment and Plan Assessment: Impression Present on admission abdominal pain suspect due small bowel obstruction due to interabdominal adhesions CAT scan abdomen pelvis findings consistent with constipation Chronic pain with narcotic dependency Status post diagnostic laparoscopic lysis of adhesions due to inter-abdominal adhesions done on January 19 Urinary retention followed by urology Postop hypotension suspect related to medication Plan Give a fluid bolus for the episode of hypotension this morning Continue postop surgical care Increase activity Pain control advance diet as tolerated We'll follow with you Dictating progress note for Dr. Olivia The above impression and plan of care have been discussed and directed by signing physician. Shaila German nurse practitioner acting as scribe for signing physician. <Zack Olivia - Last Filed: 01/24/18 13:21> Objective - Vital Signs Vital signs: Vital Signs Temp 98.1 F 01/24/18 09:07 Pulse 79 01/24/18 09:07 Resp 18 01/24/18 09:07 BP 75/45 01/24/18 09:07 Pulse Ox 95 01/24/18 09:07 Intake & Output 01/23/18 01/24/18 01/24/18 18:59 06:59 18:59 Intake Total 640 Output Total 2866 Balance -2866 640 Weight 51 kg Intake: Intake, IV Titration 160 Amount IV Fluid Continuation 1, 160 000 ml As IV .[facility] ONE Rx#:[id number] Oral 480 Output: Urine 1800 Post Void Residual 1066 Other: Voiding Method Toilet Toilet Toilet # Voids 1 1 - Labs CBC & Chem 7: 01/24/18 07:45 01/24/18 07:45 Labs: Abnormal Lab Results - Last 24 Hours (Table) 01/23/18 01/23/18 01/24/18 Range/Units 17:29 20:49 07:45 WBC 10.7 H (3.8-10.6) k/uL RBC 3.52 L (3.80-5.40) m/uL Hgb 9.1 L (11.4-16.0) gm/dL Hct 28.7 L (34.0-46.0) % RDW 17.7 H (11.5-15.5) % Neutrophils # 7.9 H (1.3-7.7) k/uL Monocytes # 1.1 H (0-1.0) k/uL Sodium (137-145) mmol/L Chloride (98-107) mmol/L Carbon Dioxide (22-30) mmol/L BUN (7-17) mg/dL POC Glucose (mg/dL) 146 H 127 H (75-99) mg/dL Total Protein (6.3-8.2) g/dL Albumin (3.5-5.0) g/dL 01/24/18 01/24/18 Range/Units 07:45 11:07 WBC (3.8-10.6) k/uL RBC (3.80-5.40) m/uL Hgb (11.4-16.0) gm/dL Hct (34.0-46.0) % RDW (11.5-15.5) % Neutrophils # (1.3-7.7) k/uL Monocytes # (0-1.0) k/uL Sodium 133 L (137-145) mmol/L Chloride 91 L (98-107) mmol/L Carbon Dioxide 32 H (22-30) mmol/L BUN 22 H (7-17) mg/dL POC Glucose (mg/dL) 137 H (75-99) mg/dL Total Protein 5.8 L (6.3-8.2) g/dL Albumin 3.4 L (3.5-5.0) g/dL Assessment and Plan Assessment: As above. Patient tolerating diet. Some loose stools. Mild incisional discomfort. Continue diet as tolerated. Continue stool softeners. (1) Abdominal pain Current Visit: Yes Status: Acute Code(s): R10.9 - UNSPECIFIED ABDOMINAL PAIN SNOMED Code(s): 90029964
[2018-01-24 11:32] LABS: Glucose,Whole Blood 137 mg/dL (75-99)
--- NOTE | 2018-01-24 12:54 | P.PN ---
Subjective Progress Note Date: 01/24/18 This is a 67-year-old female with a known history of COPD, ischemic cardiomyopathy status post AICD, congestive heart failure, myocardial infarction with coronary disease and cardiac stents, severe mitral regurgitation with clip. She presents to the hospital with a three-day complaint of cough and shortness of breath and pleuritic chest pain. Patient is wheezing and increased shortness of breath with activity. She presented to the emergency room for further evaluation. She's found have an elevated d- dimer. Computed tomography scan of the chest shows no PE. Does revealing new suspicious left lower lobe superior segment pulmonary nodule measuring 1.1 cm and multifocal left-sided focal pleural thickening and subpleural nodules. Mediastinal adenopathy is also suspicious. Parabronchial coughing and mucus plugging in association with by basilar airspace disease may represent bronchitis and postobstructive atelectasis although early pneumonia is possible. Also partial visualization of the mid abdominal aortic aneurysm and descending thoracic aortic aneurysm. Patient has been started on IV steroids and IV antibiotics for an acute COPD exacerbation and possible pneumonia. White count was 11.1 and pulmonary service has been consulted. Patient denies any fever chills or sweats. Denies any nausea or vomiting. Denies any bowel movement changes or urinary symptoms. 01/13/2018 patient is status post bronchoscopy. She reports some improvement in her cough and shortness of breath. She is complaining of muscle cramping in her back. Also complaining of constipation. Cardiology will be consulted for a moderate pericardial effusion noted on echo. Patient's blood pressures also been elevated. Her lisinopril will be increased. 01/14/2018 blood pressures were elevated yesterday: Lisinopril was increased to 10 mg daily. Blood pressures are showing improvement this morning. She is still having a productive cough with thick phlegm. Reports improvement in her shortness of breath. Cytology was negative for any malignant cells. Pulmonary service is following. Cardiology also consulted regards to the pericardial effusion. They are checking a sed rate level to rule out pericarditis. Patient also complaining of constipation. no bowel movement with the lactulose. Enema will be ordered. Patient denies any chest pain. Reports some improvement in her cough. Denies any nausea or vomiting. Denies any burning with urination. Patient asking for increase in her [place]. At home she takes it as needed. 01/17/2018 patient still complaining of abdominal Cramping and distention. She had a computed tomography scan of the abdomen showing diffuse mild dilation of the small bowel containing fluid throughout without transition point with air and stool seen throughout the entirety of the non-dilated colon suggestive of a small bowel ileus or early partial small bowel obstruction. Patient also had a moderate urinary bladder distention without wall thickening noted as well as her chronic right-sided hydronephrosis and abdominal aortic aneurysm. And a right middle lobe airspace disease with bronchiolitis and small airway disease of inflammatory or infectious etiology. Surgical service will be consulted. Post void residual was checked and found to have 466 mL's. Sampson catheter inserted. Urinalysis with culture and sensitivity will also be checked. White count up at 22.9 and the patient is also on prednisone. Sodium was 130. Creatinine 1.11. We'll place her on normal saline at 50 mL an hour. Patient's last bowel movement was yesterday prior to CAT scan. However, patient reports that bones that she has had have been liquid. She did have one episode of vomiting. 01/18/2018 patient was seen by surgical service started on subset enemas and lactulose. Patient was able to have 2 very small bowel movements. She reports amidst just small pieces of stool. She's having a lot of abdominal cramping. Denies any further vomiting. Reports that her breathing and cough are much better. Has Sampson catheter in place for urinary retention. Urology has been consulted. Denies any chest pain. 01/20/2018 patient is status post laparoscopic lysis of adhesions and evidence of ileus with Dr. Olivia. She is postop day #1. NG tube remains in place. With brown fecal material present. She has not passed gas or had bowel movement after surgery. Pain is improving. Denies any nausea or vomiting. Denies any chest pain or shortness of breath. Sampson catheter remains in place. 01/21/2018 postop day #2. NG tube removed and Sampson catheter removed. Patient currently on ice chips. She is hungry and asking when she'll be able to start diet. She is passing some gas. No bowel movement yet. Denies any nausea or vomiting. Denies any chest pain or shortness of breath. Has not urinated yet 01/24/2018 patient has been hypotensive required fluid boluses last night and again this morning. Lisinopril was discontinued. Lasix was held this morning. Continue to monitor blood pressures. Patient also seen by surgical service she is passing gas and had a bowel movement yesterday. Currently on a regular diet. Denies any nausea or vomiting. Still having some abdominal pain. She is complaining of some chest pressure in the center of her chest troponin and EKG ordered this morning. Urinating without difficulty. Objective - Vital Signs Vital signs: Vital Signs Temp 98.1 F 01/24/18 09:07 Pulse 79 01/24/18 09:07 Resp 18 01/24/18 09:07 BP 75/45 01/24/18 09:07 Pulse Ox 95 01/24/18 09:07 Intake & Output 01/23/18 01/24/18 01/24/18 18:59 06:59 18:59 Intake Total 640 Output Total 2866 Balance -2866 640 Weight 51 kg Intake: Intake, IV Titration 160 Amount IV Fluid Continuation 1, 160 000 ml As IV .[employer]-[facility] ONE Rx#:[id number] Oral 480 Output: Urine 1800 Post Void Residual 1066 Other: Voiding Method Toilet Toilet Toilet # Voids 1 1 - Exam Head normocephalic Neck supple Lungs diminished no wheezing or coarse breath sounds Heart regular rate and rhythm S1-S2, no rub or gallop Abdomen is soft. Positive bowel sounds. Dressing clean dry and intact. Extremities no edema Neuro alert and orientated to 3 - Labs CBC & Chem 7: 01/24/18 07:45 01/24/18 07:45 Labs: Abnormal Lab Results - Last 24 Hours (Table) 01/23/18 01/23/18 01/24/18 Range/Units 17:29 20:49 07:45 WBC 10.7 H (3.8-10.6) k/uL RBC 3.52 L (3.80-5.40) m/uL Hgb 9.1 L (11.4-16.0) gm/dL Hct 28.7 L (34.0-46.0) % RDW 17.7 H (11.5-15.5) % Neutrophils # 7.9 H (1.3-7.7) k/uL Monocytes # 1.1 H (0-1.0) k/uL Sodium (137-145) mmol/L Chloride (98-107) mmol/L Carbon Dioxide (22-30) mmol/L BUN (7-17) mg/dL POC Glucose (mg/dL) 146 H 127 H (75-99) mg/dL Total Protein (6.3-8.2) g/dL Albumin (3.5-5.0) g/dL 01/24/18 01/24/18 Range/Units 07:45 11:07 WBC (3.8-10.6) k/uL RBC (3.80-5.40) m/uL Hgb (11.4-16.0) gm/dL Hct (34.0-46.0) % RDW (11.5-15.5) % Neutrophils # (1.3-7.7) k/uL Monocytes # (0-1.0) k/uL Sodium 133 L (137-145) mmol/L Chloride 91 L (98-107) mmol/L Carbon Dioxide 32 H (22-30) mmol/L BUN 22 H (7-17) mg/dL POC Glucose (mg/dL) 137 H (75-99) mg/dL Total Protein 5.8 L (6.3-8.2) g/dL Albumin 3.4 L (3.5-5.0) g/dL Assessment and Plan Assessment: 1. Acute COPD exacerbation: Pulmonary following. Continue oral prednisone and bronchodilators. Followed by pulmonary 2. Bilateral pneumonia: Patient status post bronchoscopy. Cytology negative for malignant cells. Bronchial wash cultures showing normal respiratory nati and [place] which is likely colonization. Discussed with pulmonary service 3. Elevated d-dimer on admission CTA negative for PE 4. New suspicious left lower lobe superior segment pulmonary nodule measuring 1.1 cm noted on computed tomography scan of the chest. Followed by pulmonary service. Patient does have a past history of smoking pulmonary is recommending repeat computed tomography scan of the chest or PET scan and outpatient setting. Pulmonary service has signed off. 5. Abdominal aortic aneurysm and descending thoracic aortic aneurysm. With abdominal aortic aneurysm only partially visualized measuring 3.9 x 3.7 cm abdominal ultrasound will be ordered for further evaluation. Descending Thoracic aortic aneurysm measuring 3.5 cm. abdominal ultrasound revealing a 4 x 2.9 cm abdominal aortic aneurysm 6. History of ischemic cardiomyopathy status post AICD placement 7. History of myocardial infarction with coronary disease and cardiac stents 8. History of iron deficiency anemia patient has stopped taking her iron supplement. Iron level low at 7. Resume ferrous sulfate 325 mg twice a day. Hemoglobin has gone up from 8.3-8.5. Detailed to monitor 9. History of severe mitral regurgitation status post mitral valve click completed at [facility] May 2017 10. Moderate pericardial effusion: Seen by cardiology. ESR not elevated 11. Mediastinal lymphadenopathy likely reactive from patient's pneumonia. Pulmonary following 12. Back muscle spasms and chronic back pain. Continue the [place] and Flexeril as needed 13. Essential hypertension: Patient is now hypotensive. Requiring fluid boluses. Lisinopril discontinued Lasix dose decreased to 40 mg daily and hold for systolic blood pressure less than 115. We'll continue normal saline at 75 mL per hour. Monitor blood pressures closely 14. Intra-abdominal adhesions with ileus status post diagnostic laparoscopy with laparoscopic lysis of adhesions with Dr. Olivia. Patient followed by surgical service. She's currently on a regular diet. Having bowel movements and passing gas. Pain controlled 15. Urinary retention: Seen by urology. Sampson catheter removed on Wednesday. No further evidence of urinary retention. 16. Hyponatremia: Sodium level at 133. Continue IV fluids. Lasix was decreased to 40 daily 17. Hypoglycemia likely related to patient's nothing by mouth status. Resolved now that patient is tolerating diet Consult physical therapy GI prophylaxis Pepcid and DVT prophylaxis Lovenox Encouraged patient to increase activity and use incentive spirometer I performed an examination of the patient and discussed their management with the physician Hide Selector. I have reviewed the Physician Hide Selector's notes and agree with the documented findings and plan of care
[2018-01-24 14:34] VITALS: BMI 19.3
[2018-01-24 17:34] LABS: Glucose,Whole Blood 154 mg/dL (75-99)
--- NOTE | 2018-01-24 18:58 | P.PN ---
Subjective Progress Note Date: 01/24/18 Principal diagnosis: Bilateral pneumonia, radicular nodular infiltrate with early cavity formation, shortness of breath and acute COPD exacerbation mediastinal lymphadenopathy, acute on chronic systolic heart failure, pericardial effusion, severe degree of mitral regurgitation, mild pulmonary hypertension, small bowel obstruction due to intra-abdominal bands and adhesions, status post laparoscopy lysis of bands and adhesions, urinary retention, hypertension 01/23/2018, patient seen and evaluated examined overall respiratory status stable breathing comfortably no obvious distress present Ammann being followed by surgical services as well as urology 01/24/2018 patient seen eval reexamined breathing comfortably no obvious distress present tolerating by mouth relatively well surgical services following no obvious respiratory distress Objective - Vital Signs Vital signs: Vital Signs Temp 97.7 F 01/24/18 15:00 Pulse 92 01/24/18 15:00 Resp 18 01/24/18 15:00 BP 138/55 01/24/18 15:00 Pulse Ox 91 L 01/24/18 15:00 Intake & Output 01/23/18 01/24/18 01/24/18 18:59 06:59 18:59 Intake Total 640 1000 Output Total 2866 Balance -2866 640 1000 Weight 51 kg 51 kg Intake: Intake, IV Titration 160 1000 Amount IV Fluid Continuation 1, 160 000 ml As IV .STK-MED ONE Rx#:[id number] Sodium Chloride 0.9% 500 500 ml @ 999 mls/hr IV .Q31M ONE Rx#:[id number] Sodium Chloride 0.9% 500 500 ml @ 999 mls/hr IV .Q31M ONE Rx#:[id number] Oral 480 Output: Urine 1800 Post Void Residual 1066 Other: Voiding Method Toilet Toilet Toilet # Voids 1 1 - Exam General appearance: alert, in no apparent distress Head exam: Present: atraumatic, normocephalic, normal inspection Eye exam: Present: normal appearance, PERRL, EOMI. Absent: scleral icterus, conjunctival injection, periorbital swelling ENT exam: Present: mucous membranes dry Neck exam: Present: normal inspection. Absent: tenderness, meningismus, lymphadenopathy Respiratory exam: Present: wheezes (Scattered wheezes. She does demonstrate kyphosis. No tenderness palpation of the chest wall.), decreased breath sounds. Absent: respiratory distress, rales, rhonchi, stridor, Cardiovascular Exam: Present: regular rate, normal rhythm, normal heart sounds. Absent: systolic murmur, diastolic murmur, rubs, gallop, clicks GI/Abdominal exam: Present: soft, normal bowel sounds. Absent: distended, tenderness, guarding, rebound, rigid Extremities exam: Present: normal inspection, full ROM, normal capillary refill. Absent: tenderness, pedal edema, joint swelling, calf tenderness Back exam: Present: normal inspection Neurological exam: Present: alert, oriented X3, CN II-XII intact Psychiatric exam: Present: normal affect, normal mood Skin exam: Present: warm, dry, intact, normal color. Absent: rash - Labs CBC & Chem 7: 01/24/18 07:45 01/24/18 07:45 Labs: Abnormal Lab Results - Last 24 Hours (Table) 01/23/18 01/24/18 01/24/18 Range/Units 20:49 07:45 07:45 WBC 10.7 H (3.8-10.6) k/uL RBC 3.52 L (3.80-5.40) m/uL Hgb 9.1 L (11.4-16.0) gm/dL Hct 28.7 L (34.0-46.0) % RDW 17.7 H (11.5-15.5) % Neutrophils # 7.9 H (1.3-7.7) k/uL Monocytes # 1.1 H (0-1.0) k/uL Sodium 133 L (137-145) mmol/L Chloride 91 L (98-107) mmol/L Carbon Dioxide 32 H (22-30) mmol/L BUN 22 H (7-17) mg/dL POC Glucose (mg/dL) 127 H (75-99) mg/dL Total Protein 5.8 L (6.3-8.2) g/dL Albumin 3.4 L (3.5-5.0) g/dL 01/24/18 01/24/18 Range/Units 11:07 17:31 WBC (3.8-10.6) k/uL RBC (3.80-5.40) m/uL Hgb (11.4-16.0) gm/dL Hct (34.0-46.0) % RDW (11.5-15.5) % Neutrophils # (1.3-7.7) k/uL Monocytes # (0-1.0) k/uL Sodium (137-145) mmol/L Chloride (98-107) mmol/L Carbon Dioxide (22-30) mmol/L BUN (7-17) mg/dL POC Glucose (mg/dL) 137 H 154 H (75-99) mg/dL Total Protein (6.3-8.2) g/dL Albumin (3.5-5.0) g/dL Assessment and Plan Assessment: Small bowel obstruction related to abandon in addition status post laparoscopy lysis of bands and adhesions Bilateral nodular infiltrate with some of them early cavitary appearance Acute COPD exacerbation Bilateral pneumonia Mediastinal lymphadenopathy likely reactive lymphadenopathy Uncontrolled hypertension hypertensive cardiovascular disease Abdominal aortic aneurysm and ascending thoracic aneurysm Pericardial effusion moderate Acute on chronic systolic heart failure ejection fraction of 40% Plan: Gentle rehydration Breathing treatments IV antibiotics as well as oral steroids continue tapering down the steroids patient status post bronchoscopy and BAL findings and procedure details explained to the patient at length Evaluation of pulmonary nodules on outpatient setting with a PET scan Time with Patient: Greater than 30
[2018-01-24] MEDS: ATORVASTATIN 80 MG TAB PO SCH (20:05)
[2018-01-24 20:12] LABS: Glucose,Whole Blood 169 mg/dL (75-99)
[2018-01-24] MEDS: HYDROcodone/APAP 7.5-325MG 1 EACH TAB PO PRN (21:18)
[2018-01-25] MEDS: HYDROcodone/APAP 7.5-325MG 1 EACH TAB PO PRN (02:39)
[2018-01-25] MEDS: ONDANSETRON 4 MG/2 ML VIAL IVP PRN (06:48)
[2018-01-25] MEDS: SYMBICORT 160-4.5 MCG INHALER INHALATION SCH (07:10)
[2018-01-25] MEDS: IPRATROPIUM-ALBUTEROL 3 ML NEB INHALATION SCH ×4 (07:10→20:04)
[2018-01-25 07:41] LABS: Glucose,Whole Blood 161 mg/dL (75-99)
[2018-01-25 07:55] LABS: Anisocytosis Slight; Basophils # (A) 0.1 k/uL (0-0.2); Basophils % (A) 0 %; Eosinophils # (A) 0.1 k/uL (0-0.7); Eosinophils % (A) 0 %; HCT 25.4 % (34.0-46.0); HGB 7.8 gm/dL (11.4-16.0); Hypochromasia Marked; Lymphocytes # (A) 1.5 k/uL (1.0-4.8); Lymphocytes % (A) 8 %; MCH 26.3 pg (25.0-35.0); MCHC 30.7 g/dL (31.0-37.0); MCV 85.5 fL (80.0-100.0); Mean Platelet Volume 6.6; Monocytes # (A) 1.3 k/uL (0-1.0); Monocytes % (A) 7 %; Neutrophils # (A) 15.5 k/uL (1.3-7.7); Neutrophils % (A) 83 %; Platelet Count 412 k/uL (150-450); RBC 2.97 m/uL (3.80-5.40); RDW 17.5 % (11.5-15.5); WBC 18.7 k/uL (3.8-10.6)
[2018-01-25 08:37] LABS: Calcium 9.3 mg/dL (8.4-10.2); Magnesium 1.8 mg/dL (1.6-2.3); Potassium 5.2 mmol/L (3.5-5.1); Total Bilirubin 0.3 mg/dL (0.2-1.3); Total Protein 5.2 g/dL (6.3-8.2)
[2018-01-25] MEDS: INSULIN ASPART 100 UNIT/ML 1 ML 10 ML VIAL SQ SCH ×4 (09:42→21:04)
[2018-01-25] MEDS: SODIUM CHLORIDE 0.9% 1,000 ML IV SCH ×5 (09:42→23:12)
[2018-01-25] MEDS: LACTULOSE 20 GM/30 ML CUP PO SCH ×3 (09:44→20:13)
[2018-01-25] MEDS: FUROSEMIDE 40 MG TAB PO SCH (09:45)
[2018-01-25] MEDS: FERROUS SULFATE 325 MG TAB PO SCH ×2 (09:45→20:12)
[2018-01-25] MEDS: FAMOTIDINE 20 MG TAB PO SCH (09:45)
[2018-01-25] MEDS: ASPIRIN 81 MG PO SCH (09:46)
[2018-01-25] MEDS: DOCUSATE 100 MG CAP PO SCH ×2 (09:46→20:12)
[2018-01-25] MEDS: predniSONE 10 MG TAB PO SCH (09:46)
[2018-01-25] MEDS: CLOPIDOGREL 75 MG TAB PO SCH (09:46)
[2018-01-25] MEDS: ENOXAPARIN 40 MG/0.4 ML SYRINGE SQ SCH (09:46)
[2018-01-25] MEDS: ZINC OXIDE 20% OINT 28.4 GM TUBE TOPICAL SCH ×2 (09:46→23:16)
[2018-01-25] MEDS ORDERED: EPINEPHrine 10 ML SYRINGE (0.1 MG/ML) ONE (10:32)
[2018-01-25] MEDS ORDERED: ATROPINE SULFATE 0.1 MG/ML 10ML SYRINGE ONE (10:32)
[2018-01-25] MEDS ORDERED: ROCURONIUM BROMIDE 10 MG/ML 10 ML VIAL IV ONE (10:40)
[2018-01-25] MEDS ORDERED: ETOMIDATE 2 MG/ML 10 ML VIAL ONE (10:40)
[2018-01-25 10:42] LABS: Glucose,Whole Blood 124 mg/dL (75-99)
[2018-01-25 11:07] LABS: Glucose,Whole Blood 235 mg/dL (75-99)
--- NOTE | 2018-01-25 11:29 | XR ---
EXAMINATION TYPE: XR chest 1V portable DATE OF EXAM: 01/25/2018 COMPARISON: 09/06/2017 HISTORY: Ventilatory dependent respiratory failure. TECHNIQUE: Single frontal view of the chest is obtained. FINDINGS: There are extensive background bullous emphysematous changes. Patchy opacity is seen withi n the right upper lobe, new from the prior exam of 09/06/2017. Endotracheal tube is slightly cephalad in position and could be advanced approximately 2.5 cm to 3 cm for optimal placement. Enteric tube h as its fenestrated portion just at the gastroesophageal junction. Left-sided multilead cardiac device and mild cardiomegaly are redemonstrated. Left lung remains clear. No sizable pleural effusion or pn eumothorax. Osseous structures are grossly intact. IMPRESSION: 1. New right upper lung reticular opacity suspicious for pneumonia. Follow-up to resolution is recomm ended. 2. Slight cephalad placement of the endotracheal tube that could be advanced 2.5 to 3 cm for optimal placement. 3. Enteric tube has its fenestrated portion just beyond the gastroesophageal junction, appropriately placed.
[2018-01-25 11:54] LABS: ABG Base Excess -16.2 mmol/L; ABG HCO3 16 mmol/L (21-25); ABG Oxygen Saturation 99.3 % (94-97); ABG PO2 307 mmHg (83-108); ABG TCO2 18 mmol/L (19-24)
[2018-01-25 11:57] LABS: ABG PCO2 74 mmHg (35-45); ABG PH <7.00 (7.35-7.45)
--- NOTE | 2018-01-25 12:14 | P.PN ---
Subjective Progress Note Date: 01/25/18 This is a 67-year-old female with a known history of COPD, ischemic cardiomyopathy status post AICD, congestive heart failure, myocardial infarction with coronary disease and cardiac stents, severe mitral regurgitation with clip. She presents to the hospital with a three-day complaint of cough and shortness of breath and pleuritic chest pain. Patient is wheezing and increased shortness of breath with activity. She presented to the emergency room for further evaluation. She's found have an elevated d- dimer. Computed tomography scan of the chest shows no PE. Does revealing new suspicious left lower lobe superior segment pulmonary nodule measuring 1.1 cm and multifocal left-sided focal pleural thickening and subpleural nodules. Mediastinal adenopathy is also suspicious. Parabronchial coughing and mucus plugging in association with by basilar airspace disease may represent bronchitis and postobstructive atelectasis although early pneumonia is possible. Also partial visualization of the mid abdominal aortic aneurysm and descending thoracic aortic aneurysm. Patient has been started on IV steroids and IV antibiotics for an acute COPD exacerbation and possible pneumonia. White count was 11.1 and pulmonary service has been consulted. Patient denies any fever chills or sweats. Denies any nausea or vomiting. Denies any bowel movement changes or urinary symptoms. 01/13/2018 patient is status post bronchoscopy. She reports some improvement in her cough and shortness of breath. She is complaining of muscle cramping in her back. Also complaining of constipation. Cardiology will be consulted for a moderate pericardial effusion noted on echo. Patient's blood pressures also been elevated. Her lisinopril will be increased. 01/14/2018 blood pressures were elevated yesterday: Lisinopril was increased to 10 mg daily. Blood pressures are showing improvement this morning. She is still having a productive cough with thick phlegm. Reports improvement in her shortness of breath. Cytology was negative for any malignant cells. Pulmonary service is following. Cardiology also consulted regards to the pericardial effusion. They are checking a sed rate level to rule out pericarditis. Patient also complaining of constipation. no bowel movement with the lactulose. Enema will be ordered. Patient denies any chest pain. Reports some improvement in her cough. Denies any nausea or vomiting. Denies any burning with urination. Patient asking for increase in her [place]. At home she takes it as needed. 01/17/2018 patient still complaining of abdominal Cramping and distention. She had a computed tomography scan of the abdomen showing diffuse mild dilation of the small bowel containing fluid throughout without transition point with air and stool seen throughout the entirety of the non-dilated colon suggestive of a small bowel ileus or early partial small bowel obstruction. Patient also had a moderate urinary bladder distention without wall thickening noted as well as her chronic right-sided hydronephrosis and abdominal aortic aneurysm. And a right middle lobe airspace disease with bronchiolitis and small airway disease of inflammatory or infectious etiology. Surgical service will be consulted. Post void residual was checked and found to have 466 mL's. Sampson catheter inserted. Urinalysis with culture and sensitivity will also be checked. White count up at 22.9 and the patient is also on prednisone. Sodium was 130. Creatinine 1.11. We'll place her on normal saline at 50 mL an hour. Patient's last bowel movement was yesterday prior to CAT scan. However, patient reports that bones that she has had have been liquid. She did have one episode of vomiting. 01/18/2018 patient was seen by surgical service started on subset enemas and lactulose. Patient was able to have 2 very small bowel movements. She reports amidst just small pieces of stool. She's having a lot of abdominal cramping. Denies any further vomiting. Reports that her breathing and cough are much better. Has Sampson catheter in place for urinary retention. Urology has been consulted. Denies any chest pain. 01/20/2018 patient is status post laparoscopic lysis of adhesions and evidence of ileus with Dr. Olivia. She is postop day #1. NG tube remains in place. With brown fecal material present. She has not passed gas or had bowel movement after surgery. Pain is improving. Denies any nausea or vomiting. Denies any chest pain or shortness of breath. Sampson catheter remains in place. 01/21/2018 postop day #2. NG tube removed and Sampson catheter removed. Patient currently on ice chips. She is hungry and asking when she'll be able to start diet. She is passing some gas. No bowel movement yet. Denies any nausea or vomiting. Denies any chest pain or shortness of breath. Has not urinated yet 01/24/2018 patient has been hypotensive required fluid boluses last night and again this morning. Lisinopril was discontinued. Lasix was held this morning. Continue to monitor blood pressures. Patient also seen by surgical service she is passing gas and had a bowel movement yesterday. Currently on a regular diet. Denies any nausea or vomiting. Still having some abdominal pain. She is complaining of some chest pressure in the center of her chest troponin and EKG ordered this morning. Urinating without difficulty. 01/25/2018 patient evaluated this morning after nurse helped get her off of the bedside commode after urinating. Patient was very pale and weak. She Just Didn 't Feel Right. Patient Reported Being Short of Breath and Started to Tense up. Almost having seizure-like activity. Didn't she was not following any commands. She became unresponsive and unable to get her blood pressure. She had no pulse. CODE BLUE was called. CPR was started. Patient did require to be intubated. Possible AICD discharge. Patient was transferred to the ICU. General [employer] Worker was notified. Cardiology was consulted. Patient's hemoglobin is at 7.8. She'll be receiving a unit of blood. Earlier today she had an episode of vomiting. The emesis contained solid pieces of food from last night did. She also has had a bowel movement. White count has jumped up to 18.7. Sodium 132. Slight elevation in her AST and, ALT likely related to poor perfusion to the liver due to hypotension. Objective - Vital Signs Vital signs: Vital Signs Temp 97.7 F 01/25/18 07:00 Pulse 107 H 01/25/18 07:00 Resp 18 01/25/18 07:00 BP 86/59 01/25/18 07:00 Pulse Ox 96 01/25/18 07:00 Intake & Output 01/24/18 01/25/18 01/25/18 18:59 06:59 18:59 Intake Total 1000 2460 Balance 1000 2460 Weight 51 kg 50.3 kg Intake: Intake, IV Titration 1000 1500 Amount Sodium Chloride 0.9% 1, 1500 000 ml @ 75 mls/hr IV . [id number] [facility] Rx#:[id number] Sodium Chloride 0.9% 500 500 ml @ 999 mls/hr IV .Q31M ONE Rx#:[id number] Sodium Chloride 0.9% 500 500 ml @ 999 mls/hr IV .Q31M ONE Rx#:[id number] Oral 960 Other: Voiding Method Toilet Toilet Bedside Commode # Voids 1 - Exam General pale and diaphoretic Head normocephalic Neck supple Lungs diminished coarse breath sounds Heart regular rate and rhythm S1-S2, no rub or gallop Abdomen is soft. Positive bowel sounds. Dressing clean dry and intact. Nondistended Extremities no edema Neuro initially awake and alert then became unresponsive - Labs CBC & Chem 7: 01/25/18 07:13 01/25/18 07:13 Labs: Abnormal Lab Results - Last 24 Hours (Table) 01/24/18 01/24/18 01/25/18 Range/Units 17:31 20:08 07:13 WBC 18.7 H (3.8-10.6) k/uL RBC 2.97 L (3.80-5.40) m/uL Hgb 7.8 L (11.4-16.0) gm/dL Hct 25.4 L (34.0-46.0) % MCHC 30.7 L (31.0-37.0) g/dL RDW 17.5 H (11.5-15.5) % Neutrophils # 15.5 H (1.3-7.7) k/uL Monocytes # 1.3 H (0-1.0) k/uL ABG pH (7.35-7.45) ABG pCO2 (35-45) mmHg ABG pO2 (83-108) mmHg ABG HCO3 (21-25) mmol/L ABG Total CO2 (19-24) mmol/L ABG O2 Saturation (94-97) % Sodium (137-145) mmol/L Potassium (3.5-5.1) mmol/L Chloride (98-107) mmol/L Carbon Dioxide (22-30) mmol/L BUN (7-17) mg/dL Glucose (74-99) mg/dL POC Glucose (mg/dL) 154 H 169 H (75-99) mg/dL AST (14-36) U/L ALT (9-52) U/L Total Protein (6.3-8.2) g/dL Albumin (3.5-5.0) g/dL 01/25/18 01/25/18 01/25/18 Range/Units 07:13 07:33 10:31 WBC (3.8-10.6) k/uL RBC (3.80-5.40) m/uL Hgb (11.4-16.0) gm/dL Hct (34.0-46.0) % MCHC (31.0-37.0) g/dL RDW (11.5-15.5) % Neutrophils # (1.3-7.7) k/uL Monocytes # (0-1.0) k/uL ABG pH (7.35-7.45) ABG pCO2 (35-45) mmHg ABG pO2 (83-108) mmHg ABG HCO3 (21-25) mmol/L ABG Total CO2 (19-24) mmol/L ABG O2 Saturation (94-97) % Sodium 132 L (137-145) mmol/L Potassium 5.2 H (3.5-5.1) mmol/L Chloride 96 L (98-107) mmol/L Carbon Dioxide 21 L (22-30) mmol/L BUN 25 H (7-17) mg/dL Glucose 203 H (74-99) mg/dL POC Glucose (mg/dL) 161 H 124 H (75-99) mg/dL AST 101 H (14-36) U/L ALT 97 H (9-52) U/L Total Protein 5.2 L (6.3-8.2) g/dL Albumin 3.0 L (3.5-5.0) g/dL 01/25/18 01/25/18 Range/Units 11:05 11:48 WBC (3.8-10.6) k/uL RBC (3.80-5.40) m/uL Hgb (11.4-16.0) gm/dL Hct (34.0-46.0) % MCHC (31.0-37.0) g/dL RDW (11.5-15.5) % Neutrophils # (1.3-7.7) k/uL Monocytes # (0-1.0) k/uL ABG pH <7.00 L* (7.35-7.45) ABG pCO2 74 H* (35-45) mmHg ABG pO2 307 H (83-108) mmHg ABG HCO3 16 L (21-25) mmol/L ABG Total CO2 18 L (19-24) mmol/L ABG O2 Saturation 99.3 H (94-97) % Sodium (137-145) mmol/L Potassium (3.5-5.1) mmol/L Chloride (98-107) mmol/L Carbon Dioxide (22-30) mmol/L BUN (7-17) mg/dL Glucose (74-99) mg/dL POC Glucose (mg/dL) 235 H (75-99) mg/dL AST (14-36) U/L ALT (9-52) U/L Total Protein (6.3-8.2) g/dL Albumin (3.5-5.0) g/dL Assessment and Plan Assessment: 1. Cardiac arrest: Patient required CPR and intubation. Transfer to the ICU. Discussed case with Dr. Samuel. Cardiology consulted. Hemoglobin 7.8 she will receive 1 unit of blood. 2. Hypotension patient had required fluid boluses yesterday. Lisinopril discontinued Lasix dose was decreased. 2. Acute COPD exacerbation: Pulmonary following. Continue oral prednisone and bronchodilators. Followed by pulmonary 2. Bilateral pneumonia: Patient status post bronchoscopy. Cytology negative for malignant cells. Bronchial wash cultures showing normal respiratory nati and La which is likely colonization. Currently off antibiotics 3. Elevated d-dimer on admission CTA negative for PE 4. New suspicious left lower lobe superior segment pulmonary nodule measuring 1.1 cm noted on computed tomography scan of the chest. Followed by pulmonary service. Patient does have a past history of smoking pulmonary is recommending repeat computed tomography scan of the chest or PET scan and outpatient setting. 5. Abdominal aortic aneurysm and descending thoracic aortic aneurysm. With abdominal aortic aneurysm only partially visualized measuring 3.9 x 3.7 cm abdominal ultrasound will be ordered for further evaluation. Descending Thoracic aortic aneurysm measuring 3.5 cm. abdominal ultrasound revealing a 4 x 2.9 cm abdominal aortic aneurysm 6. History of ischemic cardiomyopathy status post AICD placement 7. History of myocardial infarction with coronary disease and cardiac stents 8. History of iron deficiency anemia patient has stopped taking her iron supplement. Iron level low at 7. Resume ferrous sulfate 325 mg twice a day. Hemoglobin 7.8. Patient will receive 1 unit of blood 9. History of severe mitral regurgitation status post mitral valve click completed at [facility] May 2017 10. Moderate pericardial effusion: Seen by cardiology. ESR not elevated 11. Mediastinal lymphadenopathy likely reactive from patient's pneumonia. Pulmonary following 12. Back muscle spasms and chronic back pain. Continue the [place] and Flexeril as needed 13. History of Essential hypertension: 14. Intra-abdominal adhesions with ileus status post diagnostic laparoscopy with laparoscopic lysis of adhesions with Dr. Olivia. Patient followed by surgical service. She's currently on a regular diet. Having bowel movements and passing gas. Pain controlled 15. Urinary retention: Seen by urology. Sampson catheter removed on Wednesday. No further evidence of urinary retention. 16. Hyponatremia: Sodium 132. Patient has been on IV fluids and Lasix was decreased to 40 mg daily yesterday 17. Elevated LFTs likely due to poor perfusion due to hypotension GI prophylaxis Pepcid and DVT prophylaxis Lovenox I performed an examination of the patient and discussed their management with the physician [employer]. I have reviewed the Physician [employer] [employer]'s notes and agree with the documented findings and plan of care
[2018-01-25 12:45] LABS: ABG Base Excess -9.8 mmol/L; ABG HCO3 19 mmol/L (21-25); ABG Oxygen Saturation 91.7 % (94-97); ABG PCO2 58 mmHg (35-45); ABG PO2 85 mmHg (83-108); ABG TCO2 21 mmol/L (19-24)
[2018-01-25] MEDS ORDERED: VANCOMYCIN IV PER PHARMACY 1 EACH MISC MISCELLANE PRN (13:45)
[2018-01-25] MEDS: CHOLECALCIFEROL 1,000 UNIT TAB PO SCH (13:47)
[2018-01-25] MEDS: CALCIUM CARBONATE 500 MG CHEWABLE PO SCH (13:47)
[2018-01-25 13:53] LABS: Glucose,Whole Blood 177 mg/dL (75-99)
[2018-01-25] MEDS: PIPERACILLIN-TAZOBACTAM 3.375 GM in DEXTROSE/WATER 1 50ML.BAG IVPB SCH ×2 (15:18→23:15)
[2018-01-25] MEDS ORDERED: SODIUM CHLORIDE 0.9% 1,000 ML IV SCH (15:30)
--- NOTE | 2018-01-25 16:10 | P.PN ---
Subjective Progress Note Date: 01/25/18 Principal diagnosis: Ileus Patient apparently was found by the nursing staff this morning to be in extremities. A code was called. It is thought that her defibrillator did activate. She is currently in the ICU on the ventilator. Oral gastric tube was placed with minimal output by the nursing staff. She apparently did have a small emesis last night and a small emesis again this morning. There were no complaints of abdominal pain to either the nursing staff or the patient's family. She is quite acidotic currently. Objective - Vital Signs Vital signs: Vital Signs Temp 98.3 F 01/25/18 15:38 Pulse 106 H 01/25/18 15:38 Resp 21 01/25/18 15:30 BP 95/53 01/25/18 15:30 Pulse Ox 100 01/25/18 15:30 Intake & Output 01/24/18 01/25/18 01/25/18 18:59 06:59 18:59 Intake Total 1000 2460 562.5 Output Total 25 Balance 1000 2460 537.5 Weight 51 kg 50.3 kg Intake: Intake, IV Titration 1000 1500 562.5 Amount Piperacillin-Tazobactam 3 12.5 .375 gm In Dextrose/Water 1 50ml.bag @ 12.5 mls/hr IVPB Q8HR [facility] Rx#: [id number] Sodium Chloride 0.9% 1, 1500 300 000 ml @ 100 mls/hr IV . Q10H [facility] Rx#:[id number] Sodium Chloride 0.9% 1, 250 000 ml @ 250 mls/hr IV . Q4H [facility] Rx#:[id number] Sodium Chloride 0.9% 500 500 ml @ 999 mls/hr IV .Q31M ONE Rx#:[id number] Sodium Chloride 0.9% 500 500 ml @ 999 mls/hr IV .Q31M [facility] Rx#:[id number] Oral 960 Output: Urine 25 Uretheral (Sampson) 10 Other: Voiding Method Toilet Toilet Bedside Commode # Voids 1 ABP, PAP, CO, CI - Last Documented Arterial Blood Pressure 77/65 - Exam Abdomen: Soft, nondistended, nontender, incisions clean and dry - Labs CBC & Chem 7: 01/25/18 07:13 01/25/18 07:13 Labs: Abnormal Lab Results - Last 24 Hours (Table) 01/24/18 01/24/18 01/25/18 Range/Units 17:31 20:08 07:13 WBC 18.7 H (3.8-10.6) k/uL RBC 2.97 L (3.80-5.40) m/uL Hgb 7.8 L (11.4-16.0) gm/dL Hct 25.4 L (34.0-46.0) % MCHC 30.7 L (31.0-37.0) g/dL RDW 17.5 H (11.5-15.5) % Neutrophils # 15.5 H (1.3-7.7) k/uL Monocytes # 1.3 H (0-1.0) k/uL ABG pH (7.35-7.45) ABG pCO2 (35-45) mmHg ABG pO2 (83-108) mmHg ABG HCO3 (21-25) mmol/L ABG Total CO2 (19-24) mmol/L ABG O2 Saturation (94-97) % Sodium (137-145) mmol/L Potassium (3.5-5.1) mmol/L Chloride (98-107) mmol/L Carbon Dioxide (22-30) mmol/L BUN (7-17) mg/dL Glucose (74-99) mg/dL POC Glucose (mg/dL) 154 H 169 H (75-99) mg/dL AST (14-36) U/L ALT (9-52) U/L Total Protein (6.3-8.2) g/dL Albumin (3.5-5.0) g/dL Crossmatch 01/25/18 01/25/18 01/25/18 Range/Units 07:13 07:33 10:31 WBC (3.8-10.6) k/uL RBC (3.80-5.40) m/uL Hgb (11.4-16.0) gm/dL Hct (34.0-46.0) % MCHC (31.0-37.0) g/dL RDW (11.5-15.5) % Neutrophils # (1.3-7.7) k/uL Monocytes # (0-1.0) k/uL ABG pH (7.35-7.45) ABG pCO2 (35-45) mmHg ABG pO2 (83-108) mmHg ABG HCO3 (21-25) mmol/L ABG Total CO2 (19-24) mmol/L ABG O2 Saturation (94-97) % Sodium 132 L (137-145) mmol/L Potassium 5.2 H (3.5-5.1) mmol/L Chloride 96 L (98-107) mmol/L Carbon Dioxide 21 L (22-30) mmol/L BUN 25 H (7-17) mg/dL Glucose 203 H (74-99) mg/dL POC Glucose (mg/dL) 161 H 124 H (75-99) mg/dL AST 101 H (14-36) U/L ALT 97 H (9-52) U/L Total Protein 5.2 L (6.3-8.2) g/dL Albumin 3.0 L (3.5-5.0) g/dL Crossmatch 01/25/18 01/25/18 01/25/18 Range/Units 11:05 11:48 11:51 WBC (3.8-10.6) k/uL RBC (3.80-5.40) m/uL Hgb (11.4-16.0) gm/dL Hct (34.0-46.0) % MCHC (31.0-37.0) g/dL RDW (11.5-15.5) % Neutrophils # (1.3-7.7) k/uL Monocytes # (0-1.0) k/uL ABG pH <7.00 L* (7.35-7.45) ABG pCO2 74 H* (35-45) mmHg ABG pO2 307 H (83-108) mmHg ABG HCO3 16 L (21-25) mmol/L ABG Total CO2 18 L (19-24) mmol/L ABG O2 Saturation 99.3 H (94-97) % Sodium (137-145) mmol/L Potassium (3.5-5.1) mmol/L Chloride (98-107) mmol/L Carbon Dioxide (22-30) mmol/L BUN (7-17) mg/dL Glucose (74-99) mg/dL POC Glucose (mg/dL) 235 H (75-99) mg/dL AST (14-36) U/L ALT (9-52) U/L Total Protein (6.3-8.2) g/dL Albumin (3.5-5.0) g/dL Crossmatch See Detail 01/25/18 Range/Units 13:51 WBC (3.8-10.6) k/uL RBC (3.80-5.40) m/uL Hgb (11.4-16.0) gm/dL Hct (34.0-46.0) % MCHC (31.0-37.0) g/dL RDW (11.5-15.5) % Neutrophils # (1.3-7.7) k/uL Monocytes # (0-1.0) k/uL ABG pH (7.35-7.45) ABG pCO2 (35-45) mmHg ABG pO2 (83-108) mmHg ABG HCO3 (21-25) mmol/L ABG Total CO2 (19-24) mmol/L ABG O2 Saturation (94-97) % Sodium (137-145) mmol/L Potassium (3.5-5.1) mmol/L Chloride (98-107) mmol/L Carbon Dioxide (22-30) mmol/L BUN (7-17) mg/dL Glucose (74-99) mg/dL POC Glucose (mg/dL) 177 H (75-99) mg/dL AST (14-36) U/L ALT (9-52) U/L Total Protein (6.3-8.2) g/dL Albumin (3.5-5.0) g/dL Crossmatch Assessment and Plan (1) Abdominal pain Narrative/Plan: Continue workup of this somewhat unexpected arrest. Clinically doubt an abdominal source of this problem. Possibility of aspiration pneumonia remains. We'll follow closely with you. Case was discussed with the patient's family. Current Visit: Yes Status: Acute Code(s): R10.9 - UNSPECIFIED ABDOMINAL PAIN SNOMED Code(s): 64699633
[2018-01-25 16:32] LABS: ABG PH 7.13 (7.35-7.45)
--- NOTE | 2018-01-25 16:39 | P.GSCN ---
History of Present Illness Consult date: 01/25/18 Reason for Consult: Pericardial effusion, treatment recommendations. Requesting physician: Yury Nunes History of present illness: This is a 67-year-old female patient of Dr. Joseph. She has a previous medical history of COPD, hypertension, hypercholesterol, osteoporosis, congestive heart failure with BiV AICD placement, severe mitral regurgitation status post mitral clipping in May 2017, triple a with repair in 2014, pneumonia, partial thyroidectomy, multiple cardiac stents, previous tobacco dependence, and family history of premature coronary artery disease. She presented to [facility] on January 10 as she was sent in from her primary care physician to rule out pulmonary embolism after coming to the office with complaints of pleuritic chest pain, productive cough, back pain, fever, chills. Chest CTA completed in the emergency room demonstrated no pulmonary embolism but there was a new left lower lobe nodule measuring 1.1 cm, mucus plugging, questionable pneumonia, mediastinal adenopathy, and extensive calcific changes in her abdominal aorta. She was admitted for evaluation and treatment. She did have a transthoracic echocardiogram completed on January 12 which demonstrated an ejection fraction of 40-45%, mild aortic insufficiency, severe mitral valve regurgitation, mild tricuspid regurgitation, mild pulmonary hypertension, and a small to moderate pericardial effusion without tamponade physiology. She was treated for COPD exacerbation and pneumonia. She she had a bronchoscopy completed on January [address] Samuel. She developed abdominal pain and had laparoscopy on January 19 for lysis of adhesions. Apparently this morning she had gotten up the bedside commode, complained of not feeling right, was pale and weak, and subsequently became unresponsive. CODE BLUE was called, CPR started with ROSC, patient was intubated and transferred to the intensive care unit. Her AICD did discharge. A repeat echocardiogram was performed by cardiology which did demonstrate continued pericardial effusion. Dr. Vega from cardiothoracic surgery was consulted for treatment recommendations. Review of Systems ROS unobtainable: due to endotracheal tube Past Medical History Past Medical History: Heart Failure, COPD, Hyperlipidemia, Hypertension, Osteoarthritis (OA), Pneumonia, Renal Disease Additional Past Medical History / Comment(s): aaa 09/2015 pneumonia with sepsis , R parotitis, nephrolithiasis yrs ago, sciatica-R side low back. fx Right knee- had sx then had an infection with multiple surgeries and required IV antibiotics. Patient is currently on oral doxycycline no evidence of active infection. Cardiomyopathy with an EF of 20% currently has a LifeVest. Severe mitral regurgitation status post mitral valve clipping in May 2017 History of Any Multi-Drug Resistant Organisms: None Reported Past Surgical History: Heart Catheterization With Stent, Joint Replacement, Orthopedic Surgery, Tonsillectomy Additional Past Surgical History / Comment(s): Partial thyroidectomy, T total knee arthroplasty in October 2016, Right knee infection with additional surgeries spinal cord stimulator insertion and removal, colonoscopies with benign polypectomies. March 2017 6 stent placed, may -had mitral valve clip Past Anesthesia/Blood Transfusion Reactions: No Reported Reaction Date of Last Stent Placement:: March 2017 Past Psychological History: No Psychological Hx Reported Additional Psychological History / Comment(s): Pt lives with her spouse. has a nebulizer/cane Smoking Status: Former smoker Past Alcohol Use History: None Reported Additional Past Alcohol Use History / Comment(s): Pt states she started smoking in 1968 was a 1ppd smoker, quit oct 2016 Past Drug Use History: None Reported - Past Family History Mother Family Medical History: Cancer, Congestive Heart Failure (CHF) Additional Family Medical History / Comment(s): Mother in her early 80's Father Family Medical History: Myocardial Infarction ([place]) Additional Family Medical History / Comment(s): Father of a [place] in his 50's. Medications and Allergies Home Medications Medication Instructions Recorded Confirmed Type Cholecalciferol [Vitamin D3] 5,000 unit PO DAILY 09/23/15 01/10/18 History Atorvastatin [Lipitor] 80 mg PO HS 01/08/17 01/10/18 History Clopidogrel [Plavix] 75 mg PO DAILY 01/08/17 01/10/18 History Docusate Sodium [Dok] 100 mg PO BID 01/08/17 01/10/18 History Famotidine [Pepcid] 20 mg PO DAILY 01/08/17 01/10/18 History Calcium Carbonate [Calcium] 600 mg PO DAILY 05/27/17 01/10/18 History HYDROcodone/APAP 7.5-325MG [[place] 1 tab PO DAILY PRN 05/27/17 01/10/18 History 7.5-325] Aspirin EC [Ecotrin Low Dose] 81 mg PO DAILY 09/02/17 01/10/18 History Furosemide [Lasix] 40 mg PO BID@0900,1600 #60 tab 09/13/17 01/10/18 Rx Nitroglycerin Sl Tabs [Nitrostat] 0.4 mg SUBLINGUAL Q5M PRN #25 tab 09/13/1703/25 Rx Polyethylene Glycol 3350 [Miralax] 17 gm PO HS #30 powd.pack 09/13/17 01/10/18 Rx Denosumab [Prolia] 60 mg SQ Q180D 01/10/18 01/10/18 History Fluticasone/Vilanterol [Breo 1 puff INHALATION RT-DAILY 01/10/18 01/10/18 History Ellipta 200-25 Mcg INH] Lisinopril [Prinivil] 5 mg PO DAILY 01/10/18 01/10/18 History Metoprolol Tartrate [Lopressor] 12.5 mg PO BID 01/10/18 01/10/18 History Allergies Allergy/AdvReac Type Severity Reaction Status Date / Time Iodinated Contrast- Oral and Allergy Anaphylaxis Verified 01/10/18 15:17 IV Dye [Iodinated Contrast Media - IV Dye] Surgical - Exam Vital Signs Temp Pulse Resp BP Pulse Ox 98.4 F 100 18 161/77 95 01/10/18 14:44 01/10/18 14:44 01/10/18 14:44 01/10/18 14:44 01/10/18 14:44 - General well developed, well nourished, no distress, chronically ill - Eyes PERRL, normal ocular movement - Neck no masses, no bruits, trachea midline - Respiratory Lungs sounds clear bilaterally. Respirations even, nonlabored on mechanical ventilation. Current ventilator settings assist control mode, FiO2 50%, tidal 450, respiratory rate 22, PEEP 5. 8.0 ET tube present, 22 at the lip. - Cardiovascular S1, S2 present. Regular rate and rhythm, ventricular paced on telemetry. No distant heart sounds noted. Palpable peripheral pulses bilaterally. No edema present. SCDs present. Right femoral triple-lumen central line and arterial lines present. - Abdomen OG tube present to low intermittent suction, greenish brown output with sediment. Abdomen: soft, non tender, bowel sounds - Genitourinary Sampson present draining very minimal clear yellow urine. - Rectum Deferred - Integumentary no rash, no growths - Neurologic Patient alert, opens eyes to commands, nods head yes/shakes head no to command. Moves all 4 extremities. Results - Labs 01/25/18 07:13 01/25/18 07:13 Abnormal Lab Results - Last 24 Hours (Table) 01/24/18 01/24/18 01/25/18 Range/Units 17:31 20:08 07:13 WBC 18.7 H (3.8-10.6) k/uL RBC 2.97 L (3.80-5.40) m/uL Hgb 7.8 L (11.4-16.0) gm/dL Hct 25.4 L (34.0-46.0) % MCHC 30.7 L (31.0-37.0) g/dL RDW 17.5 H (11.5-15.5) % Neutrophils # 15.5 H (1.3-7.7) k/uL Monocytes # 1.3 H (0-1.0) k/uL ABG pH (7.35-7.45) ABG pCO2 (35-45) mmHg ABG pO2 (83-108) mmHg ABG HCO3 (21-25) mmol/L ABG Total CO2 (19-24) mmol/L ABG O2 Saturation (94-97) % Sodium (137-145) mmol/L Potassium (3.5-5.1) mmol/L Chloride (98-107) mmol/L Carbon Dioxide (22-30) mmol/L BUN (7-17) mg/dL Glucose (74-99) mg/dL POC Glucose (mg/dL) 154 H 169 H (75-99) mg/dL AST (14-36) U/L ALT (9-52) U/L Total Protein (6.3-8.2) g/dL Albumin (3.5-5.0) g/dL Crossmatch 01/25/18 01/25/18 01/25/18 Range/Units 07:13 07:33 10:31 WBC (3.8-10.6) k/uL RBC (3.80-5.40) m/uL Hgb (11.4-16.0) gm/dL Hct (34.0-46.0) % MCHC (31.0-37.0) g/dL RDW (11.5-15.5) % Neutrophils # (1.3-7.7) k/uL Monocytes # (0-1.0) k/uL ABG pH (7.35-7.45) ABG pCO2 (35-45) mmHg ABG pO2 (83-108) mmHg ABG HCO3 (21-25) mmol/L ABG Total CO2 (19-24) mmol/L ABG O2 Saturation (94-97) % Sodium 132 L (137-145) mmol/L Potassium 5.2 H (3.5-5.1) mmol/L Chloride 96 L (98-107) mmol/L Carbon Dioxide 21 L (22-30) mmol/L BUN 25 H (7-17) mg/dL Glucose 203 H (74-99) mg/dL POC Glucose (mg/dL) 161 H 124 H (75-99) mg/dL AST 101 H (14-36) U/L ALT 97 H (9-52) U/L Total Protein 5.2 L (6.3-8.2) g/dL Albumin 3.0 L (3.5-5.0) g/dL Crossmatch 01/25/18 01/25/18 01/25/18 Range/Units 11:05 11:48 11:51 WBC (3.8-10.6) k/uL RBC (3.80-5.40) m/uL Hgb (11.4-16.0) gm/dL Hct (34.0-46.0) % MCHC (31.0-37.0) g/dL RDW (11.5-15.5) % Neutrophils # (1.3-7.7) k/uL Monocytes # (0-1.0) k/uL ABG pH <7.00 L* (7.35-7.45) ABG pCO2 74 H* (35-45) mmHg ABG pO2 307 H (83-108) mmHg ABG HCO3 16 L (21-25) mmol/L ABG Total CO2 18 L (19-24) mmol/L ABG O2 Saturation 99.3 H (94-97) % Sodium (137-145) mmol/L Potassium (3.5-5.1) mmol/L Chloride (98-107) mmol/L Carbon Dioxide (22-30) mmol/L BUN (7-17) mg/dL Glucose (74-99) mg/dL POC Glucose (mg/dL) 235 H (75-99) mg/dL AST (14-36) U/L ALT (9-52) U/L Total Protein (6.3-8.2) g/dL Albumin (3.5-5.0) g/dL Crossmatch See Detail 01/25/18 Range/Units 13:51 WBC (3.8-10.6) k/uL RBC (3.80-5.40) m/uL Hgb (11.4-16.0) gm/dL Hct (34.0-46.0) % MCHC (31.0-37.0) g/dL RDW (11.5-15.5) % Neutrophils # (1.3-7.7) k/uL Monocytes # (0-1.0) k/uL ABG pH (7.35-7.45) ABG pCO2 (35-45) mmHg ABG pO2 (83-108) mmHg ABG HCO3 (21-25) mmol/L ABG Total CO2 (19-24) mmol/L ABG O2 Saturation (94-97) % Sodium (137-145) mmol/L Potassium (3.5-5.1) mmol/L Chloride (98-107) mmol/L Carbon Dioxide (22-30) mmol/L BUN (7-17) mg/dL Glucose (74-99) mg/dL POC Glucose (mg/dL) 177 H (75-99) mg/dL AST (14-36) U/L ALT (9-52) U/L Total Protein (6.3-8.2) g/dL Albumin (3.5-5.0) g/dL Crossmatch Diabetes panel 01/25/18 Range/Units 07:13 Sodium 132 L (137-145) mmol/L Potassium 5.2 H (3.5-5.1) mmol/L Chloride 96 L (98-107) mmol/L Carbon Dioxide 21 L (22-30) mmol/L BUN 25 H (7-17) mg/dL Creatinine 0.85 (0.52-1.04) mg/dL Glucose 203 H (74-99) mg/dL Calcium 9.3 (8.4-10.2) mg/dL AST 101 H (14-36) U/L ALT 97 H (9-52) U/L Alkaline Phosphatase 122 (38-126) U/L Total Protein 5.2 L (6.3-8.2) g/dL Albumin 3.0 L (3.5-5.0) g/dL Calcium panel 01/25/18 Range/Units 07:13 Calcium 9.3 (8.4-10.2) mg/dL Albumin 3.0 L (3.5-5.0) g/dL Pituitary panel 01/25/18 Range/Units 07:13 Sodium 132 L (137-145) mmol/L Potassium 5.2 H (3.5-5.1) mmol/L Chloride 96 L (98-107) mmol/L Carbon Dioxide 21 L (22-30) mmol/L BUN 25 H (7-17) mg/dL Creatinine 0.85 (0.52-1.04) mg/dL Glucose 203 H (74-99) mg/dL Calcium 9.3 (8.4-10.2) mg/dL Adrenal panel 01/25/18 Range/Units 07:13 Sodium 132 L (137-145) mmol/L Potassium 5.2 H (3.5-5.1) mmol/L Chloride 96 L (98-107) mmol/L Carbon Dioxide 21 L (22-30) mmol/L BUN 25 H (7-17) mg/dL Creatinine 0.85 (0.52-1.04) mg/dL Glucose 203 H (74-99) mg/dL Calcium 9.3 (8.4-10.2) mg/dL Total Bilirubin 0.3 (0.2-1.3) mg/dL AST 101 H (14-36) U/L ALT 97 H (9-52) U/L Alkaline Phosphatase 122 (38-126) U/L Total Protein 5.2 L (6.3-8.2) g/dL Albumin 3.0 L (3.5-5.0) g/dL - Imaging Chest x-ray: report reviewed, image reviewed CT scan - chest: report reviewed, image reviewed Assessment and Plan (1) Abdominal pain Current Visit: Yes Status: Acute Code(s): R10.9 - UNSPECIFIED ABDOMINAL PAIN SNOMED Code(s): 30205139 (2) COPD with exacerbation Current Visit: Yes Status: Chronic Code(s): J44.1 - CHRONIC OBSTRUCTIVE PULMONARY DISEASE W (ACUTE) EXACERBATION SNOMED Code(s): 211053980 (3) Pericardial effusion Current Visit: Yes Status: Acute Code(s): I31.3 - PERICARDIAL EFFUSION ( NONINFLAMMATORY) SNOMED Code(s): 540210299 (4) Pleuritic chest pain Current Visit: Yes Status: Acute Code(s): R07.81 - PLEURODYNIA SNOMED Code (s): 9877750 (5) Pulmonary nodule, left Current Visit: Yes Status: Acute Code(s): R91.1 - SOLITARY PULMONARY NODULE SNOMED Code(s): 044851966 (6) CAD (coronary artery disease) Current Visit: Yes Status: Chronic Code(s): I25.10 - ATHSCL HEART DISEASE OF [place] CORONARY ARTERY W/O ANG PCTRS SNOMED Code(s): 67699831 (7) H/O mitral valve repair Current Visit: Yes Status: Chronic Code(s): Z98.890 - OTHER SPECIFIED POSTPROCEDURAL STATES SNOMED Code(s): 861750338 (8) Ischemic cardiomyopathy Current Visit: Yes Status: Chronic Code(s): I25.5 - ISCHEMIC CARDIOMYOPATHY SNOMED Code(s): 952676716 (9) History of placement of internal cardiac defibrillator Current Visit: Yes Status: Chronic Code(s): Z95.810 - PRESENCE OF AUTOMATIC (IMPLANTABLE) CARDIAC DEFIBRILLATOR SNOMED Code(s): 619862405 Plan: The patient was seen and examined in the intensive care unit. Chart/ diagnostics were reviewed. Case to be discussed with Dr. Vega. Patient did have Plavix this morning which puts her at increased risk of bleeding with any procedure. Ventilator management per pulmonology. Other comorbid condition management per primary care service. Recommendations to follow. Thank you Dr. Nunes for this consult. We look forward to working with you in the care of your patient. Time with Patient: Greater than 30
[2018-01-25] MEDS: NOREPINEPHRIN 16 MG-0.9%NS PMX 16 MG/250 ML ML IV SCH (17:58)
[2018-01-25] MEDS ORDERED: VANCOMYCIN 1,000 MG in SODIUM CHLORIDE 0.9% 250 ML IVPB ONE (18:00)
--- NOTE | 2018-01-25 18:15 | P.PN ---
Subjective Progress Note Date: 01/25/18 Principal diagnosis: Status post cardiac arrest, aspiration pneumonia, acute hypoxic respiratory failure, Bilateral pneumonia, radicular nodular infiltrate with early cavity formation, shortness of breath and acute COPD exacerbation mediastinal lymphadenopathy, acute on chronic systolic heart failure, pericardial effusion, severe degree of mitral regurgitation, mild pulmonary hypertension, small bowel obstruction due to intra-abdominal bands and adhesions, status post laparoscopy lysis of bands and adhesions, urinary retention, hypertension 01/23/2018, patient seen and evaluated examined overall respiratory status stable breathing comfortably no obvious distress present Ammann being followed by surgical services as well as urology 01/24/2018 patient seen eval reexamined breathing comfortably no obvious distress present tolerating by mouth relatively well surgical services following no obvious respiratory distress 01/25/2018, critical care time spent 45 minutes Apparently this morning she had gotten up the bedside commode, complained of not feeling right, was pale and weak, and subsequently became unresponsive. BAMBI BLUE was called, CPR started with ROSC, patient was intubated and transferred to the intensive care unit. Her AICD did discharge. A repeat echocardiogram was performed by cardiology which did demonstrate continued pericardial effusion. patient seen and evaluated examined in the ICU after cardiac arrest patient remains unresponsive initially patient was seen was on the assist control with a rate of 14, tidal volume of 400, 100% oxygen, PEEP of 5 and arterial blood gas noted significant finding was severe profound respiratory and metabolic acidosis with pH of 6.9 ventilator was adjusted with a rate in escalated to 18 and tidal volume increased to 450 pH did improve to 7.1 with improvement in oxygenation and ventilation, doing evaluation patient does breathe over the respirator with few occasional and spontaneous breath initiation patient is hypertensive with a systolic blood pressure is 160 over diastolic pressure of 90 and slightly anxious was started on propofol blood pressure did drop down into 110 to 130 systolic, patient appears to be slightly volume depleted was started on IV fluid normal saline 100 mL an hour patient also noted to have drop in blood pressure further the propofol was discontinued and fluid bolus of 2 50 mL an hour crystalloid was given given poor hemodynamic status decision was done to put a central line and A-line, patient has been intubated with endotracheal tube #8, patient has been evaluated by cardiovascular services as well as surgical services discussed with the surgery, patient has AICD which is to be interrogated later on, labs and chest x-ray reviewed arterial blood gases reviewed new dense infiltrate predominantly daunted in the right upper lobe likely aspiration related process with history of emesis earlier this morning prior to the event, critical care time spent 45 minutes which does not include time spent for line placement Objective - Vital Signs Vital signs: Vital Signs Temp 98.3 F 01/25/18 15:38 Pulse 107 H 01/25/18 17:00 Resp 27 H 01/25/18 17:00 BP 92/74 01/25/18 17:00 Pulse Ox 100 01/25/18 17:00 Intake & Output 01/24/18 01/25/18 01/25/18 18:59 06:59 18:59 Intake Total 1000 2460 825.0 Output Total 55 Balance 1000 2460 770.0 Weight 51 kg 50.3 kg Intake: Intake, IV Titration 1000 1500 825.0 Amount Piperacillin-Tazobactam 3 25.0 .375 gm In Dextrose/Water 1 50ml.bag @ 12.5 mls/hr IVPB Q8HR DAMIAN Rx#: [id number] Sodium Chloride 0.9% 1, 1500 300 000 ml @ 100 mls/hr IV . Q10H DAMIAN Rx#:[id number] Sodium Chloride 0.9% 1, 500 000 ml @ 250 mls/hr IV . Q4H DAMIAN Rx#:[id number] Sodium Chloride 0.9% 500 500 ml @ 999 mls/hr IV .Q31M ONE Rx#:[id number] Sodium Chloride 0.9% 500 500 ml @ 999 mls/hr IV .Q31M ONE Rx#:[id number] Oral 960 Output: Urine 55 Uretheral (Sampson) 10 Other: Voiding Method Toilet Toilet Bedside Commode # Voids 1 ABP, PAP, CO, CI - Last Documented Arterial Blood Pressure 95/54 - Exam General appearance: Intubated on full ventilator support no apparent distress Head exam: Present: atraumatic, normocephalic, normal inspection Eye exam: Present: normal appearance, P Absent: scleral icterus, conjunctival injection, periorbital swelling ENT exam: Present: mucous membranes dry Neck exam: Present: normal inspection. Absent: tenderness, meningismus, lymphadenopathy, neck veins are slightly prominent but no JVD seen Respiratory exam: Present: wheezes (predominantly on the right upper lobe otherwise clear to auscultation, Cardiovascular Exam: Present: regular rate, normal rhythm, normal heart sounds. GI/Abdominal exam: Present: soft, normal bowel sounds. Not distended, non- tenderness, no guarding, no rebound, no rigid Extremities exam: Present: normal inspection, full ROM, normal capillary refill. Absent: tenderness, pedal edema, joint swelling, calf tenderness Neurological exam: Sedated with propofol drip Skin exam: Present: warm, dry, intact, normal color. Absent: rash - Labs CBC & Chem 7: 01/25/18 07:13 01/25/18 07:13 Labs: Abnormal Lab Results - Last 24 Hours (Table) 01/24/18 01/25/18 01/25/18 Range/Units 20:08 07:13 07:13 WBC 18.7 H (3.8-10.6) k/uL RBC 2.97 L (3.80-5.40) m/uL Hgb 7.8 L (11.4-16.0) gm/dL Hct 25.4 L (34.0-46.0) % MCHC 30.7 L (31.0-37.0) g/dL RDW 17.5 H (11.5-15.5) % Neutrophils # 15.5 H (1.3-7.7) k/uL Monocytes # 1.3 H (0-1.0) k/uL ABG pH (7.35-7.45) ABG pCO2 (35-45) mmHg ABG pO2 (83-108) mmHg ABG HCO3 (21-25) mmol/L ABG Total CO2 (19-24) mmol/L ABG O2 Saturation (94-97) % Sodium 132 L (137-145) mmol/L Potassium 5.2 H (3.5-5.1) mmol/L Chloride 96 L (98-107) mmol/L Carbon Dioxide 21 L (22-30) mmol/L BUN 25 H (7-17) mg/dL Glucose 203 H (74-99) mg/dL POC Glucose (mg/dL) 169 H (75-99) mg/dL AST 101 H (14-36) U/L ALT 97 H (9-52) U/L Total Protein 5.2 L (6.3-8.2) g/dL Albumin 3.0 L (3.5-5.0) g/dL Crossmatch 01/25/18 01/25/18 01/25/18 Range/Units 07:33 10:31 11:05 WBC (3.8-10.6) k/uL RBC (3.80-5.40) m/uL Hgb (11.4-16.0) gm/dL Hct (34.0-46.0) % MCHC (31.0-37.0) g/dL RDW (11.5-15.5) % Neutrophils # (1.3-7.7) k/uL Monocytes # (0-1.0) k/uL ABG pH (7.35-7.45) ABG pCO2 (35-45) mmHg ABG pO2 (83-108) mmHg ABG HCO3 (21-25) mmol/L ABG Total CO2 (19-24) mmol/L ABG O2 Saturation (94-97) % Sodium (137-145) mmol/L Potassium (3.5-5.1) mmol/L Chloride (98-107) mmol/L Carbon Dioxide (22-30) mmol/L BUN (7-17) mg/dL Glucose (74-99) mg/dL POC Glucose (mg/dL) 161 H 124 H 235 H (75-99) mg/dL AST (14-36) U/L ALT (9-52) U/L Total Protein (6.3-8.2) g/dL Albumin (3.5-5.0) g/dL Crossmatch 01/25/18 01/25/18 01/25/18 Range/Units 11:48 11:51 12:42 WBC (3.8-10.6) k/uL RBC (3.80-5.40) m/uL Hgb (11.4-16.0) gm/dL Hct (34.0-46.0) % MCHC (31.0-37.0) g/dL RDW (11.5-15.5) % Neutrophils # (1.3-7.7) k/uL Monocytes # (0-1.0) k/uL ABG pH <7.00 L* 7.13 L* (7.35-7.45) ABG pCO2 74 H* 58 H (35-45) mmHg ABG pO2 307 H (83-108) mmHg ABG HCO3 16 L 19 L (21-25) mmol/L ABG Total CO2 18 L (19-24) mmol/L ABG O2 Saturation 99.3 H 91.7 L (94-97) % Sodium (137-145) mmol/L Potassium (3.5-5.1) mmol/L Chloride (98-107) mmol/L Carbon Dioxide (22-30) mmol/L BUN (7-17) mg/dL Glucose (74-99) mg/dL POC Glucose (mg/dL) (75-99) mg/dL AST (14-36) U/L ALT (9-52) U/L Total Protein (6.3-8.2) g/dL Albumin (3.5-5.0) g/dL Crossmatch See Detail 01/25/18 Range/Units 13:51 WBC (3.8-10.6) k/uL RBC (3.80-5.40) m/uL Hgb (11.4-16.0) gm/dL Hct (34.0-46.0) % MCHC (31.0-37.0) g/dL RDW (11.5-15.5) % Neutrophils # (1.3-7.7) k/uL Monocytes # (0-1.0) k/uL ABG pH (7.35-7.45) ABG pCO2 (35-45) mmHg ABG pO2 (83-108) mmHg ABG HCO3 (21-25) mmol/L ABG Total CO2 (19-24) mmol/L ABG O2 Saturation (94-97) % Sodium (137-145) mmol/L Potassium (3.5-5.1) mmol/L Chloride (98-107) mmol/L Carbon Dioxide (22-30) mmol/L BUN (7-17) mg/dL Glucose (74-99) mg/dL POC Glucose (mg/dL) 177 H (75-99) mg/dL AST (14-36) U/L ALT (9-52) U/L Total Protein (6.3-8.2) g/dL Albumin (3.5-5.0) g/dL Crossmatch Assessment and Plan Assessment: Status post cardiac arrest with evidence of discharge on AICD likely primary cardiac process with cardiac arrest Aspiration pneumonia with a developing right upper lobe consolidation Profound respiratory and metabolic acidosis related to cardiac arrest Small to moderate pericardial effusion Small bowel obstruction related to abandon in addition status post laparoscopy lysis of bands and adhesions Bilateral nodular infiltrate with some of them early cavitary appearance Acute COPD exacerbation Bilateral pneumonia Mediastinal lymphadenopathy likely reactive lymphadenopathy Uncontrolled hypertension hypertensive cardiovascular disease Abdominal aortic aneurysm and ascending thoracic aneurysm Severe valvular heart disease with mitral regurgitation with prior history of surgeries Acute on chronic systolic heart failure ejection fraction of 40% Plan: Vasopressor support as needed with fluid resuscitation Ventilator adjustment Initiation of broad-spectrum antibiotics with IV Zosyn and vancomycin Agree with cardiothoracic surgery consultation Will need lines for progress central line and A-line Gentle rehydration Breathing treatments IV antibiotics as well as oral steroids continue tapering down the steroids patient status post bronchoscopy and BAL findings and procedure details explained to the patient at length Evaluation of pulmonary nodules on outpatient setting with a PET scan Time with Patient: Greater than 30
--- NOTE | 2018-01-25 18:17 | P.PCN ---
Date of Procedure: 01/25/18 Preoperative Diagnosis: Cardiac arrest, aspiration pneumonia, severe COPD, small bowel obstruction Postoperative Diagnosis: As above Procedure(s) Performed: Right femoral arterial line single lumen catheter placement/arterial line Surgeon: Constantin Samuel Estimated Blood Loss (ml): 5 Pathology: none sent Condition: critical Disposition: ICU Indications for Procedure: As above Operative Findings: As below Description of Procedure: Patient prepared and draped in a usual fashion informed consent obtained from the family using a modified Seldinger technique single-lumen catheter inserted into right femoral artery without any difficulty patient tolerate procedure well no complication noted good waveforms obtained
--- NOTE | 2018-01-25 18:19 | P.PCN ---
Date of Procedure: 01/25/18 Preoperative Diagnosis: Cardiac arrest, aspiration pneumonia, small bowel obstruction, cardiomyopathy with valvular heart disease and acute respiratory failure Postoperative Diagnosis: As above Procedure(s) Performed: Right femoral vein triple-lumen catheter placement Anesthesia: local Surgeon: Constantin Samuel Estimated Blood Loss (ml): 5 Pathology: none sent Condition: critical Disposition: ICU Indications for Procedure: As above Operative Findings: As below Description of Procedure: Using a modified Seldinger technique triple-lumen catheter inserted into right femoral vein without any difficulty patient tolerate procedure well no complication noted security #3 silk all 3 ports were flushed
--- NOTE | 2018-01-25 18:26 | PN ---
PROGRESS NOTE This is a 67-year-old lady with complex and multiple medical problems, including ischemic cardiomyopathy, status post biventricular pacer AICD, COPD, pericardial effusion and pneumonia who was admitted to hospital with primarily COPD exacerbation. She was initially evaluated by my associate Dr. Grigsby and had an echocardiogram done which showed moderate pericardial effusion. This morning patient became unstable; initially she was short of breath and felt weak and tired. They thought she was having a stroke and subsequently she had pulseless electrical activity, due to which she had to be resuscitated with CPR and placed on vent and transferred to ICU. I do not have any rhythm strips on her. I am told that the AICD went off. At the time of my evaluation, she is intubated on vent. Blood pressures are elevated. She remains in a regular rhythm. Chest exam reveals diminished air entry bilaterally. Heart exam reveals first and second heart sounds; no gallop. Examination of extremities reveals 1+ edema. Peripheral pulses are palpable. Labs show that her blood gases show a pH of 7, pCO2 of 74. PO2 is 307. Creatinine is 0.85, potassium 5.2, hemoglobin 7.8. ASSESSMENT: 1. Acute cardiac arrest. 2. Respiratory failure. 3. Pericardial effusion. PLAN: I am going to have the AICD checked. Will do a limited echocardiogram to reassess the pericardial effusion. MMODL / IJN: [id number] /
[2018-01-25 18:31] LABS: Glucose,Whole Blood 98 mg/dL (75-99)
[2018-01-25] MEDS: ATORVASTATIN 80 MG TAB PO SCH (20:12)
[2018-01-25] MEDS: PROPOFOL 1,000 MG in EMPTY BAG 1 BAG IV SCH (20:17)
[2018-01-25] MEDS: CHLORHEXIDINE GLUCONATE 15 ML CUP MUCOUS MEM SCH (20:31)
[2018-01-25] MEDS ORDERED: ACETAMINOPHEN IV (For NPO) 1,000 MG in EMPTY BAG 1 BAG IVPB PRN (20:32)
[2018-01-25 20:48] LABS: Glucose,Whole Blood 97 mg/dL (75-99)
[2018-01-25 23:39] LABS: Glucose,Whole Blood 100 mg/dL (75-99)
[2018-01-26] MEDS: PROPOFOL 1,000 MG in EMPTY BAG 1 BAG IV SCH (03:49)
[2018-01-26 04:22] LABS: Anisocytosis Slight; HCT 23.9 % (34.0-46.0); HGB 7.5 gm/dL (11.4-16.0); Hypochromasia Moderate; MCH 26.2 pg (25.0-35.0); MCHC 31.4 g/dL (31.0-37.0); MCV 83.6 fL (80.0-100.0); Mean Platelet Volume 6.7; Platelet Count 462 k/uL (150-450); RBC 2.86 m/uL (3.80-5.40); RDW 17.8 % (11.5-15.5)
[2018-01-26 04:24] LABS: Albumin 2.4 g/dL (3.5-5.0); Calcium 7.9 mg/dL (8.4-10.2); Phosphorus 5.9 mg/dL (2.5-4.5); Potassium 5.8 mmol/L (3.5-5.1); Total Bilirubin 0.5 mg/dL (0.2-1.3); Total Protein 4.4 g/dL (6.3-8.2)
[2018-01-26 04:26] LABS: WBC 41.4 k/uL (3.8-10.6)
[2018-01-26 04:43] LABS: ABG Base Excess -10.6 mmol/L; ABG HCO3 16 mmol/L (21-25); ABG Oxygen Saturation 98.9 % (94-97); ABG PCO2 31 mmHg (35-45); ABG PH 7.31 (7.35-7.45); ABG PO2 141 mmHg (83-108); ABG TCO2 17 mmol/L (19-24)
[2018-01-26] MEDS: HYDROcodone/APAP 7.5-325MG 1 EACH TAB PO PRN (05:15)
[2018-01-26] MEDS ORDERED: LORazepam 2 MG/ML INJ IV PRN (05:55)
[2018-01-26] MEDS: SODIUM CHLORIDE 0.9% 1,000 ML IV SCH ×5 (05:56→23:30)
[2018-01-26] MEDS: NOREPINEPHRIN 16 MG-0.9%NS PMX 16 MG/250 ML ML IV SCH ×2 (06:54→21:08)
[2018-01-26] MEDS: MORPHINE SULFATE/PF 10MG/10ML VL IVP PRN (06:57)
[2018-01-26] MEDS: IPRATROPIUM-ALBUTEROL 3 ML NEB INHALATION SCH ×4 (07:31→19:01)
[2018-01-26] MEDS ORDERED: EPINEPHrine 10 ML SYRINGE (0.1 MG/ML) ONE (07:47)
[2018-01-26] MEDS: SODIUM CHLORIDE 0.9% 99 ML with VASOPRESSIN 20 UNIT IV SCH ×4 (07:55→20:10)
--- NOTE | 2018-01-26 08:11 | XR ---
EXAMINATION TYPE: XR chest 1V DATE OF EXAM: 01/26/2018 COMPARISON: Prior chest x-ray 01/25/2018 HISTORY: Intubated TECHNIQUE: Single frontal view of the chest is obtained. FINDINGS: Endotracheal and NG tube are overlying appropriate positions, there are overlying cardiac leads, intracardiac defibrillator leads are stable. Heart remains enlarged. Retrocardiac density is p resent obscuring the medial aspect of the left hemidiaphragm. No pneumothorax. Improvement in aeratio n is noted in the right lung. Pulmonary vascularity and lucia are not significantly changed. The patie nt is rotated. IMPRESSION: Some improvement in right lung aeration. Left lower lobe atelectasis is favored.
[2018-01-26 08:26] LABS: Anisocytosis Slight; HCT 21.9 % (34.0-46.0); Hypochromasia Marked; MCH 25.7 pg (25.0-35.0); MCHC 29.4 g/dL (31.0-37.0); MCV 87.3 fL (80.0-100.0); Mean Platelet Volume 7.6; Platelet Count 352 k/uL (150-450); RDW 18.4 % (11.5-15.5)
[2018-01-26 08:41] LABS: HGB 6.4 gm/dL (11.4-16.0)
[2018-01-26 08:49] LABS: Albumin 2.1 g/dL (3.5-5.0); Alkaline Phosphatase 77 U/L (38-126); Blood Urea Nitrogen 26 mg/dL (7-17); Calcium 6.7 mg/dL (8.4-10.2); Chloride 109 mmol/L (98-107); Magnesium 2.2 mg/dL (1.6-2.3); Sodium 134 mmol/L (137-145); Total Bilirubin 0.9 mg/dL (0.2-1.3); Total Protein 4.1 g/dL (6.3-8.2)
[2018-01-26 08:55] LABS: Anion Gap 14 mmol/L; Carbon Dioxide 11 mmol/L (22-30)
--- NOTE | 2018-01-26 09:03 | XR ---
2 view abdomen HISTORY: Prior bowel obstruction 2 views of the abdomen submitted on 3 images and correlated to prior exam dated 01/19/2018 NG tube remains with the distal tip over the left upper quadrant. Intracardiac defibrillator leads no charlie incidentally. Minimal retrocardiac density likely due to left lower lobe atelectasis. Prominent l ghassan volume may be indicative of COPD. Right femoral central venous catheter is present with the dista l tip at L5. There are vascular calcifications present. There are overlying cardiac leads. Bone senior examiner alization is reduced. No evident pneumoperitoneum. Some mild distention of the right:, There is likely retained fecal debri s and colonic gas. No air-fluid levels. IMPRESSION: There is some improvement in the gas-filled appearance of the small bowel as compared to prior exam. Some persistent prominence of gas within the cecum. Left lower lobe atelectasis and addit ional findings above.
[2018-01-26 09:10] LABS: Potassium 7.3 mmol/L (3.5-5.1)
[2018-01-26] MEDS ORDERED: DEXTROSE 50%-WATER 50 ML SYRINGE IVP ONE ×2 (09:10→12:54)
[2018-01-26 09:11] LABS: Glucose <20 mg/dL (74-99); Phosphorus 8.4 mg/dL (2.5-4.5)
[2018-01-26] MEDS: FERROUS SULFATE 325 MG TAB PO SCH ×2 (09:15→22:22)
[2018-01-26] MEDS: LACTULOSE 20 GM/30 ML CUP PO SCH ×4 (09:15→22:24)
[2018-01-26] MEDS: predniSONE 10 MG TAB PO SCH (09:16)
[2018-01-26] MEDS: FUROSEMIDE 40 MG TAB PO SCH (09:16)
[2018-01-26] MEDS: ZINC OXIDE 20% OINT 28.4 GM TUBE TOPICAL SCH ×2 (09:16→22:23)
[2018-01-26 09:28] LABS: Glucose,Whole Blood 124 mg/dL (75-99)
[2018-01-26] MEDS: INSULIN ASPART 100 UNIT/ML 1 ML 10 ML VIAL SQ SCH ×4 (09:35→22:28)
[2018-01-26] MEDS: EPINEPHrine 2 MG in DEXTROSE 5% IN WATER 250 ML IV SCH ×2 (09:36)
--- NOTE | 2018-01-26 09:57 | ECHOF ---
Referral Reason:cardiac arrest MEASUREMENTS -------- HEIGHT: 162.6 cm WEIGHT: 49.9 kg BP: 175/95 RVIDd: 2.2 cm (< 3.3) IVSd: 0.9 cm (0.6 - 1.1) LVIDd: 5.4 cm (3.9 - 5.3) LVPWd: 1.0 cm (0.6 - 1.1) IVSs: 1.0 cm LVIDs: 4.5 cm LVPWs: 1.3 cm LAESV Index (A-L): 41.95 ml/m Ao Diam: 3.0 cm (2.0 - 3.7) AV Cusp: 1.3 cm (1.5 - 2.6) LA Diam: 4.0 cm (2.7 - 3.8) MV E Alfonso: 2.20 m/s MV DecT: 113 ms MV A Alfonso: 0.27 m/s MV E/A Ratio: 318.87 RAP: 5.00 mmHg RVSP: 15.39 mmHg FINDINGS -------- Resting tachycardia (HR>100bpm). This was a technically adequate study. The left ventricular size is normal. Left ventricular wall thickness is normal. There is severe g lobal hypokinesis of LV . Overall left ventricular systolic function is severely impaired with, an EF between 20 - 25 %. The right ventricle is normal in size and function. Suspicious for right ventricular free wall comp romise. LA is severely dilated >40 ml/m2 Electronic pacemaker lead seen in the right ventricular cavity. RA appears enlarged. There is moderate aortic valve sclerosis. There is no evidence of aortic regurgitation. There is no evidence of aortic stenosis. The mitral valve leaflets are moderately thickened. Moderate mitral annular calcification present. Rlus-ln-dhomeicy mitral regurgitation is present. There is moderately calcified chordae. The p eak and mean MV gradients are 22.83mmHg 8.19mmHg as measured by doppler. Patient has a history of a mitral valve clip. Trace tricuspid regurgitation present. Right ventricular systolic pressure is normal at < 35 mmHg. There is no evidence of pulmonary hypertension. The pulmonic valve was not well visualized. The aortic root size is normal. Normal inferior vena cava with normal inspiratory collapse consistent with estimated right atrial pre ssure of 5 mmHg. There is a moderate, generalized pericardial effusion present. CONCLUSIONS -------- 1. Resting tachycardia (HR>100bpm). 2. This was a technically adequate study. 3. The left ventricular size is normal. 4. Left ventricular wall thickness is normal. 5. There is severe global hypokinesis of LV . 6. Overall left ventricular systolic function is severely impaired with, an EF between 20 - 25 %. 7. Suspicious for right ventricular free wall compromise. 8. LA is severely dilated >40 ml/m2 9. Electronic pacemaker lead seen in the right ventricular cavity. 10. RA appears enlarged. 11. There is moderate aortic valve sclerosis. 12. The mitral valve leaflets are moderately thickened. 13. Moderate mitral annular calcification present. 14. Ukpr-jd-dtygyjcp mitral regurgitation is present. 15. There is moderately calcified chordae. 16. Patient has a history of a mitral valve clip. 17. Trace tricuspid regurgitation present. 18. Right ventricular systolic pressure is normal at < 35 mmHg. 19. There is no evidence of pulmonary hypertension. 20. The pulmonic valve was not well visualized. 21. The aortic root size is normal. 22. There is a moderate, generalized pericardial effusion present. PRINCIPAL SCIENTIST: Codey Vallejo RDCS
[2018-01-26 10:01] LABS: AST 3211 U/L (14-36)
[2018-01-26 10:02] LABS: ALT 2982 U/L (9-52)
[2018-01-26 10:19] LABS: Glucose,Whole Blood 102 mg/dL (75-99)
[2018-01-26] MEDS ORDERED: SODIUM POLYSTYRENE SULFONATE 15 GM/60 ML BOTTLE PO STA ×3 (10:29→21:56)
[2018-01-26 11:04] LABS: Band Neutrophils % 3 %; Neutrophils % (M) 91 %; Nucleated Red Blood Cells 0 /100 WBC (0-0); Total Cells Counted 100
[2018-01-26 11:05] LABS: Crenated RBC Present; Mixed Population RBC Present; RBC Fragments Present
[2018-01-26 11:14] LABS: ABG HCO3 6 mmol/L (21-25); ABG PCO2 24 mmHg (35-45); ABG PH <7.00 (7.35-7.45); ABG PO2 129 mmHg (83-108); ABG TCO2 6 mmol/L (19-24)
[2018-01-26 11:20] LABS: Band Neutrophils % 1 %; Lymphocytes # (M) 1.24 k/uL (1.0-4.8); Monocytes # (M) 2.07 k/uL (0-1.0); Neutrophils % (M) 92 %; Nucleated Red Blood Cells 0 /100 WBC (0-0); Poikilocytosis (M) Present; RBC Fragments Present; Total Cells Counted 200
--- NOTE | 2018-01-26 11:36 | PN ---
PROGRESS NOTE This is a 67-year-old with complex and multiple cardiac problems including chronic systolic heart failure, status post Bi-V pacemaker, coronary artery disease, COPD, hypertension, dyslipidemia, mitral valve repair, chronic renal insufficiency, who was admitted to hospital with acute abdomen and underwent surgery. An echocardiogram initially showed a moderate amount of pericardial effusion without any tamponade. Yesterday while on the floor, she had cardiac arrest with pulseless electrical activity and subsequently got intubated and transferred to ICU and an echocardiogram I repeated showed worsening pericardial effusion, but again I do not see any significant tamponade physiology. She did fairly well overnight and this morning she had again cardiac arrest with hypotension and pulseless electrical activity. Also, her white cell count had gone up. Her baseline white cell count was around 10.7 on 01/24, yesterday it went up to 18.7 and then subsequently it was all the way up to 41. She had recent abdominal surgery and the NG tube aspirate apparently is showing fecal material. Surgeon has been alerted and he is on the case. From cardiac standpoint, she is not behaving like a pericardial effusion with tamponade as there are times when her blood pressure is very high and times when her blood pressure is very low and on the echo there is no evidence of tamponade. It appears more related to the possible sepsis and recent surgery, especially the elevated white cell count. I had a long conversation with the patient's family and kept them abreast of her condition and her prognosis. PHYSICAL EXAMINATION: She is intubated on vent. Heart rate is 90 beats per minute. Blood pressure is 150/56, respiratory rate is 20. Chest exam reveals diminished air entry at the bases. Heart exam reveals first and second heart sounds. Systolic murmur at the left lower sternal border. Abdomen is status post surgery. Exam of extremities did not reveal any edema. LABS: Show a white cell count of 35. Hemoglobin is 6.4. Potassium had gone up to 7.3 with a BUN of 26 and creatinine of 1.26. Her hyperkalemia is being treated with Kayexalate. Her blood sugars have been low this morning. ASSESSMENT: 1. Status post cardiac arrest with pulseless electrical activity. 2. Cardiomyopathy with congestive heart failure. 3. Coronary artery disease. 4. Acute abdomen, status post surgery. 5. Elevated white cell count with possible sepsis. PLAN: From cardiac standpoint, her management is going to be purely supportive. Will continue with the pressors to keep the blood pressure up. Her clinical behavior is not consistent with tamponade and the echo does not show tamponade physiology. Cardiothoracic Surgeon is on the case. JOHANA / ILIR: [id number] /
[2018-01-26] MEDS ORDERED: SODIUM BICARB 8.4% 50 ML SYR (1 MEQ/ML) IV STA ×2 (11:39→17:16)
[2018-01-26] MEDS: CLOPIDOGREL 75 MG TAB PO SCH ×2 (11:42→21:56)
[2018-01-26] MEDS: DOCUSATE 100 MG CAP PO SCH ×2 (11:42→22:22)
[2018-01-26] MEDS: ASPIRIN 81 MG PO SCH (11:42)
[2018-01-26] MEDS: ENOXAPARIN 40 MG/0.4 ML SYRINGE SQ SCH ×2 (11:43→21:56)
[2018-01-26] MEDS: DEXTROSE 5% IN WATER 1,000 ML with SODIUM BICARB (1 MEQ/ML) 150 ML IV SCH ×2 (12:11→17:46)
[2018-01-26] MEDS: CHLORHEXIDINE GLUCONATE 15 ML CUP MUCOUS MEM SCH ×2 (12:14→22:21)
[2018-01-26] MEDS: CALCIUM CARBONATE 500 MG CHEWABLE PO SCH (12:15)
[2018-01-26] MEDS: CHOLECALCIFEROL 1,000 UNIT TAB PO SCH (12:15)
--- NOTE | 2018-01-26 12:16 | P.PN ---
Subjective Progress Note Date: 01/26/18 Principal diagnosis: Moderate pericardial effusion. History of COPD, hypertension, hypercholesterol , osteoporosis, congestive heart failure with by V AICD placement, severe mitral regurgitation status post mitral clipping in May 2017, triple a with repair in 2014, pneumonia, partial thyroidectomy, multiple cardiac stents, previous tobacco dependence, family history of premature coronary artery disease. Status post cardiac arrest 2. Acute lactic acidosis. Acute metabolic acidosis. Patient is currently lying in bed in no acute distress. Had a cardiac arrest again this morning. Is currently on IV epinephrine and Levophed and receiving 1 unit packed red blood cells. Objective - Vital Signs Vital signs: Vital Signs Temp 98.2 F 01/26/18 11:13 Pulse 92 01/26/18 11:30 Resp 27 H 01/26/18 11:30 BP 141/66 01/26/18 11:13 Pulse Ox 95 01/26/18 11:30 Intake & Output 01/25/18 01/26/18 01/26/18 18:59 06:59 18:59 Intake Total 4094.299 0355.064 410 Output Total 255 1230 80 Balance 1099.812 311.064 330 Weight 54.4 kg Intake: Intake, IV Titration 6542.442 9911.064 100 Amount ACETAMINOPHEN IV (For NPO 300 ) 1,000 mg In Empty Bag 1 bag @ 400 mls/hr IVPB Q6HR PRN Rx#:[id number] Norepinephrin 16 mg-0.9% 4.812 217.924 Ns Pmx 16 mg In 250 ml @ Titrate IV .Q0M [facility] Rx#: [id number] Piperacillin-Tazobactam 3 50.0 50 .375 gm In Dextrose/Water 1 50ml.bag @ 12.5 mls/hr IVPB Q8HR [facility] Rx#: [id number] Propofol 1,000 mg In 73.140 Empty Bag 1 bag @ Titrate IV .Q0M [facility] Rx#: [id number] Sodium Chloride 0.9% 1, 300 600 100 000 ml @ 100 mls/hr IV . Q10H [facility] Rx#:[id number] Sodium Chloride 0.9% 1, 300 000 ml @ 100 mls/hr IV . Q10H [facility] Rx#:[id number] Sodium Chloride 0.9% 1, 1000 000 ml @ 250 mls/hr IV . Q4H [facility] Rx#:[id number] Blood Product 310 Rc As-1 Unit 310 [id number] Rc As-3 Unit 0 [id number] Output: Gastric Drainage 550 50 Urine 255 680 30 Uretheral (Sampson) 10 Other: Voiding Method Indwelling Catheter Indwelling Catheter ABP, PAP, CO, CI - Last Documented Arterial Blood Pressure 148/68 - Constitutional General appearance: Present: no acute distress - Respiratory Details: Lung sounds much bilaterally. Respirations even, nonlabored. Currently on mechanical ventilation. Settings assist control mode, FiO2 40%, tidal volume 450, respiratory rate 22, PEEP 5. - Cardiovascular Details: S1, S2 present. No distant heart sounds noted. No JVD. Regular rate and rhythm, ventricular paced on telemetry. Palpable peripheral pulses bilaterally. No edema present. SCDs present. Right femoral triple-lumen central line and arterial lines present. - Gastrointestinal Gastrointestinal Comment(s): Abdomen soft, nontender, nondistended. Hypoactive bowel sounds 4 quadrants. OG tube present to low intermittent suction. Brown output with sediment. - Genitourinary Genitourinary Comment(s): Sampson present draining clear, yellow urine. - Integumentary Integumentary Comment(s): Skin is warm and dry. - Musculoskeletal Musculoskeletal: Present: generalized weakness - Allied health notes Allied health notes reviewed: nursing - Labs CBC & Chem 7: 01/26/18 08:00 01/26/18 08:00 Labs: Abnormal Lab Results - Last 24 Hours (Table) 01/25/18 01/25/18 01/25/18 Range/Units 11:48 11:51 12:42 WBC (3.8-10.6) k/uL RBC (3.80-5.40) m/uL Hgb (11.4-16.0) gm/dL Hct (34.0-46.0) % MCHC (31.0-37.0) g/dL RDW (11.5-15.5) % Plt Count (150-450) k/uL Neutrophils # (Manual) (1.3-7.7) k/uL Lymphocytes # (Manual) (1.0-4.8) k/uL Monocytes # (Manual) (0-1.0) k/uL ABG pH <7.00 L* 7.13 L* (7.35-7.45) ABG pCO2 74 H* 58 H (35-45) mmHg ABG pO2 307 H (83-108) mmHg ABG HCO3 16 L 19 L (21-25) mmol/L ABG Total CO2 18 L (19-24) mmol/L ABG O2 Saturation 99.3 H 91.7 L (94-97) % ABG Lactic Acid (0.5-1.6) mmol/L Sodium (137-145) mmol/L Potassium (3.5-5.1) mmol/L Chloride (98-107) mmol/L Carbon Dioxide (22-30) mmol/L BUN (7-17) mg/dL Creatinine (0.52-1.04) mg/dL Glucose (74-99) mg/dL POC Glucose (mg/dL) (75-99) mg/dL Calcium (8.4-10.2) mg/dL Phosphorus (2.5-4.5) mg/dL AST (14-36) U/L ALT (9-52) U/L Total Protein (6.3-8.2) g/dL Albumin (3.5-5.0) g/dL Crossmatch See Detail 01/25/18 01/25/18 01/26/18 Range/Units 13:51 23:37 04:01 WBC 41.4 H* (3.8-10.6) k/uL RBC 2.86 L (3.80-5.40) m/uL Hgb 7.5 L (11.4-16.0) gm/dL Hct 23.9 L (34.0-46.0) % MCHC (31.0-37.0) g/dL RDW 17.8 H (11.5-15.5) % Plt Count 462 H (150-450) k/uL Neutrophils # (Manual) 38.50 H (1.3-7.7) k/uL Lymphocytes # (Manual) (1.0-4.8) k/uL Monocytes # (Manual) 2.07 H (0-1.0) k/uL ABG pH (7.35-7.45) ABG pCO2 (35-45) mmHg ABG pO2 (83-108) mmHg ABG HCO3 (21-25) mmol/L ABG Total CO2 (19-24) mmol/L ABG O2 Saturation (94-97) % ABG Lactic Acid (0.5-1.6) mmol/L Sodium (137-145) mmol/L Potassium (3.5-5.1) mmol/L Chloride (98-107) mmol/L Carbon Dioxide (22-30) mmol/L BUN (7-17) mg/dL Creatinine (0.52-1.04) mg/dL Glucose (74-99) mg/dL POC Glucose (mg/dL) 177 H 100 H (75-99) mg/dL Calcium (8.4-10.2) mg/dL Phosphorus (2.5-4.5) mg/dL AST (14-36) U/L ALT (9-52) U/L Total Protein (6.3-8.2) g/dL Albumin (3.5-5.0) g/dL Crossmatch 01/26/18 01/26/18 01/26/18 Range/Units 04:01 04:41 08:00 WBC (3.8-10.6) k/uL RBC (3.80-5.40) m/uL Hgb (11.4-16.0) gm/dL Hct (34.0-46.0) % MCHC (31.0-37.0) g/dL RDW (11.5-15.5) % Plt Count (150-450) k/uL Neutrophils # (Manual) (1.3-7.7) k/uL Lymphocytes # (Manual) (1.0-4.8) k/uL Monocytes # (Manual) (0-1.0) k/uL ABG pH 7.31 L (7.35-7.45) ABG pCO2 31 L (35-45) mmHg ABG pO2 141 H (83-108) mmHg ABG HCO3 16 L (21-25) mmol/L ABG Total CO2 17 L (19-24) mmol/L ABG O2 Saturation 98.9 H (94-97) % ABG Lactic Acid 11.6 H* (0.5-1.6) mmol/L Sodium 133 L (137-145) mmol/L Potassium 5.8 H (3.5-5.1) mmol/L Chloride (98-107) mmol/L Carbon Dioxide 17 L (22-30) mmol/L BUN 29 H (7-17) mg/dL Creatinine 1.06 H (0.52-1.04) mg/dL Glucose (74-99) mg/dL POC Glucose (mg/dL) (75-99) mg/dL Calcium 7.9 L (8.4-10.2) mg/dL Phosphorus 5.9 H (2.5-4.5) mg/dL AST 400 H (14-36) U/L ALT 484 H (9-52) U/L Total Protein 4.4 L (6.3-8.2) g/dL Albumin 2.4 L (3.5-5.0) g/dL Crossmatch 01/26/18 01/26/18 01/26/18 Range/Units 08:00 08:00 09:27 WBC 35.0 H* (3.8-10.6) k/uL RBC 2.50 L (3.80-5.40) m/uL Hgb 6.4 L* (11.4-16.0) gm/dL Hct 21.9 L (34.0-46.0) % MCHC 29.4 L (31.0-37.0) g/dL RDW 18.4 H (11.5-15.5) % Plt Count (150-450) k/uL Neutrophils # (Manual) 32.90 H (1.3-7.7) k/uL Lymphocytes # (Manual) 0.70 L (1.0-4.8) k/uL Monocytes # (Manual) 1.40 H (0-1.0) k/uL ABG pH (7.35-7.45) ABG pCO2 (35-45) mmHg ABG pO2 (83-108) mmHg ABG HCO3 (21-25) mmol/L ABG Total CO2 (19-24) mmol/L ABG O2 Saturation (94-97) % ABG Lactic Acid (0.5-1.6) mmol/L Sodium 134 L (137-145) mmol/L Potassium 7.3 H* (3.5-5.1) mmol/L Chloride 109 H (98-107) mmol/L Carbon Dioxide 11 L (22-30) mmol/L BUN 26 H (7-17) mg/dL Creatinine 1.26 H (0.52-1.04) mg/dL Glucose <20 L* (74-99) mg/dL POC Glucose (mg/dL) 124 H (75-99) mg/dL Calcium 6.7 L (8.4-10.2) mg/dL Phosphorus 8.4 H* (2.5-4.5) mg/dL AST 3211 H (14-36) U/L ALT 2982 H (9-52) U/L Total Protein 4.1 L (6.3-8.2) g/dL Albumin 2.1 L (3.5-5.0) g/dL Crossmatch 01/26/18 01/26/18 Range/Units 10:17 10:59 WBC (3.8-10.6) k/uL RBC (3.80-5.40) m/uL Hgb (11.4-16.0) gm/dL Hct (34.0-46.0) % MCHC (31.0-37.0) g/dL RDW (11.5-15.5) % Plt Count (150-450) k/uL Neutrophils # (Manual) (1.3-7.7) k/uL Lymphocytes # (Manual) (1.0-4.8) k/uL Monocytes # (Manual) (0-1.0) k/uL ABG pH <7.00 L* (7.35-7.45) ABG pCO2 24 L (35-45) mmHg ABG pO2 129 H (83-108) mmHg ABG HCO3 6 L* (21-25) mmol/L ABG Total CO2 6 L (19-24) mmol/L ABG O2 Saturation (94-97) % ABG Lactic Acid (0.5-1.6) mmol/L Sodium (137-145) mmol/L Potassium (3.5-5.1) mmol/L Chloride (98-107) mmol/L Carbon Dioxide (22-30) mmol/L BUN (7-17) mg/dL Creatinine (0.52-1.04) mg/dL Glucose (74-99) mg/dL POC Glucose (mg/dL) 102 H (75-99) mg/dL Calcium (8.4-10.2) mg/dL Phosphorus (2.5-4.5) mg/dL AST (14-36) U/L ALT (9-52) U/L Total Protein (6.3-8.2) g/dL Albumin (3.5-5.0) g/dL Crossmatch Microbiology - Last 24 Hours (Table) 01/12/18 14:25 Acid Fast Bacilli Smear - Final Bronchoalviolar Lavage - Right Acid Fast Bacilli Culture - Preliminary - Imaging and Cardiology Chest x-ray: report reviewed, image reviewed Transthoracic echocardiograms reviewed Assessment and Plan (1) Abdominal pain Current Visit: Yes Status: Acute Code(s): R10.9 - UNSPECIFIED ABDOMINAL PAIN SNOMED Code(s): 59145474 (2) COPD with exacerbation Current Visit: Yes Status: Chronic Code(s): J44.1 - CHRONIC OBSTRUCTIVE PULMONARY DISEASE W (ACUTE) EXACERBATION SNOMED Code(s): 830055801 (3) Pericardial effusion Current Visit: Yes Status: Acute Code(s): I31.3 - PERICARDIAL EFFUSION ( NONINFLAMMATORY) SNOMED Code(s): 332439461 (4) Pleuritic chest pain Current Visit: Yes Status: Acute Code(s): R07.81 - PLEURODYNIA SNOMED Code (s): 2201500 (5) Pulmonary nodule, left Current Visit: Yes Status: Acute Code(s): R91.1 - SOLITARY PULMONARY NODULE SNOMED Code(s): 304755742 (6) CAD (coronary artery disease) Current Visit: Yes Status: Chronic Code(s): I25.10 - ATHSCL HEART DISEASE OF [place] CORONARY ARTERY W/O ANG PCTRS SNOMED Code(s): 83315651 (7) H/O mitral valve repair Current Visit: Yes Status: Chronic Code(s): Z98.890 - OTHER SPECIFIED POSTPROCEDURAL STATES SNOMED Code(s): 278647665 (8) Ischemic cardiomyopathy Current Visit: Yes Status: Chronic Code(s): I25.5 - ISCHEMIC CARDIOMYOPATHY SNOMED Code(s): 112884785 (9) History of placement of internal cardiac defibrillator Current Visit: Yes Status: Chronic Code(s): Z95.810 - PRESENCE OF AUTOMATIC (IMPLANTABLE) CARDIAC DEFIBRILLATOR SNOMED Code(s): 308694128 Plan: 1. Discuss the case with Dr. Crawford this morning. Due to the patient's unstable nature and no evidence of tamponade not physiology on echocardiograms there is no need for surgical intervention for pericardial effusion at this point. In addition, patient received Plavix history morning, which does increase her risk for bleeding. 2. Ventilator management per pulmonology. 3. Lactic acidosis, metabolic acidosis, abdominal physiology per general surgery management. 4. Medical management of other comorbidities per primary/cardiology services. 5. More recommendations to follow. Time with Patient: Greater than 30
[2018-01-26] MEDS: PIPERACILLIN-TAZOBACTAM 3.375 GM in DEXTROSE/WATER 1 50ML.BAG IVPB SCH ×2 (12:19→16:20)
[2018-01-26] MEDS: VANCOMYCIN 1,000 MG in SODIUM CHLORIDE 0.9% 250 ML IVPB SCH (12:34)
[2018-01-26 12:55] LABS: Glucose,Whole Blood 60 mg/dL (75-99)
[2018-01-26 13:49] LABS: Glucose,Whole Blood 123 mg/dL (75-99)
[2018-01-26] MEDS ORDERED: SODIUM POLYSTYRENE SULFONATE 15 GM/60 ML BOTTLE PO ONE (14:00)
[2018-01-26 16:00] LABS: Glucose,Whole Blood 208 mg/dL (75-99)
[2018-01-26 16:04] LABS: ABG PCO2 25 mmHg (35-45); ABG PO2 133 mmHg (83-108)
[2018-01-26 16:05] LABS: ABG HCO3 6 mmol/L (21-25); ABG TCO2 7 mmol/L (19-24)
[2018-01-26 16:21] LABS: Anisocytosis Slight; Basophils # (A) 0.1 k/uL (0-0.2); Basophils % (A) 0 %; Eosinophils % (A) 0 %; HCT 28.4 % (34.0-46.0); Hypochromasia Marked; Lymphocytes % (A) 3 %; MCH 27.4 pg (25.0-35.0); MCHC 30.3 g/dL (31.0-37.0); MCV 90.5 fL (80.0-100.0); Mean Platelet Volume 7.7; Monocytes # (A) 0.7 k/uL (0-1.0); Monocytes % (A) 2 %; Neutrophils # (A) 27.1 k/uL (1.3-7.7); Neutrophils % (A) 94 %; Platelet Count 229 k/uL (150-450); Poikilocytosis Moderate; RBC 3.14 m/uL (3.80-5.40); RDW 16.5 % (11.5-15.5)
[2018-01-26 16:26] LABS: WBC 28.9 k/uL (3.8-10.6)
[2018-01-26 16:28] LABS: HGB 8.6 gm/dL (11.4-16.0)
[2018-01-26 16:47] LABS: Albumin 1.9 g/dL (3.5-5.0); Alkaline Phosphatase 81 U/L (38-126); Anion Gap 23 mmol/L; Blood Urea Nitrogen 28 mg/dL (7-17); Calcium 6.8 mg/dL (8.4-10.2); Chloride 106 mmol/L (98-107); Glucose 186 mg/dL (74-99); Magnesium 2.5 mg/dL (1.6-2.3); Sodium 137 mmol/L (137-145); Total Bilirubin 2.5 mg/dL (0.2-1.3); Total Protein 3.9 g/dL (6.3-8.2)
[2018-01-26 16:51] LABS: Carbon Dioxide 8 mmol/L (22-30)
[2018-01-26 16:52] LABS: Phosphorus 11.6 mg/dL (2.5-4.5)
[2018-01-26 16:55] LABS: ALT >10000 U/L (9-52)
[2018-01-26 17:44] LABS: AST 14571 U/L (14-36)
--- NOTE | 2018-01-26 17:57 | P.PN ---
Subjective Progress Note Date: 01/26/18 This is a 67-year-old female with a known history of COPD, ischemic cardiomyopathy status post AICD, congestive heart failure, myocardial infarction with coronary disease and cardiac stents, severe mitral regurgitation with clip. She presents to the hospital with a three-day complaint of cough and shortness of breath and pleuritic chest pain. Patient is wheezing and increased shortness of breath with activity. She presented to the emergency room for further evaluation. She's found have an elevated d- dimer. Computed tomography scan of the chest shows no PE. Does revealing new suspicious left lower lobe superior segment pulmonary nodule measuring 1.1 cm and multifocal left-sided focal pleural thickening and subpleural nodules. Mediastinal adenopathy is also suspicious. Parabronchial coughing and mucus plugging in association with by basilar airspace disease may represent bronchitis and postobstructive atelectasis although early pneumonia is possible. Also partial visualization of the mid abdominal aortic aneurysm and descending thoracic aortic aneurysm. Patient has been started on IV steroids and IV antibiotics for an acute COPD exacerbation and possible pneumonia. White count was 11.1 and pulmonary service has been consulted. Patient denies any fever chills or sweats. Denies any nausea or vomiting. Denies any bowel movement changes or urinary symptoms. On 01/12/2018 patient is alert and oriented she is still complaining of continuous cough she is complaining of shortness of breath and wheezing with any activity, she underwent bronchoscopy earlier with Dr. Samuel. Otherwise she denies any complaints 01/13/2018 patient is status post bronchoscopy. She reports some improvement in her cough and shortness of breath. She is complaining of muscle cramping in her back. Also complaining of constipation. Cardiology will be consulted for a moderate pericardial effusion noted on echo. Patient's blood pressures also been elevated. Her lisinopril will be increased. 01/14/2018 blood pressures were elevated yesterday: Lisinopril was increased to 10 mg daily. Blood pressures are showing improvement this morning. She is still having a productive cough with thick phlegm. Reports improvement in her shortness of breath. Cytology was negative for any malignant cells. Pulmonary service is following. Cardiology also consulted regards to the pericardial effusion. They are checking a sed rate level to rule out pericarditis. Patient also complaining of constipation. no bowel movement with the lactulose. Enema will be ordered. Patient denies any chest pain. Reports some improvement in her cough. Denies any nausea or vomiting. Denies any burning with urination. Patient asking for increase in her [place]. At home she takes it as needed. On 01/15/2018 patient is alert and oriented. She reports some improvement in her cough and shortness of breath. She is complaining of abdominal bloating and pain otherwise she denies any complaints at this time On 01/16/2018 patient is alert and oriented. She reports some improvement in her cough and shortness of breath. She is complaining of pain in the abdomen and nausea otherwise she denies any complaints at this time 01/17/2018 patient still complaining of abdominal Cramping and distention. She had a computed tomography scan of the abdomen showing diffuse mild dilation of the small bowel containing fluid throughout without transition point with air and stool seen throughout the entirety of the non-dilated colon suggestive of a small bowel ileus or early partial small bowel obstruction. Patient also had a moderate urinary bladder distention without wall thickening noted as well as her chronic right-sided hydronephrosis and abdominal aortic aneurysm. And a right middle lobe airspace disease with bronchiolitis and small airway disease of inflammatory or infectious etiology. Surgical service will be consulted. Post void residual was checked and found to have 466 mL's. Sampson catheter inserted. Urinalysis with culture and sensitivity will also be checked. White count up at 22.9 and the patient is also on prednisone. Sodium was 130. Creatinine 1.11. We'll place her on normal saline at 50 mL an hour. Patient's last bowel movement was yesterday prior to CAT scan. However, patient reports that bones that she has had have been liquid. She did have one episode of vomiting. 01/18/2018 patient was seen by surgical service started on subset enemas and lactulose. Patient was able to have 2 very small bowel movements. She reports amidst just small pieces of stool. She's having a lot of abdominal cramping. Denies any further vomiting. Reports that her breathing and cough are much better. Has Sampson catheter in place for urinary retention. Urology has been consulted. Denies any chest pain. 01/19/2018 has NG tube in, had multiple bowel movement this morning, she was evaluated by surgery, and plan is for possible exploratory laparotomy . At this time lungs are clear, there is no significant cough or shortness of breath. 01/20/2018 patient is status post laparoscopic lysis of adhesions and evidence of ileus with Dr. Olivia. She is postop day #1. NG tube remains in place. With brown fecal material present. She has not passed gas or had bowel movement after surgery. Pain is improving. Denies any nausea or vomiting. Denies any chest pain or shortness of breath. Sampson catheter remains in place. 01/21/2018 postop day #2. NG tube removed and Sampson catheter removed. Patient currently on ice chips. She is hungry and asking when she'll be able to start diet. She is passing some gas. No bowel movement yet. Denies any nausea or vomiting. Denies any chest pain or shortness of breath. Has not urinated yet 01/24/2018 patient has been hypotensive required fluid boluses last night and again this morning. Lisinopril was discontinued. Lasix was held this morning. Continue to monitor blood pressures. Patient also seen by surgical service she is passing gas and had a bowel movement yesterday. Currently on a regular diet. Denies any nausea or vomiting. Still having some abdominal pain. She is complaining of some chest pressure in the center of her chest troponin and EKG ordered this morning. Urinating without difficulty. 01/25/2018 patient evaluated this morning after nurse helped get her off of the bedside commode after urinating. Patient was very pale and weak. She Just Didn 't Feel Right. Patient Reported Being Short of Breath and Started to Tense up. Almost having seizure-like activity. Didn't she was not following any commands. She became unresponsive and unable to get her blood pressure. She had no pulse. CODE BLUE was called. CPR was started. Patient did require to be intubated. Possible AICD discharge. Patient was transferred to the ICU. [employer] was notified. Cardiology was consulted. Patient's hemoglobin is at 7.8. She'll be receiving a unit of blood. Earlier today she had an episode of vomiting. The emesis contained solid pieces of food from last night did. She also has had a bowel movement. White count has jumped up to 18.7. Sodium 132. Slight elevation in her AST and, ALT likely related to poor perfusion to the liver due to hypotension. 01/26/2018 patient is intubated sedated maintained on mechanical ventilation, maintained on pressure support, she had cardiac arrest earlier this morning, she is maintained on IV antibiotic Zosyn and vancomycin, white blood count is up to 28.9 hemoglobin 8.6 AST and ALT significantly elevated pH at 7 Objective - Vital Signs Vital signs: Vital Signs Temp 98.2 F 01/26/18 12:35 Pulse 86 01/26/18 15:48 Resp 26 H 01/26/18 15:00 BP 138/67 01/26/18 12:35 Pulse Ox 82 L 01/26/18 15:00 Intake & Output 01/25/18 01/26/18 01/26/18 18:59 06:59 18:59 Intake Total 4829.105 4210.064 1775.614 Output Total 255 1230 1045 Balance 1099.812 311.064 730.614 Weight 54.4 kg Intake: Intake, IV Titration 8020.596 7337.064 1155.614 Amount ACETAMINOPHEN IV (For NPO 300 ) 1,000 mg In Empty Bag 1 bag @ 400 mls/hr IVPB Q6HR PRN Rx#:[id number] Dextrose 5% in Water 1, 200 000 ml @ 50 mls/hr IV . Q23H [facility] with Sodium Bicarb (1 Meq/ml) 150 ml Rx#:[id number] EPINEPHrine 2 mg In 102.264 Dextrose 5% in Water 250 ml @ 2 MCG/MIN 15.12 mls/ hr IV .[id number] [facility] Rx#: [id number] Norepinephrin 16 mg-0.9% 4.812 217.924 250.000 Ns Pmx 16 mg In 250 ml @ Titrate IV .Q0M [facility] Rx#: [id number] Piperacillin-Tazobactam 3 50.0 50 .375 gm In Dextrose/Water 1 50ml.bag @ 12.5 mls/hr IVPB Q8HR [facility] Rx#: [id number] Propofol 1,000 mg In 73.140 3.35 Empty Bag 1 bag @ Titrate IV .Q0M [facility] Rx#: [id number] Sodium Chloride 0.9% 1, 300 600 100 000 ml @ 100 mls/hr IV . Q10H [facility] Rx#:[id number] Sodium Chloride 0.9% 1, 300 500 000 ml @ 100 mls/hr IV . Q10H [facility] Rx#:[id number] Sodium Chloride 0.9% 1, 1000 000 ml @ 250 mls/hr IV . Q4H [facility] Rx#:[id number] Blood Product 620 Rc As-1 Unit 310 [id number] Rc As-3 Unit 310 [id number] Output: Gastric Drainage 550 50 Urine 255 680 295 Uretheral (Sampson) 10 Oral Regurgitation 700 Other: Voiding Method Indwelling Catheter Indwelling Catheter Indwelling Catheter ABP, PAP, CO, CI - Last Documented Arterial Blood Pressure 144/59 - Exam Head normocephalic and atraumatic, NG tube in, patient intubated on mechanical ventilation Neck supple no JVD no goiter Lungs good air entry bilaterally no crackles no wheezing Heart regular rate and rhythm S1-S2, no rub or gallop Abdomen is soft with mild diffuse tenderness positive bowel sounds no hepatosplenomegaly Extremities no edema no cyanosis or clubbing - Labs CBC & Chem 7: 01/26/18 16:00 01/26/18 16:00 Labs: Abnormal Lab Results - Last 24 Hours (Table) 01/25/18 01/25/18 01/26/18 Range/Units 11:51 23:37 04:01 WBC 41.4 H* (3.8-10.6) k/uL RBC 2.86 L (3.80-5.40) m/uL Hgb 7.5 L (11.4-16.0) gm/dL Hct 23.9 L (34.0-46.0) % MCHC (31.0-37.0) g/dL RDW 17.8 H (11.5-15.5) % Plt Count 462 H (150-450) k/uL Neutrophils # (1.3-7.7) k/uL Neutrophils # (Manual) 38.50 H (1.3-7.7) k/uL Lymphocytes # (Manual) (1.0-4.8) k/uL Monocytes # (Manual) 2.07 H (0-1.0) k/uL ABG pH (7.35-7.45) ABG pCO2 (35-45) mmHg ABG pO2 (83-108) mmHg ABG HCO3 (21-25) mmol/L ABG Total CO2 (19-24) mmol/L ABG O2 Saturation (94-97) % ABG Lactic Acid (0.5-1.6) mmol/L Sodium (137-145) mmol/L Potassium (3.5-5.1) mmol/L Chloride (98-107) mmol/L Carbon Dioxide (22-30) mmol/L BUN (7-17) mg/dL Creatinine (0.52-1.04) mg/dL Glucose (74-99) mg/dL POC Glucose (mg/dL) 100 H (75-99) mg/dL Calcium (8.4-10.2) mg/dL Phosphorus (2.5-4.5) mg/dL Magnesium (1.6-2.3) mg/dL Total Bilirubin (0.2-1.3) mg/dL AST (14-36) U/L ALT (9-52) U/L Total Protein (6.3-8.2) g/dL Albumin (3.5-5.0) g/dL Crossmatch See Detail 01/26/18 01/26/18 01/26/18 Range/Units 04:01 04:41 08:00 WBC (3.8-10.6) k/uL RBC (3.80-5.40) m/uL Hgb (11.4-16.0) gm/dL Hct (34.0-46.0) % MCHC (31.0-37.0) g/dL RDW (11.5-15.5) % Plt Count (150-450) k/uL Neutrophils # (1.3-7.7) k/uL Neutrophils # (Manual) (1.3-7.7) k/uL Lymphocytes # (Manual) (1.0-4.8) k/uL Monocytes # (Manual) (0-1.0) k/uL ABG pH 7.31 L (7.35-7.45) ABG pCO2 31 L (35-45) mmHg ABG pO2 141 H (83-108) mmHg ABG HCO3 16 L (21-25) mmol/L ABG Total CO2 17 L (19-24) mmol/L ABG O2 Saturation 98.9 H (94-97) % ABG Lactic Acid 11.6 H* (0.5-1.6) mmol/L Sodium 133 L (137-145) mmol/L Potassium 5.8 H (3.5-5.1) mmol/L Chloride (98-107) mmol/L Carbon Dioxide 17 L (22-30) mmol/L BUN 29 H (7-17) mg/dL Creatinine 1.06 H (0.52-1.04) mg/dL Glucose (74-99) mg/dL POC Glucose (mg/dL) (75-99) mg/dL Calcium 7.9 L (8.4-10.2) mg/dL Phosphorus 5.9 H (2.5-4.5) mg/dL Magnesium (1.6-2.3) mg/dL Total Bilirubin (0.2-1.3) mg/dL AST 400 H (14-36) U/L ALT 484 H (9-52) U/L Total Protein 4.4 L (6.3-8.2) g/dL Albumin 2.4 L (3.5-5.0) g/dL Crossmatch 01/26/18 01/26/18 01/26/18 Range/Units 08:00 08:00 09:27 WBC 35.0 H* (3.8-10.6) k/uL RBC 2.50 L (3.80-5.40) m/uL Hgb 6.4 L* (11.4-16.0) gm/dL Hct 21.9 L (34.0-46.0) % MCHC 29.4 L (31.0-37.0) g/dL RDW 18.4 H (11.5-15.5) % Plt Count (150-450) k/uL Neutrophils # (1.3-7.7) k/uL Neutrophils # (Manual) 32.90 H (1.3-7.7) k/uL Lymphocytes # (Manual) 0.70 L (1.0-4.8) k/uL Monocytes # (Manual) 1.40 H (0-1.0) k/uL ABG pH (7.35-7.45) ABG pCO2 (35-45) mmHg ABG pO2 (83-108) mmHg ABG HCO3 (21-25) mmol/L ABG Total CO2 (19-24) mmol/L ABG O2 Saturation (94-97) % ABG Lactic Acid (0.5-1.6) mmol/L Sodium 134 L (137-145) mmol/L Potassium 7.3 H* (3.5-5.1) mmol/L Chloride 109 H (98-107) mmol/L Carbon Dioxide 11 L (22-30) mmol/L BUN 26 H (7-17) mg/dL Creatinine 1.26 H (0.52-1.04) mg/dL Glucose <20 L* (74-99) mg/dL POC Glucose (mg/dL) 124 H (75-99) mg/dL Calcium 6.7 L (8.4-10.2) mg/dL Phosphorus 8.4 H* (2.5-4.5) mg/dL Magnesium (1.6-2.3) mg/dL Total Bilirubin (0.2-1.3) mg/dL AST 3211 H (14-36) U/L ALT 2982 H (9-52) U/L Total Protein 4.1 L (6.3-8.2) g/dL Albumin 2.1 L (3.5-5.0) g/dL Crossmatch 01/26/18 01/26/18 01/26/18 Range/Units 10:17 10:59 12:53 WBC (3.8-10.6) k/uL RBC (3.80-5.40) m/uL Hgb (11.4-16.0) gm/dL Hct (34.0-46.0) % MCHC (31.0-37.0) g/dL RDW (11.5-15.5) % Plt Count (150-450) k/uL Neutrophils # (1.3-7.7) k/uL Neutrophils # (Manual) (1.3-7.7) k/uL Lymphocytes # (Manual) (1.0-4.8) k/uL Monocytes # (Manual) (0-1.0) k/uL ABG pH <7.00 L* (7.35-7.45) ABG pCO2 24 L (35-45) mmHg ABG pO2 129 H (83-108) mmHg ABG HCO3 6 L* (21-25) mmol/L ABG Total CO2 6 L (19-24) mmol/L ABG O2 Saturation (94-97) % ABG Lactic Acid (0.5-1.6) mmol/L Sodium (137-145) mmol/L Potassium (3.5-5.1) mmol/L Chloride (98-107) mmol/L Carbon Dioxide (22-30) mmol/L BUN (7-17) mg/dL Creatinine (0.52-1.04) mg/dL Glucose (74-99) mg/dL POC Glucose (mg/dL) 102 H 60 L (75-99) mg/dL Calcium (8.4-10.2) mg/dL Phosphorus (2.5-4.5) mg/dL Magnesium (1.6-2.3) mg/dL Total Bilirubin (0.2-1.3) mg/dL AST (14-36) U/L ALT (9-52) U/L Total Protein (6.3-8.2) g/dL Albumin (3.5-5.0) g/dL Crossmatch 01/26/18 01/26/18 01/26/18 Range/Units 13:48 15:46 15:55 WBC (3.8-10.6) k/uL RBC (3.80-5.40) m/uL Hgb (11.4-16.0) gm/dL Hct (34.0-46.0) % MCHC (31.0-37.0) g/dL RDW (11.5-15.5) % Plt Count (150-450) k/uL Neutrophils # (1.3-7.7) k/uL Neutrophils # (Manual) (1.3-7.7) k/uL Lymphocytes # (Manual) (1.0-4.8) k/uL Monocytes # (Manual) (0-1.0) k/uL ABG pH 7.00 L* (7.35-7.45) ABG pCO2 25 L (35-45) mmHg ABG pO2 133 H (83-108) mmHg ABG HCO3 6 L* (21-25) mmol/L ABG Total CO2 7 L (19-24) mmol/L ABG O2 Saturation 98.0 H (94-97) % ABG Lactic Acid (0.5-1.6) mmol/L Sodium (137-145) mmol/L Potassium (3.5-5.1) mmol/L Chloride (98-107) mmol/L Carbon Dioxide (22-30) mmol/L BUN (7-17) mg/dL Creatinine (0.52-1.04) mg/dL Glucose (74-99) mg/dL POC Glucose (mg/dL) 123 H 208 H (75-99) mg/dL Calcium (8.4-10.2) mg/dL Phosphorus (2.5-4.5) mg/dL Magnesium (1.6-2.3) mg/dL Total Bilirubin (0.2-1.3) mg/dL AST (14-36) U/L ALT (9-52) U/L Total Protein (6.3-8.2) g/dL Albumin (3.5-5.0) g/dL Crossmatch 01/26/18 01/26/18 01/26/18 Range/Units 16:00 16:00 16:00 WBC 28.9 H* (3.8-10.6) k/uL RBC 3.14 L (3.80-5.40) m/uL Hgb 8.6 L D (11.4-16.0) gm/dL Hct 28.4 L (34.0-46.0) % MCHC 30.3 L (31.0-37.0) g/dL RDW 16.5 H (11.5-15.5) % Plt Count (150-450) k/uL Neutrophils # 27.1 H (1.3-7.7) k/uL Neutrophils # (Manual) (1.3-7.7) k/uL Lymphocytes # (Manual) (1.0-4.8) k/uL Monocytes # (Manual) (0-1.0) k/uL ABG pH (7.35-7.45) ABG pCO2 (35-45) mmHg ABG pO2 (83-108) mmHg ABG HCO3 (21-25) mmol/L ABG Total CO2 (19-24) mmol/L ABG O2 Saturation (94-97) % ABG Lactic Acid 16.7 H* (0.5-1.6) mmol/L Sodium (137-145) mmol/L Potassium 6.0 H (3.5-5.1) mmol/L Chloride (98-107) mmol/L Carbon Dioxide 8 L* (22-30) mmol/L BUN 28 H (7-17) mg/dL Creatinine 1.79 H (0.52-1.04) mg/dL Glucose 186 H (74-99) mg/dL POC Glucose (mg/dL) (75-99) mg/dL Calcium 6.8 L (8.4-10.2) mg/dL Phosphorus 11.6 H* (2.5-4.5) mg/dL Magnesium 2.5 H (1.6-2.3) mg/dL Total Bilirubin 2.5 H (0.2-1.3) mg/dL AST 50872 H (14-36) U/L ALT >55398 H (9-52) U/L Total Protein 3.9 L (6.3-8.2) g/dL Albumin 1.9 L (3.5-5.0) g/dL Crossmatch Microbiology - Last 24 Hours (Table) 01/12/18 14:25 Acid Fast Bacilli Smear - Final Bronchoalviolar Lavage - Right Acid Fast Bacilli Culture - Preliminary Assessment and Plan Plan: 1. Cardiac arrest: Patient required CPR and intubation. Transfer to the ICU. Discussed case with Dr. Samuel. Cardiology consulted. Hemoglobin 7.8 she will receive 1 unit of blood. Patient coded again twice this morning. 2. Hypotension patient had required fluid boluses yesterday. Lisinopril discontinued Lasix dose was decreased. 2. Acute COPD exacerbation: Pulmonary following. Continue oral prednisone and bronchodilators. Followed by pulmonary 2. Bilateral pneumonia: Patient status post bronchoscopy. Cytology negative for malignant cells. Bronchial wash cultures showing normal respiratory nati and [place] which is likely colonization. Currently off antibiotics 3. Elevated d-dimer on admission CTA negative for PE 4. New suspicious left lower lobe superior segment pulmonary nodule measuring 1.1 cm noted on computed tomography scan of the chest. Followed by pulmonary service. Patient does have a past history of smoking pulmonary is recommending repeat computed tomography scan of the chest or PET scan and outpatient setting. 5. Abdominal aortic aneurysm and descending thoracic aortic aneurysm. With abdominal aortic aneurysm only partially visualized measuring 3.9 x 3.7 cm abdominal ultrasound will be ordered for further evaluation. Descending Thoracic aortic aneurysm measuring 3.5 cm. abdominal ultrasound revealing a 4 x 2.9 cm abdominal aortic aneurysm 6. History of ischemic cardiomyopathy status post AICD placement 7. History of myocardial infarction with coronary disease and cardiac stents 8. History of iron deficiency anemia patient has stopped taking her iron supplement. Iron level low at 7. Resume ferrous sulfate 325 mg twice a day. Hemoglobin 7.8. Patient will receive 1 unit of blood 9. History of severe mitral regurgitation status post mitral valve click completed at [place] May 2017 10. Moderate pericardial effusion: Seen by cardiology. ESR not elevated, patient also evaluated by cardiothoracic surgery no intervention recommended at this time 11. Mediastinal lymphadenopathy likely reactive from patient's pneumonia. Pulmonary following 12. Back muscle spasms and chronic back pain. Continue the [place] and Flexeril as needed 13. History of Essential hypertension: 14. Intra-abdominal adhesions with ileus status post diagnostic laparoscopy with laparoscopic lysis of adhesions with Dr. Olivia. Patient followed by surgical service. She's currently on a regular diet. Having bowel movements and passing gas. Pain controlled 15. Urinary retention: Seen by urology. Sampson catheter removed on Wednesday. No further evidence of urinary retention. 16. Hyponatremia: Sodium 132. Patient has been on IV fluids and Lasix was decreased to 40 mg daily yesterday 17. Elevated LFTs likely due to poor perfusion due to hypotension
--- NOTE | 2018-01-26 20:07 | P.PN ---
Subjective Progress Note Date: 01/26/18 Principal diagnosis: Status post cardiac arrest, aspiration pneumonia, acute hypoxic respiratory failure, Bilateral pneumonia, radicular nodular infiltrate with early cavity formation, shortness of breath and acute COPD exacerbation mediastinal lymphadenopathy, acute on chronic systolic heart failure, pericardial effusion, severe degree of mitral regurgitation, mild pulmonary hypertension, small bowel obstruction due to intra-abdominal bands and adhesions, status post laparoscopy lysis of bands and adhesions, urinary retention, hypertension 01/23/2018, patient seen and evaluated examined overall respiratory status stable breathing comfortably no obvious distress present Ammann being followed by surgical services as well as urology 01/24/2018 patient seen eval reexamined breathing comfortably no obvious distress present tolerating by mouth relatively well surgical services following no obvious respiratory distress 01/25/2018, critical care time spent 45 minutes Apparently this morning she had gotten up the bedside commode, complained of not feeling right, was pale and weak, and subsequently became unresponsive. [facility] was called, CPR started with ROSC, patient was intubated and transferred to the intensive care unit. Her AICD did discharge. A repeat echocardiogram was performed by cardiology which did demonstrate continued pericardial effusion. patient seen and evaluated examined in the ICU after cardiac arrest patient remains unresponsive initially patient was seen was on the assist control with a rate of 14, tidal volume of 400, 100% oxygen, PEEP of 5 and arterial blood gas noted significant finding was severe profound respiratory and metabolic acidosis with pH of 6.9 ventilator was adjusted with a rate in escalated to 18 and tidal volume increased to 450 pH did improve to 7.1 with improvement in oxygenation and ventilation, doing evaluation patient does breathe over the respirator with few occasional and spontaneous breath initiation patient is hypertensive with a systolic blood pressure is 160 over diastolic pressure of 90 and slightly anxious was started on propofol blood pressure did drop down into 110 to 130 systolic, patient appears to be slightly volume depleted was started on IV fluid normal saline 100 mL an hour patient also noted to have drop in blood pressure further the propofol was discontinued and fluid bolus of 2 50 mL an hour crystalloid was given given poor hemodynamic status decision was done to put a central line and A-line, patient has been intubated with endotracheal tube #8, patient has been evaluated by cardiovascular services as well as surgical services discussed with the surgery, patient has AICD which is to be interrogated later on, labs and chest x-ray reviewed arterial blood gases reviewed new dense infiltrate predominantly daunted in the right upper lobe likely aspiration related process with history of emesis earlier this morning prior to the event, critical care time spent 45 minutes which does not include time spent for line placement 01/26/2018, critical care time spent 60 minutes Patient seen and evaluated examined multiple times today she remains on full respirator support ventilator has been adjusted she is currently on assist control rate of 22 breathing 24-26 tidal volume is 450, PEEP is 5 and 40% oxygen , patient has very complicated sequence of events today she was found to be severely hyperkalemic for that she required 30 g of Kayexalate 2 she has been aggressively resuscitated with crystalloids see flowsheet for detail for low blood pressure initially she was placed on levo fed which was escalated up to 40 mics without any significant improvement with addition of vasopressin 0.04 with that blood pressure remains on the lower side in 50s and 60s requiring epinephrine drip patient was started on 1 Gene of epinephrine with that blood pressure did improve but however patient developed severe profound metabolic acidosis with pH of 6.9 patient has been started on bicarb drip has received 4 A of bicarb, has been aggressively resuscitated with fluids she has some urine output about 30-40 clear urine has been obtained renal functions overall remains stable but slight decline of creatinine have been noted repeat labs revealed potassium came down to 6, patient also noted to have a hemoglobin drop down into mid 6 level in addition patient had coffee-ground emesis and aspirated suction from the OG tube there was a question of some questionable fecal material as well a flat plate of the abdomen was done in 2 units of packed RBC has been transfused as well, no more fecal material has been noted. Overall plan is once patient is slightly stable to take her down for computed tomography scan of the abdominal and pelvis. Patient also has been evaluated by cardiothoracic surgery not considered to be a candidate for pericardial window as per pericardial effusion is mild, echocardiogram revealed global hypokinesia with ejection fraction only 20%, LA severely dilated, primary service updated about plan of care, overall is to lower down to the levo fed to 10 mics as tolerated blood pressure then start weaning the epinephrine drip continue to resuscitate and another set of labs including blood gas lactic acid to be performed later on today, Objective - Vital Signs Vital signs: Vital Signs Temp 98.2 F 01/26/18 16:00 Pulse 81 03/21/18 19:11 Resp 25 H 01/26/18 18:00 BP 138/67 01/26/18 12:35 Pulse Ox 97 01/26/18 16:00 Intake & Output 01/26/18 01/26/18 01/27/18 06:59 18:59 06:59 Intake Total 6820.472 4423.614 Output Total 1230 1190 Balance 311.064 985.614 Weight 54.4 kg Intake: Intake, IV Titration 0446.990 0950.614 Amount ACETAMINOPHEN IV (For NPO 300 ) 1,000 mg In Empty Bag 1 bag @ 400 mls/hr IVPB Q6HR PRN Rx#:[id number] Dextrose 5% in Water 1, 400 000 ml @ 100 mls/hr IV . [id number] DAMIAN with Sodium Bicarb (1 Meq/ml) 150 ml Rx#:[id number] EPINEPHrine 2 mg In 102.264 Dextrose 5% in Water 250 ml @ 2 MCG/MIN 15.12 mls/ hr IV .[id number] DAMIAN Rx#: [id number] Norepinephrin 16 mg-0.9% 217.924 250.000 Ns Pmx 16 mg In 250 ml @ Titrate IV .Q0M DAMIAN Rx#: [id number] Piperacillin-Tazobactam 3 50 .375 gm In Dextrose/Water 1 50ml.bag @ 12.5 mls/hr IVPB Q8HR DAMIAN Rx#: [id number] Propofol 1,000 mg In 73.140 3.35 Empty Bag 1 bag @ Titrate IV .Q0M DAMIAN Rx#: [id number] Sodium Chloride 0.9% 1, 600 300 000 ml @ 100 mls/hr IV . Q10H DAMIAN Rx#:[id number] Sodium Chloride 0.9% 1, 300 500 000 ml @ 100 mls/hr IV . Q10H DAMIAN Rx#:[id number] Blood Product 620 As-1 Unit 310 [id number] Rc As-3 Unit 310 [id number] Output: Gastric Drainage 550 50 Urine 680 440 Oral Regurgitation 700 Other: Voiding Method Indwelling Catheter Indwelling Catheter ABP, PAP, CO, CI - Last Documented Arterial Blood Pressure 123/50 - Exam General appearance: Intubated on full ventilator support no apparent distress Head exam: Present: atraumatic, normocephalic, normal inspection Eye exam: Present: normal appearance, P Absent: scleral icterus, conjunctival injection, periorbital swelling ENT exam: Present: mucous membranes dry Neck exam: Present: normal inspection. Absent: tenderness, meningismus, lymphadenopathy, neck veins are slightly prominent but no JVD seen Respiratory exam: Present: wheezes (predominantly on the right upper lobe otherwise clear to auscultation, Cardiovascular Exam: Present: regular rate, normal rhythm, normal heart sounds. GI/Abdominal exam: Present: soft, normal bowel sounds. Not distended, non- tenderness, no guarding, no rebound, no rigid Extremities exam: Present: normal inspection, full ROM, normal capillary refill. Absent: tenderness, pedal edema, joint swelling, calf tenderness Neurological exam: Sedated with propofol drip Skin exam: Present: warm, dry, intact, normal color. Absent: rash - Labs CBC & Chem 7: 01/26/18 16:00 01/26/18 16:00 Labs: Abnormal Lab Results - Last 24 Hours (Table) 01/25/18 01/25/18 01/26/18 Range/Units 11:51 23:37 04:01 WBC 41.4 H* (3.8-10.6) k/uL RBC 2.86 L (3.80-5.40) m/uL Hgb 7.5 L (11.4-16.0) gm/dL Hct 23.9 L (34.0-46.0) % MCHC (31.0-37.0) g/dL RDW 17.8 H (11.5-15.5) % Plt Count 462 H (150-450) k/uL Neutrophils # (1.3-7.7) k/uL Neutrophils # (Manual) 38.50 H (1.3-7.7) k/uL Lymphocytes # (Manual) (1.0-4.8) k/uL Monocytes # (Manual) 2.07 H (0-1.0) k/uL ABG pH (7.35-7.45) ABG pCO2 (35-45) mmHg ABG pO2 (83-108) mmHg ABG HCO3 (21-25) mmol/L ABG Total CO2 (19-24) mmol/L ABG O2 Saturation (94-97) % ABG Lactic Acid (0.5-1.6) mmol/L Sodium (137-145) mmol/L Potassium (3.5-5.1) mmol/L Chloride (98-107) mmol/L Carbon Dioxide (22-30) mmol/L BUN (7-17) mg/dL Creatinine (0.52-1.04) mg/dL Glucose (74-99) mg/dL POC Glucose (mg/dL) 100 H (75-99) mg/dL Calcium (8.4-10.2) mg/dL Phosphorus (2.5-4.5) mg/dL Magnesium (1.6-2.3) mg/dL Total Bilirubin (0.2-1.3) mg/dL AST (14-36) U/L ALT (9-52) U/L Total Protein (6.3-8.2) g/dL Albumin (3.5-5.0) g/dL Crossmatch See Detail 01/26/18 01/26/18 01/26/18 Range/Units 04:01 04:41 08:00 WBC (3.8-10.6) k/uL RBC (3.80-5.40) m/uL Hgb (11.4-16.0) gm/dL Hct (34.0-46.0) % MCHC (31.0-37.0) g/dL RDW (11.5-15.5) % Plt Count (150-450) k/uL Neutrophils # (1.3-7.7) k/uL Neutrophils # (Manual) (1.3-7.7) k/uL Lymphocytes # (Manual) (1.0-4.8) k/uL Monocytes # (Manual) (0-1.0) k/uL ABG pH 7.31 L (7.35-7.45) ABG pCO2 31 L (35-45) mmHg ABG pO2 141 H (83-108) mmHg ABG HCO3 16 L (21-25) mmol/L ABG Total CO2 17 L (19-24) mmol/L ABG O2 Saturation 98.9 H (94-97) % ABG Lactic Acid 11.6 H* (0.5-1.6) mmol/L Sodium 133 L (137-145) mmol/L Potassium 5.8 H (3.5-5.1) mmol/L Chloride (98-107) mmol/L Carbon Dioxide 17 L (22-30) mmol/L BUN 29 H (7-17) mg/dL Creatinine 1.06 H (0.52-1.04) mg/dL Glucose (74-99) mg/dL POC Glucose (mg/dL) (75-99) mg/dL Calcium 7.9 L (8.4-10.2) mg/dL Phosphorus 5.9 H (2.5-4.5) mg/dL Magnesium (1.6-2.3) mg/dL Total Bilirubin (0.2-1.3) mg/dL AST 400 H (14-36) U/L ALT 484 H (9-52) U/L Total Protein 4.4 L (6.3-8.2) g/dL Albumin 2.4 L (3.5-5.0) g/dL Crossmatch 01/26/18 01/26/18 01/26/18 Range/Units 08:00 08:00 09:27 WBC 35.0 H* (3.8-10.6) k/uL RBC 2.50 L (3.80-5.40) m/uL Hgb 6.4 L* (11.4-16.0) gm/dL Hct 21.9 L (34.0-46.0) % MCHC 29.4 L (31.0-37.0) g/dL RDW 18.4 H (11.5-15.5) % Plt Count (150-450) k/uL Neutrophils # (1.3-7.7) k/uL Neutrophils # (Manual) 32.90 H (1.3-7.7) k/uL Lymphocytes # (Manual) 0.70 L (1.0-4.8) k/uL Monocytes # (Manual) 1.40 H (0-1.0) k/uL ABG pH (7.35-7.45) ABG pCO2 (35-45) mmHg ABG pO2 (83-108) mmHg ABG HCO3 (21-25) mmol/L ABG Total CO2 (19-24) mmol/L ABG O2 Saturation (94-97) % ABG Lactic Acid (0.5-1.6) mmol/L Sodium 134 L (137-145) mmol/L Potassium 7.3 H* (3.5-5.1) mmol/L Chloride 109 H (98-107) mmol/L Carbon Dioxide 11 L (22-30) mmol/L BUN 26 H (7-17) mg/dL Creatinine 1.26 H (0.52-1.04) mg/dL Glucose <20 L* (74-99) mg/dL POC Glucose (mg/dL) 124 H (75-99) mg/dL Calcium 6.7 L (8.4-10.2) mg/dL Phosphorus 8.4 H* (2.5-4.5) mg/dL Magnesium (1.6-2.3) mg/dL Total Bilirubin (0.2-1.3) mg/dL AST 3211 H (14-36) U/L ALT 2982 H (9-52) U/L Total Protein 4.1 L (6.3-8.2) g/dL Albumin 2.1 L (3.5-5.0) g/dL Crossmatch 01/26/18 01/26/18 01/26/18 Range/Units 10:17 10:59 12:53 WBC (3.8-10.6) k/uL RBC (3.80-5.40) m/uL Hgb (11.4-16.0) gm/dL Hct (34.0-46.0) % MCHC (31.0-37.0) g/dL RDW (11.5-15.5) % Plt Count (150-450) k/uL Neutrophils # (1.3-7.7) k/uL Neutrophils # (Manual) (1.3-7.7) k/uL Lymphocytes # (Manual) (1.0-4.8) k/uL Monocytes # (Manual) (0-1.0) k/uL ABG pH <7.00 L* (7.35-7.45) ABG pCO2 24 L (35-45) mmHg ABG pO2 129 H (83-108) mmHg ABG HCO3 6 L* (21-25) mmol/L ABG Total CO2 6 L (19-24) mmol/L ABG O2 Saturation (94-97) % ABG Lactic Acid (0.5-1.6) mmol/L Sodium (137-145) mmol/L Potassium (3.5-5.1) mmol/L Chloride (98-107) mmol/L Carbon Dioxide (22-30) mmol/L BUN (7-17) mg/dL Creatinine (0.52-1.04) mg/dL Glucose (74-99) mg/dL POC Glucose (mg/dL) 102 H 60 L (75-99) mg/dL Calcium (8.4-10.2) mg/dL Phosphorus (2.5-4.5) mg/dL Magnesium (1.6-2.3) mg/dL Total Bilirubin (0.2-1.3) mg/dL AST (14-36) U/L ALT (9-52) U/L Total Protein (6.3-8.2) g/dL Albumin (3.5-5.0) g/dL Crossmatch 01/26/18 01/26/18 01/26/18 Range/Units 13:48 15:46 15:55 WBC (3.8-10.6) k/uL RBC (3.80-5.40) m/uL Hgb (11.4-16.0) gm/dL Hct (34.0-46.0) % MCHC (31.0-37.0) g/dL RDW (11.5-15.5) % Plt Count (150-450) k/uL Neutrophils # (1.3-7.7) k/uL Neutrophils # (Manual) (1.3-7.7) k/uL Lymphocytes # (Manual) (1.0-4.8) k/uL Monocytes # (Manual) (0-1.0) k/uL ABG pH 7.00 L* (7.35-7.45) ABG pCO2 25 L (35-45) mmHg ABG pO2 133 H (83-108) mmHg ABG HCO3 6 L* (21-25) mmol/L ABG Total CO2 7 L (19-24) mmol/L ABG O2 Saturation 98.0 H (94-97) % ABG Lactic Acid (0.5-1.6) mmol/L Sodium (137-145) mmol/L Potassium (3.5-5.1) mmol/L Chloride (98-107) mmol/L Carbon Dioxide (22-30) mmol/L BUN (7-17) mg/dL Creatinine (0.52-1.04) mg/dL Glucose (74-99) mg/dL POC Glucose (mg/dL) 123 H 208 H (75-99) mg/dL Calcium (8.4-10.2) mg/dL Phosphorus (2.5-4.5) mg/dL Magnesium (1.6-2.3) mg/dL Total Bilirubin (0.2-1.3) mg/dL AST (14-36) U/L ALT (9-52) U/L Total Protein (6.3-8.2) g/dL Albumin (3.5-5.0) g/dL Crossmatch 01/26/18 01/26/18 01/26/18 Range/Units 16:00 16:00 16:00 WBC 28.9 H* (3.8-10.6) k/uL RBC 3.14 L (3.80-5.40) m/uL Hgb 8.6 L D (11.4-16.0) gm/dL Hct 28.4 L (34.0-46.0) % MCHC 30.3 L (31.0-37.0) g/dL RDW 16.5 H (11.5-15.5) % Plt Count (150-450) k/uL Neutrophils # 27.1 H (1.3-7.7) k/uL Neutrophils # (Manual) (1.3-7.7) k/uL Lymphocytes # (Manual) (1.0-4.8) k/uL Monocytes # (Manual) (0-1.0) k/uL ABG pH (7.35-7.45) ABG pCO2 (35-45) mmHg ABG pO2 (83-108) mmHg ABG HCO3 (21-25) mmol/L ABG Total CO2 (19-24) mmol/L ABG O2 Saturation (94-97) % ABG Lactic Acid 16.7 H* (0.5-1.6) mmol/L Sodium (137-145) mmol/L Potassium 6.0 H (3.5-5.1) mmol/L Chloride (98-107) mmol/L Carbon Dioxide 8 L* (22-30) mmol/L BUN 28 H (7-17) mg/dL Creatinine 1.79 H (0.52-1.04) mg/dL Glucose 186 H (74-99) mg/dL POC Glucose (mg/dL) (75-99) mg/dL Calcium 6.8 L (8.4-10.2) mg/dL Phosphorus 11.6 H* (2.5-4.5) mg/dL Magnesium 2.5 H (1.6-2.3) mg/dL Total Bilirubin 2.5 H (0.2-1.3) mg/dL AST 84563 H (14-36) U/L ALT >10571 H (9-52) U/L Total Protein 3.9 L (6.3-8.2) g/dL Albumin 1.9 L (3.5-5.0) g/dL Crossmatch Microbiology - Last 24 Hours (Table) 01/12/18 14:25 Acid Fast Bacilli Smear - Final Bronchoalviolar Lavage - Right Acid Fast Bacilli Culture - Preliminary Assessment and Plan Assessment: Acute blood loss anemia and upper GI bleed Severe hyperkalemia Status post cardiac arrest with evidence of discharge on AICD likely primary cardiac process with cardiac arrest Aspiration pneumonia with a developing right upper lobe consolidation Profound respiratory and metabolic acidosis related to cardiac arrest Small to moderate pericardial effusion Small bowel obstruction related to abandon in addition status post laparoscopy lysis of bands and adhesions Bilateral nodular infiltrate with some of them early cavitary appearance Acute COPD exacerbation Bilateral pneumonia Mediastinal lymphadenopathy likely reactive lymphadenopathy Uncontrolled hypertension hypertensive cardiovascular disease Abdominal aortic aneurysm and ascending thoracic aneurysm Severe valvular heart disease with mitral regurgitation with prior history of surgeries Acute on chronic systolic heart failure ejection fraction of 40% Plan: Vasopressor support as needed with fluid resuscitation Ventilator adjustment broad-spectrum antibiotics with IV Zosyn and vancomycin Reviewed recommendation of cardiothoracic surgery consultation Bicarb drip, aggressive rehydration correction of severe hyperkalemia Breathing treatments IV antibiotics as well as oral steroids continue tapering down the steroids Evaluation of pulmonary nodules on outpatient setting with a PET scan Aamir masses overall is very guarded care plan discussed with the present at bedside at length Repeat labs later on today and possibly computed tomography scan of the abdominal and pelvis critical care time spent 60 minutes Time with Patient: Greater than 30
--- NOTE | 2018-01-26 20:21 | P.PN ---
Subjective Progress Note Date: 01/26/18 Principal diagnosis: Ileus Patient remains on the ventilator. Despite no sedation she is nonresponsive. The patient had 2 additional episodes morning of cardiac arrest. She received compressions on both occasions reportedly. She has more abdominal distention today however they have been using the oral gastric tube for Kayexalate administration because of hyperkalemia. Some brownish colored fluid was evacuated from the oral gastric tube after repositioning this morning. Abdominal x-rays show some gas filled bowel loops without air-fluid levels. No free air is seen. Objective - Vital Signs Vital signs: Vital Signs Temp 98.2 F 01/26/18 16:00 Pulse 81 01/26/18 19:11 Resp 25 H 01/26/18 18:00 BP 138/67 01/26/18 12:35 Pulse Ox 97 01/26/18 16:00 Intake & Output 01/26/18 01/26/18 01/27/18 06:59 18:59 06:59 Intake Total 4284.510 2696.614 Output Total 1230 1190 Balance 311.064 985.614 Weight 54.4 kg Intake: Intake, IV Titration 9196.691 7365.614 Amount ACETAMINOPHEN IV (For NPO 300 ) 1,000 mg In Empty Bag 1 bag @ 400 mls/hr IVPB Q6HR PRN Rx#:[id number] Dextrose 5% in Water 1, 400 000 ml @ 100 mls/hr IV . [id number] [facility] with Sodium Bicarb (1 Meq/ml) 150 ml Rx#:[id number] EPINEPHrine 2 mg In 102.264 Dextrose 5% in Water 250 ml @ 2 MCG/MIN 15.12 mls/ hr IV .[id number] [facility] Rx#: [id number] Norepinephrin 16 mg-0.9% 217.924 250.000 Ns Pmx 16 mg In 250 ml @ Titrate IV .Q0M [facility] Rx#: [id number] Piperacillin-Tazobactam 3 50 .375 gm In Dextrose/Water 1 50ml.bag @ 12.5 mls/hr IVPB Q8HR [facility] Rx#: [id number] Propofol 1,000 mg In 73.140 3.35 Empty Bag 1 bag @ Titrate IV .Q0M [facility] Rx#: [id number] Sodium Chloride 0.9% 1, 600 300 000 ml @ 100 mls/hr IV . Q10H [facility] Rx#:[id number] Sodium Chloride 0.9% 1, 300 500 000 ml @ 100 mls/hr IV . Q10H [facility] Rx#:[id number] Blood Product 620 Rc As-1 Unit 310 [id number] Rc As-3 Unit 310 [id number] Output: Gastric Drainage 550 50 Urine 680 440 Oral Regurgitation 700 Other: Voiding Method Indwelling Catheter Indwelling Catheter ABP, PAP, CO, CI - Last Documented Arterial Blood Pressure 123/50 - Exam Abdomen: Soft, slightly distended, incisions clean and dry, no appreciable tenderness - Labs CBC & Chem 7: 01/26/18 16:00 01/26/18 16:00 Labs: Abnormal Lab Results - Last 24 Hours (Table) 01/25/18 01/25/18 01/26/18 Range/Units 11:51 23:37 04:01 WBC 41.4 H* (3.8-10.6) k/uL RBC 2.86 L (3.80-5.40) m/uL Hgb 7.5 L (11.4-16.0) gm/dL Hct 23.9 L (34.0-46.0) % MCHC (31.0-37.0) g/dL RDW 17.8 H (11.5-15.5) % Plt Count 462 H (150-450) k/uL Neutrophils # (1.3-7.7) k/uL Neutrophils # (Manual) 38.50 H (1.3-7.7) k/uL Lymphocytes # (Manual) (1.0-4.8) k/uL Monocytes # (Manual) 2.07 H (0-1.0) k/uL ABG pH (7.35-7.45) ABG pCO2 (35-45) mmHg ABG pO2 (83-108) mmHg ABG HCO3 (21-25) mmol/L ABG Total CO2 (19-24) mmol/L ABG O2 Saturation (94-97) % ABG Lactic Acid (0.5-1.6) mmol/L Sodium (137-145) mmol/L Potassium (3.5-5.1) mmol/L Chloride (98-107) mmol/L Carbon Dioxide (22-30) mmol/L BUN (7-17) mg/dL Creatinine (0.52-1.04) mg/dL Glucose (74-99) mg/dL POC Glucose (mg/dL) 100 H (75-99) mg/dL Calcium (8.4-10.2) mg/dL Phosphorus (2.5-4.5) mg/dL Magnesium (1.6-2.3) mg/dL Total Bilirubin (0.2-1.3) mg/dL AST (14-36) U/L ALT (9-52) U/L Total Protein (6.3-8.2) g/dL Albumin (3.5-5.0) g/dL Crossmatch See Detail 01/26/18 01/26/18 01/26/18 Range/Units 04:01 04:41 08:00 WBC (3.8-10.6) k/uL RBC (3.80-5.40) m/uL Hgb (11.4-16.0) gm/dL Hct (34.0-46.0) % MCHC (31.0-37.0) g/dL RDW (11.5-15.5) % Plt Count (150-450) k/uL Neutrophils # (1.3-7.7) k/uL Neutrophils # (Manual) (1.3-7.7) k/uL Lymphocytes # (Manual) (1.0-4.8) k/uL Monocytes # (Manual) (0-1.0) k/uL ABG pH 7.31 L (7.35-7.45) ABG pCO2 31 L (35-45) mmHg ABG pO2 141 H (83-108) mmHg ABG HCO3 16 L (21-25) mmol/L ABG Total CO2 17 L (19-24) mmol/L ABG O2 Saturation 98.9 H (94-97) % ABG Lactic Acid 11.6 H* (0.5-1.6) mmol/L Sodium 133 L (137-145) mmol/L Potassium 5.8 H (3.5-5.1) mmol/L Chloride (98-107) mmol/L Carbon Dioxide 17 L (22-30) mmol/L BUN 29 H (7-17) mg/dL Creatinine 1.06 H (0.52-1.04) mg/dL Glucose (74-99) mg/dL POC Glucose (mg/dL) (75-99) mg/dL Calcium 7.9 L (8.4-10.2) mg/dL Phosphorus 5.9 H (2.5-4.5) mg/dL Magnesium (1.6-2.3) mg/dL Total Bilirubin (0.2-1.3) mg/dL AST 400 H (14-36) U/L ALT 484 H (9-52) U/L Total Protein 4.4 L (6.3-8.2) g/dL Albumin 2.4 L (3.5-5.0) g/dL Crossmatch 01/26/18 01/26/18 01/26/18 Range/Units 08:00 08:00 09:27 WBC 35.0 H* (3.8-10.6) k/uL RBC 2.50 L (3.80-5.40) m/uL Hgb 6.4 L* (11.4-16.0) gm/dL Hct 21.9 L (34.0-46.0) % MCHC 29.4 L (31.0-37.0) g/dL RDW 18.4 H (11.5-15.5) % Plt Count (150-450) k/uL Neutrophils # (1.3-7.7) k/uL Neutrophils # (Manual) 32.90 H (1.3-7.7) k/uL Lymphocytes # (Manual) 0.70 L (1.0-4.8) k/uL Monocytes # (Manual) 1.40 H (0-1.0) k/uL ABG pH (7.35-7.45) ABG pCO2 (35-45) mmHg ABG pO2 (83-108) mmHg ABG HCO3 (21-25) mmol/L ABG Total CO2 (19-24) mmol/L ABG O2 Saturation (94-97) % ABG Lactic Acid (0.5-1.6) mmol/L Sodium 134 L (137-145) mmol/L Potassium 7.3 H* (3.5-5.1) mmol/L Chloride 109 H (98-107) mmol/L Carbon Dioxide 11 L (22-30) mmol/L BUN 26 H (7-17) mg/dL Creatinine 1.26 H (0.52-1.04) mg/dL Glucose <20 L* (74-99) mg/dL POC Glucose (mg/dL) 124 H (75-99) mg/dL Calcium 6.7 L (8.4-10.2) mg/dL Phosphorus 8.4 H* (2.5-4.5) mg/dL Magnesium (1.6-2.3) mg/dL Total Bilirubin (0.2-1.3) mg/dL AST 3211 H (14-36) U/L ALT 2982 H (9-52) U/L Total Protein 4.1 L (6.3-8.2) g/dL Albumin 2.1 L (3.5-5.0) g/dL Crossmatch 01/26/18 01/26/18 01/26/18 Range/Units 10:17 10:59 12:53 WBC (3.8-10.6) k/uL RBC (3.80-5.40) m/uL Hgb (11.4-16.0) gm/dL Hct (34.0-46.0) % MCHC (31.0-37.0) g/dL RDW (11.5-15.5) % Plt Count (150-450) k/uL Neutrophils # (1.3-7.7) k/uL Neutrophils # (Manual) (1.3-7.7) k/uL Lymphocytes # (Manual) (1.0-4.8) k/uL Monocytes # (Manual) (0-1.0) k/uL ABG pH <7.00 L* (7.35-7.45) ABG pCO2 24 L (35-45) mmHg ABG pO2 129 H (83-108) mmHg ABG HCO3 6 L* (21-25) mmol/L ABG Total CO2 6 L (19-24) mmol/L ABG O2 Saturation (94-97) % ABG Lactic Acid (0.5-1.6) mmol/L Sodium (137-145) mmol/L Potassium (3.5-5.1) mmol/L Chloride (98-107) mmol/L Carbon Dioxide (22-30) mmol/L BUN (7-17) mg/dL Creatinine (0.52-1.04) mg/dL Glucose (74-99) mg/dL POC Glucose (mg/dL) 102 H 60 L (75-99) mg/dL Calcium (8.4-10.2) mg/dL Phosphorus (2.5-4.5) mg/dL Magnesium (1.6-2.3) mg/dL Total Bilirubin (0.2-1.3) mg/dL AST (14-36) U/L ALT (9-52) U/L Total Protein (6.3-8.2) g/dL Albumin (3.5-5.0) g/dL Crossmatch 01/26/18 01/26/18 01/26/18 Range/Units 13:48 15:46 15:55 WBC (3.8-10.6) k/uL RBC (3.80-5.40) m/uL Hgb (11.4-16.0) gm/dL Hct (34.0-46.0) % MCHC (31.0-37.0) g/dL RDW (11.5-15.5) % Plt Count (150-450) k/uL Neutrophils # (1.3-7.7) k/uL Neutrophils # (Manual) (1.3-7.7) k/uL Lymphocytes # (Manual) (1.0-4.8) k/uL Monocytes # (Manual) (0-1.0) k/uL ABG pH 7.00 L* (7.35-7.45) ABG pCO2 25 L (35-45) mmHg ABG pO2 133 H (83-108) mmHg ABG HCO3 6 L* (21-25) mmol/L ABG Total CO2 7 L (19-24) mmol/L ABG O2 Saturation 98.0 H (94-97) % ABG Lactic Acid (0.5-1.6) mmol/L Sodium (137-145) mmol/L Potassium (3.5-5.1) mmol/L Chloride (98-107) mmol/L Carbon Dioxide (22-30) mmol/L BUN (7-17) mg/dL Creatinine (0.52-1.04) mg/dL Glucose (74-99) mg/dL POC Glucose (mg/dL) 123 H 208 H (75-99) mg/dL Calcium (8.4-10.2) mg/dL Phosphorus (2.5-4.5) mg/dL Magnesium (1.6-2.3) mg/dL Total Bilirubin (0.2-1.3) mg/dL AST (14-36) U/L ALT (9-52) U/L Total Protein (6.3-8.2) g/dL Albumin (3.5-5.0) g/dL Crossmatch 01/26/18 01/26/18 01/26/18 Range/Units 16:00 16:00 16:00 WBC 28.9 H* (3.8-10.6) k/uL RBC 3.14 L (3.80-5.40) m/uL Hgb 8.6 L D (11.4-16.0) gm/dL Hct 28.4 L (34.0-46.0) % MCHC 30.3 L (31.0-37.0) g/dL RDW 16.5 H (11.5-15.5) % Plt Count (150-450) k/uL Neutrophils # 27.1 H (1.3-7.7) k/uL Neutrophils # (Manual) (1.3-7.7) k/uL Lymphocytes # (Manual) (1.0-4.8) k/uL Monocytes # (Manual) (0-1.0) k/uL ABG pH (7.35-7.45) ABG pCO2 (35-45) mmHg ABG pO2 (83-108) mmHg ABG HCO3 (21-25) mmol/L ABG Total CO2 (19-24) mmol/L ABG O2 Saturation (94-97) % ABG Lactic Acid 16.7 H* (0.5-1.6) mmol/L Sodium (137-145) mmol/L Potassium 6.0 H (3.5-5.1) mmol/L Chloride (98-107) mmol/L Carbon Dioxide 8 L* (22-30) mmol/L BUN 28 H (7-17) mg/dL Creatinine 1.79 H (0.52-1.04) mg/dL Glucose 186 H (74-99) mg/dL POC Glucose (mg/dL) (75-99) mg/dL Calcium 6.8 L (8.4-10.2) mg/dL Phosphorus 11.6 H* (2.5-4.5) mg/dL Magnesium 2.5 H (1.6-2.3) mg/dL Total Bilirubin 2.5 H (0.2-1.3) mg/dL AST 65211 H (14-36) U/L ALT >78289 H (9-52) U/L Total Protein 3.9 L (6.3-8.2) g/dL Albumin 1.9 L (3.5-5.0) g/dL Crossmatch Microbiology - Last 24 Hours (Table) 01/12/18 14:25 Acid Fast Bacilli Smear - Final Bronchoalviolar Lavage - Right Acid Fast Bacilli Culture - Preliminary Assessment and Plan (1) Abdominal pain Narrative/Plan: Patient remains in profound shock. Likely combination of cardiogenic and septic shock. Given the recent negative laparoscopy I have a low index of suspicion for an abdominal source for this patient's clinical status change. Certainly given the profound shock there is the risk of ongoing ischemia to the bowel. CAT scan was ordered however the patient is not stable for transfer at this time. The patient would not tolerate surgical exploration even if a surgical emergency was identified on CAT scan. The patient's family is agreeable to continuing with current approach. They understand the poor prognosis at this time. We'll follow closely with you. Current Visit: Yes Status: Acute Code(s): R10.9 - UNSPECIFIED ABDOMINAL PAIN SNOMED Code(s): 33459002
[2018-01-26 20:47] LABS: Glucose,Whole Blood 233 mg/dL (75-99)
[2018-01-26 21:09] LABS: INR 3.3 (<1.2); Prothrombin Time 29.7 sec (9.0-12.0)
[2018-01-26 21:12] LABS: Anisocytosis Slight; Basophils # (A) 0.1 k/uL (0-0.2); Basophils % (A) 0 %; Eosinophils % (A) 0 %; HCT 25.8 % (34.0-46.0); Hypochromasia Marked; Lymphocytes % (A) 4 %; MCHC 31.1 g/dL (31.0-37.0); Monocytes # (A) 0.5 k/uL (0-1.0); Monocytes % (A) 2 %; Neutrophils # (A) 22.8 k/uL (1.3-7.7); Neutrophils % (A) 93 %; Platelet Count 172 k/uL (150-450); Poikilocytosis Moderate; RBC 2.87 m/uL (3.80-5.40); RDW 16.8 % (11.5-15.5); WBC 24.5 k/uL (3.8-10.6)
[2018-01-26 21:14] LABS: ABG Base Excess -24.1 mmol/L; ABG Oxygen Saturation 97.5 % (94-97); ABG PCO2 28 mmHg (35-45); ABG PO2 125 mmHg (83-108); ABG TCO2 8 mmol/L (19-24)
[2018-01-26 21:18] LABS: ABG PH 7.01 (7.35-7.45)
[2018-01-26 21:19] LABS: ABG HCO3 7 mmol/L (21-25)
[2018-01-26 21:32] LABS: Albumin 1.8 g/dL (3.5-5.0); Alkaline Phosphatase 80 U/L (38-126); Anion Gap 27 mmol/L; Blood Urea Nitrogen 28 mg/dL (7-17); Calcium 7.3 mg/dL (8.4-10.2); Chloride 105 mmol/L (98-107); Glucose 210 mg/dL (74-99); Magnesium 2.7 mg/dL (1.6-2.3); Potassium 5.9 mmol/L (3.5-5.1); Sodium 140 mmol/L (137-145); Total Bilirubin 3.1 mg/dL (0.2-1.3); Total Protein 3.5 g/dL (6.3-8.2)
[2018-01-26 21:35] LABS: Carbon Dioxide 8 mmol/L (22-30); Phosphorus 12.2 mg/dL (2.5-4.5)
[2018-01-26] MEDS ORDERED: SODIUM CHLORIDE 0.9% 1,000 ML IV ONE (21:57)
[2018-01-26] MEDS ORDERED: SODIUM BICARB 8.4% 50 ML SYR (1 MEQ/ML) IV ONE (21:57)
[2018-01-26 22:00] LABS: AST >15000 U/L (14-36)
[2018-01-26 22:01] LABS: ALT >10000 U/L (9-52)
--- NOTE | 2018-01-26 22:16 | P.CONS ---
History of Present Illness - Reason for Consult Consult date: 01/26/18 - Chief Complaint Failure - History of Present Illness 67-year-old female who appears considerably older than her stated age is found in the intensive care unit intubated and mechanically ventilated but no longer sedated after her third cardiopulmonary arrest. It is related that admission the patient had a three-day history of increasing cough and shortness of breath as well as some chest pain. She underwent CT scanning of her chest at admission was concerns to pneumonia and possible pulmonary nodules and mediastinal lymphadenopathy. The patient was treated with antibiotics and steroids for exacerbation of COPD and pneumonia. The patient also has significant complication of ischemic cardiomyopathy with AICD in place with chronic systolic congestive heart failure as well as a mitral valve click placed in 2016. The patient remains profoundly ill at this time with acidosis with a pH of about 7, respiratory failure, developing renal failure, hepatic failure and ongoing hypotension requiring multiple vasopressors. With concerns to pneumonia and sepsis the infectious diseases consultation was requested Review of Systems ROS unobtainable: due to endotracheal tube Past Medical History Past Medical History: Heart Failure, COPD, Hyperlipidemia, Hypertension, Osteoarthritis (OA), Pneumonia, Renal Disease Additional Past Medical History / Comment(s): aaa 09/2015 pneumonia with sepsis , R parotitis, nephrolithiasis yrs ago, sciatica-R side low back. fx Right knee- had sx then had an infection with multiple surgeries and required IV antibiotics. Patient is currently on oral doxycycline no evidence of active infection. Cardiomyopathy with an EF of 20% currently has a LifeVest. Severe mitral regurgitation status post mitral valve clipping in May 2017 History of Any Multi-Drug Resistant Organisms: None Reported Past Surgical History: Heart Catheterization With Stent, Joint Replacement, Orthopedic Surgery, Tonsillectomy Additional Past Surgical History / Comment(s): Partial thyroidectomy, T total knee arthroplasty in October 2016, Right knee infection with additional surgeries spinal cord stimulator insertion and removal, colonoscopies with benign polypectomies. March 2017 6 stent placed, may -had mitral valve clip Past Anesthesia/Blood Transfusion Reactions: No Reported Reaction Date of Last Stent Placement:: March 2017 Past Psychological History: No Psychological Hx Reported Additional Psychological History / Comment(s): Pt lives with her spouse. has a nebulizer/cane Smoking Status: Former smoker Past Alcohol Use History: None Reported Additional Past Alcohol Use History / Comment(s): Pt states she started smoking in 1968 was a 1ppd smoker, quit oct 2016 Past Drug Use History: None Reported - Past Family History Mother Family Medical History: Cancer, Congestive Heart Failure (CHF) Additional Family Medical History / Comment(s): Mother in her early 80's Father Family Medical History: Myocardial Infarction ([place]) Additional Family Medical History / Comment(s): Father of a [place] in his 50's. Medications and Allergies Home Medications and Allergies Comment(s): Current Medications Hydrocodone Bitart/Acetaminophen ([place] 7.5-325) 1 each PO Q6H PRN PRN Reason: Moderate Pain Last Admin: 01/26/18 05:15 Dose: 1 each Albuterol/Ipratropium (Duoneb 0.5 Mg-3 Mg/3 Ml Soln) 3 ml INHALATION RT-QID [facility] Last Admin: 01/26/18 19:01 Dose: 3 ml Albuterol/Ipratropium (Duoneb 0.5 Mg-3 Mg/3 Ml Soln) 3 ml INHALATION RT-Q2H PRN PRN Reason: Shortness Of Breath Or Wheezing Aspirin (Aspirin) 81 mg PO DAILY [facility] Last Admin: 01/26/18 11:42 Dose: Not Given Atorvastatin Calcium (Lipitor) 80 mg PO HS [facility] Last Admin: 01/25/18 20:12 Dose: 80 mg Benzocaine/Menthol (Cepacol Lozenge) 1 each MUCOUS MEM Q4HR PRN PRN Reason: Sore Throat Last Admin: 01/21/18 12:38 Dose: 1 each Calcium Carbonate/Glycine (Tums) 500 mg PO 1200 [facility] Last Admin: 01/26/18 12:15 Dose: Not Given Chlorhexidine Gluconate (Peridex) 15 ml MUCOUS MEM BID [facility] Last Admin: 01/26/18 12:14 Dose: 15 ml Cholecalciferol (Vitamin D3) 5,000 unit PO 1200 [facility] Last Admin: 01/26/18 12:15 Dose: Not Given Clopidogrel Bisulfate (Plavix) 75 mg PO DAILY [facility] Last Admin: 01/26/18 21:56 Dose: Not Given Cyclobenzaprine HCl (Flexeril) 10 mg PO BID PRN PRN Reason: Muscle Spasm Last Admin: 01/14/18 08:34 Dose: 10 mg Docusate Sodium (Colace) 100 mg PO BID [facility] Last Admin: 01/26/18 11:42 Dose: Not Given Enoxaparin Sodium (Lovenox) 40 mg SQ DAILY [facility] Last Admin: 01/26/18 21:56 Dose: Not Given Ferrous Sulfate (Feosol) 325 mg PO BID [facility] Last Admin: 01/26/18 09:15 Dose: Not Given Furosemide (Lasix) 40 mg PO DAILY [facility] Last Admin: 01/26/18 09:16 Dose: Not Given Sodium Chloride (Saline 0.9%) 1,000 mls @ 100 mls/hr IV .Q10H [facility] Last Admin: 01/26/18 20:11 Dose: 100 mls/hr Propofol 1,000 mg/ IV Solution 100 mls @ 0 mls/hr IV .Q0M DAMIAN; Titrate PRN Reason: Protocol Last Titration: 01/26/18 08:00 Dose: 0 mcg/kg/min, 0 mls/hr Piperacillin/Tazobactam/ (Dextrose 3.375 gm/ IV Solution) 50 mls @ 12.5 mls/hr IVPB Q8HR [facility] Last Admin: 01/26/18 16:20 Dose: 12.5 mls/hr Vancomycin HCl 1,000 mg/ (Sodium Chloride) 250 mls @ 125 mls/hr IVPB Q16H [facility] Last Admin: 01/26/18 12:34 Dose: 125 mls/hr Norepinephrine Bitartrate (Levophed-0.9% Nacl 16 Mg/250ml Pmx) 16 mg in 250 mls @ 0 mls/hr IV .Q0M DAMIAN; Titrate PRN Reason: Protocol Last Admin: 01/26/18 21:08 Dose: 15 mcg/min, 14.063 mls/hr Sodium Chloride (Saline 0.9%) 1,000 mls @ 100 mls/hr IV .Q10H [facility] Last Admin: 01/26/18 16:20 Dose: 100 mls/hr Vasopressin 20 unit/ Sodium (Chloride) 100 mls @ 9 mls/hr IV .Q11H7M DAMIAN PRN Reason: 0.03 UNITS/MIN Last Admin: 01/26/18 20:10 Dose: Not Given Epinephrine HCl 2 mg/ Dextrose (/Water) 252 mls @ 15.12 mls/hr IV .[id number] DAMIAN ; 2 MCG/MIN PRN Reason: Protocol Last Titration: 01/26/18 20:57 Dose: 1 mcg/min, 7.56 mls/hr Sodium Bicarbonate 150 ml/ (Dextrose/Water) 1,150 mls @ 100 mls/hr IV .[id number] [facility] Last Admin: 01/26/18 17:46 Dose: 100 mls/hr Sodium Chloride (Saline 0.9%) 1,000 mls @ 999 mls/hr IV .Q1H1M ONE Stop: 01/26/18 22:57 Insulin Aspart (Novolog) 0 unit SQ ACHS [facility] PRN Reason: Protocol Last Admin: 01/26/18 17:44 Dose: Not Given Lactulose (Cephulac) 30 gm PO TID [facility] Last Admin: 01/26/18 17:43 Dose: 30 gm Lorazepam (Ativan) 1 mg IV Q2HR PRN PRN Reason: Anxiety Last Admin: 01/26/18 06:06 Dose: 1 mg Magnesium Hydroxide (Milk Of Magnesia) 1,200 mg PO QID PRN PRN Reason: Indigestion Last Admin: 01/15/18 18:49 Dose: 1,200 mg Miscellaneous Information (Potassium Per Protocol) 1 each MISCELLANE DAILY PRN ; Protocol PRN Reason: Per Protocol Morphine Sulfate (Morphine Sulfate) 2 mg IVP Q2HR PRN PRN Reason: SEVERE Pain Last Admin: 01/26/18 06:57 Dose: 2 mg Multi-Ingredient Ointment (Zinc Oxide 20% Oint) 1 applic TOPICAL BID [facility] Last Admin: 01/26/18 09:16 Dose: Not Given Nitroglycerin (Nitrostat) 0.4 mg SUBLINGUAL Q5M PRN PRN Reason: Chest Pain Ondansetron HCl (Zofran) 4 mg IVP Q6HR PRN PRN Reason: Nausea And Vomiting Last Admin: 01/25/18 06:48 Dose: 4 mg Pantoprazole Sodium (Protonix) 40 mg IVP BID [facility] Prednisone () 10 mg PO DAILY [facility] Last Admin: 01/26/18 09:16 Dose: Not Given Home Medications Medication Instructions Recorded Confirmed Type Cholecalciferol [Vitamin D3] 5,000 unit PO DAILY 09/23/15 01/10/18 History Atorvastatin [Lipitor] 80 mg PO HS 01/08/17 01/10/18 History Clopidogrel [Plavix] 75 mg PO DAILY 01/08/17 01/10/18 History Docusate Sodium [Dok] 100 mg PO BID 01/08/17 01/10/18 History Famotidine [Pepcid] 20 mg PO DAILY 01/08/17 01/10/18 History Calcium Carbonate [Calcium] 600 mg PO DAILY 05/27/17 01/10/18 History HYDROcodone/APAP 7.5-325MG [[place] 1 tab PO DAILY PRN 05/27/17 01/10/18 History 7.5-325] Aspirin EC [Ecotrin Low Dose] 81 mg PO DAILY 09/02/17 01/10/18 History Furosemide [Lasix] 40 mg PO BID@0900,1600 #60 tab 09/13/17 01/10/18 Rx Nitroglycerin Sl Tabs [Nitrostat] 0.4 mg SUBLINGUAL Q5M PRN #25 tab 09/13/1703/25 Rx Polyethylene Glycol 3350 [Miralax] 17 gm PO HS #30 powd.pack 09/13/17 01/10/18 Rx Denosumab [Prolia] 60 mg SQ Q180D 01/10/18 01/10/18 History Fluticasone/Vilanterol [Breo 1 puff INHALATION RT-DAILY 01/10/18 01/10/18 History Ellipta 200-25 Mcg INH] Lisinopril [Prinivil] 5 mg PO DAILY 01/10/18 01/10/18 History Metoprolol Tartrate [Lopressor] 12.5 mg PO BID 01/10/18 01/10/18 History Allergies Allergy/AdvReac Type Severity Reaction Status Date / Time Iodinated Contrast- Oral and Allergy Anaphylaxis Verified 01/10/18 15:17 IV Dye [Iodinated Contrast Media - IV Dye] Physical Exam Vitals: Vital Signs Temp Pulse Pulse Resp BP Pulse Ox 01/26/18 20:30 93.4 F L 80 26 H 01/26/18 20:00 81 33 H 01/26/18 19:30 82 26 H 01/26/18 19:11 81 01/26/18 19:01 82 01/26/18 19:00 82 32 H 01/26/18 18:00 87 25 H 01/26/18 17:30 79 28 H 01/26/18 17:00 79 26 H 03/21/18 16:30 82 24 01/26/18 16:00 98.2 F 83 106 H 27 H 97 01/26/18 15:48 86 01/26/18 15:39 84 01/26/18 15:30 83 25 H 01/26/18 15:00 86 26 H 82 L 01/26/18 14:30 87 26 H 01/26/18 14:00 89 26 H 01/26/18 13:30 90 26 H 01/26/18 13:00 87 29 H 01/26/18 12:35 98.2 F 88 22 138/67 01/26/18 12:30 87 28 H 01/26/18 12:00 97.6 F 89 106 H 28 H 82 L 01/26/18 11:53 97.9 F 90 22 142/76 95 01/26/18 11:30 92 27 H 95 01/26/18 11:23 98.2 F 99 22 134/67 95 01/26/18 11:13 98.2 F 94 22 141/66 95 01/26/18 11:00 91 30 H 95 01/26/18 10:54 100 01/26/18 10:44 98.2 F 90 22 166/87 94 L 01/26/18 10:30 91 28 H 01/26/18 10:14 98.2 F 90 29 H 150/5 01/26/18 10:00 93 27 H 95 01/26/18 09:44 98.2 F 92 20 158/56 01/26/18 09:34 97.8 F 95 30 H 169/61 01/26/18 09:30 96 29 H 95 01/26/18 09:00 113 H 21 172/80 100 01/26/18 08:30 111 H 26 H 103/53 95 01/26/18 08:00 97.2 F L 122 H 106 H 22 95 01/26/18 07:39 114 H 01/26/18 07:31 114 H 01/26/18 07:30 114 H 38 H 99 01/26/18 07:00 109 H 32 H 88 L 01/26/18 06:30 110 H 29 H 87 L 01/26/18 06:00 104 H 31 H 91 L 01/26/18 05:30 106 H 29 H 98 01/26/18 05:00 108 H 23 113/53 98 01/26/18 04:30 105 H 26 H 99 01/26/18 04:00 99.1 F 106 H 23 113/53 81 L 01/26/18 03:30 106 H 29 H 113/53 99 01/26/18 03:00 103 H 30 H 77/49 98 01/26/18 02:30 96 22 99 01/26/18 02:00 94 22 100 01/26/18 01:30 95 22 100 01/26/18 01:00 94 22 97/65 100 01/26/18 00:30 96 22 97/65 100 01/26/18 00:01 93 22 97/65 100 01/26/18 00:00 98.4 F 96 23 100 01/25/18 23:30 95 23 97/65 100 01/25/18 23:00 97 22 97/65 100 01/25/18 22:30 99 23 100 Intake and Output 01/26/18 01/26/18 01/26/18 06:59 14:59 22:59 Intake Total 1441.971 1795.086 1151.577 Output Total 700 1000 735 Balance 398.025 642.086 416.577 Intake: IV 600 Dextrose 5% in Water 1, 300 000 ml @ 100 mls/hr IV . [id number] [facility] with Sodium Bicarb (1 Meq/ml) 150 ml Rx#:[id number] Sodium Chloride 0.9% 1, 300 000 ml @ 100 mls/hr IV . Q10H [facility] Rx#:[id number] Intake, IV Titration 3738.522 9492.086 551.577 Amount ACETAMINOPHEN IV (For NPO 100 ) 1,000 mg In Empty Bag 1 bag @ 400 mls/hr IVPB Q6HR PRN Rx#:[id number] Dextrose 5% in Water 1, 150 250 000 ml @ 100 mls/hr IV . [id number] [facility] with Sodium Bicarb (1 Meq/ml) 150 ml Rx#:[id number] EPINEPHrine 2 mg In 36.048 84.265 Dextrose 5% in Water 250 ml @ 2 MCG/MIN 15.12 mls/ hr IV .[id number] [facility] Rx#: [id number] Norepinephrin 16 mg-0.9% 182.081 232.688 17.312 Ns Pmx 16 mg In 250 ml @ Titrate IV .Q0M [facility] Rx#: [id number] Piperacillin-Tazobactam 3 50 .375 gm In Dextrose/Water 1 50ml.bag @ 12.5 mls/hr IVPB Q8HR [facility] Rx#: [id number] Propofol 1,000 mg In 65.944 3.35 Empty Bag 1 bag @ Titrate IV .Q0M [facility] Rx#: [id number] Sodium Chloride 0.9% 1, 600 100 200 000 ml @ 100 mls/hr IV . Q10H [facility] Rx#:[id number] Sodium Chloride 0.9% 1, 100 500 000 ml @ 100 mls/hr IV . Q10H [facility] Rx#:[id number] Blood Product 620 Rc As-1 Unit 310 [id number] Rc As-3 Unit 310 [id number] Output: Gastric Drainage 300 50 500 Urine 400 250 235 Oral Regurgitation 700 Other: Voiding Method Indwelling Catheter Indwelling Catheter Indwelling Catheter Weight 54.4 kg ABP, PAP, CO, CI - Last 8 Hours Arterial Blood Pressure 136/47 Arterial Blood Pressure 130/47 Arterial Blood Pressure 136/50 Arterial Blood Pressure 135/50 Arterial Blood Pressure 123/50 Arterial Blood Pressure 136/55 Arterial Blood Pressure 140/56 Arterial Blood Pressure 136/62 Arterial Blood Pressure 127/63 Arterial Blood Pressure 155/62 Arterial Blood Pressure 144/59 Arterial Blood Pressure 154/61 67-year-old woman who appears much older than her stated age. HEENT: Anicteric conjunctiva are pink and moist nasal mucosa grossly intact without significant lesions, there is no thrush. Multiple fractured carious teeth Neck: The neck is supple without significant lymphadenopathy or thyromegaly. Lungs: Symmetrical air entry is noted, coarse mechanical sounds from the ventilator transmitted through all lung clarke no significant wheezing is noted Heart: Regular rate and rhythm with an audible S1-S2, no S3 or S4 were appreciated 2/6 systolic murmur left sternal border to the axilla is noted no click or rub, PMI was nondisplaced. Abdomen: The abdomen is silent, mildly distended, not distinctly firm no organomegaly is noted, patient has no response to abdominal exam Extremities: The patient has hypothermia and extremities are cool to touch, pulses are palpable but diminished, no kerline necrosis is noted at this time, no significant blisters noted at this time Neuro: Patient is no longer sedated but has no response to the observer, pupils were sluggish but reactive no response to other stimuli Results CBC & Chem 7: 01/26/18 20:45 01/26/18 20:45 Labs: Abnormal Lab Results - Last 24 Hours (Table) 01/25/18 01/25/18 01/26/18 Range/Units 11:51 23:37 04:01 WBC 41.4 H* (3.8-10.6) k/uL RBC 2.86 L (3.80-5.40) m/uL Hgb 7.5 L (11.4-16.0) gm/dL Hct 23.9 L (34.0-46.0) % MCHC (31.0-37.0) g/dL RDW 17.8 H (11.5-15.5) % Plt Count 462 H (150-450) k/uL Neutrophils # (1.3-7.7) k/uL Neutrophils # (Manual) 38.50 H (1.3-7.7) k/uL Lymphocytes # (Manual) (1.0-4.8) k/uL Monocytes # (Manual) 2.07 H (0-1.0) k/uL PT (9.0-12.0) sec INR (<1.2) APTT (22.0-30.0) sec ABG pH (7.35-7.45) ABG pCO2 (35-45) mmHg ABG pO2 (83-108) mmHg ABG HCO3 (21-25) mmol/L ABG Total CO2 (19-24) mmol/L ABG O2 Saturation (94-97) % ABG Lactic Acid (0.5-1.6) mmol/L Sodium (137-145) mmol/L Potassium (3.5-5.1) mmol/L Chloride (98-107) mmol/L Carbon Dioxide (22-30) mmol/L BUN (7-17) mg/dL Creatinine (0.52-1.04) mg/dL Glucose (74-99) mg/dL POC Glucose (mg/dL) 100 H (75-99) mg/dL Calcium (8.4-10.2) mg/dL Phosphorus (2.5-4.5) mg/dL Magnesium (1.6-2.3) mg/dL Total Bilirubin (0.2-1.3) mg/dL AST (14-36) U/L ALT (9-52) U/L Ammonia (<30) umol/L Total Protein (6.3-8.2) g/dL Albumin (3.5-5.0) g/dL Crossmatch See Detail 01/26/18 01/26/18 01/26/18 Range/Units 04:01 04:41 08:00 WBC (3.8-10.6) k/uL RBC (3.80-5.40) m/uL Hgb (11.4-16.0) gm/dL Hct (34.0-46.0) % MCHC (31.0-37.0) g/dL RDW (11.5-15.5) % Plt Count (150-450) k/uL Neutrophils # (1.3-7.7) k/uL Neutrophils # (Manual) (1.3-7.7) k/uL Lymphocytes # (Manual) (1.0-4.8) k/uL Monocytes # (Manual) (0-1.0) k/uL PT (9.0-12.0) sec INR (<1.2) APTT (22.0-30.0) sec ABG pH 7.31 L (7.35-7.45) ABG pCO2 31 L (35-45) mmHg ABG pO2 141 H (83-108) mmHg ABG HCO3 16 L (21-25) mmol/L ABG Total CO2 17 L (19-24) mmol/L ABG O2 Saturation 98.9 H (94-97) % ABG Lactic Acid 11.6 H* (0.5-1.6) mmol/L Sodium 133 L (137-145) mmol/L Potassium 5.8 H (3.5-5.1) mmol/L Chloride (98-107) mmol/L Carbon Dioxide 17 L (22-30) mmol/L BUN 29 H (7-17) mg/dL Creatinine 1.06 H (0.52-1.04) mg/dL Glucose (74-99) mg/dL POC Glucose (mg/dL) (75-99) mg/dL Calcium 7.9 L (8.4-10.2) mg/dL Phosphorus 5.9 H (2.5-4.5) mg/dL Magnesium (1.6-2.3) mg/dL Total Bilirubin (0.2-1.3) mg/dL AST 400 H (14-36) U/L ALT 484 H (9-52) U/L Ammonia (<30) umol/L Total Protein 4.4 L (6.3-8.2) g/dL Albumin 2.4 L (3.5-5.0) g/dL Crossmatch 01/26/18 01/26/18 01/26/18 Range/Units 08:00 08:00 09:27 WBC 35.0 H* (3.8-10.6) k/uL RBC 2.50 L (3.80-5.40) m/uL Hgb 6.4 L* (11.4-16.0) gm/dL Hct 21.9 L (34.0-46.0) % MCHC 29.4 L (31.0-37.0) g/dL RDW 18.4 H (11.5-15.5) % Plt Count (150-450) k/uL Neutrophils # (1.3-7.7) k/uL Neutrophils # (Manual) 32.90 H (1.3-7.7) k/uL Lymphocytes # (Manual) 0.70 L (1.0-4.8) k/uL Monocytes # (Manual) 1.40 H (0-1.0) k/uL PT (9.0-12.0) sec INR (<1.2) APTT (22.0-30.0) sec ABG pH (7.35-7.45) ABG pCO2 (35-45) mmHg ABG pO2 (83-108) mmHg ABG HCO3 (21-25) mmol/L ABG Total CO2 (19-24) mmol/L ABG O2 Saturation (94-97) % ABG Lactic Acid (0.5-1.6) mmol/L Sodium 134 L (137-145) mmol/L Potassium 7.3 H* (3.5-5.1) mmol/L Chloride 109 H (98-107) mmol/L Carbon Dioxide 11 L (22-30) mmol/L BUN 26 H (7-17) mg/dL Creatinine 1.26 H (0.52-1.04) mg/dL Glucose <20 L* (74-99) mg/dL POC Glucose (mg/dL) 124 H (75-99) mg/dL Calcium 6.7 L (8.4-10.2) mg/dL Phosphorus 8.4 H* (2.5-4.5) mg/dL Magnesium (1.6-2.3) mg/dL Total Bilirubin (0.2-1.3) mg/dL AST 3211 H (14-36) U/L ALT 2982 H (9-52) U/L Ammonia (<30) umol/L Total Protein 4.1 L (6.3-8.2) g/dL Albumin 2.1 L (3.5-5.0) g/dL Crossmatch 01/26/18 01/26/18 01/26/18 Range/Units 10:17 10:59 12:53 WBC (3.8-10.6) k/uL RBC (3.80-5.40) m/uL Hgb (11.4-16.0) gm/dL Hct (34.0-46.0) % MCHC (31.0-37.0) g/dL RDW (11.5-15.5) % Plt Count (150-450) k/uL Neutrophils # (1.3-7.7) k/uL Neutrophils # (Manual) (1.3-7.7) k/uL Lymphocytes # (Manual) (1.0-4.8) k/uL Monocytes # (Manual) (0-1.0) k/uL PT (9.0-12.0) sec INR (<1.2) APTT (22.0-30.0) sec ABG pH <7.00 L* (7.35-7.45) ABG pCO2 24 L (35-45) mmHg ABG pO2 129 H (83-108) mmHg ABG HCO3 6 L* (21-25) mmol/L ABG Total CO2 6 L (19-24) mmol/L ABG O2 Saturation (94-97) % ABG Lactic Acid (0.5-1.6) mmol/L Sodium (137-145) mmol/L Potassium (3.5-5.1) mmol/L Chloride (98-107) mmol/L Carbon Dioxide (22-30) mmol/L BUN (7-17) mg/dL Creatinine (0.52-1.04) mg/dL Glucose (74-99) mg/dL POC Glucose (mg/dL) 102 H 60 L (75-99) mg/dL Calcium (8.4-10.2) mg/dL Phosphorus (2.5-4.5) mg/dL Magnesium (1.6-2.3) mg/dL Total Bilirubin (0.2-1.3) mg/dL AST (14-36) U/L ALT (9-52) U/L Ammonia (<30) umol/L Total Protein (6.3-8.2) g/dL Albumin (3.5-5.0) g/dL Crossmatch 01/26/18 01/26/18 01/26/18 Range/Units 13:48 15:46 15:55 WBC (3.8-10.6) k/uL RBC (3.80-5.40) m/uL Hgb (11.4-16.0) gm/dL Hct (34.0-46.0) % MCHC (31.0-37.0) g/dL RDW (11.5-15.5) % Plt Count (150-450) k/uL Neutrophils # (1.3-7.7) k/uL Neutrophils # (Manual) (1.3-7.7) k/uL Lymphocytes # (Manual) (1.0-4.8) k/uL Monocytes # (Manual) (0-1.0) k/uL PT (9.0-12.0) sec INR (<1.2) APTT (22.0-30.0) sec ABG pH 7.00 L* (7.35-7.45) ABG pCO2 25 L (35-45) mmHg ABG pO2 133 H (83-108) mmHg ABG HCO3 6 L* (21-25) mmol/L ABG Total CO2 7 L (19-24) mmol/L ABG O2 Saturation 98.0 H (94-97) % ABG Lactic Acid (0.5-1.6) mmol/L Sodium (137-145) mmol/L Potassium (3.5-5.1) mmol/L Chloride (98-107) mmol/L Carbon Dioxide (22-30) mmol/L BUN (7-17) mg/dL Creatinine (0.52-1.04) mg/dL Glucose (74-99) mg/dL POC Glucose (mg/dL) 123 H 208 H (75-99) mg/dL Calcium (8.4-10.2) mg/dL Phosphorus (2.5-4.5) mg/dL Magnesium (1.6-2.3) mg/dL Total Bilirubin (0.2-1.3) mg/dL AST (14-36) U/L ALT (9-52) U/L Ammonia (<30) umol/L Total Protein (6.3-8.2) g/dL Albumin (3.5-5.0) g/dL Crossmatch 01/26/18 01/26/18 01/26/18 Range/Units 16:00 16:00 16:00 WBC 28.9 H* (3.8-10.6) k/uL RBC 3.14 L (3.80-5.40) m/uL Hgb 8.6 L D (11.4-16.0) gm/dL Hct 28.4 L (34.0-46.0) % MCHC 30.3 L (31.0-37.0) g/dL RDW 16.5 H (11.5-15.5) % Plt Count (150-450) k/uL Neutrophils # 27.1 H (1.3-7.7) k/uL Neutrophils # (Manual) (1.3-7.7) k/uL Lymphocytes # (Manual) (1.0-4.8) k/uL Monocytes # (Manual) (0-1.0) k/uL PT (9.0-12.0) sec INR (<1.2) APTT (22.0-30.0) sec ABG pH (7.35-7.45) ABG pCO2 (35-45) mmHg ABG pO2 (83-108) mmHg ABG HCO3 (21-25) mmol/L ABG Total CO2 (19-24) mmol/L ABG O2 Saturation (94-97) % ABG Lactic Acid 16.7 H* (0.5-1.6) mmol/L Sodium (137-145) mmol/L Potassium 6.0 H (3.5-5.1) mmol/L Chloride (98-107) mmol/L Carbon Dioxide 8 L* (22-30) mmol/L BUN 28 H (7-17) mg/dL Creatinine 1.79 H (0.52-1.04) mg/dL Glucose 186 H (74-99) mg/dL POC Glucose (mg/dL) (75-99) mg/dL Calcium 6.8 L (8.4-10.2) mg/dL Phosphorus 11.6 H* (2.5-4.5) mg/dL Magnesium 2.5 H (1.6-2.3) mg/dL Total Bilirubin 2.5 H (0.2-1.3) mg/dL AST 19341 H (14-36) U/L ALT >95168 H (9-52) U/L Ammonia (<30) umol/L Total Protein 3.9 L (6.3-8.2) g/dL Albumin 1.9 L (3.5-5.0) g/dL Crossmatch 01/26/18 01/26/18 01/26/18 Range/Units 20:44 20:45 20:45 WBC 24.5 H (3.8-10.6) k/uL RBC 2.87 L (3.80-5.40) m/uL Hgb 8.0 L (11.4-16.0) gm/dL Hct 25.8 L (34.0-46.0) % MCHC (31.0-37.0) g/dL RDW 16.8 H (11.5-15.5) % Plt Count (150-450) k/uL Neutrophils # 22.8 H (1.3-7.7) k/uL Neutrophils # (Manual) (1.3-7.7) k/uL Lymphocytes # (Manual) (1.0-4.8) k/uL Monocytes # (Manual) (0-1.0) k/uL PT (9.0-12.0) sec INR (<1.2) APTT (22.0-30.0) sec ABG pH (7.35-7.45) ABG pCO2 (35-45) mmHg ABG pO2 (83-108) mmHg ABG HCO3 (21-25) mmol/L ABG Total CO2 (19-24) mmol/L ABG O2 Saturation (94-97) % ABG Lactic Acid (0.5-1.6) mmol/L Sodium (137-145) mmol/L Potassium 5.9 H (3.5-5.1) mmol/L Chloride (98-107) mmol/L Carbon Dioxide 8 L* (22-30) mmol/L BUN 28 H (7-17) mg/dL Creatinine 2.00 H (0.52-1.04) mg/dL Glucose 210 H (74-99) mg/dL POC Glucose (mg/dL) 233 H (75-99) mg/dL Calcium 7.3 L (8.4-10.2) mg/dL Phosphorus 12.2 H* (2.5-4.5) mg/dL Magnesium 2.7 H (1.6-2.3) mg/dL Total Bilirubin 3.1 H (0.2-1.3) mg/dL AST >19044 H (14-36) U/L ALT >09889 H (9-52) U/L Ammonia (<30) umol/L Total Protein 3.5 L (6.3-8.2) g/dL Albumin 1.8 L (3.5-5.0) g/dL Crossmatch 01/26/18 01/26/18 01/26/18 Range/Units 20:45 20:45 20:45 WBC (3.8-10.6) k/uL RBC (3.80-5.40) m/uL Hgb (11.4-16.0) gm/dL Hct (34.0-46.0) % MCHC (31.0-37.0) g/dL RDW (11.5-15.5) % Plt Count (150-450) k/uL Neutrophils # (1.3-7.7) k/uL Neutrophils # (Manual) (1.3-7.7) k/uL Lymphocytes # (Manual) (1.0-4.8) k/uL Monocytes # (Manual) (0-1.0) k/uL PT 29.7 H (9.0-12.0) sec INR 3.3 H (<1.2) APTT 46.0 H (22.0-30.0) sec ABG pH (7.35-7.45) ABG pCO2 (35-45) mmHg ABG pO2 (83-108) mmHg ABG HCO3 (21-25) mmol/L ABG Total CO2 (19-24) mmol/L ABG O2 Saturation (94-97) % ABG Lactic Acid 19.9 H* (0.5-1.6) mmol/L Sodium (137-145) mmol/L Potassium (3.5-5.1) mmol/L Chloride (98-107) mmol/L Carbon Dioxide (22-30) mmol/L BUN (7-17) mg/dL Creatinine (0.52-1.04) mg/dL Glucose (74-99) mg/dL POC Glucose (mg/dL) (75-99) mg/dL Calcium (8.4-10.2) mg/dL Phosphorus (2.5-4.5) mg/dL Magnesium (1.6-2.3) mg/dL Total Bilirubin (0.2-1.3) mg/dL AST (14-36) U/L ALT (9-52) U/L Ammonia 75 H (<30) umol/L Total Protein (6.3-8.2) g/dL Albumin (3.5-5.0) g/dL Crossmatch 01/26/18 Range/Units 21:08 WBC (3.8-10.6) k/uL RBC (3.80-5.40) m/uL Hgb (11.4-16.0) gm/dL Hct (34.0-46.0) % MCHC (31.0-37.0) g/dL RDW (11.5-15.5) % Plt Count (150-450) k/uL Neutrophils # (1.3-7.7) k/uL Neutrophils # (Manual) (1.3-7.7) k/uL Lymphocytes # (Manual) (1.0-4.8) k/uL Monocytes # (Manual) (0-1.0) k/uL PT (9.0-12.0) sec INR (<1.2) APTT (22.0-30.0) sec ABG pH 7.01 L* (7.35-7.45) ABG pCO2 28 L (35-45) mmHg ABG pO2 125 H (83-108) mmHg ABG HCO3 7 L* (21-25) mmol/L ABG Total CO2 8 L (19-24) mmol/L ABG O2 Saturation 97.5 H (94-97) % ABG Lactic Acid (0.5-1.6) mmol/L Sodium (137-145) mmol/L Potassium (3.5-5.1) mmol/L Chloride (98-107) mmol/L Carbon Dioxide (22-30) mmol/L BUN (7-17) mg/dL Creatinine (0.52-1.04) mg/dL Glucose (74-99) mg/dL POC Glucose (mg/dL) (75-99) mg/dL Calcium (8.4-10.2) mg/dL Phosphorus (2.5-4.5) mg/dL Magnesium (1.6-2.3) mg/dL Total Bilirubin (0.2-1.3) mg/dL AST (14-36) U/L ALT (9-52) U/L Ammonia (<30) umol/L Total Protein (6.3-8.2) g/dL Albumin (3.5-5.0) g/dL Crossmatch Microbiology - Last 24 Hours (Table) 01/12/18 14:25 Acid Fast Bacilli Smear - Final Bronchoalviolar Lavage - Right Acid Fast Bacilli Culture - Preliminary Laboratory Results WBC 24.5 k/uL (3.8-10.6) H 01/26/18 20:45 RBC 2.87 m/uL (3.80-5.40) L 01/26/18 20:45 Hgb 8.0 gm/dL (11.4-16.0) L 01/26/18 20:45 Hct 25.8 % (34.0-46.0) L 01/26/18 20:45 MCV 90.0 fL (80.0-100.0) 01/26/18 20:45 MCH 28.0 pg (25.0-35.0) 01/26/18 20:45 MCHC 31.1 g/dL (31.0-37.0) 01/26/18 20:45 RDW 16.8 % (11.5-15.5) H 01/26/18 20:45 Plt Count 172 k/uL (150-450) 01/26/18 20:45 Neutrophils % 93 % 01/26/18 20:45 Neutrophils % (Manual) 91 % 01/26/18 08:00 Band Neutrophils % 3 % 01/26/18 08:00 Lymphocytes % 4 % 01/26/18 20:45 Lymphocytes % (Manual) 2 % 01/26/18 08:00 Monocytes % 2 % 01/26/18 20:45 Monocytes % (Manual) 4 % 01/26/18 08:00 Eosinophils % 0 % 01/26/18 20:45 Basophils % 0 % 01/26/18 20:45 Neutrophils # 22.8 k/uL (1.3-7.7) H 01/26/18 20:45 Neutrophils # (Manual) 32.90 k/uL (1.3-7.7) H 01/26/18 08:00 Lymphocytes # 1.0 k/uL (1.0-4.8) 01/26/18 20:45 Lymphocytes # (Manual) 0.70 k/uL (1.0-4.8) L 01/26/18 08:00 Monocytes # 0.5 k/uL (0-1.0) 01/26/18 20:45 Monocytes # (Manual) 1.40 k/uL (0-1.0) H 01/26/18 08:00 Eosinophils # 0.0 k/uL (0-0.7) 01/26/18 20:45 Basophils # 0.1 k/uL (0-0.2) 01/26/18 20:45 Nucleated RBCs 0 /100 WBC (0-0) 01/26/18 08:00 Manual Slide Review Performed 01/26/18 04:01 Dimorphic RBCs Present 01/26/18 08:00 Hypochromasia Marked 01/26/18 20:45 Poikilocytosis Moderate 01/26/18 20:45 Poikilocytosis (manual Present 01/26/18 04:01 Anisocytosis Slight 01/26/18 20:45 Microcytosis Slight 01/24/18 07:45 Crenated Cell Present 01/26/18 08:00 Fragmented RBCs Present 01/26/18 08:00 ESR 5 mm/hr (0-20) 01/13/18 07:30 PT 29.7 sec (9.0-12.0) H 01/26/18 20:45 INR 3.3 (<1.2) H 01/26/18 20:45 APTT 46.0 sec (22.0-30.0) H 01/26/18 20:45 D-Dimer 2.74 mg/L FEU (<0.60) H 01/10/18 15:20 Sample Site atif 01/26/18 21:08 ABG pH 7.01 (7.35-7.45) L* 01/26/18 21:08 ABG pCO2 28 mmHg (35-45) L 01/26/18 21:08 ABG pO2 125 mmHg (83-108) H 01/26/18 21:08 ABG HCO3 7 mmol/L (21-25) L* 01/26/18 21:08 ABG Total CO2 8 mmol/L (19-24) L 01/26/18 21:08 ABG O2 Saturation 97.5 % (94-97) H 01/26/18 21:08 ABG Base Excess -24.1 mmol/L 01/26/18 21:08 Jonah Test no 01/26/18 21:08 ABG Lactic Acid 19.9 mmol/L (0.5-1.6) H* 01/26/18 20:45 FiO2 40 % 01/26/18 21:08 Sodium 140 mmol/L (137-145) 01/26/18 20:45 Potassium 5.9 mmol/L (3.5-5.1) H 01/26/18 20:45 Chloride 105 mmol/L (98-107) 01/26/18 20:45 Carbon Dioxide 8 mmol/L (22-30) L* 01/26/18 20:45 Anion Gap 27 mmol/L 01/26/18 20:45 BUN 28 mg/dL (7-17) H 01/26/18 20:45 Creatinine 2.00 mg/dL (0.52-1.04) H 01/26/18 20:45 Est GFR (MDRD) Af Amer >60 (>60 ml/min/1.73 sqM) 03/05/18 15:20 Est GFR (MDRD) Non-Af >60 (>60 ml/min/1.73 sqM) 01/10/18 15:20 Est GFR (CKD-EPI)AfAm 29 (>60 ml/min/1.73 sqM) 01/26/18 20:45 Est GFR (CKD-EPI)NonAf 25 (>60 ml/min/1.73 sqM) 01/26/18 20:45 Glucose 210 mg/dL (74-99) H 01/26/18 20:45 POC Glucose (mg/dL) 233 mg/dL (75-99) H 01/26/18 20:44 POC Glu [employer] Clerk Cashier ID Jeffery Fagan 01/26/18 20:[address] Glu mg/dL 111 01/12/18 08:25 Hemoglobin A1c 5.5 % (4.0-6.0) 01/12/18 08:25 Calcium 7.3 mg/dL (8.4-10.2) L 01/26/18 20:45 Phosphorus 12.2 mg/dL (2.5-4.5) H* 01/26/18 20:45 Magnesium 2.7 mg/dL (1.6-2.3) H 01/26/18 20:45 Iron 7 ug/dL (50-170) L 01/11/18 08:52 TIBC 319 ug/dL (228-460) 01/11/18 08:52 Iron Saturation 2.19 (12.00-45.00) L 01/11/18 08:52 Ferritin 80.6 ng/mL (10.0-291.0) 01/11/18 08:52 Total Bilirubin 3.1 mg/dL (0.2-1.3) H 01/26/18 20:45 AST >74986 U/L (14-36) H 01/26/18 20:45 ALT >24641 U/L (9-52) H 01/26/18 20:45 Alkaline Phosphatase 80 U/L (38-126) 01/26/18 20:45 Ammonia 75 umol/L (<30) H 01/26/18 20:45 Total Creatine Kinase 38 U/L (30-135) 01/10/18 15:20 CK-MB (CK-2) 0.5 ng/mL (0.0-2.4) 01/10/18 15:20 CK-MB (CK-2) Rel Index 1.3 01/10/18 15:20 Troponin I <0.012 ng/mL (0.000-0.034) 01/24/18 11:08 NT-Pro-B Natriuret Pep 6310 pg/mL 01/10/18 15:20 Total Protein 3.5 g/dL (6.3-8.2) L 01/26/18 20:45 Albumin 1.8 g/dL (3.5-5.0) L 01/26/18 20:45 Urine Color Light Yellow 01/17/18 11:14 Urine Appearance Clear (Clear) 01/17/18 11:14 Urine pH 7.5 (5.0-8.0) 01/17/18 11:14 Ur Specific [place] 1.008 (1.001-1.035) 01/17/18 11:14 Urine Protein Negative (Negative) 01/17/18 11:14 Urine Glucose (UA) Negative (Negative) 01/17/18 11:14 Urine Ketones Negative (Negative) 01/17/18 11:14 Urine Blood Negative (Negative) 01/17/18 11:14 Urine Nitrite Negative (Negative) 01/17/18 11:14 Urine Bilirubin Negative (Negative) 01/17/18 11:14 Urine Urobilinogen <2.0 mg/dL (<2.0) 01/17/18 11:14 Ur Leukocyte Esterase Negative (Negative) 01/17/18 11:14 Virus Source See Below 01/12/18 14:25 Viral Test See Below 01/12/18 14:25 Virus Analysis Interp See Below 01/12/18 14:25 Miscellaneous Test Legionella PCR 01/12/18 14:25 Misc Test Result See comment 01/12/18 14:25 Blood Type B Positive 01/25/18 11:51 Blood Type Confirm B Positive 01/19/18 08:45 Blood Type Recheck No 01/25/18 11:51 Antibody Screen NEGATIVE 01/25/18 11:51 Crossmatch See Detail 01/25/18 11:51 Spec Expiration Date 01/28/2018 - 235001/25/18 11:51 Microbiology 01/12/18 14:25 Bronchoalviolar Lavage - Right Acid Fast Bacilli Smear - Final 01/12/18 14:25 Bronchoalviolar Lavage - Right Acid Fast Bacilli Culture - Preliminary 01/17/18 11:14 Urine,Catheterized Urine Culture - Final 01/12/18 14:25 Bronchoalviolar Lavage - Right Fungal Culture - Preliminary [place] albicans 01/10/18 15:20 Blood Blood Culture - Final No Growth after 144 hours 01/12/18 14:25 Bronchoalviolar Lavage - Right Gram Stain - Final 01/12/18 14:25 Bronchoalviolar Lavage - Right Bronchial Washings Culture - Final Assessment and Plan (1) Multisystem organ failure Narrative/Plan: 67-year-old female who is now day 14 of her hospital stay has evidence of progressive decline of her status now with multisystem organ failure with persistent acidosis and hypotension requiring multiple vasopressors and development of hypothermia. There were concerns pneumonia and she is on broad-spectrum antibiotic therapy with Zosyn and vancomycin. With negative cultures appears to be adequate at this time. Patient has had abdominal complaints ulcer through the state and did undergo a laparoscopic evaluation with evidence of ileus. With her profound acidosis and abdominal abnormalities concerned to ischemic colitis. Above antibiotics are adequate however if therapy is to continue antifungal therapy can be added given the possibility of fungal translocation in the face of his ischemic colon. The patient has multisystem organ failure and has a very poor prognosis. The profound leukocytosis appears to be in the basis of the acidosis likely from the ischemic colitis. Current Visit: Yes Status: Acute Code(s): CCI0772 - SNOMED Code(s): 76331202 (2) Systolic and diastolic CHF, acute on chronic Current Visit: No Status: Acute Code(s): I50.43 - ACUTE ON CHRONIC COMBINED SYSTOLIC AND DIASTOLIC HRT FAIL SNOMED Code(s): 150234900631295 (3) Lactic acidosis Current Visit: Yes Status: Acute Code(s): E87.2 - ACIDOSIS SNOMED Code(s) : 37229208 (4) Leukocytosis Current Visit: Yes Status: Acute Code(s): D72.829 - ELEVATED WHITE BLOOD CELL COUNT, UNSPECIFIED SNOMED Code(s): 275720726
[2018-01-26] MEDS: ATORVASTATIN 80 MG TAB PO SCH (22:21)
[2018-01-26] MEDS: PANTOPRAZOLE 40 MG/10 ML VIAL IVP SCH (22:23)
[2018-01-26] MEDS ORDERED: MICAFUNGIN 100 MG in SODIUM CHLORIDE 0.9% 100 ML IVPB SCH (22:30)
[2018-01-27] MEDS: PIPERACILLIN-TAZOBACTAM 3.375 GM in DEXTROSE/WATER 1 50ML.BAG IVPB SCH ×2 (00:12→08:55)
[2018-01-27 00:21] LABS: Glucose,Whole Blood 218 mg/dL (75-99)
[2018-01-27] MEDS: INSULIN ASPART 100 UNIT/ML 1 ML 10 ML VIAL SQ SCH ×3 (00:26→11:25)
[2018-01-27] MEDS: SODIUM CHLORIDE 0.9% 1,000 ML IV SCH ×5 (01:13→11:27)
[2018-01-27] MEDS: SODIUM CHLORIDE 0.9% 1,000 ML with SODIUM BICARB (1 MEQ/ML) 150 ML IV SCH ×4 (02:53→14:28)
[2018-01-27] MEDS: EPINEPHrine 2 MG in DEXTROSE 5% IN WATER 250 ML IV SCH ×4 (03:20→13:03)
[2018-01-27] MEDS: VANCOMYCIN 1,000 MG in SODIUM CHLORIDE 0.9% 250 ML IVPB SCH (04:10)
[2018-01-27 04:34] LABS: ABG Base Excess -21.2 mmol/L; ABG Oxygen Saturation 95.7 % (94-97); ABG PCO2 28 mmHg (35-45); ABG PO2 96 mmHg (83-108); ABG TCO2 9 mmol/L (19-24)
[2018-01-27 05:08] LABS: ABG HCO3 9 mmol/L (21-25)
[2018-01-27 05:25] LABS: Glucose,Whole Blood 132 mg/dL (75-99)
[2018-01-27] MEDS: SODIUM CHLORIDE 0.9% 99 ML with VASOPRESSIN 20 UNIT IV SCH ×2 (06:15)
[2018-01-27 06:26] LABS: Partial Thromboplastin Time 48.1 sec (22.0-30.0)
[2018-01-27 06:28] LABS: Anisocytosis Slight; Basophils % (A) 0 %; Eosinophils % (A) 0 %; HCT 22.7 % (34.0-46.0); Hypochromasia Marked; Lymphocytes # (A) 0.8 k/uL (1.0-4.8); Lymphocytes % (A) 5 %; MCH 27.3 pg (25.0-35.0); MCHC 30.7 g/dL (31.0-37.0); MCV 88.9 fL (80.0-100.0); Monocytes # (A) 0.4 k/uL (0-1.0); Monocytes % (A) 3 %; Neutrophils # (A) 15.6 k/uL (1.3-7.7); Neutrophils % (A) 92 %; Platelet Count 135 k/uL (150-450); Poikilocytosis Marked; RBC 2.55 m/uL (3.80-5.40); RDW 17.3 % (11.5-15.5)
[2018-01-27 06:30] LABS: INR 3.3 (<1.2); Prothrombin Time 29.9 sec (9.0-12.0)
[2018-01-27 06:43] LABS: Albumin 1.6 g/dL (3.5-5.0); Alkaline Phosphatase 86 U/L (38-126); Anion Gap 25 mmol/L; Blood Urea Nitrogen 28 mg/dL (7-17); Chloride 108 mmol/L (98-107); Glucose 113 mg/dL (74-99); Magnesium 2.3 mg/dL (1.6-2.3); Sodium 143 mmol/L (137-145); Total Bilirubin 3.3 mg/dL (0.2-1.3); Total Protein 3.2 g/dL (6.3-8.2)
[2018-01-27 07:22] LABS: Calcium 5.6 mg/dL (8.4-10.2); Carbon Dioxide 10 mmol/L (22-30); Phosphorus 11.3 mg/dL (2.5-4.5); Potassium 6.2 mmol/L (3.5-5.1)
[2018-01-27] MEDS: IPRATROPIUM-ALBUTEROL 3 ML NEB INHALATION SCH ×3 (07:28→16:00)
[2018-01-27] MEDS ORDERED: SODIUM BICARB 8.4% 50 ML SYR (1 MEQ/ML) IV ONE (07:30)
[2018-01-27] MEDS ORDERED: SODIUM POLYSTYRENE SULFONATE 15 GM/60 ML BOTTLE PO STA ×2 (07:33→13:56)
[2018-01-27 08:01] LABS: ALT >10000 U/L (9-52); AST >15000 U/L (14-36)
[2018-01-27] MEDS: LACTULOSE 20 GM/30 ML CUP PO SCH ×2 (08:26→15:19)
[2018-01-27] MEDS: DOCUSATE 100 MG CAP PO SCH (08:27)
[2018-01-27] MEDS: FERROUS SULFATE 325 MG TAB PO SCH (08:27)
[2018-01-27] MEDS: FUROSEMIDE 40 MG TAB PO SCH (08:27)
[2018-01-27] MEDS: ASPIRIN 81 MG PO SCH (08:28)
[2018-01-27] MEDS: CHLORHEXIDINE GLUCONATE 15 ML CUP MUCOUS MEM SCH (08:28)
[2018-01-27] MEDS: PANTOPRAZOLE 40 MG/10 ML VIAL IVP SCH (08:28)
[2018-01-27] MEDS: predniSONE 10 MG TAB PO SCH (08:30)
[2018-01-27] MEDS: ZINC OXIDE 20% OINT 28.4 GM TUBE TOPICAL SCH (08:30)
--- NOTE | 2018-01-27 09:09 | XR ---
EXAMINATION TYPE: XR chest 1V portable DATE OF EXAM: 01/27/2018 COMPARISON: Prior chest x-ray 01/26/2018 HISTORY: Intubated TECHNIQUE: Single frontal view of the chest is obtained. FINDINGS: Endotracheal tube, NG tube are overlying appropriate positions. Heart is stable. Intracard iac defibrillator leads are stable, there are overlying cardiac leads. No evident pneumothorax or siz able effusion. The patient is rotated. Patchy basilar density is present bilaterally. Ill-defined inc reased attenuation also noted in the right upper lobe is unchanged. Prominent lung lines compatible w ith underlying emphysema. The aorta is dense. IMPRESSION: Probable basilar atelectasis. Correlate to exclude pneumonia, edema. Follow-up recommend ed.
[2018-01-27] MEDS: CALCIUM CARBONATE 500 MG CHEWABLE PO SCH (09:32)
[2018-01-27] MEDS: CHOLECALCIFEROL 1,000 UNIT TAB PO SCH (09:32)
[2018-01-27] MEDS ORDERED: DEXTROSE 5% IN WATER 1,000 ML with SODIUM BICARB (1 MEQ/ML) 150 ML IV SCH (09:45)
[2018-01-27] MEDS ORDERED: DEXTROSE 50%-WATER 50 ML SYRINGE IVP ONE (09:49)
[2018-01-27] MEDS: NOREPINEPHRIN 16 MG-0.9%NS PMX 16 MG/250 ML ML IV SCH (09:51)
[2018-01-27 10:01] LABS: Glucose,Whole Blood 61 mg/dL (75-99)
[2018-01-27 10:21] LABS: Glucose,Whole Blood 94 mg/dL (75-99)
[2018-01-27 10:28] VITALS: BP 126/52
--- NOTE | 2018-01-27 10:34 | P.PN ---
Subjective Progress Note Date: 01/27/18 Principal diagnosis: Status post cardiac arrest, aspiration pneumonia, acute hypoxic respiratory failure, Bilateral pneumonia, radicular nodular infiltrate with early cavity formation, shortness of breath and acute COPD exacerbation mediastinal lymphadenopathy, acute on chronic systolic heart failure, pericardial effusion, severe degree of mitral regurgitation, mild pulmonary hypertension, small bowel obstruction due to intra-abdominal bands and adhesions, status post laparoscopy lysis of bands and adhesions, urinary retention, hypertension 01/23/2018, patient seen and evaluated examined overall respiratory status stable breathing comfortably no obvious distress present Ammann being followed by surgical services as well as urology 01/24/2018 patient seen eval reexamined breathing comfortably no obvious distress present tolerating by mouth relatively well surgical services following no obvious respiratory distress 01/25/2018, critical care time spent 45 minutes Apparently this morning she had gotten up the bedside commode, complained of not feeling right, was pale and weak, and subsequently became unresponsive. [facility] was called, CPR started with ROSC, patient was intubated and transferred to the intensive care unit. Her AICD did discharge. A repeat echocardiogram was performed by cardiology which did demonstrate continued pericardial effusion. patient seen and evaluated examined in the ICU after cardiac arrest patient remains unresponsive initially patient was seen was on the assist control with a rate of 14, tidal volume of 400, 100% oxygen, PEEP of 5 and arterial blood gas noted significant finding was severe profound respiratory and metabolic acidosis with pH of 6.9 ventilator was adjusted with a rate in escalated to 18 and tidal volume increased to 450 pH did improve to 7.1 with improvement in oxygenation and ventilation, doing evaluation patient does breathe over the respirator with few occasional and spontaneous breath initiation patient is hypertensive with a systolic blood pressure is 160 over diastolic pressure of 90 and slightly anxious was started on propofol blood pressure did drop down into 110 to 130 systolic, patient appears to be slightly volume depleted was started on IV fluid normal saline 100 mL an hour patient also noted to have drop in blood pressure further the propofol was discontinued and fluid bolus of 2 50 mL an hour crystalloid was given given poor hemodynamic status decision was done to put a central line and A-line, patient has been intubated with endotracheal tube #8, patient has been evaluated by cardiovascular services as well as surgical services discussed with the surgery, patient has AICD which is to be interrogated later on, labs and chest x-ray reviewed arterial blood gases reviewed new dense infiltrate predominantly daunted in the right upper lobe likely aspiration related process with history of emesis earlier this morning prior to the event, critical care time spent 45 minutes which does not include time spent for line placement 01/26/2018, critical care time spent 60 minutes Patient seen and evaluated examined multiple times today she remains on full respirator support ventilator has been adjusted she is currently on assist control rate of 22 breathing 24-26 tidal volume is 450, PEEP is 5 and 40% oxygen , patient has very complicated sequence of events today she was found to be severely hyperkalemic for that she required 30 g of Kayexalate 2 she has been aggressively resuscitated with crystalloids see flowsheet for detail for low blood pressure initially she was placed on levo fed which was escalated up to 40 mics without any significant improvement with addition of vasopressin 0.04 with that blood pressure remains on the lower side in 50s and 60s requiring epinephrine drip patient was started on 1 Gene of epinephrine with that blood pressure did improve but however patient developed severe profound metabolic acidosis with pH of 6.9 patient has been started on bicarb drip has received 4 A of bicarb, has been aggressively resuscitated with fluids she has some urine output about 30-40 clear urine has been obtained renal functions overall remains stable but slight decline of creatinine have been noted repeat labs revealed potassium came down to 6, patient also noted to have a hemoglobin drop down into mid 6 level in addition patient had coffee-ground emesis and aspirated suction from the OG tube there was a question of some questionable fecal material as well a flat plate of the abdomen was done in 2 units of packed RBC has been transfused as well, no more fecal material has been noted. Overall plan is once patient is slightly stable to take her down for computed tomography scan of the abdominal and pelvis. Patient also has been evaluated by cardiothoracic surgery not considered to be a candidate for pericardial window as per pericardial effusion is mild, echocardiogram revealed global hypokinesia with ejection fraction only 20%, LA severely dilated, primary service updated about plan of care, overall is to lower down to the levo fed to 10 mics as tolerated blood pressure then start weaning the epinephrine drip continue to resuscitate and another set of labs including blood gas lactic acid to be performed later on today, 01/27/2018, critical care time spent 45 minutes, Patient seen and evaluated examined in the ICU care plan discussed with the primary service and family at length patient remains unresponsive she is off of propofol drip, patient remains on full ventilator support with assist control rate of 22 breathing 26 tidal volume of 500, 5 of PEEP and 40% oxygen the arterial blood gases reviewed patient continued to have profound metabolic acidosis despite of the bicarb drip and multiple amps of bicarb which are being given unfortunately not able to wean down the epinephrine drip in fact it has gone up to 2 mics now patient is also on 45 mics of levo fed drip she is also on bicarb drip 150 mL an hour with 2 A of bicarb being given every 4-6 hour, patient has a shock liver with the very high AST and 80, in the last 6 hour no urine output has been noted her BUN/creatinine continued to climb up, her abdomen is distended with hypoactive bowel sounds echocardiogram revealed ejection fraction only 20% all beats are paced 100%. X-ray and labs reviewed patient has clearly developed multiorgan failure syndrome on top of severe degree of cardiomyopathy with very poor ejection fraction, family has requested a no CODE STATUS, they're doing a meeting and most likely they will proceed with comfort care as they expressed, in the meantime we'll continue supportive care prognosis extremely poor with very poor likelihood of recovery Objective - Vital Signs Vital signs: Vital Signs Temp 98.7 F 01/27/18 09:50 Pulse 102 H 01/27/18 10:00 Resp 22 01/27/18 10:00 BP 128/49 01/27/18 09:50 Pulse Ox 95 01/27/18 08:41 Intake & Output 01/26/18 01/27/18 01/27/18 18:59 06:59 18:59 Intake Total 2175.614 5704.044 1470.429 Output Total 1190 650 0 Balance 844.164 7680.044 1470.429 Weight 63.4 kg Intake: IV 5450 1000 Dextrose 5% in Water 1, 1200 400 000 ml @ 100 mls/hr IV . [id number] [facility] with Sodium Bicarb (1 Meq/ml) 150 ml Rx#:[id number] Micafungin 100 mg In 100 Sodium Chloride 0.9% 100 ml @ 100 mls/hr IVPB HS [facility] Rx#:[id number] Piperacillin-Tazobactam 3 50 .375 gm In Dextrose/Water 1 50ml.bag @ 12.5 mls/hr IVPB Q8HR [facility] Rx#: [id number] Sodium Chloride 0.9% 1, 3400 000 ml @ 100 mls/hr IV . Q10H [facility] Rx#:[id number] Sodium Chloride 0.9% 1, 450 600 000 ml @ 150 mls/hr IV . Q6H40M [facility] Rx#:[id number] Vancomycin 1,000 mg In 250 Sodium Chloride 0.9% 250 ml @ 125 mls/hr IVPB Q16H [facility] Rx#:[id number] Intake, IV Titration 1555.614 224.044 160.429 Amount Dextrose 5% in Water 1, 400 000 ml @ 100 mls/hr IV . [id number] [facility] with Sodium Bicarb (1 Meq/ml) 150 ml Rx#:[id number] EPINEPHrine 2 mg In 102.264 66.055 68.418 Dextrose 5% in Water 250 ml @ 2 MCG/MIN 15.12 mls/ hr IV .[id number] [facility] Rx#: [id number] Norepinephrin 16 mg-0.9% 250.000 157.989 92.011 Ns Pmx 16 mg In 250 ml @ Titrate IV .Q0M [facility] Rx#: [id number] Propofol 1,000 mg In 3.35 Empty Bag 1 bag @ Titrate IV .Q0M [facility] Rx#: [id number] Sodium Chloride 0.9% 1, 300 000 ml @ 100 mls/hr IV . Q10H [facility] Rx#:[id number] Sodium Chloride 0.9% 1, 500 000 ml @ 100 mls/hr IV . Q10H [facility] Rx#:[id number] Blood Product 620 310 As-1 Unit 0 [id number] As-1 Unit 310 [id number] Rc As-1 Unit 310 [id number] As-3 Unit 310 [id number] Other 30 Output: Gastric Drainage 50 600 Urine 440 50 0 Oral Regurgitation 700 Other: Voiding Method Indwelling Catheter Indwelling Catheter Indwelling Catheter ABP, PAP, CO, CI - Last Documented Arterial Blood Pressure 142/46 - Exam General appearance: Intubated on full ventilator support no apparent distress Head exam: Present: atraumatic, normocephalic, normal inspection Eye exam: Present: normal appearance, P Absent: scleral icterus, conjunctival injection, periorbital swelling ENT exam: Present: mucous membranes dry Neck exam: Present: normal inspection. Absent: tenderness, meningismus, lymphadenopathy, neck veins are slightly prominent but no JVD seen Respiratory exam: Present: wheezes (predominantly on the right upper lobe otherwise clear to auscultation, Cardiovascular Exam: Present: regular rate, normal rhythm, normal heart sounds. GI/Abdominal exam: Present: soft, normal bowel sounds. Not distended, non- tenderness, no guarding, no rebound, no rigid Extremities exam: Present: normal inspection, full ROM, normal capillary refill. Absent: tenderness, pedal edema, joint swelling, calf tenderness Neurological exam: Sedated with propofol drip Skin exam: Present: warm, dry, intact, normal color. Absent: rash - Labs CBC & Chem 7: 01/27/18 05:25 01/27/18 05:25 Labs: Abnormal Lab Results - Last 24 Hours (Table) 01/25/18 01/26/18 01/26/18 Range/Units 11:51 04:01 08:00 WBC (3.8-10.6) k/uL RBC (3.80-5.40) m/uL Hgb (11.4-16.0) gm/dL Hct (34.0-46.0) % MCHC (31.0-37.0) g/dL RDW (11.5-15.5) % Plt Count (150-450) k/uL Neutrophils # (1.3-7.7) k/uL Neutrophils # (Manual) 38.50 H 32.90 H (1.3-7.7) k/uL Lymphocytes # (1.0-4.8) k/uL Lymphocytes # (Manual) 0.70 L (1.0-4.8) k/uL Monocytes # (Manual) 2.07 H 1.40 H (0-1.0) k/uL PT (9.0-12.0) sec INR (<1.2) APTT (22.0-30.0) sec ABG pH (7.35-7.45) ABG pCO2 (35-45) mmHg ABG pO2 (83-108) mmHg ABG HCO3 (21-25) mmol/L ABG Total CO2 (19-24) mmol/L ABG O2 Saturation (94-97) % ABG Lactic Acid (0.5-1.6) mmol/L Potassium (3.5-5.1) mmol/L Chloride (98-107) mmol/L Carbon Dioxide (22-30) mmol/L BUN (7-17) mg/dL Creatinine (0.52-1.04) mg/dL Glucose (74-99) mg/dL POC Glucose (mg/dL) (75-99) mg/dL Calcium (8.4-10.2) mg/dL Phosphorus (2.5-4.5) mg/dL Magnesium (1.6-2.3) mg/dL Total Bilirubin (0.2-1.3) mg/dL AST (14-36) U/L ALT (9-52) U/L Ammonia (<30) umol/L Total Protein (6.3-8.2) g/dL Albumin (3.5-5.0) g/dL Crossmatch See Detail 01/26/18 01/26/18 01/26/18 Range/Units 10:59 12:53 13:48 WBC (3.8-10.6) k/uL RBC (3.80-5.40) m/uL Hgb (11.4-16.0) gm/dL Hct (34.0-46.0) % MCHC (31.0-37.0) g/dL RDW (11.5-15.5) % Plt Count (150-450) k/uL Neutrophils # (1.3-7.7) k/uL Neutrophils # (Manual) (1.3-7.7) k/uL Lymphocytes # (1.0-4.8) k/uL Lymphocytes # (Manual) (1.0-4.8) k/uL Monocytes # (Manual) (0-1.0) k/uL PT (9.0-12.0) sec INR (<1.2) APTT (22.0-30.0) sec ABG pH <7.00 L* (7.35-7.45) ABG pCO2 24 L (35-45) mmHg ABG pO2 129 H (83-108) mmHg ABG HCO3 6 L* (21-25) mmol/L ABG Total CO2 6 L (19-24) mmol/L ABG O2 Saturation (94-97) % ABG Lactic Acid (0.5-1.6) mmol/L Potassium (3.5-5.1) mmol/L Chloride (98-107) mmol/L Carbon Dioxide (22-30) mmol/L BUN (7-17) mg/dL Creatinine (0.52-1.04) mg/dL Glucose (74-99) mg/dL POC Glucose (mg/dL) 60 L 123 H (75-99) mg/dL Calcium (8.4-10.2) mg/dL Phosphorus (2.5-4.5) mg/dL Magnesium (1.6-2.3) mg/dL Total Bilirubin (0.2-1.3) mg/dL AST (14-36) U/L ALT (9-52) U/L Ammonia (<30) umol/L Total Protein (6.3-8.2) g/dL Albumin (3.5-5.0) g/dL Crossmatch 01/26/18 01/26/18 01/26/18 Range/Units 15:46 15:55 16:00 WBC 28.9 H* (3.8-10.6) k/uL RBC 3.14 L (3.80-5.40) m/uL Hgb 8.6 L D (11.4-16.0) gm/dL Hct 28.4 L (34.0-46.0) % MCHC 30.3 L (31.0-37.0) g/dL RDW 16.5 H (11.5-15.5) % Plt Count (150-450) k/uL Neutrophils # 27.1 H (1.3-7.7) k/uL Neutrophils # (Manual) (1.3-7.7) k/uL Lymphocytes # (1.0-4.8) k/uL Lymphocytes # (Manual) (1.0-4.8) k/uL Monocytes # (Manual) (0-1.0) k/uL PT (9.0-12.0) sec INR (<1.2) APTT (22.0-30.0) sec ABG pH 7.00 L* (7.35-7.45) ABG pCO2 25 L (35-45) mmHg ABG pO2 133 H (83-108) mmHg ABG HCO3 6 L* (21-25) mmol/L ABG Total CO2 7 L (19-24) mmol/L ABG O2 Saturation 98.0 H (94-97) % ABG Lactic Acid (0.5-1.6) mmol/L Potassium (3.5-5.1) mmol/L Chloride (98-107) mmol/L Carbon Dioxide (22-30) mmol/L BUN (7-17) mg/dL Creatinine (0.52-1.04) mg/dL Glucose (74-99) mg/dL POC Glucose (mg/dL) 208 H (75-99) mg/dL Calcium (8.4-10.2) mg/dL Phosphorus (2.5-4.5) mg/dL Magnesium (1.6-2.3) mg/dL Total Bilirubin (0.2-1.3) mg/dL AST (14-36) U/L ALT (9-52) U/L Ammonia (<30) umol/L Total Protein (6.3-8.2) g/dL Albumin (3.5-5.0) g/dL Crossmatch 01/26/18 01/26/18 01/26/18 Range/Units 16:00 16:00 20:44 WBC (3.8-10.6) k/uL RBC (3.80-5.40) m/uL Hgb (11.4-16.0) gm/dL Hct (34.0-46.0) % MCHC (31.0-37.0) g/dL RDW (11.5-15.5) % Plt Count (150-450) k/uL Neutrophils # (1.3-7.7) k/uL Neutrophils # (Manual) (1.3-7.7) k/uL Lymphocytes # (1.0-4.8) k/uL Lymphocytes # (Manual) (1.0-4.8) k/uL Monocytes # (Manual) (0-1.0) k/uL PT (9.0-12.0) sec INR (<1.2) APTT (22.0-30.0) sec ABG pH (7.35-7.45) ABG pCO2 (35-45) mmHg ABG pO2 (83-108) mmHg ABG HCO3 (21-25) mmol/L ABG Total CO2 (19-24) mmol/L ABG O2 Saturation (94-97) % ABG Lactic Acid 16.7 H* (0.5-1.6) mmol/L Potassium 6.0 H (3.5-5.1) mmol/L Chloride (98-107) mmol/L Carbon Dioxide 8 L* (22-30) mmol/L BUN 28 H (7-17) mg/dL Creatinine 1.79 H (0.52-1.04) mg/dL Glucose 186 H (74-99) mg/dL POC Glucose (mg/dL) 233 H (75-99) mg/dL Calcium 6.8 L (8.4-10.2) mg/dL Phosphorus 11.6 H* (2.5-4.5) mg/dL Magnesium 2.5 H (1.6-2.3) mg/dL Total Bilirubin 2.5 H (0.2-1.3) mg/dL AST 01504 H (14-36) U/L ALT >72275 H (9-52) U/L Ammonia (<30) umol/L Total Protein 3.9 L (6.3-8.2) g/dL Albumin 1.9 L (3.5-5.0) g/dL Crossmatch 01/26/18 01/26/18 01/26/18 Range/Units 20:45 20:45 20:45 WBC 24.5 H (3.8-10.6) k/uL RBC 2.87 L (3.80-5.40) m/uL Hgb 8.0 L (11.4-16.0) gm/dL Hct 25.8 L (34.0-46.0) % MCHC (31.0-37.0) g/dL RDW 16.8 H (11.5-15.5) % Plt Count (150-450) k/uL Neutrophils # 22.8 H (1.3-7.7) k/uL Neutrophils # (Manual) (1.3-7.7) k/uL Lymphocytes # (1.0-4.8) k/uL Lymphocytes # (Manual) (1.0-4.8) k/uL Monocytes # (Manual) (0-1.0) k/uL PT (9.0-12.0) sec INR (<1.2) APTT (22.0-30.0) sec ABG pH (7.35-7.45) ABG pCO2 (35-45) mmHg ABG pO2 (83-108) mmHg ABG HCO3 (21-25) mmol/L ABG Total CO2 (19-24) mmol/L ABG O2 Saturation (94-97) % ABG Lactic Acid 19.9 H* (0.5-1.6) mmol/L Potassium 5.9 H (3.5-5.1) mmol/L Chloride (98-107) mmol/L Carbon Dioxide 8 L* (22-30) mmol/L BUN 28 H (7-17) mg/dL Creatinine 2.00 H (0.52-1.04) mg/dL Glucose 210 H (74-99) mg/dL POC Glucose (mg/dL) (75-99) mg/dL Calcium 7.3 L (8.4-10.2) mg/dL Phosphorus 12.2 H* (2.5-4.5) mg/dL Magnesium 2.7 H (1.6-2.3) mg/dL Total Bilirubin 3.1 H (0.2-1.3) mg/dL AST >90579 H (14-36) U/L ALT >14305 H (9-52) U/L Ammonia (<30) umol/L Total Protein 3.5 L (6.3-8.2) g/dL Albumin 1.8 L (3.5-5.0) g/dL Crossmatch 01/26/18 01/26/18 01/26/18 Range/Units 20:45 20:45 21:08 WBC (3.8-10.6) k/uL RBC (3.80-5.40) m/uL Hgb (11.4-16.0) gm/dL Hct (34.0-46.0) % MCHC (31.0-37.0) g/dL RDW (11.5-15.5) % Plt Count (150-450) k/uL Neutrophils # (1.3-7.7) k/uL Neutrophils # (Manual) (1.3-7.7) k/uL Lymphocytes # (1.0-4.8) k/uL Lymphocytes # (Manual) (1.0-4.8) k/uL Monocytes # (Manual) (0-1.0) k/uL PT 29.7 H (9.0-12.0) sec INR 3.3 H (<1.2) APTT 46.0 H (22.0-30.0) sec ABG pH 7.01 L* (7.35-7.45) ABG pCO2 28 L (35-45) mmHg ABG pO2 125 H (83-108) mmHg ABG HCO3 7 L* (21-25) mmol/L ABG Total CO2 8 L (19-24) mmol/L ABG O2 Saturation 97.5 H (94-97) % ABG Lactic Acid (0.5-1.6) mmol/L Potassium (3.5-5.1) mmol/L Chloride (98-107) mmol/L Carbon Dioxide (22-30) mmol/L BUN (7-17) mg/dL Creatinine (0.52-1.04) mg/dL Glucose (74-99) mg/dL POC Glucose (mg/dL) (75-99) mg/dL Calcium (8.4-10.2) mg/dL Phosphorus (2.5-4.5) mg/dL Magnesium (1.6-2.3) mg/dL Total Bilirubin (0.2-1.3) mg/dL AST (14-36) U/L ALT (9-52) U/L Ammonia 75 H (<30) umol/L Total Protein (6.3-8.2) g/dL Albumin (3.5-5.0) g/dL Crossmatch 01/27/18 01/27/18 01/27/18 Range/Units 00:19 04:30 05:22 WBC (3.8-10.6) k/uL RBC (3.80-5.40) m/uL Hgb (11.4-16.0) gm/dL Hct (34.0-46.0) % MCHC (31.0-37.0) g/dL RDW (11.5-15.5) % Plt Count (150-450) k/uL Neutrophils # (1.3-7.7) k/uL Neutrophils # (Manual) (1.3-7.7) k/uL Lymphocytes # (1.0-4.8) k/uL Lymphocytes # (Manual) (1.0-4.8) k/uL Monocytes # (Manual) (0-1.0) k/uL PT (9.0-12.0) sec INR (<1.2) APTT (22.0-30.0) sec ABG pH 7.10 L* (7.35-7.45) ABG pCO2 28 L (35-45) mmHg ABG pO2 (83-108) mmHg ABG HCO3 9 L* (21-25) mmol/L ABG Total CO2 9 L (19-24) mmol/L ABG O2 Saturation (94-97) % ABG Lactic Acid (0.5-1.6) mmol/L Potassium (3.5-5.1) mmol/L Chloride (98-107) mmol/L Carbon Dioxide (22-30) mmol/L BUN (7-17) mg/dL Creatinine (0.52-1.04) mg/dL Glucose (74-99) mg/dL POC Glucose (mg/dL) 218 H 132 H (75-99) mg/dL Calcium (8.4-10.2) mg/dL Phosphorus (2.5-4.5) mg/dL Magnesium (1.6-2.3) mg/dL Total Bilirubin (0.2-1.3) mg/dL AST (14-36) U/L ALT (9-52) U/L Ammonia (<30) umol/L Total Protein (6.3-8.2) g/dL Albumin (3.5-5.0) g/dL Crossmatch 01/27/18 01/27/18 01/27/18 Range/Units 05:25 05:25 05:25 WBC 17.0 H (3.8-10.6) k/uL RBC 2.55 L (3.80-5.40) m/uL Hgb 7.0 L* (11.4-16.0) gm/dL Hct 22.7 L (34.0-46.0) % MCHC 30.7 L (31.0-37.0) g/dL RDW 17.3 H (11.5-15.5) % Plt Count 135 L (150-450) k/uL Neutrophils # 15.6 H (1.3-7.7) k/uL Neutrophils # (Manual) (1.3-7.7) k/uL Lymphocytes # 0.8 L (1.0-4.8) k/uL Lymphocytes # (Manual) (1.0-4.8) k/uL Monocytes # (Manual) (0-1.0) k/uL PT 29.9 H (9.0-12.0) sec INR 3.3 H (<1.2) APTT 48.1 H (22.0-30.0) sec ABG pH (7.35-7.45) ABG pCO2 (35-45) mmHg ABG pO2 (83-108) mmHg ABG HCO3 (21-25) mmol/L ABG Total CO2 (19-24) mmol/L ABG O2 Saturation (94-97) % ABG Lactic Acid (0.5-1.6) mmol/L Potassium 6.2 H* (3.5-5.1) mmol/L Chloride 108 H (98-107) mmol/L Carbon Dioxide 10 L* (22-30) mmol/L BUN 28 H (7-17) mg/dL Creatinine 2.28 H (0.52-1.04) mg/dL Glucose 113 H (74-99) mg/dL POC Glucose (mg/dL) (75-99) mg/dL Calcium 5.6 L* (8.4-10.2) mg/dL Phosphorus 11.3 H* (2.5-4.5) mg/dL Magnesium (1.6-2.3) mg/dL Total Bilirubin 3.3 H (0.2-1.3) mg/dL AST >12740 H (14-36) U/L ALT >12467 H (9-52) U/L Ammonia (<30) umol/L Total Protein 3.2 L (6.3-8.2) g/dL Albumin 1.6 L (3.5-5.0) g/dL Crossmatch 01/27/18 01/27/18 01/27/18 Range/Units 05:25 05:25 09:47 WBC (3.8-10.6) k/uL RBC (3.80-5.40) m/uL Hgb (11.4-16.0) gm/dL Hct (34.0-46.0) % MCHC (31.0-37.0) g/dL RDW (11.5-15.5) % Plt Count (150-450) k/uL Neutrophils # (1.3-7.7) k/uL Neutrophils # (Manual) (1.3-7.7) k/uL Lymphocytes # (1.0-4.8) k/uL Lymphocytes # (Manual) (1.0-4.8) k/uL Monocytes # (Manual) (0-1.0) k/uL PT (9.0-12.0) sec INR (<1.2) APTT (22.0-30.0) sec ABG pH (7.35-7.45) ABG pCO2 (35-45) mmHg ABG pO2 (83-108) mmHg ABG HCO3 (21-25) mmol/L ABG Total CO2 (19-24) mmol/L ABG O2 Saturation (94-97) % ABG Lactic Acid 18.6 H* (0.5-1.6) mmol/L Potassium (3.5-5.1) mmol/L Chloride (98-107) mmol/L Carbon Dioxide (22-30) mmol/L BUN (7-17) mg/dL Creatinine (0.52-1.04) mg/dL Glucose (74-99) mg/dL POC Glucose (mg/dL) 61 L (75-99) mg/dL Calcium (8.4-10.2) mg/dL Phosphorus (2.5-4.5) mg/dL Magnesium (1.6-2.3) mg/dL Total Bilirubin (0.2-1.3) mg/dL AST (14-36) U/L ALT (9-52) U/L Ammonia 75 H (<30) umol/L Total Protein (6.3-8.2) g/dL Albumin (3.5-5.0) g/dL Crossmatch Assessment and Plan Assessment: Multiorgan and system failure, liver failure failure renal failure, heart failure Shock liver with severe coagulopathy Acute tubular necrosis with acute renal failure Acute blood loss anemia and upper GI bleed Severe hyperkalemia Status post cardiac arrest with evidence of discharge on AICD likely primary cardiac process with cardiac arrest Aspiration pneumonia with a developing right upper lobe consolidation Profound respiratory and metabolic acidosis related to cardiac arrest Small to moderate pericardial effusion Small bowel obstruction related to abandon in addition status post laparoscopy lysis of bands and adhesions Bilateral nodular infiltrate with some of them early cavitary appearance Acute COPD exacerbation Bilateral pneumonia Mediastinal lymphadenopathy likely reactive lymphadenopathy Uncontrolled hypertension hypertensive cardiovascular disease Abdominal aortic aneurysm and ascending thoracic aneurysm Severe valvular heart disease with mitral regurgitation with prior history of surgeries Acute on chronic systolic heart failure ejection fraction of 20% Plan: Vasopressor support as needed with fluid resuscitation Ventilator adjustment broad-spectrum antibiotics with IV Zosyn and vancomycin Proceed with DO NOT RESUSCITATE, likely comfort care measures once family is agreed and reached up on, awaiting their advice the meantime we'll continue supportive care Bicarb drip, aggressive rehydration correction of severe hyperkalemia Breathing treatments IV antibiotics Rest as noted above Time with Patient: Greater than 30
[2018-01-27] MEDS: SODIUM BICARB 8.4% 50 ML SYR (1 MEQ/ML) IV SCH ×2 (11:27→16:02)
[2018-01-27 11:54] LABS: Glucose,Whole Blood 102 mg/dL (75-99)
[2018-01-27 12:07] LABS: ABG Base Excess -12.9 mmol/L; ABG HCO3 14 mmol/L (21-25); ABG Oxygen Saturation 93.6 % (94-97); ABG PCO2 30 mmHg (35-45); ABG PH 7.27 (7.35-7.45); ABG PO2 70 mmHg (83-108); ABG TCO2 15 mmol/L (19-24)
[2018-01-27 12:12] LABS: Glucose,Whole Blood 109 mg/dL (75-99)
[2018-01-27 12:36] LABS: INR 3.4 (<1.2); Partial Thromboplastin Time 52.7 sec (22.0-30.0); Prothrombin Time 30.3 sec (9.0-12.0)
[2018-01-27 12:42] LABS: Anisocytosis Slight; HCT 32.2 % (34.0-46.0); Hypochromasia Slight; MCH 28.9 pg (25.0-35.0); MCHC 33.8 g/dL (31.0-37.0); MCV 85.4 fL (80.0-100.0); Mean Platelet Volume 8.5; Poikilocytosis Moderate; RBC 3.77 m/uL (3.80-5.40); RDW 16.3 % (11.5-15.5)
[2018-01-27 12:43] LABS: HGB 10.9 gm/dL (11.4-16.0)
[2018-01-27 12:44] LABS: Platelet Count 96 k/uL (150-450)
[2018-01-27 12:46] LABS: Lactic Acid, Venous 19.2 mmol/L (0.7-2.0)
[2018-01-27 12:47] LABS: Band Neutrophils % 15 %; Lymphocytes # (M) 0.27 k/uL (1.0-4.8); Metamyelocytes # (M) 0.09 k/uL (0); Metamyelocytes % 1 %; Monocytes # (M) 0.45 k/uL (0-1.0); Neutrophils % (M) 76 %; Nucleated Red Blood Cells 6 /100 WBC (0-0); Total Cells Counted 100; WBC 8.9 k/uL (3.8-10.6)
--- NOTE | 2018-01-27 12:50 | P.PN ---
Subjective Progress Note Date: 01/27/18 This is a 67-year-old female with a known history of COPD, ischemic cardiomyopathy status post AICD, congestive heart failure, myocardial infarction with coronary disease and cardiac stents, severe mitral regurgitation with clip. She presents to the hospital with a three-day complaint of cough and shortness of breath and pleuritic chest pain. Patient is wheezing and increased shortness of breath with activity. She presented to the emergency room for further evaluation. She's found have an elevated d- dimer. Computed tomography scan of the chest shows no PE. Does revealing new suspicious left lower lobe superior segment pulmonary nodule measuring 1.1 cm and multifocal left-sided focal pleural thickening and subpleural nodules. Mediastinal adenopathy is also suspicious. Parabronchial coughing and mucus plugging in association with by basilar airspace disease may represent bronchitis and postobstructive atelectasis although early pneumonia is possible. Also partial visualization of the mid abdominal aortic aneurysm and descending thoracic aortic aneurysm. Patient has been started on IV steroids and IV antibiotics for an acute COPD exacerbation and possible pneumonia. White count was 11.1 and pulmonary service has been consulted. Patient denies any fever chills or sweats. Denies any nausea or vomiting. Denies any bowel movement changes or urinary symptoms. 01/13/2018 patient is status post bronchoscopy. She reports some improvement in her cough and shortness of breath. She is complaining of muscle cramping in her back. Also complaining of constipation. Cardiology will be consulted for a moderate pericardial effusion noted on echo. Patient's blood pressures also been elevated. Her lisinopril will be increased. 01/14/2018 blood pressures were elevated yesterday: Lisinopril was increased to 10 mg daily. Blood pressures are showing improvement this morning. She is still having a productive cough with thick phlegm. Reports improvement in her shortness of breath. Cytology was negative for any malignant cells. Pulmonary service is following. Cardiology also consulted regards to the pericardial effusion. They are checking a sed rate level to rule out pericarditis. Patient also complaining of constipation. no bowel movement with the lactulose. Enema will be ordered. Patient denies any chest pain. Reports some improvement in her cough. Denies any nausea or vomiting. Denies any burning with urination. Patient asking for increase in her [place]. At home she takes it as needed. 01/17/2018 patient still complaining of abdominal Cramping and distention. She had a computed tomography scan of the abdomen showing diffuse mild dilation of the small bowel containing fluid throughout without transition point with air and stool seen throughout the entirety of the non-dilated colon suggestive of a small bowel ileus or early partial small bowel obstruction. Patient also had a moderate urinary bladder distention without wall thickening noted as well as her chronic right-sided hydronephrosis and abdominal aortic aneurysm. And a right middle lobe airspace disease with bronchiolitis and small airway disease of inflammatory or infectious etiology. Surgical service will be consulted. Post void residual was checked and found to have 466 mL's. Sampson catheter inserted. Urinalysis with culture and sensitivity will also be checked. White count up at 22.9 and the patient is also on prednisone. Sodium was 130. Creatinine 1.11. We'll place her on normal saline at 50 mL an hour. Patient's last bowel movement was yesterday prior to CAT scan. However, patient reports that bones that she has had have been liquid. She did have one episode of vomiting. 01/18/2018 patient was seen by surgical service started on subset enemas and lactulose. Patient was able to have 2 very small bowel movements. She reports amidst just small pieces of stool. She's having a lot of abdominal cramping. Denies any further vomiting. Reports that her breathing and cough are much better. Has Sampson catheter in place for urinary retention. Urology has been consulted. Denies any chest pain. 01/20/2018 patient is status post laparoscopic lysis of adhesions and evidence of ileus with Dr. Olivia. She is postop day #1. NG tube remains in place. With brown fecal material present. She has not passed gas or had bowel movement after surgery. Pain is improving. Denies any nausea or vomiting. Denies any chest pain or shortness of breath. Sampson catheter remains in place. 01/21/2018 postop day #2. NG tube removed and Sampson catheter removed. Patient currently on ice chips. She is hungry and asking when she'll be able to start diet. She is passing some gas. No bowel movement yet. Denies any nausea or vomiting. Denies any chest pain or shortness of breath. Has not urinated yet 01/24/2018 patient has been hypotensive required fluid boluses last night and again this morning. Lisinopril was discontinued. Lasix was held this morning. Continue to monitor blood pressures. Patient also seen by surgical service she is passing gas and had a bowel movement yesterday. Currently on a regular diet. Denies any nausea or vomiting. Still having some abdominal pain. She is complaining of some chest pressure in the center of her chest troponin and EKG ordered this morning. Urinating without difficulty. 01/25/2018 patient evaluated this morning after nurse helped get her off of the bedside commode after urinating. Patient was very pale and weak. She Just Didn 't Feel Right. Patient Reported Being Short of Breath and Started to Tense up. Almost having seizure-like activity. Didn't she was not following any commands. She became unresponsive and unable to get her blood pressure. She had no pulse. BAMBI LEACH was called. CPR was started. Patient did require to be intubated. Possible AICD discharge. Patient was transferred to the ICU. [employer] was notified. Cardiology was consulted. Patient's hemoglobin is at 7.8. She'll be receiving a unit of blood. Earlier today she had an episode of vomiting. The emesis contained solid pieces of food from last night did. She also has had a bowel movement. White count has jumped up to 18.7. Sodium 132. Slight elevation in her AST and, ALT likely related to poor perfusion to the liver due to hypotension. 01/27/2018 patient remains in the ICU and ventilated. She remains unresponsive and she is off the propofol drip. Case discussed with Dr. Samuel ICU drum carrier. Patient's overall condition is very poor. The family has agreed to make patient a no code. Arterial blood gases are showing a profound metabolic acidosis patient has remained on a bicarb drip and also requiring epinephrine drip in which she has gone up on. Her abdomen is more distended. She has multiorgan failure. Echo shows an ejection fraction of less than 20% and a moderate pericardial effusion. Patient was seen by cardiothoracic surgery. Patient's family is meeting about proceeding with comfort care. We'll await their decision Objective - Vital Signs Vital signs: Vital Signs Temp 98.6 F 01/27/18 10:27 Pulse 101 H 01/27/18 11:23 Resp 0 L 01/27/18 11:48 BP 126/52 01/27/18 10:27 Pulse Ox 95 01/27/18 11:50 Intake & Output 01/26/18 01/27/18 01/27/18 18:59 06:59 18:59 Intake Total 2175.614 5704.044 2030.429 Output Total 1190 650 5 Balance 287.958 1134.044 2025.429 Weight 63.4 kg Intake: IV 5450 1250 Dextrose 5% in Water 1, 1200 500 000 ml @ 100 mls/hr IV . [id number] [facility] with Sodium Bicarb (1 Meq/ml) 150 ml Rx#:[id number] Micafungin 100 mg In 100 Sodium Chloride 0.9% 100 ml @ 100 mls/hr IVPB HS [facility] Rx#:[id number] Piperacillin-Tazobactam 3 50 .375 gm In Dextrose/Water 1 50ml.bag @ 12.5 mls/hr IVPB Q8HR [facility] Rx#: [id number] Sodium Chloride 0.9% 1, 3400 000 ml @ 100 mls/hr IV . Q10H [facility] Rx#:[id number] Sodium Chloride 0.9% 1, 450 750 000 ml @ 150 mls/hr IV . Q6H40M [facility] Rx#:[id number] Vancomycin 1,000 mg In 250 Sodium Chloride 0.9% 250 ml @ 125 mls/hr IVPB Q16H [facility] Rx#:[id number] Intake, IV Titration 1555.614 224.044 160.429 Amount Dextrose 5% in Water 1, 400 000 ml @ 100 mls/hr IV . [id number] [facility] with Sodium Bicarb (1 Meq/ml) 150 ml Rx#:[id number] EPINEPHrine 2 mg In 102.264 66.055 68.418 Dextrose 5% in Water 250 ml @ 2 MCG/MIN 15.12 mls/ hr IV .[id number] [facility] Rx#: [id number] Norepinephrin 16 mg-0.9% 250.000 157.989 92.011 Ns Pmx 16 mg In 250 ml @ Titrate IV .Q0M [facility] Rx#: [id number] Propofol 1,000 mg In 3.35 Empty Bag 1 bag @ Titrate IV .Q0M [facility] Rx#: [id number] Sodium Chloride 0.9% 1, 300 000 ml @ 100 mls/hr IV . Q10H [facility] Rx#:[id number] Sodium Chloride 0.9% 1, 500 000 ml @ 100 mls/hr IV . Q10H [facility] Rx#:[id number] Blood Product 620 620 Rc As-1 Unit 310 [id number] Rc As-1 Unit 310 [id number] Rc As-1 Unit 310 [id number] Rc As-3 Unit 310 [id number] Other 30 Output: Gastric Drainage 50 600 Urine 440 50 5 Oral Regurgitation 700 Other: Voiding Method Indwelling Catheter Indwelling Catheter Indwelling Catheter ABP, PAP, CO, CI - Last Documented Arterial Blood Pressure 115/47 - Exam Head normocephalic Neck supple Lungs diminished coarse breath sounds Heart regular rate and rhythm S1-S2, no rub or gallop Abdomen is distended bruising noted along the left side Extremities no edema Neuro on the vent and unresponsive - Labs CBC & Chem 7: 01/27/18 05:25 01/27/18 05:25 Labs: Abnormal Lab Results - Last 24 Hours (Table) 01/25/18 01/26/18 01/26/18 Range/Units 11:51 12:53 13:48 WBC (3.8-10.6) k/uL RBC (3.80-5.40) m/uL Hgb (11.4-16.0) gm/dL Hct (34.0-46.0) % MCHC (31.0-37.0) g/dL RDW (11.5-15.5) % Plt Count (150-450) k/uL Neutrophils # (1.3-7.7) k/uL Lymphocytes # (1.0-4.8) k/uL PT (9.0-12.0) sec INR (<1.2) APTT (22.0-30.0) sec ABG pH (7.35-7.45) ABG pCO2 (35-45) mmHg ABG pO2 (83-108) mmHg ABG HCO3 (21-25) mmol/L ABG Total CO2 (19-24) mmol/L ABG O2 Saturation (94-97) % ABG Lactic Acid (0.5-1.6) mmol/L Potassium (3.5-5.1) mmol/L Chloride (98-107) mmol/L Carbon Dioxide (22-30) mmol/L BUN (7-17) mg/dL Creatinine (0.52-1.04) mg/dL Glucose (74-99) mg/dL POC Glucose (mg/dL) 60 L 123 H (75-99) mg/dL Calcium (8.4-10.2) mg/dL Phosphorus (2.5-4.5) mg/dL Magnesium (1.6-2.3) mg/dL Total Bilirubin (0.2-1.3) mg/dL AST (14-36) U/L ALT (9-52) U/L Ammonia (<30) umol/L Total Protein (6.3-8.2) g/dL Albumin (3.5-5.0) g/dL Crossmatch See Detail 01/26/18 01/26/18 01/26/18 Range/Units 15:46 15:55 16:00 WBC 28.9 H* (3.8-10.6) k/uL RBC 3.14 L (3.80-5.40) m/uL Hgb 8.6 L D (11.4-16.0) gm/dL Hct 28.4 L (34.0-46.0) % MCHC 30.3 L (31.0-37.0) g/dL RDW 16.5 H (11.5-15.5) % Plt Count (150-450) k/uL Neutrophils # 27.1 H (1.3-7.7) k/uL Lymphocytes # (1.0-4.8) k/uL PT (9.0-12.0) sec INR (<1.2) APTT (22.0-30.0) sec ABG pH 7.00 L* (7.35-7.45) ABG pCO2 25 L (35-45) mmHg ABG pO2 133 H (83-108) mmHg ABG HCO3 6 L* (21-25) mmol/L ABG Total CO2 7 L (19-24) mmol/L ABG O2 Saturation 98.0 H (94-97) % ABG Lactic Acid (0.5-1.6) mmol/L Potassium (3.5-5.1) mmol/L Chloride (98-107) mmol/L Carbon Dioxide (22-30) mmol/L BUN (7-17) mg/dL Creatinine (0.52-1.04) mg/dL Glucose (74-99) mg/dL POC Glucose (mg/dL) 208 H (75-99) mg/dL Calcium (8.4-10.2) mg/dL Phosphorus (2.5-4.5) mg/dL Magnesium (1.6-2.3) mg/dL Total Bilirubin (0.2-1.3) mg/dL AST (14-36) U/L ALT (9-52) U/L Ammonia (<30) umol/L Total Protein (6.3-8.2) g/dL Albumin (3.5-5.0) g/dL Crossmatch 01/26/18 01/26/18 01/26/18 Range/Units 16:00 16:00 20:44 WBC (3.8-10.6) k/uL RBC (3.80-5.40) m/uL Hgb (11.4-16.0) gm/dL Hct (34.0-46.0) % MCHC (31.0-37.0) g/dL RDW (11.5-15.5) % Plt Count (150-450) k/uL Neutrophils # (1.3-7.7) k/uL Lymphocytes # (1.0-4.8) k/uL PT (9.0-12.0) sec INR (<1.2) APTT (22.0-30.0) sec ABG pH (7.35-7.45) ABG pCO2 (35-45) mmHg ABG pO2 (83-108) mmHg ABG HCO3 (21-25) mmol/L ABG Total CO2 (19-24) mmol/L ABG O2 Saturation (94-97) % ABG Lactic Acid 16.7 H* (0.5-1.6) mmol/L Potassium 6.0 H (3.5-5.1) mmol/L Chloride (98-107) mmol/L Carbon Dioxide 8 L* (22-30) mmol/L BUN 28 H (7-17) mg/dL Creatinine 1.79 H (0.52-1.04) mg/dL Glucose 186 H (74-99) mg/dL POC Glucose (mg/dL) 233 H (75-99) mg/dL Calcium 6.8 L (8.4-10.2) mg/dL Phosphorus 11.6 H* (2.5-4.5) mg/dL Magnesium 2.5 H (1.6-2.3) mg/dL Total Bilirubin 2.5 H (0.2-1.3) mg/dL AST 67769 H (14-36) U/L ALT >19222 H (9-52) U/L Ammonia (<30) umol/L Total Protein 3.9 L (6.3-8.2) g/dL Albumin 1.9 L (3.5-5.0) g/dL Crossmatch 01/26/18 01/26/18 01/26/18 Range/Units 20:45 20:45 20:45 WBC 24.5 H (3.8-10.6) k/uL RBC 2.87 L (3.80-5.40) m/uL Hgb 8.0 L (11.4-16.0) gm/dL Hct 25.8 L (34.0-46.0) % MCHC (31.0-37.0) g/dL RDW 16.8 H (11.5-15.5) % Plt Count (150-450) k/uL Neutrophils # 22.8 H (1.3-7.7) k/uL Lymphocytes # (1.0-4.8) k/uL PT (9.0-12.0) sec INR (<1.2) APTT (22.0-30.0) sec ABG pH (7.35-7.45) ABG pCO2 (35-45) mmHg ABG pO2 (83-108) mmHg ABG HCO3 (21-25) mmol/L ABG Total CO2 (19-24) mmol/L ABG O2 Saturation (94-97) % ABG Lactic Acid 19.9 H* (0.5-1.6) mmol/L Potassium 5.9 H (3.5-5.1) mmol/L Chloride (98-107) mmol/L Carbon Dioxide 8 L* (22-30) mmol/L BUN 28 H (7-17) mg/dL Creatinine 2.00 H (0.52-1.04) mg/dL Glucose 210 H (74-99) mg/dL POC Glucose (mg/dL) (75-99) mg/dL Calcium 7.3 L (8.4-10.2) mg/dL Phosphorus 12.2 H* (2.5-4.5) mg/dL Magnesium 2.7 H (1.6-2.3) mg/dL Total Bilirubin 3.1 H (0.2-1.3) mg/dL AST >58712 H (14-36) U/L ALT >14700 H (9-52) U/L Ammonia (<30) umol/L Total Protein 3.5 L (6.3-8.2) g/dL Albumin 1.8 L (3.5-5.0) g/dL Crossmatch 01/26/18 01/26/18 01/26/18 Range/Units 20:45 20:45 21:08 WBC (3.8-10.6) k/uL RBC (3.80-5.40) m/uL Hgb (11.4-16.0) gm/dL Hct (34.0-46.0) % MCHC (31.0-37.0) g/dL RDW (11.5-15.5) % Plt Count (150-450) k/uL Neutrophils # (1.3-7.7) k/uL Lymphocytes # (1.0-4.8) k/uL PT 29.7 H (9.0-12.0) sec INR 3.3 H (<1.2) APTT 46.0 H (22.0-30.0) sec ABG pH 7.01 L* (7.35-7.45) ABG pCO2 28 L (35-45) mmHg ABG pO2 125 H (83-108) mmHg ABG HCO3 7 L* (21-25) mmol/L ABG Total CO2 8 L (19-24) mmol/L ABG O2 Saturation 97.5 H (94-97) % ABG Lactic Acid (0.5-1.6) mmol/L Potassium (3.5-5.1) mmol/L Chloride (98-107) mmol/L Carbon Dioxide (22-30) mmol/L BUN (7-17) mg/dL Creatinine (0.52-1.04) mg/dL Glucose (74-99) mg/dL POC Glucose (mg/dL) (75-99) mg/dL Calcium (8.4-10.2) mg/dL Phosphorus (2.5-4.5) mg/dL Magnesium (1.6-2.3) mg/dL Total Bilirubin (0.2-1.3) mg/dL AST (14-36) U/L ALT (9-52) U/L Ammonia 75 H (<30) umol/L Total Protein (6.3-8.2) g/dL Albumin (3.5-5.0) g/dL Crossmatch 01/27/18 01/27/18 01/27/18 Range/Units 00:19 04:30 05:22 WBC (3.8-10.6) k/uL RBC (3.80-5.40) m/uL Hgb (11.4-16.0) gm/dL Hct (34.0-46.0) % MCHC (31.0-37.0) g/dL RDW (11.5-15.5) % Plt Count (150-450) k/uL Neutrophils # (1.3-7.7) k/uL Lymphocytes # (1.0-4.8) k/uL PT (9.0-12.0) sec INR (<1.2) APTT (22.0-30.0) sec ABG pH 7.10 L* (7.35-7.45) ABG pCO2 28 L (35-45) mmHg ABG pO2 (83-108) mmHg ABG HCO3 9 L* (21-25) mmol/L ABG Total CO2 9 L (19-24) mmol/L ABG O2 Saturation (94-97) % ABG Lactic Acid (0.5-1.6) mmol/L Potassium (3.5-5.1) mmol/L Chloride (98-107) mmol/L Carbon Dioxide (22-30) mmol/L BUN (7-17) mg/dL Creatinine (0.52-1.04) mg/dL Glucose (74-99) mg/dL POC Glucose (mg/dL) 218 H 132 H (75-99) mg/dL Calcium (8.4-10.2) mg/dL Phosphorus (2.5-4.5) mg/dL Magnesium (1.6-2.3) mg/dL Total Bilirubin (0.2-1.3) mg/dL AST (14-36) U/L ALT (9-52) U/L Ammonia (<30) umol/L Total Protein (6.3-8.2) g/dL Albumin (3.5-5.0) g/dL Crossmatch 01/27/18 01/27/18 01/27/18 Range/Units 05:25 05:25 05:25 WBC 17.0 H (3.8-10.6) k/uL RBC 2.55 L (3.80-5.40) m/uL Hgb 7.0 L* (11.4-16.0) gm/dL Hct 22.7 L (34.0-46.0) % MCHC 30.7 L (31.0-37.0) g/dL RDW 17.3 H (11.5-15.5) % Plt Count 135 L (150-450) k/uL Neutrophils # 15.6 H (1.3-7.7) k/uL Lymphocytes # 0.8 L (1.0-4.8) k/uL PT 29.9 H (9.0-12.0) sec INR 3.3 H (<1.2) APTT 48.1 H (22.0-30.0) sec ABG pH (7.35-7.45) ABG pCO2 (35-45) mmHg ABG pO2 (83-108) mmHg ABG HCO3 (21-25) mmol/L ABG Total CO2 (19-24) mmol/L ABG O2 Saturation (94-97) % ABG Lactic Acid (0.5-1.6) mmol/L Potassium 6.2 H* (3.5-5.1) mmol/L Chloride 108 H (98-107) mmol/L Carbon Dioxide 10 L* (22-30) mmol/L BUN 28 H (7-17) mg/dL Creatinine 2.28 H (0.52-1.04) mg/dL Glucose 113 H (74-99) mg/dL POC Glucose (mg/dL) (75-99) mg/dL Calcium 5.6 L* (8.4-10.2) mg/dL Phosphorus 11.3 H* (2.5-4.5) mg/dL Magnesium (1.6-2.3) mg/dL Total Bilirubin 3.3 H (0.2-1.3) mg/dL AST >36082 H (14-36) U/L ALT >70119 H (9-52) U/L Ammonia (<30) umol/L Total Protein 3.2 L (6.3-8.2) g/dL Albumin 1.6 L (3.5-5.0) g/dL Crossmatch 01/27/18 01/27/18 01/27/18 Range/Units 05:25 05:25 09:47 WBC (3.8-10.6) k/uL RBC (3.80-5.40) m/uL Hgb (11.4-16.0) gm/dL Hct (34.0-46.0) % MCHC (31.0-37.0) g/dL RDW (11.5-15.5) % Plt Count (150-450) k/uL Neutrophils # (1.3-7.7) k/uL Lymphocytes # (1.0-4.8) k/uL PT (9.0-12.0) sec INR (<1.2) APTT (22.0-30.0) sec ABG pH (7.35-7.45) ABG pCO2 (35-45) mmHg ABG pO2 (83-108) mmHg ABG HCO3 (21-25) mmol/L ABG Total CO2 (19-24) mmol/L ABG O2 Saturation (94-97) % ABG Lactic Acid 18.6 H* (0.5-1.6) mmol/L Potassium (3.5-5.1) mmol/L Chloride (98-107) mmol/L Carbon Dioxide (22-30) mmol/L BUN (7-17) mg/dL Creatinine (0.52-1.04) mg/dL Glucose (74-99) mg/dL POC Glucose (mg/dL) 61 L (75-99) mg/dL Calcium (8.4-10.2) mg/dL Phosphorus (2.5-4.5) mg/dL Magnesium (1.6-2.3) mg/dL Total Bilirubin (0.2-1.3) mg/dL AST (14-36) U/L ALT (9-52) U/L Ammonia 75 H (<30) umol/L Total Protein (6.3-8.2) g/dL Albumin (3.5-5.0) g/dL Crossmatch 01/27/18 01/27/18 01/27/18 Range/Units 11:50 12:03 12:05 WBC (3.8-10.6) k/uL RBC (3.80-5.40) m/uL Hgb (11.4-16.0) gm/dL Hct (34.0-46.0) % MCHC (31.0-37.0) g/dL RDW (11.5-15.5) % Plt Count (150-450) k/uL Neutrophils # (1.3-7.7) k/uL Lymphocytes # (1.0-4.8) k/uL PT (9.0-12.0) sec INR (<1.2) APTT (22.0-30.0) sec ABG pH 7.27 L (7.35-7.45) ABG pCO2 30 L (35-45) mmHg ABG pO2 70 L (83-108) mmHg ABG HCO3 14 L (21-25) mmol/L ABG Total CO2 15 L (19-24) mmol/L ABG O2 Saturation 93.6 L (94-97) % ABG Lactic Acid (0.5-1.6) mmol/L Potassium (3.5-5.1) mmol/L Chloride (98-107) mmol/L Carbon Dioxide (22-30) mmol/L BUN (7-17) mg/dL Creatinine (0.52-1.04) mg/dL Glucose (74-99) mg/dL POC Glucose (mg/dL) 102 H 109 H (75-99) mg/dL Calcium (8.4-10.2) mg/dL Phosphorus (2.5-4.5) mg/dL Magnesium (1.6-2.3) mg/dL Total Bilirubin (0.2-1.3) mg/dL AST (14-36) U/L ALT (9-52) U/L Ammonia (<30) umol/L Total Protein (6.3-8.2) g/dL Albumin (3.5-5.0) g/dL Crossmatch Assessment and Plan Assessment: 1. Cardiac arrest: Patient required CPR and intubation 2. Multiorgan failure: With renal failure, liver failure and heart failure 3. Shocked liver with severe coagulopathy 4. Acute tubular necrosis with acute renal failure 5. Acute blood loss anemia with upper GI bleed 6. Possible ischemic bowel with distended abdomen 7. Aspiration pneumonia continue antibiotics IV Zosyn and vancomycin 8. Respiratory and metabolic acidosis secondary to cardiac arrest 9. Moderate pericardial effusion evaluated by vascular surgery. Not recommending any surgical intervention 10. Acute COPD exacerbation present on admission 11. Bilateral pneumonia: Patient status post bronchoscopy during this admission. Cytology negative for malignant cells. Bronchial wash cultures showing normal respiratory nati and [place] which is likely colonization. 12. Elevated d-dimer on admission CTA negative for PE 13. History of abdominal aortic aneurysm 14. History of ischemic cardiomyopathy status post AICD placement 15. History of myocardial infarction with coronary disease and cardiac stents 16. Intra-abdominal adhesions with ileus status post diagnostic laparoscopy with laparoscopic lysis of adhesions with Dr. Olivia. Patient followed by surgical service. She's currently on a regular diet. Having bowel movements and passing gas. Pain controlled 17. Acute on chronic systolic congestive heart failure: EF 20% 18. Hyperkalemia patient receiving Kayexalate CODE STATUS has been changed to no code. Awaiting family's decision in regards to comfort care and hospice. Patient's overall prognosis is poor I performed an examination of the patient and discussed their management with the physician Pcb Designer. I have reviewed the Physician Pcb Designer's notes and agree with the documented findings and plan of care
[2018-01-27 13:08] LABS: Ionized Calcium 2.9 mg/dL (4.5-5.3)
[2018-01-27 13:10] VITALS: TEMP 97.9
[2018-01-27 13:21] LABS: Albumin 1.6 g/dL (3.5-5.0); Alkaline Phosphatase 130 U/L (38-126); Anion Gap 28 mmol/L; Blood Urea Nitrogen 29 mg/dL (7-17); Carbon Dioxide 15 mmol/L (22-30); Chloride 105 mmol/L (98-107); Glucose 100 mg/dL (74-99); Magnesium 2.4 mg/dL (1.6-2.3); Potassium 6.1 mmol/L (3.5-5.1); Sodium 148 mmol/L (137-145); Total Bilirubin 3.8 mg/dL (0.2-1.3); Total Protein 3.2 g/dL (6.3-8.2)
[2018-01-27 13:27] LABS: ALT >10000 U/L (9-52); AST >15000 U/L (14-36); Phosphorus 11.4 mg/dL (2.5-4.5)
[2018-01-27 13:30] LABS: Calcium 5.2 mg/dL (8.4-10.2)
[2018-01-27] MEDS ORDERED: CALCIUM CHLORIDE 2,000 MG in SODIUM CHLORIDE 0.9% 100 ML IV STA (13:55)
[2018-01-27 14:45] LABS: Glucose,Whole Blood 109 mg/dL (75-99)
[2018-01-27] MEDS: MORPHINE SULFATE/PF 10MG/10ML VL IVP PRN (16:27)
[2018-01-27] MEDS ORDERED: MORPHINE SULFATE/PF 10MG/10ML VL IVP PRN ×2 (16:34→16:35)
--- NOTE | 2018-01-27 16:48 | P.PN ---
Progress Note - Text Progress Note Date: 01/27/18 Patient's family was present at the bedside when I came in to assess the patient. Her hemodynamic instability persisted throughout the night. She is now oliguric. Meeting between the payroll tax specialist and the family led to a decision for comfort measures. They are in the process of initiating that at this time. I did discuss the situation with the and her son. Any questions they had were answered.
[2018-01-27 17:35] VITALS: PULSE 49; RESP 0
--- NOTE | 2018-01-27 18:31 | PN ---
PROGRESS NOTE FOLLOW-UP NOTE: Marilou is a 67-year-old lady who was admitted to ICU following cardiac arrest. The patient has multiple medical problems, including pneumonia, COPD exacerbation, chronic systolic heart failure, mitral regurgitation, status post clip, pericardial effusion. She initially presented to hospital with abdominal pain and bowel obstruction and underwent surgery and lysis of adhesions. She subsequently developed cardiorespiratory arrest and had to be intubated, vented, and in the ICU. She has had problems with multiple organ failure, probably secondary to sepsis. Her white cell count, which short up to 40, has come down to 17. Hemoglobin is 7. She is in renal failure with a creatinine of 2.2. Potassium is 6.2. Lactic acid is elevated. Liver enzymes are high. ASSESSMENT: 1. Status post cardiac arrest. 2. Multi-organ failure. 3. Coagulopathy with liver failure. 4. Pericardial effusion. 5. Severe hypertension. PLAN: Patient's prognosis is guarded. No further cardiac intervention at this time. MMODL / IJN: [id number] /
[2018-01-27] MEDS ORDERED: PIPERACILLIN-TAZOBACTAM 3.375 GM in DEXTROSE/WATER 1 50ML.BAG IVPB SCH (21:00)
--- NOTE | 2018-01-27 23:21 | P.PN ---
Subjective Progress Note Date: 01/27/18 Principal diagnosis: Septic shock 67-year-old female who appears considerably older than her stated age is found in the intensive care unit intubated and mechanically ventilated but no longer sedated after her third cardiopulmonary arrest. It is related that admission the patient had a three-day history of increasing cough and shortness of breath as well as some chest pain. She underwent CT scanning of her chest at admission was concerns to pneumonia and possible pulmonary nodules and mediastinal lymphadenopathy. The patient was treated with antibiotics and steroids for exacerbation of COPD and pneumonia. The patient also has significant complication of ischemic cardiomyopathy with AICD in place with chronic systolic congestive heart failure as well as a mitral valve click placed in 2017. The patient remains profoundly ill at this time with acidosis with a pH of about 7, respiratory failure, developing renal failure, hepatic failure and ongoing hypotension requiring multiple vasopressors. With concerns to pneumonia and sepsis the infectious diseases consultation was requested 01/27/2018 reveals the patient to have even further worsening of her status. 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 The patient's sister and brother are present, they're waiting for the family members to arrive as they are contemplating terminal wean. Objective - Vital Signs Vital signs: Vital Signs Temp 97.9 F 01/27/18 12:00 Pulse 49 L 01/27/18 17:30 Resp 0 L 01/27/18 17:30 BP 126/52 01/27/18 10:27 Pulse Ox 95 01/27/18 15:13 Intake & Output 01/27/18 01/27/18 01/28/18 06:59 18:59 06:59 Intake Total 5704.044 3483.192 Output Total 650 8 Balance 5054.044 3475.192 Weight 63.4 kg Intake: IV 5450 2650 Dextrose 5% in Water 1, 1200 1000 000 ml @ 100 mls/hr IV . [id number] DAMIAN with Sodium Bicarb (1 Meq/ml) 150 ml Rx#:[id number] Micafungin 100 mg In 100 Sodium Chloride 0.9% 100 ml @ 100 mls/hr IVPB HS DAMIAN Rx#:[id number] Piperacillin-Tazobactam 3 50 .375 gm In Dextrose/Water 1 50ml.bag @ 12.5 mls/hr IVPB Q8HR DAMIAN Rx#: [id number] Sodium Chloride 0.9% 1, 3400 000 ml @ 100 mls/hr IV . Q10H DAMIAN Rx#:[id number] Sodium Chloride 0.9% 1, 450 1650 000 ml @ 150 mls/hr IV . Q6H40M DAMIAN Rx#:[id number] Vancomycin 1,000 mg In 250 Sodium Chloride 0.9% 250 ml @ 125 mls/hr IVPB Q16H DAMIAN Rx#:[id number] Intake, IV Titration 224.044 213.192 Amount EPINEPHrine 2 mg In 66.055 121.181 Dextrose 5% in Water 250 ml @ 2 MCG/MIN 15.12 mls/ hr IV .[id number] DAMIAN Rx#: [id number] Norepinephrin 16 mg-0.9% 157.989 92.011 Ns Pmx 16 mg In 250 ml @ Titrate IV .Q0M DAMIAN Rx#: [id number] Blood Product 620 Rc As-1 Unit 310 [id number] Rc As-1 Unit 310 [id number] Other 30 Output: Gastric Drainage 600 Urine 50 8 Other: Voiding Method Indwelling Catheter Indwelling Catheter ABP, PAP, CO, CI - Last Documented Arterial Blood Pressure - Exam 67-year-old woman who appears much older than her stated age. HEENT: Anicteric conjunctiva are pink and moist nasal mucosa grossly intact without significant lesions, there is no thrush. Multiple fractured carious teeth Neck: The neck is supple without significant lymphadenopathy or thyromegaly. Lungs: Symmetrical air entry is noted, coarse mechanical sounds from the ventilator transmitted through all lung clarke no significant wheezing is noted Heart: Regular rate and rhythm with an audible S1-S2, no S3 or S4 were appreciated 2/6 systolic murmur left sternal border to the axilla is noted no click or rub, PMI was nondisplaced. Abdomen: The abdomen is silent, mildly distended, not distinctly firm no organomegaly is noted, patient has no response to abdominal exam Extremities: The patient has hypothermia and extremities are cool to touch, pulses are palpable but diminished, no kerline necrosis is noted at this time, no significant blisters noted at this time Neuro: Patient is no longer sedated but has no response to the observer, pupils were not reactive no, response to other stimuli - Labs CBC & Chem 7: 01/27/18 12:00 01/27/18 12:00 Labs: Abnormal Lab Results - Last 24 Hours (Table) 01/25/18 01/27/18 01/27/18 Range/Units 11:51 00:19 04:30 WBC (3.8-10.6) k/uL RBC (3.80-5.40) m/uL Hgb (11.4-16.0) gm/dL Hct (34.0-46.0) % MCHC (31.0-37.0) g/dL RDW (11.5-15.5) % Plt Count (150-450) k/uL Neutrophils # (1.3-7.7) k/uL Neutrophils # (Manual) (1.3-7.7) k/uL Lymphocytes # (1.0-4.8) k/uL Lymphocytes # (Manual) (1.0-4.8) k/uL Metamyelocytes # (Man) (0) k/uL Nucleated RBCs (0-0) /100 WBC PT (9.0-12.0) sec INR (<1.2) APTT (22.0-30.0) sec ABG pH 7.10 L* (7.35-7.45) ABG pCO2 28 L (35-45) mmHg ABG pO2 (83-108) mmHg ABG HCO3 9 L* (21-25) mmol/L ABG Total CO2 9 L (19-24) mmol/L ABG O2 Saturation (94-97) % ABG Lactic Acid (0.5-1.6) mmol/L Sodium (137-145) mmol/L Potassium (3.5-5.1) mmol/L Chloride (98-107) mmol/L Carbon Dioxide (22-30) mmol/L BUN (7-17) mg/dL Creatinine (0.52-1.04) mg/dL Glucose (74-99) mg/dL POC Glucose (mg/dL) 218 H (75-99) mg/dL Plasma Lactic Acid Harmeet (0.7-2.0) mmol/L Calcium (8.4-10.2) mg/dL Ionized Calcium Noé (4.5-5.3) mg/dL Phosphorus (2.5-4.5) mg/dL Magnesium (1.6-2.3) mg/dL Total Bilirubin (0.2-1.3) mg/dL AST (14-36) U/L ALT (9-52) U/L Alkaline Phosphatase (38-126) U/L Ammonia (<30) umol/L Total Protein (6.3-8.2) g/dL Albumin (3.5-5.0) g/dL Crossmatch See Detail 01/27/18 01/27/18 01/27/18 Range/Units 05:22 05:25 05:25 WBC 17.0 H (3.8-10.6) k/uL RBC 2.55 L (3.80-5.40) m/uL Hgb 7.0 L* (11.4-16.0) gm/dL Hct 22.7 L (34.0-46.0) % MCHC 30.7 L (31.0-37.0) g/dL RDW 17.3 H (11.5-15.5) % Plt Count 135 L (150-450) k/uL Neutrophils # 15.6 H (1.3-7.7) k/uL Neutrophils # (Manual) (1.3-7.7) k/uL Lymphocytes # 0.8 L (1.0-4.8) k/uL Lymphocytes # (Manual) (1.0-4.8) k/uL Metamyelocytes # (Man) (0) k/uL Nucleated RBCs (0-0) /100 WBC PT (9.0-12.0) sec INR (<1.2) APTT (22.0-30.0) sec ABG pH (7.35-7.45) ABG pCO2 (35-45) mmHg ABG pO2 (83-108) mmHg ABG HCO3 (21-25) mmol/L ABG Total CO2 (19-24) mmol/L ABG O2 Saturation (94-97) % ABG Lactic Acid (0.5-1.6) mmol/L Sodium (137-145) mmol/L Potassium 6.2 H* (3.5-5.1) mmol/L Chloride 108 H (98-107) mmol/L Carbon Dioxide 10 L* (22-30) mmol/L BUN 28 H (7-17) mg/dL Creatinine 2.28 H (0.52-1.04) mg/dL Glucose 113 H (74-99) mg/dL POC Glucose (mg/dL) 132 H (75-99) mg/dL Plasma Lactic Acid Harmeet (0.7-2.0) mmol/L Calcium 5.6 L* (8.4-10.2) mg/dL Ionized Calcium Noé (4.5-5.3) mg/dL Phosphorus 11.3 H* (2.5-4.5) mg/dL Magnesium (1.6-2.3) mg/dL Total Bilirubin 3.3 H (0.2-1.3) mg/dL AST >37606 H (14-36) U/L ALT >99481 H (9-52) U/L Alkaline Phosphatase (38-126) U/L Ammonia (<30) umol/L Total Protein 3.2 L (6.3-8.2) g/dL Albumin 1.6 L (3.5-5.0) g/dL Crossmatch 01/27/18 01/27/18 01/27/18 Range/Units 05:25 05:25 05:25 WBC (3.8-10.6) k/uL RBC (3.80-5.40) m/uL Hgb (11.4-16.0) gm/dL Hct (34.0-46.0) % MCHC (31.0-37.0) g/dL RDW (11.5-15.5) % Plt Count (150-450) k/uL Neutrophils # (1.3-7.7) k/uL Neutrophils # (Manual) (1.3-7.7) k/uL Lymphocytes # (1.0-4.8) k/uL Lymphocytes # (Manual) (1.0-4.8) k/uL Metamyelocytes # (Man) (0) k/uL Nucleated RBCs (0-0) /100 WBC PT 29.9 H (9.0-12.0) sec INR 3.3 H (<1.2) APTT 48.1 H (22.0-30.0) sec ABG pH (7.35-7.45) ABG pCO2 (35-45) mmHg ABG pO2 (83-108) mmHg ABG HCO3 (21-25) mmol/L ABG Total CO2 (19-24) mmol/L ABG O2 Saturation (94-97) % ABG Lactic Acid 18.6 H* (0.5-1.6) mmol/L Sodium (137-145) mmol/L Potassium (3.5-5.1) mmol/L Chloride (98-107) mmol/L Carbon Dioxide (22-30) mmol/L BUN (7-17) mg/dL Creatinine (0.52-1.04) mg/dL Glucose (74-99) mg/dL POC Glucose (mg/dL) (75-99) mg/dL Plasma Lactic Acid Harmeet (0.7-2.0) mmol/L Calcium (8.4-10.2) mg/dL Ionized Calcium Noé (4.5-5.3) mg/dL Phosphorus (2.5-4.5) mg/dL Magnesium (1.6-2.3) mg/dL Total Bilirubin (0.2-1.3) mg/dL AST (14-36) U/L ALT (9-52) U/L Alkaline Phosphatase (38-126) U/L Ammonia 75 H (<30) umol/L Total Protein (6.3-8.2) g/dL Albumin (3.5-5.0) g/dL Crossmatch 01/27/18 01/27/18 01/27/18 Range/Units 09:47 11:50 12:00 WBC (3.8-10.6) k/uL RBC 3.77 L (3.80-5.40) m/uL Hgb 10.9 L D (11.4-16.0) gm/dL Hct 32.2 L (34.0-46.0) % MCHC (31.0-37.0) g/dL RDW 16.3 H (11.5-15.5) % Plt Count 96 L (150-450) k/uL Neutrophils # (1.3-7.7) k/uL Neutrophils # (Manual) 8.00 H (1.3-7.7) k/uL Lymphocytes # (1.0-4.8) k/uL Lymphocytes # (Manual) 0.27 L (1.0-4.8) k/uL Metamyelocytes # (Man) 0.09 H (0) k/uL Nucleated RBCs 6 H (0-0) /100 WBC PT (9.0-12.0) sec INR (<1.2) APTT (22.0-30.0) sec ABG pH (7.35-7.45) ABG pCO2 (35-45) mmHg ABG pO2 (83-108) mmHg ABG HCO3 (21-25) mmol/L ABG Total CO2 (19-24) mmol/L ABG O2 Saturation (94-97) % ABG Lactic Acid (0.5-1.6) mmol/L Sodium (137-145) mmol/L Potassium (3.5-5.1) mmol/L Chloride (98-107) mmol/L Carbon Dioxide (22-30) mmol/L BUN (7-17) mg/dL Creatinine (0.52-1.04) mg/dL Glucose (74-99) mg/dL POC Glucose (mg/dL) 61 L 102 H (75-99) mg/dL Plasma Lactic Acid Harmeet (0.7-2.0) mmol/L Calcium (8.4-10.2) mg/dL Ionized Calcium Noé (4.5-5.3) mg/dL Phosphorus (2.5-4.5) mg/dL Magnesium (1.6-2.3) mg/dL Total Bilirubin (0.2-1.3) mg/dL AST (14-36) U/L ALT (9-52) U/L Alkaline Phosphatase (38-126) U/L Ammonia (<30) umol/L Total Protein (6.3-8.2) g/dL Albumin (3.5-5.0) g/dL Crossmatch 01/27/18 01/27/18 01/27/18 Range/Units 12:00 12:00 12:00 WBC (3.8-10.6) k/uL RBC (3.80-5.40) m/uL Hgb (11.4-16.0) gm/dL Hct (34.0-46.0) % MCHC (31.0-37.0) g/dL RDW (11.5-15.5) % Plt Count (150-450) k/uL Neutrophils # (1.3-7.7) k/uL Neutrophils # (Manual) (1.3-7.7) k/uL Lymphocytes # (1.0-4.8) k/uL Lymphocytes # (Manual) (1.0-4.8) k/uL Metamyelocytes # (Man) (0) k/uL Nucleated RBCs (0-0) /100 WBC PT 30.3 H (9.0-12.0) sec INR 3.4 H (<1.2) APTT 52.7 H (22.0-30.0) sec ABG pH (7.35-7.45) ABG pCO2 (35-45) mmHg ABG pO2 (83-108) mmHg ABG HCO3 (21-25) mmol/L ABG Total CO2 (19-24) mmol/L ABG O2 Saturation (94-97) % ABG Lactic Acid (0.5-1.6) mmol/L Sodium 148 H (137-145) mmol/L Potassium 6.1 H (3.5-5.1) mmol/L Chloride (98-107) mmol/L Carbon Dioxide 15 L (22-30) mmol/L BUN 29 H (7-17) mg/dL Creatinine 2.69 H (0.52-1.04) mg/dL Glucose 100 H (74-99) mg/dL POC Glucose (mg/dL) (75-99) mg/dL Plasma Lactic Acid Harmeet 19.2 H* (0.7-2.0) mmol/L Calcium 5.2 L* (8.4-10.2) mg/dL Ionized Calcium Noé 2.9 L* (4.5-5.3) mg/dL Phosphorus 11.4 H* (2.5-4.5) mg/dL Magnesium 2.4 H (1.6-2.3) mg/dL Total Bilirubin 3.8 H (0.2-1.3) mg/dL AST >97626 H (14-36) U/L ALT >40386 H (9-52) U/L Alkaline Phosphatase 130 H (38-126) U/L Ammonia 80 H (<30) umol/L Total Protein 3.2 L (6.3-8.2) g/dL Albumin 1.6 L (3.5-5.0) g/dL Crossmatch 03/22/18 03/22/18 03/22/18 Range/Units 12:03 12:05 14:42 WBC (3.8-10.6) k/uL RBC (3.80-5.40) m/uL Hgb (11.4-16.0) gm/dL Hct (34.0-46.0) % MCHC (31.0-37.0) g/dL RDW (11.5-15.5) % Plt Count (150-450) k/uL Neutrophils # (1.3-7.7) k/uL Neutrophils # (Manual) (1.3-7.7) k/uL Lymphocytes # (1.0-4.8) k/uL Lymphocytes # (Manual) (1.0-4.8) k/uL Metamyelocytes # (Man) (0) k/uL Nucleated RBCs (0-0) /100 WBC PT (9.0-12.0) sec INR (<1.2) APTT (22.0-30.0) sec ABG pH 7.27 L (7.35-7.45) ABG pCO2 30 L (35-45) mmHg ABG pO2 70 L (83-108) mmHg ABG HCO3 14 L (21-25) mmol/L ABG Total CO2 15 L (19-24) mmol/L ABG O2 Saturation 93.6 L (94-97) % ABG Lactic Acid (0.5-1.6) mmol/L Sodium (137-145) mmol/L Potassium (3.5-5.1) mmol/L Chloride (98-107) mmol/L Carbon Dioxide (22-30) mmol/L BUN (7-17) mg/dL Creatinine (0.52-1.04) mg/dL Glucose (74-99) mg/dL POC Glucose (mg/dL) 109 H 109 H (75-99) mg/dL Plasma Lactic Acid Harmeet (0.7-2.0) mmol/L Calcium (8.4-10.2) mg/dL Ionized Calcium Noé (4.5-5.3) mg/dL Phosphorus (2.5-4.5) mg/dL Magnesium (1.6-2.3) mg/dL Total Bilirubin (0.2-1.3) mg/dL AST (14-36) U/L ALT (9-52) U/L Alkaline Phosphatase (38-126) U/L Ammonia (<30) umol/L Total Protein (6.3-8.2) g/dL Albumin (3.5-5.0) g/dL Crossmatch Laboratory Results WBC 8.9 k/uL (3.8-10.6) 01/27/18 12:00 RBC 3.77 m/uL (3.80-5.40) L 01/27/18 12:00 Hgb 10.9 gm/dL (11.4-16.0) L D 01/27/18 12:00 Hct 32.2 % (34.0-46.0) L 01/27/18 12:00 MCV 85.4 fL (80.0-100.0) 01/27/18 12:00 MCH 28.9 pg (25.0-35.0) 01/27/18 12:00 MCHC 33.8 g/dL (31.0-37.0) 01/27/18 12:00 RDW 16.3 % (11.5-15.5) H 01/27/18 12:00 Plt Count 96 k/uL (150-450) L 01/27/18 12:00 Neutrophils % 92 % 01/27/18 05:25 Neutrophils % (Manual) 76 % 01/27/18 12:00 Band Neutrophils % 15 % 01/27/18 12:00 Lymphocytes % 5 % 01/27/18 05:25 Lymphocytes % (Manual) 3 % 01/27/18 12:00 Monocytes % 3 % 01/27/18 05:25 Monocytes % (Manual) 5 % 01/27/18 12:00 Eosinophils % 0 % 01/27/18 05:25 Basophils % 0 % 01/27/18 05:25 Metamyelocytes % 1 % 01/27/18 12:00 Neutrophils # 15.6 k/uL (1.3-7.7) H 01/27/18 05:25 Neutrophils # (Manual) 8.00 k/uL (1.3-7.7) H 01/27/18 12:00 Lymphocytes # 0.8 k/uL (1.0-4.8) L 01/27/18 05:25 Lymphocytes # (Manual) 0.27 k/uL (1.0-4.8) L 01/27/18 12:00 Monocytes # 0.4 k/uL (0-1.0) 01/27/18 05:25 Monocytes # (Manual) 0.45 k/uL (0-1.0) 01/27/18 12:00 Eosinophils # 0.0 k/uL (0-0.7) 01/27/18 05:25 Basophils # 0.0 k/uL (0-0.2) 01/27/18 05:25 Metamyelocytes # (Man) 0.09 k/uL (0) H 01/27/18 12:00 Nucleated RBCs 6 /100 WBC (0-0) H 01/27/18 12:00 Manual Slide Review Performed 01/27/18 12:00 Dimorphic RBCs Present 01/26/18 08:00 Hypochromasia Slight 01/27/18 12:00 Poikilocytosis Moderate 01/27/18 12:00 Poikilocytosis (manual Present 01/26/18 04:01 Anisocytosis Slight 01/27/18 12:00 Microcytosis Slight 01/24/18 07:45 Crenated Cell Present 01/26/18 08:00 Fragmented RBCs Present 01/26/18 08:00 ESR 5 mm/hr (0-20) 01/13/18 07:30 PT 30.3 sec (9.0-12.0) H 01/27/18 12:00 INR 3.4 (<1.2) H 01/27/18 12:00 APTT 52.7 sec (22.0-30.0) H 01/27/18 12:00 D-Dimer 2.74 mg/L FEU (<0.60) H 01/10/18 15:20 Sample Site atif 01/27/18 12:03 ABG pH 7.27 (7.35-7.45) L 01/27/18 12:03 ABG pCO2 30 mmHg (35-45) L 01/27/18 12:03 ABG pO2 70 mmHg (83-108) L 01/27/18 12:03 ABG HCO3 14 mmol/L (21-25) L 01/27/18 12:03 ABG Total CO2 15 mmol/L (19-24) L 01/27/18 12:03 ABG O2 Saturation 93.6 % (94-97) L 01/27/18 12:03 ABG Base Excess -12.9 mmol/L 01/27/18 12:03 Jonah Test Yes 01/27/18 12:03 ABG Lactic Acid 18.6 mmol/L (0.5-1.6) H* 01/27/18 05:25 FiO2 40 % 01/27/18 12:03 Sodium 148 mmol/L (137-145) H 01/27/18 12:00 Potassium 6.1 mmol/L (3.5-5.1) H 01/27/18 12:00 Chloride 105 mmol/L (98-107) 01/27/18 12:00 Carbon Dioxide 15 mmol/L (22-30) L 01/27/18 12:00 Anion Gap 28 mmol/L 01/27/18 12:00 BUN 29 mg/dL (7-17) H 01/27/18 12:00 Creatinine 2.69 mg/dL (0.52-1.04) H 01/27/18 12:00 Est GFR (MDRD) Af Amer >60 (>60 ml/min/1.73 sqM) 01/10/18 15:20 Est GFR (MDRD) Non-Af >60 (>60 ml/min/1.73 sqM) 01/10/18 15:20 Est GFR (CKD-EPI)AfAm 20 (>60 ml/min/1.73 sqM) 01/27/18 12:00 Est GFR (CKD-EPI)NonAf 18 (>60 ml/min/1.73 sqM) 01/27/18 12:00 Glucose 100 mg/dL (74-99) H 01/27/18 12:00 POC Glucose (mg/dL) 109 mg/dL (75-99) H 01/27/18 14:42 POC Glu Whey Department Operator ID Jeri Martinez 01/27/18 14:[address] Glu mg/dL 111 01/12/18 08:25 Hemoglobin A1c 5.5 % (4.0-6.0) 01/12/18 08:25 Lactic Ac Sepsis Rflx Y 01/27/18 12:48 Plasma Lactic Acid Harmeet 19.2 mmol/L (0.7-2.0) H* 01/27/18 12:00 Calcium 5.2 mg/dL (8.4-10.2) L* 01/27/18 12:00 Ionized Calcium Noé 2.9 mg/dL (4.5-5.3) L* 01/27/18 12:00 Phosphorus 11.4 mg/dL (2.5-4.5) H* 01/27/18 12:00 Magnesium 2.4 mg/dL (1.6-2.3) H 01/27/18 12:00 Iron 7 ug/dL (50-170) L 01/11/18 08:52 TIBC 319 ug/dL (228-460) 01/11/18 08:52 Iron Saturation 2.19 (12.00-45.00) L 01/11/18 08:52 Ferritin 80.6 ng/mL (10.0-291.0) 01/11/18 08:52 Total Bilirubin 3.8 mg/dL (0.2-1.3) H 01/27/18 12:00 AST >80038 U/L (14-36) H 01/27/18 12:00 ALT >25881 U/L (9-52) H 01/27/18 12:00 Alkaline Phosphatase 130 U/L (38-126) H 01/27/18 12:00 Ammonia 80 umol/L (<30) H 01/27/18 12:00 Total Creatine Kinase 38 U/L (30-135) 01/10/18 15:20 CK-MB (CK-2) 0.5 ng/mL (0.0-2.4) 01/10/18 15:20 CK-MB (CK-2) Rel Index 1.3 01/10/18 15:20 Troponin I <0.012 ng/mL (0.000-0.034) 01/24/18 11:08 NT-Pro-B Natriuret Pep 6310 pg/mL 01/10/18 15:20 Total Protein 3.2 g/dL (6.3-8.2) L 01/27/18 12:00 Albumin 1.6 g/dL (3.5-5.0) L 01/27/18 12:00 Urine Color Light Yellow 01/17/18 11:14 Urine Appearance Clear (Clear) 01/17/18 11:14 Urine pH 7.5 (5.0-8.0) 01/17/18 11:14 Ur Specific Coleman 1.008 (1.001-1.035) 01/17/18 11:14 Urine Protein Negative (Negative) 01/17/18 11:14 Urine Glucose (UA) Negative (Negative) 01/17/18 11:14 Urine Ketones Negative (Negative) 01/17/18 11:14 Urine Blood Negative (Negative) 01/17/18 11:14 Urine Nitrite Negative (Negative) 01/17/18 11:14 Urine Bilirubin Negative (Negative) 01/17/18 11:14 Urine Urobilinogen <2.0 mg/dL (<2.0) 01/17/18 11:14 Ur Leukocyte Esterase Negative (Negative) 01/17/18 11:14 Virus Source See Below 01/12/18 14:25 Viral Test See Below 01/12/18 14:25 Virus Analysis Interp See Below 01/12/18 14:25 Miscellaneous Test Legionella PCR 01/12/18 14:25 Misc Test Result See comment 01/12/18 14:25 Blood Type B Positive 01/25/18 11:51 Blood Type Confirm B Positive 01/19/18 08:45 Blood Type Recheck No 01/25/18 11:51 Antibody Screen NEGATIVE 01/25/18 11:51 Crossmatch See Detail 01/25/18 11:51 Spec Expiration Date 01/28/2018235001/25/18 11:51 Microbiology 01/12/18 14:25 Bronchoalviolar Lavage - Right Acid Fast Bacilli Smear - Final 01/12/18 14:25 Bronchoalviolar Lavage - Right Acid Fast Bacilli Culture - Preliminary 01/17/18 11:14 Urine,Catheterized Urine Culture - Final 01/12/18 14:25 Bronchoalviolar Lavage - Right Fungal Culture - Preliminary La albicans 01/10/18 15:20 Blood Blood Culture - Final No Growth after 144 hours 01/12/18 14:25 Bronchoalviolar Lavage - Right Gram Stain - Final 01/12/18 14:25 Bronchoalviolar Lavage - Right Bronchial Washings Culture - Final Assessment and Plan (1) Multisystem organ failure Narrative/Plan: 67-year-old female who is now day 14 of her hospital stay has evidence of progressive decline of her status now with multisystem organ failure with persistent acidosis and hypotension requiring multiple vasopressors and development of hypothermia. There were concerns pneumonia and she is on broad-spectrum antibiotic therapy with Zosyn and vancomycin. With negative cultures appears to be adequate at this time. Patient has had abdominal complaints ulcer through the state and did undergo a laparoscopic evaluation with evidence of ileus. With her profound acidosis and abdominal abnormalities concerned to ischemic colitis. Above antibiotics are adequate however if therapy is to continue antifungal therapy can be added given the possibility of fungal translocation in the face of his ischemic colon. The patient has multisystem organ failure and has a very poor prognosis. The profound leukocytosis appears to be in the basis of the acidosis likely from the ischemic colitis. 01/27/2018 the patient is having her family gathering today and apparently a terminal weaning of that will occur later this afternoon. The sister is well aware of the overall situation and that her older sister will be passing later today. Family is comforted. Status: Acute Code(s): UQL9277 - SNOMED Code(s): 46191928 (2) Systolic and diastolic CHF, acute on chronic Status: Acute Code(s): I50.43 - ACUTE ON CHRONIC COMBINED SYSTOLIC AND DIASTOLIC HRT FAIL SNOMED Code(s): 985701717630443 (3) Lactic acidosis Status: Acute Code(s): E87.2 - ACIDOSIS SNOMED Code(s): 29084674 (4) Leukocytosis Status: Acute Code(s): D72.829 - ELEVATED WHITE BLOOD CELL COUNT, UNSPECIFIED SNOMED Code(s): 183276561
--- NOTE | 2018-02-01 14:40 | CDI ---
Last Revision, October 2017 Documentation Clarification Form Date: 02/01/18 From: Anju Barry Phone: If you have a question regarding this query, please contact Jaclyn Redman at [phone]. Admit Date: 01/12/2018 3:27:00 PM Patient Name: Marilou Nuno Visit Number: [id number] Discharge Date:01/27/18 ATTENTION: The Clinical Documentation Specialists (CDI) and [facility] Coding Staff appreciate your assistance in clarifying documentation. Please respond to the clarification below the line at the bottom and electronically sign. The CDI & [facility] Coding staff will review the response and follow-up if needed. Please note: Queries are made part of the Legal Health Record. If you have any questions, please contact the author of this message via ITS. Dr. Kristin Gomes Post op hypotension suspect related to medication is documented in Dr. Olivia's progress note. Patient is now hypotensive requiring fluid boluses. Lisinopril discontinued and Lasix decrease to 40 mg daily is documented in your/Ashley Leslie progress notes on 01/24, 01/25, 01/26 and 01/27. Dr. Killian documented in his 01/26 and 01/27 progress notes that the patient was noted to have drop in blood pressure further and the propofol was discontinued and fluid bolus of 250 mL an hour crystalloid was given. Patient history/risk factors: Patient has a history of hypertension and had intra-abdominal adhesions with ileus. The patient underwent a diagnositc laparoscopy with lysis of adhesion. Clinical Indicators: Drop in blood pressure Vital Signs: BP on 01/25 - 01/26 was 80 - 99/44 - 74 Treatment: Discontinued propofol and lisinopril and gave fluid bolus of 250 mL/ hour crystalloid In your professional opinion, can you please clarify if the hypotension was due to the drugs? If so, please specify the drugs causing the hypotension. Other, please specify Unable to determine MTDD
--- NOTE | 2018-02-03 14:16 | P.DS ---
Providers Date of admission: 01/12/18 15:27 Expected date of discharge: 01/27/18 Attending physician: Kristin Gomes Consults: 01/10/18 16:59 Consult Physician Routine Consulting Provider: Constantin Samuel Consult Reason/Comments: COPD exacerbation, tracheobronchitis, pulmonary nodule Do you want consulting provider notified?: Yes 01/13/18 08:49 Consult Physician Routine Consulting Provider: Cornelius Ellis Consult Reason/Comments: moderated pericardial effusion Do you want consulting provider notified?: Yes 01/17/18 10:57 Consult Physician Routine Consulting Provider: Zack Olivia Consult Reason/Comments: possible small bowel obstruction Do you want consulting provider notified?: Yes 01/17/18 13:17 Consult Physician Routine Consulting Provider: Anish Frankel Consult Reason/Comments: urinary retention Do you want consulting provider notified?: Yes 01/20/18 10:02 Consult Physician Routine Consulting Provider: Anish Frankel Consult Reason/Comments: retention Do you want consulting provider notified?: Yes 01/25/18 10:50 Consult Physician Routine Consulting Provider: Yury Nunes Consult Reason/Comments: unresponsive, AICD fired Do you want consulting provider notified?: Yes 01/25/18 14:29 Consult Physician Routine Consulting Provider: Chinyere Vega Consult Reason/Comments: pericardial effusion Do you want consulting provider notified?: Already Contacted 01/26/18 12:10 Consult Physician Routine Consulting Provider: Jarret Worthy Consult Reason/Comments: sepsis Do you want consulting provider notified?: Yes Primary care physician: [facility] Hospital Course: Discharge diagnosis Preliminary cause of cardiac arrest 1. Cardiac arrest: Patient required CPR and intubation 2. Multiorgan failure: With renal failure, liver failure and heart failure 3. Shocked liver with severe coagulopathy 4. Acute tubular necrosis with acute renal failure 5. Acute blood loss anemia with upper GI bleed 6. Possible ischemic bowel with distended abdomen 7. Aspiration pneumonia continue antibiotics IV Zosyn and vancomycin 8. Respiratory and metabolic acidosis secondary to cardiac arrest 9. Moderate pericardial effusion evaluated by vascular surgery. Not recommending any surgical intervention 10. Acute COPD exacerbation present on admission 11. Bilateral pneumonia: Patient status post bronchoscopy during this admission. Cytology negative for malignant cells. Bronchial wash cultures showing normal respiratory nati and La which is likely colonization. 12. Elevated d-dimer on admission CTA negative for PE 13. History of abdominal aortic aneurysm 14. History of ischemic cardiomyopathy status post AICD placement 15. History of myocardial infarction with coronary disease and cardiac stents 16. Intra-abdominal adhesions with ileus status post diagnostic laparoscopy with laparoscopic lysis of adhesions with Dr. Olivia. Patient followed by surgical service. She's currently on a regular diet. Having bowel movements and passing gas. Pain controlled 17. Acute on chronic systolic congestive heart failure: EF 20% 18. Hyperkalemia patient receiving Kayexalate 19. Sepsis likely due to aspiration pneumonia. 20. Septic shock with hypotension due to aspiration pneumonia Hospital course This is a 67-year-old female with a known history of COPD, ischemic cardiomyopathy status post AICD, congestive heart failure, myocardial infarction with coronary disease and cardiac stents, severe mitral regurgitation with clip. She presents to the hospital with a three-day complaint of cough and shortness of breath and pleuritic chest pain. Patient is wheezing and increased shortness of breath with activity. She presented to the emergency room for further evaluation. She's found have an elevated d- dimer. Computed tomography scan of the chest shows no PE. Does revealing new suspicious left lower lobe superior segment pulmonary nodule measuring 1.1 cm and multifocal left-sided focal pleural thickening and subpleural nodules. Mediastinal adenopathy is also suspicious. Parabronchial coughing and mucus plugging in association with by basilar airspace disease may represent bronchitis and postobstructive atelectasis although early pneumonia is possible. Also partial visualization of the mid abdominal aortic aneurysm and descending thoracic aortic aneurysm. Patient has been started on IV steroids and IV antibiotics for an acute COPD exacerbation and possible pneumonia. White count was 11.1 and pulmonary service has been consulted. Patient denies any fever chills or sweats. Denies any nausea or vomiting. Denies any bowel movement changes or urinary symptoms. 01/13/2018 patient is status post bronchoscopy. She reports some improvement in her cough and shortness of breath. She is complaining of muscle cramping in her back. Also complaining of constipation. Cardiology will be consulted for a moderate pericardial effusion noted on echo. Patient's blood pressures also been elevated. Her lisinopril will be increased. 01/14/2018 blood pressures were elevated yesterday: Lisinopril was increased to 10 mg daily. Blood pressures are showing improvement this morning. She is still having a productive cough with thick phlegm. Reports improvement in her shortness of breath. Cytology was negative for any malignant cells. Pulmonary service is following. Cardiology also consulted regards to the pericardial effusion. They are checking a sed rate level to rule out pericarditis. Patient also complaining of constipation. no bowel movement with the lactulose. Enema will be ordered. Patient denies any chest pain. Reports some improvement in her cough. Denies any nausea or vomiting. Denies any burning with urination. Patient asking for increase in her Gooding. At home she takes it as needed. 01/17/2018 patient still complaining of abdominal Cramping and distention. She had a computed tomography scan of the abdomen showing diffuse mild dilation of the small bowel containing fluid throughout without transition point with air and stool seen throughout the entirety of the non-dilated colon suggestive of a small bowel ileus or early partial small bowel obstruction. Patient also had a moderate urinary bladder distention without wall thickening noted as well as her chronic right-sided hydronephrosis and abdominal aortic aneurysm. And a right middle lobe airspace disease with bronchiolitis and small airway disease of inflammatory or infectious etiology. Surgical service will be consulted. Post void residual was checked and found to have 466 mL's. Sampson catheter inserted. Urinalysis with culture and sensitivity will also be checked. White count up at 22.9 and the patient is also on prednisone. Sodium was 130. Creatinine 1.11. We'll place her on normal saline at 50 mL an hour. Patient's last bowel movement was yesterday prior to CAT scan. However, patient reports that bones that she has had have been liquid. She did have one episode of vomiting. 01/18/2018 patient was seen by surgical service started on subset enemas and lactulose. Patient was able to have 2 very small bowel movements. She reports amidst just small pieces of stool. She's having a lot of abdominal cramping. Denies any further vomiting. Reports that her breathing and cough are much better. Has Sampson catheter in place for urinary retention. Urology has been consulted. Denies any chest pain. 01/20/2018 patient is status post laparoscopic lysis of adhesions and evidence of ileus with Dr. Olivia. She is postop day #1. NG tube remains in place. With brown fecal material present. She has not passed gas or had bowel movement after surgery. Pain is improving. Denies any nausea or vomiting. Denies any chest pain or shortness of breath. Sampson catheter remains in place. 01/21/2018 postop day #2. NG tube removed and Sampson catheter removed. Patient currently on ice chips. She is hungry and asking when she'll be able to start diet. She is passing some gas. No bowel movement yet. Denies any nausea or vomiting. Denies any chest pain or shortness of breath. Has not urinated yet 01/24/2018 patient has been hypotensive required fluid boluses last night and again this morning. Lisinopril was discontinued. Lasix was held this morning. Continue to monitor blood pressures. Patient also seen by surgical service she is passing gas and had a bowel movement yesterday. Currently on a regular diet. Denies any nausea or vomiting. Still having some abdominal pain. She is complaining of some chest pressure in the center of her chest troponin and EKG ordered this morning. Urinating without difficulty. 01/25/2018 patient evaluated this morning after nurse helped get her off of the bedside commode after urinating. Patient was very pale and weak. She Just Didn 't Feel Right. Patient Reported Being Short of Breath and Started to Tense up. Almost having seizure-like activity. Didn't she was not following any commands. She became unresponsive and unable to get her blood pressure. She had no pulse. [facility] HANY was called. CPR was started. Patient did require to be intubated. Possible AICD discharge. Patient was transferred to the ICU. Reed Worker was notified. Cardiology was consulted. Patient's hemoglobin is at 7.8. She'll be receiving a unit of blood. Earlier today she had an episode of vomiting. The emesis contained solid pieces of food from last night did. She also has had a bowel movement. White count has jumped up to 18.7. Sodium 132. Slight elevation in her AST and, ALT likely related to poor perfusion to the liver due to hypotension. 01/27/2018 patient remains in the ICU and ventilated. She remains unresponsive and she is off the propofol drip. Case discussed with Dr. Samuel ICU container packer operator. Patient's overall condition is very poor. The family has agreed to make patient a no code. Arterial blood gases are showing a profound metabolic acidosis patient has remained on a bicarb drip and also requiring epinephrine drip in which she has gone up on. Her abdomen is more distended. She has multiorgan failure. Echo shows an ejection fraction of less than 20% and a moderate pericardial effusion. Patient was seen by cardiothoracic surgery. Patient's family is meeting about proceeding with comfort care. We'll await their decision Patient had evidence of cardiac arrest,multiorgan failure, aspiration pneumonia with evidence of sepsis and septic shock. Patient's overall condition was very poor and guarded. Family did wish to proceed with comfort care. Medications were discontinued. Patient had terminal wean. She 01/28/2008 at 18 :13 I performed an examination of the patient and discussed their management with the physician Oil Burner Repairer. I have reviewed the Physician Oil Burner Repairer's notes and agree with the documented findings and plan of care Patient Condition at Discharge: Stable Plan - Discharge Summary Discharge Rx Participant: No New Discharge Prescriptions: No Action Cholecalciferol [Vitamin D3] 5,000 unit PO DAILY Famotidine [Pepcid] 20 mg PO DAILY Docusate Sodium [Dok] 100 mg PO BID Clopidogrel [Plavix] 75 mg PO DAILY Atorvastatin [Lipitor] 80 mg PO HS Calcium Carbonate [Calcium] 600 mg PO DAILY HYDROcodone/APAP 7.5-325MG [Gooding 7.5-325] 1 tab PO DAILY PRN PRN Reason: Pain Aspirin EC [Ecotrin Low Dose] 81 mg PO DAILY Furosemide [Lasix] 40 mg PO BID@0900,1600 #60 tab Nitroglycerin Sl Tabs [Nitrostat] 0.4 mg SUBLINGUAL Q5M PRN #25 tab PRN Reason: Chest Pain Polyethylene Glycol 3350 [Miralax] 17 gm PO HS #30 powd.pack Lisinopril [Prinivil] 5 mg PO DAILY Denosumab [Prolia] 60 mg SQ Q180D Metoprolol Tartrate [Lopressor] 12.5 mg PO BID Fluticasone/Vilanterol [Breo Ellipta 200-25 Mcg INH] 1 puff INHALATION RT- DAILY Discharge Medication List Cholecalciferol [Vitamin D3] 5,000 unit PO DAILY 09/23/15 [History] Atorvastatin [Lipitor] 80 mg PO HS 01/08/17 [History] Clopidogrel [Plavix] 75 mg PO DAILY 01/08/17 [History] Docusate Sodium [Dok] 100 mg PO BID 01/08/17 [History] Famotidine [Pepcid] 20 mg PO DAILY 01/08/17 [History] Calcium Carbonate [Calcium] 600 mg PO DAILY 05/27/17 [History] HYDROcodone/APAP 7.5-325MG [Gooding 7.5-325] 1 tab PO DAILY PRN 05/27/17 [History] Aspirin EC [Ecotrin Low Dose] 81 mg PO DAILY 09/02/17 [History] Furosemide [Lasix] 40 mg PO BID@0900,1600 #60 tab 09/13/17 [Rx] Nitroglycerin Sl Tabs [Nitrostat] 0.4 mg SUBLINGUAL Q5M PRN #25 tab 09/13/17 [Rx ] Polyethylene Glycol 3350 [Miralax] 17 gm PO HS #30 powd.pack 09/13/17 [Rx] Denosumab [Prolia] 60 mg SQ Q180D 01/10/18 [History] Fluticasone/Vilanterol [Breo Ellipta 200-25 Mcg INH] 1 puff INHALATION RT-DAILY 01/10/18 [History] Lisinopril [Prinivil] 5 mg PO DAILY 01/10/18 [History] Metoprolol Tartrate [Lopressor] 12.5 mg PO BID 01/10/18 [History] Follow up Appointment(s)/Referral(s): Rama Joseph MD [Primary Care Provider] - 1-2 days Constantin Samuel MD [STAFF PHYSICIAN] - 1 Week Discharge Disposition: - Preliminary Cause of Preliminary Cause of : cardiac arrest
== END 2018-01-27 20:47 | disposition expired | DRG 166 ==
LOC: EC 14:30 → 5MS5E 16:59 → OBSVTOIN 01-12 15:27 → 6ICU 01-25 10:54
PROVIDERS: ADMIT Internal Medicine; ATTEND Internal Medicine
PROC: 0B9F8ZX Drainage of Right Lower Lung Lobe, Via Natural or Artificial Opening Endoscopic, Diagnostic (ICD-10-PCS; 2018-01-12)
PROC: 0DNW0ZZ Release Peritoneum, Open Approach (ICD-10-PCS; 2018-01-12)
PROC: 0B9C8ZX Drainage of Right Upper Lung Lobe, Via Natural or Artificial Opening Endoscopic, Diagnostic (ICD-10-PCS; 2018-01-12)
PROC: 0B9J8ZX Drainage of Left Lower Lung Lobe, Via Natural or Artificial Opening Endoscopic, Diagnostic (ICD-10-PCS; principal; 2018-01-12 08:00)
PROC: 5A1945Z Respiratory Ventilation, 24-96 Consecutive Hours (ICD-10-PCS; 2018-01-25)
PROC: 0BH17EZ Insertion of Endotracheal Airway into Trachea, Via Natural or Artificial Opening (ICD-10-PCS; 2018-01-25)
PROC: 4B02XTZ Measurement of Cardiac Defibrillator, External Approach (ICD-10-PCS; 2018-01-25)
PROC: 04HK33Z Insertion of Infusion Device into Right Femoral Artery, Percutaneous Approach (ICD-10-PCS; 2018-01-25)
PROC: 06HM33Z Insertion of Infusion Device into Right Femoral Vein, Percutaneous Approach (ICD-10-PCS; 2018-01-25)
DX: J18.9 Pneumonia, unspecified organism (principal); J96.01 Acute respiratory failure with hypoxia; K72.00 Acute and subacute hepatic failure without coma; N17.0 Acute kidney failure with tubular necrosis; R65.21 Severe sepsis with septic shock; A41.9 Sepsis, unspecified organism; I50.43 Acute on chronic combined systolic (congestive) and diastolic (congestive) heart failure; K55.9 Vascular disorder of intestine, unspecified; J44.0 Chronic obstructive pulmonary disease with (acute) lower respiratory infection; J44.1 Chronic obstructive pulmonary disease with (acute) exacerbation; K56.50 Intestinal adhesions [bands], unspecified as to partial versus complete obstruction; E87.4 Mixed disorder of acid-base balance; D68.9 Coagulation defect, unspecified; E87.1 Hypo-osmolality and hyponatremia; F11.20 Opioid dependence, uncomplicated; I13.0 Hypertensive heart and chronic kidney disease with heart failure and stage 1 through stage 4 chronic kidney disease, or unspecified chronic kidney disease; I31.3 Pericardial effusion (noninflammatory); K56.7 Ileus, unspecified; N13.30 Unspecified hydronephrosis; R18.8 Other ascites; D62 Acute posthemorrhagic anemia; K92.2 Gastrointestinal hemorrhage, unspecified; J69.0 Pneumonitis due to inhalation of food and vomit; R57.0 Cardiogenic shock; I71.2 Thoracic aortic aneurysm, without rupture; E87.5 Hyperkalemia; E16.2 Hypoglycemia, unspecified; E78.00 Pure hypercholesterolemia, unspecified; E78.5 Hyperlipidemia, unspecified; E87.6 Hypokalemia; G89.29 Other chronic pain; I08.3 Combined rheumatic disorders of mitral, aortic and tricuspid valves; I25.10 Atherosclerotic heart disease of native coronary artery without angina pectoris; I25.2 Old myocardial infarction; I25.5 Ischemic cardiomyopathy; I27.20 Pulmonary hypertension, unspecified; I71.4 Abdominal aortic aneurysm, without rupture; M81.0 Age-related osteoporosis without current pathological fracture; N32.89 Other specified disorders of bladder; T17.990A Other foreign object in respiratory tract, part unspecified in causing asphyxiation, initial encounter; M19.90 Unspecified osteoarthritis, unspecified site; M54.31 Sciatica, right side; M62.830 Muscle spasm of back; R59.0 Localized enlarged lymph nodes; R91.1 Solitary pulmonary nodule; K21.9 Gastro-esophageal reflux disease without esophagitis; E07.9 Disorder of thyroid, unspecified; I46.9 Cardiac arrest, cause unspecified; R11.10 Vomiting, unspecified; Z51.5 Encounter for palliative care; Z79.02 Long term (current) use of antithrombotics/antiplatelets; Z79.82 Long term (current) use of aspirin; Z79.899 Other long term (current) drug therapy; Z95.810 Presence of automatic (implantable) cardiac defibrillator; Z95.5 Presence of coronary angioplasty implant and graft; Z87.891 Personal history of nicotine dependence; Z87.442 Personal history of urinary calculi; Z87.01 Personal history of pneumonia (recurrent); Z91.041 Radiographic dye allergy status; Z96.652 Presence of left artificial knee joint; Z82.49 Family history of ischemic heart disease and other diseases of the circulatory system
CPT/HCPCS: 31624; 36415; 36600; 71045; 71275; 74019; 74021; 74176; 80053; 81003; 82140; 82330; 82550; 82553; 82728; 82805; 83036; 83540; 83550; 83605; 83735; 83880; 84100; 84132; 84484; 85025; 85379; 85610; 85652; 85730; 86850; 86900; 86901; 86920; 87040; 87070; 87086; 87102; 87116; 87205; 87206; 87252; 87496; 87498; 87502; 87529; 87541; 87634; 87798; 88108; 88305; 93005; 93306; 93979; 94002; 94003; 94640; 94760; 96374; 96375; 99285